=== PATIENT | male | born 1955 | race Caucasian/White ===

== ENCOUNTER 2018-06-28 07:22 | Day surgery (SDC) | payer OTHER, SELFPAY ==
[2018-06-28 08:02] VITALS: BP 122/78; PULSE 85; RESP 18; TEMP 36.8; O2SAT 97; BMI 35.2
[2018-06-28 08:11] LABS: Bedside Glucose 146 mg/dL (70-110)
--- NOTE | 2018-06-28 08:30 | COLBX_PTH ---
PATIENT: CLAY OWENS LOC: EN U#:[id number] AGE/SX: 63/M ROOM: RE06/28/[address]: Dr. Gerhard Rudd MD : 1955 BED: DIS: 06/28/2018 SPEC #: [id number] RECD: 06/28/18 10:09 STATUS: TRICE DUY #: [id number] DAVID: 06/28/18 08:[address]: Gerhard Rudd DEPT: SURGICAL PATHOLOGY RECD BY: Alexandru Early ENTERED: 06/28/18 10:58 SP TYPE: COLON BX LISETTE DR: Dr. Afshan Bennett MD Tissues: A - Transverse colon B - Descending colon C - Sigmoid colon biopsy D - Sigmoid colon biopsy Procedures: Surgery Specimen Level IV HEADER OPERATION: Colonoscopy - open access (MOD) PRE-OP DIAGNOSIS: Screening TISSUE SUBMITTED: A - Proximal transverse polyp biopsy, B - Descending colon polyp biopsy, C - Proximal sigmoid polyps (3), D - Distal sigmoid polyp biopsy MICROSCOPIC DIAGNOSIS A. Proximal transverse colon polyp, biopsy: Fragments of tubular adenoma. B. Descending colon polyp, biopsy: Fragments of tubular adenoma. C. Proximal sigmoid polyps, biopsy: Fragments of tubular adenoma. D. Distal sigmoid colon polyp, biopsy: Fragments of tubular adenoma. AM:jessy 07/01/18 MICROSCOPIC DESCRIPTION Slides are reviewed. GROSS DESCRIPTION A - Received in fixative is one container labeled with the patient's name and designated proximal transverse polyp biopsy. The specimen consists of two irregular fragments of light chisholm soft tissue that in aggregate measure 0.6 x 0.3 x 0.1 cm. The specimen is totally submitted in one cassette. B - Received in fixative is one container labeled with the patient's name and designated descending polyp. The specimen consists of multiple irregular fragments of light chisholm soft tissue that in aggregate measure 1 x 1 x 0.1 cm. The specimen is totally submitted in one cassette. C - Received in fixative is one container labeled with the patient's name and designated proximal sigmoid biopsy. The specimen consists of multiple irregular fragments of light chisholm soft tissue that in aggregate measure 1.5 x 1 x 0.2 cm. The specimen is totally submitted in one cassette. D - Received in fixative is one container labeled with the patient's name and designated distal sigmoid polyp biopsy. The specimen consists of multiple irregular fragments of light chisholm soft tissue that in aggregate measure 1.5 x 0.5 x 0.1 cm. The specimen is totally submitted in one cassette. / SJ:jessy 06/28/18 TC:5 CPT: 30881 x4
--- NOTE | 2018-06-28 09:04 | HP.PCM_ITS ---
Problem List (1) Screening for intestinal cancer Status: Acute History of Present Illness Date of Admission: 06/28/18 The patient is a 63 year old M who presents via our open access program. He is diabetic. He has had atherosclerotic cardiovascular disease and has 2 coronary stents. He has been on Brilinta but that is been on hold for 5 days. He denies chest pain or dyspnea. No shortness of breath. He is able to climb a flight of stairs. He denies abdominal pain bright red blood per rectum or melena. He otherwise enjoys good health. 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) Antihyperlipidemic Hypertension (Chronic) Atherosclerotic heart disease of [place] coronary artery without angina pectoris (Chronic) HLD (hyperlipidemia) (Chronic) Coronary artery disease (Chronic) DM2 (diabetes mellitus, type 2) (Chronic) Medical History: Medical History (Last Updated 07/27/17 @ 13:45 by Abbey Simmons) Left ventricular hypertrophy (Chronic) I51.7 Left atrial enlargement (Chronic) I51.7 Old anterior wall myocardial infarction (Chronic) I25.2 Hypertension (Chronic) I10 Atherosclerotic heart disease of [place] coronary artery without angina pectoris (Chronic) I25.10 HLD (hyperlipidemia) (Chronic) E78.5 Coronary artery disease (Chronic) I25.10 Allergies No Known Allergies Allergy (Verified 06/25/18 11:55) Home Medications: Ambulatory Orders Medication Instructions Recorded Aspirin [Aspirin, Baby] 81 mg PO DAILY@0800 10/11/15 Atorvastatin Calcium [Lipitor] 20 mg PO QHS 10/11/15 Insulin Detemir [Levemir FlexPen] 28 units SC QHS 10/11/15 nitroglycerin 0.4 mg sublingual 0.4 mg SUBLINGUAL Q5M PRN 08/14/17 tablet metoprolol succinate ER 25 mg 25 mg PO DAILY #30 tab 08/17/17 tablet,extended release 24 hr ticagrelor 90 mg tablet 90 mg PO BID #60 tab 08/17/17 lisinopril 5 mg tablet 5 mg PO DAILY #30 tab 09/10/17 Glipizide 5 mg PO BID 06/25/18 Metformin HCl [Glucophage] 1,000 mg PO BIDCM 06/25/18 Surgical History: Surgical History (Last Updated 06/10/18 @ 09:01 by Sharmila Phelan) Presence of cardiac and vascular implant and graft (Chronic) Onset Date: ~07/14/13 Z95.9 PTCA with ROXANNE in mid LAD 07/14/13 H/O: vasectomy (Resolved) Z98.52 Surgical History: - - percucataneous coronary intervention Psychiatric History: No pertinent psych hx Smoking Status: Former smoker Tobacco Use: Non-smoker - *Family History Paternal Family History: Family History (Last Reviewed 08/17/17 @ 09:43 by Abbey Simmons) Mother CAD (coronary artery disease) Father Cancer Brother Afib History Items: Cancer - lung Sibling Family History: Family History (Last Reviewed 08/17/17 @ 09:43 by Abbey Simmons) Mother CAD (coronary artery disease) Father Cancer Brother Afib History Items: Cancer - lung cancer Review of Systems Constitutional: Denies: Anorexia HEENT: Denies: Difficulty Swallowing Cardiovascular: Denies: Chest Pain Respiratory: Denies: Cough Gastrointestinal: Denies: Abdominal Pain Neurological: Denies: Balance problems Endocrine: Denies: Change in Body Habitus VTE Information - Inpt Only VTE Present on Admission: No Patient Problems: Active and Suspected Problems (Last Updated 07/27/17 @ 13:45 by Abbey Simmons) Screening for intestinal cancer (Acute) - Physical Exam General: Alert, Oriented x3, Cooperative, No apparent distress Neck: Supple Lungs: Clear to auscultation Cardiovascular: Regular rate, Regular Rhythm Abdomen: Bowel Sounds Present, Soft, Non Tender, Obese Extremities: No clubbing, No Calf Tenderness Musculoskeletal: No Tenderness to Palpation of Joints or Extremities Psych/Mental Status: Normal Affect Vital Signs Temp Pulse Resp BP Pulse Ox 98.3 F 85 18 122/78 H 97 06/28/18 08:02 06/28/18 08:02 06/28/18 08:02 06/28/18 08:02 06/28/18 08:02 Oxygen Delivery Method Room Air Weight: 260 lb Body Mass Index (BMI) 35.2 POC Glucose 06/28/18 07:59 POC Glucose 146 H Assessment/Plan All Active Problems (Last Updated 07/27/17 @ 13:45 by Abbey Simmons) Screening for intestinal cancer (Acute) Ischemic cardiomyopathy (Resolved) H/O: vasectomy (Resolved) Chest pain (Acute) I am recommending a screening colonoscopy with possible biopsy or polypectomy as indicated. He is aware of the technique, benefits, risks and alternatives. He presents via open access. We will proceed as noted. Gerhard Rudd M.D., F.A.C.S.
[2018-06-28 09:47] VITALS: BP 119/65; BP 120/95; BP 122/78; BP 124/73; BP 125/65; BP 125/72; BP 126/71; BP 134/111; BP 134/66; BP 140/62; BP 164/76; BP 182/85; PULSE 77; RESP 16; TEMP 36.8; O2SAT 100; O2SAT 95; O2SAT 96; O2SAT 99
[2018-06-28 09:50] VITALS: BP 122/78; BP 123/75; PULSE 74; RESP 16; O2SAT 94
--- NOTE | 2018-06-28 09:53 | OP.ENDO_ITS ---
06/28/2018 [facility] Re : Colonoscopy procedure for Salvador Keene Michelle Bennett This procedure was performed on Thursday, June 28, 2018. My impressions and recommendations are as follows: Impressions : - One 6 mm polyp in the proximal transverse colon, removed with a cold biopsy forceps. Resected and retrieved. - One 6 mm polyp in the descending colon, removed with a hot snare. Resected and retrieved. Clip was placed. - One 6 mm polyp in the proximal sigmoid colon, removed with a cold biopsy forceps. Resected and retrieved. Clip was placed. - One 5 mm polyp in the sigmoid colon, removed with a cold biopsy forceps. Resected and retrieved. - One 7 mm polyp in the sigmoid colon, removed with a cold biopsy forceps. Resected and retrieved. - One 6 mm polyp in the distal sigmoid colon, removed with a cold biopsy forceps. Resected and retrieved. - Diverticulosis in the entire examined colon. Recommendations : - Discharge patient to home. - Resume previous diet. - Resume anticoagulant medication at prior dose tomorrow. - Telephone my office for pathology results in 1 week. - Repeat colonoscopy in 1 year for surveillance. My findings are described in the full procedure note, which is enclosed. If I can be of further assistance, please feel free to contact me at Doctor phone number(s): Work: . Sincerely, Gerhard Rudd MD 06/28/2018 9:52:47 AM This report has been signed electronically.
[2018-06-28 09:55] VITALS: BP 116/64; BP 122/78; PULSE 73; RESP 16; O2SAT 94
[2018-06-28 10:00] VITALS: BP 106/70; BP 122/78; PULSE 73; RESP 16; TEMP 36.3; O2SAT 94; O2SAT 97
[2018-06-28 10:38] VITALS: BP 122/78
== END 2018-06-28 10:38 | disposition home or self-care (01) ==
LOC: EN 07:23 → AC 07:25
PROVIDERS: Family Provider Internal Medicine; PCP Internal Medicine; Referring Provider Internal Medicine; Visit Provider Surgery
PROC: 0DJD8ZZ Inspection of Lower Intestinal Tract, Via Natural or Artificial Opening Endoscopic (ICD-10-PCS; CPT 45378; principal; 2018-06-28 08:25)
DX: Z12.11 Encounter for screening for malignant neoplasm of colon (principal); D12.4 Benign neoplasm of descending colon; D12.5 Benign neoplasm of sigmoid colon; D12.3 Benign neoplasm of transverse colon; E11.9 Type 2 diabetes mellitus without complications; I25.10 Atherosclerotic heart disease of native coronary artery without angina pectoris; Z95.5 Presence of coronary angioplasty implant and graft; E78.5 Hyperlipidemia, unspecified; I10 Essential (primary) hypertension; I25.2 Old myocardial infarction; Z79.899 Other long term (current) drug therapy; Z79.82 Long term (current) use of aspirin; Z79.4 Long term (current) use of insulin; K57.30 Diverticulosis of large intestine without perforation or abscess without bleeding
CPT/HCPCS: 45380; 45385; 82962; 88305; 99152; 99153; J7120

== ENCOUNTER → 2019-05-06 06:15 | Outpatient (CLI) | payer OTHER, SELFPAY ==
[2019-04-17 09:28] VITALS: BMI 35.5
--- NOTE | 2019-05-06 13:13 | STRESSREP ---
Stress Test Report Date: 05-06-2019 Procedure: Pharmacologic stress nuclear imaging study Indications: Fatigue; CAD; PCI Consent: Per the patient Procedure: The patient underwent pharmacologic (Regadenoson) evaluation with a peak heart rate of 100 beats per minute (63 %predicted maximal heart rate) and a peak blood pressure of 160/80 mmHg. The baseline ECG demonstrated normal sinus rhythm; nonspecific T wave abnormality. The peak pharmacologic ECG demonstrated no obvious ECG changes. There were no cardiac dysrhythmias pretest, during pharmacologic infusion, or recovery. There was no complaint of chest discomfort during pharmacologic infusion or recovery. The examination was discontinued secondary to completion of protocol. Impression: 1. Pharmacologic (Regadenoson) evaluation 2. Peak pharmacologic ECG with no obvious ECG changes. 3. There were no cardiac dysrhythmias pretest, during pharmacologic infusion, or recovery. 4. Nuclear images pending Myocardial perfusion imaging study: Technique: The patient was injected with 14.7 millicuries of technetium 99m Cardiolite and subsequently rest SPECT Cardiolite nuclear imaging was obtained in the horizontal long, vertical long, and short axis views. The patient underwent pharmacologic (Regadenoson) evaluation with a peak heart rate of 100 beats per minute (63 % percent predicted maximal heart rate) and a peak blood pressure of 160/80 mmHg. The patient was injected with 44.9 millicuries of technetium 99m Cardiolite and subsequently stress SPECT Cardiolite nuclear imaging was obtained in the horizontal long, vertical long, and short axis views. A gated Cardiolite study at peak stress was obtained. Interpretation: Rest and stress SPECT Cardiolite nuclear imaging status post realignment, normalization, and attenuation correction demonstrate relative uniform tracer uptake and myocardial perfusion appearing within normal limits. There is end systolic thickening and brightening. The gated Cardiolite study demonstrates myocardial thickening and inward wall motion. The reported LVEF is 71 %. Impression: 1. Rest and stress SPECT Cardiolite nuclear imaging demonstrate relative uniform tracer uptake and myocardial perfusion appearing within normal limits. 2. The gated Cardiolite study reports an LVEF of 71 %. This note was generated with Method software. It may contain incorrect words, spelling, and punctuation that were not noted in checking the note before signing.
== END ==
PROVIDERS: PCP Internal Medicine; Referring Provider Physician Assistant Medical; Visit Provider Physician Assistant Medical
DX: I25.10 Atherosclerotic heart disease of native coronary artery without angina pectoris (principal); I25.5 Ischemic cardiomyopathy; E78.00 Pure hypercholesterolemia, unspecified; I10 Essential (primary) hypertension
CPT/HCPCS: 78452; 93017; A9500; A4216; J2785

== ENCOUNTER → 2020-09-10 14:16 | Outpatient (CLI) | payer OTHER, SELFPAY ==
[2019-04-17 09:28] VITALS: BMI 35.5
[2020-09-06 09:02] VITALS: BMI 34.4
--- NOTE | 2020-09-07 16:01 | PCM.HP.BLA ---
History and Physical History and Physical [facility] Patient Name: Salvador Keene : 1955 From: [facility] PA-C DATE OF SURGERY: 09/29/2020 SCHEDULED PROCEDURE: left total hip arthroplasty HISTORY OF PRESENT ILLNESS: Preoperative history and physical exam was performed on September 06, 2020. This is a 65-year-old male who is had ongoing pain for several years with his left hip. His pain can reach 5/10. His pain has been intermittent. He has increased pain with walking, sitting, and driving. He does have start up pain. He has pain located in the left buttock and left lateral hip. Pain does awaken him at night. He has difficulty with getting dressed as well as leisure activities such as biking. Patient denies previous surgery on the left hip. He has tried [id number] ibuprofen in the past. Patient has a medical history pertinent for type 2 diabetes mellitus and which she does see an assistant professor of english Alexandru Holman. His last A1c was 7.9. Patient also sees sports management intern Dr. Rebolledo in which she has had a previous heart stent in 2013. He also has history of ischemic cardiomyopathy, hypertension, hyperlipidemia. He denies any recent chest pain, shortness of breath, fevers chills, recent infections. Cardiology did give okay to stop the Brilinta 5 days before surgery. We will resume this as soon as possible following surgery. After failing conservative measures and discussing treatment options with Dr. Selwyn Garcia, the patient does wish to proceed with a left total hip arthroplasty. REVIEW OF SYSTEMS: ROS: Const: Denies change in appetite, fever,or weight change. CV: Denies chest pain, heart murmur and irregular heartbeat. Resp: Denies cough, pneumonia, SOB, tuberculosis and wheezing. GI: Denies constipation, diarrhea, difficulty swallowing, heartburn, nausea, bloody stools and vomiting. : Urinary: denies incontinence. Musculo: Denies leg swelling, limp, trouble walking and weakness. Skin: Denies Raynaud's, history of shingles and tattoo. Neuro: Denies ambulatory dysfunction, dizziness, numbness/tingling and tremor. Psych: Denies anxiety, insomnia and stress. Lawrence/Lymph: Denies anemia, bleeding/bruising tendency and past transfusion. Reviewed, no changes. PAST MEDICAL HISTORY: PMH: Medical Problems: Coronary Artery Disease (CAD), Diabetes, Kidney Stones Accidents: None Surgical Hx: 2 Stents Anesthesia Complications: None Assistive Devices: Glasses, Contacts Reviewed and updated. 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 Personal Habits: Cigarette Use: Former.Alcohol: Occasionally.Drug Use: Denies Use.Enjoy Exercising: Never Exercises. Reviewed and updated. VITALS: Ht: 72 Wt: 253lb Wt k.761 BMI: 34.3 BP: 122/72 Pulse: 80 Resp: 10 T: 97.4 T: 36.3C Pain Level: 0 ALLERGIES: No Known Drug Allergy MEDICATIONS: Levemir Flextouch 13 mg, Aspir-Low 81 mg, Lisinopril 5 mg 1 by mouth every day, Metoprolol Tartrate 25 mg 1 daily PO, Atorvastatin Calcium 20 mg 1 by mouth every day, Brilinta 90 mg 2 PO daily, Metformin HCL 1000 mg 1 by mouth twice a day, Glipizide 5 mg 1 by mouth twice a day PRE-OP EXAM: General appearance:NORMAL Other: Eyes: Conjunctivae and lids: NORMAL Pupils: ERR Ears, Nose, Mouth, and Throat: NORMAL Other: Inspection of lips, teeth and gums: NORMAL Other: Neck: Examination of neck: no masses noted. Respiratory: Assessment of respiratory effort: NORMAL Other: Auscultation of lungs: clear to auscultation no wheezes, rhonchi or rales. Cardiovascular: Auscultation of heart: regular rate and rhythm, no murmurs, gallops or rubs. Exam of carotid arteries: NORMAL Other: Gastrointestinal: Exam of abdomen: soft, nontender, nondistended bowel sounds present. PHYSICAL EXAMINATION: On exam patient does walk with an antalgic gait. His left leg is 3 mm shorter than the right. He has obligatory external rotation with flexion. Flexion 65, internal rotation 10, external rotation 20. Nontender to palpation over the lateral greater trochanteric region. Sensation intact to light touch. Neurovascularly intact. IMAGING STUDIES: X-rays were obtained of the left hip at today's visit at [facility] on September 06, 2020 including 3 views AP pelvis, AP left hip, crossfire lateral left hip reveals joint space narrowing with subchondral sclerosis and osteophyte formation consistent with severe stage IV osteoarthritis. No lytic or blastic lesions. Is also came lesion off the femoral head. Subchondral cyst formation in the femoral head. IMPRESSION: 1. Severe left hip osteoarthritis 2. History of heart stents 2013 3. Type 2 diabetes mellitus 4. Hypertension 5. Hyperlipidemia 6. Ischemic cardiomyopathy 7. History of kidney stones PLAN: Dr. Selwyn Garcia did discuss and review with the patient all treatment options including surgical versus nonsurgical options. Patient does wish to proceed with the above-stated procedure. Potential risks, benefits, and complications of the procedure were discussed in detail including but not limited to , infection, nerve and blood vessel damage, persistent pain, numbness, tingling, paresthesias, blood clot, pulmonary embolism, and requirement for possible further surgery. The patient expressed full understanding and has no further questions for the doctor. Patient does agree to proceed with the above-stated procedure and has signed the surgery consent form. We discussed the current risks associated with COVID 19. This does include the risk of exposure while in the hospital. Patient was reassured local hospitals have low infection rates and are taking all necessary precautions to avoid exposure to patients. In addition, we discussed strategies that can be used to help limit exposure including those that limit the patient's time in the hospital. Also using strategies to limit the patient's need for continued inpatient services after being discharged from the hospital. Patient was notified that we will need to comply with any screening or testing the hospital wishes to perform or that surgery may be delayed for any positive results. This dictation was created using voice recognition software. Phonetic and/or grammatical errors may exist. ___ I have re-examined the patient. There are no clinical changes since date of exam. ___ See progress notes for changes. ___ Dictated on admission Date: Time: Signature:
[2020-09-10 07:30] LABS: Absolute Lymphocyte Count 2.38 X10^3/uL (0.83-4.51); Absolute Neutrophil Count 5.7 X10^3/uL (2.0-7.7); Basophil# 0.06 X10^3/uL; Basophil% 0.6 % (0-1); Eosinophil# 0.45 X10^3/uL; Eosinophils% 4.7 % (0-5); Hematocrit 39.1 % (40-54); Hemoglobin 12.9 g/dL (13.0-16.5); Lymphocyte # 2.38 X10^3/ul (0.83-4.51); Mean Corpuscular Hgb 29.3 pg (27.0-32.0); Mean Corpuscular Volume 88.7 fL (80-94); Mean Platelet Vol. 10.1 fl (6.2-12.0); Monocyte# 0.92 X10^3/uL; Monocyte% 9.7 % (0-10); NRBC Flagged by Analyzer 0 % (0-5); Neutrophil # 5.66 X10^3/uL (2.7-7.7); Neutrophil % 59.6 % (47-70); Platelet Count 299 K/mm3 (150-450); RBC Distribution Width CV 13.8 % (11.6-14.6); RBC Distribution Width SD 44.9 fl (35.1-43.9); Red Blood Count 4.41 M/mm3 (4.6-6.2); White Blood Count 9.5 K/mm3 (4.4-11.0)
[2020-09-10 07:56] LABS: Magnesium 1.9 mg/dL (1.6-2.6)
== END ==
PROVIDERS: Anesthesiology; PCP Internal Medicine; Referring Provider Specialist; Visit Provider Specialist
DX: Z01.818 Encounter for other preprocedural examination (principal)
CPT/HCPCS: 36415; 83735; 85025; 87081

== ENCOUNTER 2021-02-24 03:46 | Emergency (ER) | payer OTHER, SELFPAY ==
[2021-02-24 03:46] VITALS: BP 163/80; PULSE 98; RESP 18; TEMP 37; O2SAT 97; BMI 35.2
--- NOTE | 2021-02-24 03:52 | EKG12_ITS ---
Test Reason : CP Blood Pressure : / mmHG Vent. Rate : 097 BPM Atrial Rate : 097 BPM P-R Int : 154 ms QRS Dur : 078 ms QT Int : 340 ms P-R-T Axes : 042 024 051 degrees QTc Int : 431 ms Normal sinus rhythm Normal ECG Confirmed by GEORGE MASSEY, MAR ([id number]), associate entertainment editor BELLO STERLING ([id number]) on 02/25/2021 1:30:46 PM Referred By: TL Confirmed By:MAR VAZQUEZ MD
--- NOTE | 2021-02-24 03:52 | RAD_ITS ---
STUDY: X-RAY CHEST REASON FOR EXAM: Male, 65 years old. chest pain TECHNIQUE: Single AP portable view of the chest. COMPARISON: October 11, 2015. FINDINGS: No focal infiltrates or effusions. No pneumothorax. Normal size heart. Normal mediastinum and josi. Normal visualized pulmonary arteries. Normal visualized aortic arch and descending thoracic aorta. Normal visualized thoracic spine. Normal visualized ribs, clavicles, and shoulders. There is no demonstrated abnormality of the visualized soft tissue structures of the upper abdomen. RAD/Chest 1 View (Portable) IMPRESSION: Normal x-ray examination of the chest. Electronically Signed: Mike Anthony MD at 4:56 EST , Service support ,
[2021-02-24 04:04] LABS: Absolute Lymphocyte Count 2.24 X10^3/uL (0.83-4.51); Absolute Neutrophil Count 12.9 X10^3/uL (2.0-7.7); Basophil# 0.06 X10^3/uL; Basophil% 0.3 % (0-1); Eosinophil# 0.44 X10^3/uL; Eosinophils% 2.5 % (0-5); Hematocrit 41.2 % (40-54); Hemoglobin 13.4 g/dL (13.0-16.5); Lymphocyte # 2.24 X10^3/ul (0.83-4.51); Lymphocyte % 12.8 % (19-41); Mean Corp Hgb Conc 32.5 g/dL (32-36); Mean Corpuscular Hgb 29.3 pg (27.0-32.0); Mean Corpuscular Volume 90.2 fL (80-94); Mean Platelet Vol. 10.3 fl (6.2-12.0); Monocyte# 1.85 X10^3/uL; Monocyte% 10.6 % (0-10); NRBC Flagged by Analyzer 0 % (0-5); Neutrophil # 12.87 X10^3/uL (2.7-7.7); Neutrophil % 73.4 % (47-70); POSITIVE DIFFERENTIAL YES; Platelet Count 342 K/mm3 (150-450); RBC Distribution Width CV 13.6 % (11.6-14.6); RBC Distribution Width SD 44.3 fl (35.1-43.9); Red Blood Count 4.57 M/mm3 (4.6-6.2); White Blood Count 17.5 K/mm3 (4.4-11.0)
--- NOTE | 2021-02-24 04:13 | EDS_ITS ---
HPI History of Present Illness Chief Complaint: Chest Pain Informant: patient and spouse/S.O. Narrative Narrative: Presents for evaluation of chest discomfort started at 9 PM 6 hours prior to arrival. States was drinking water felt symptoms mid chest like something stuck. He states felt like diaphragm was not moving. This was intermittent. Unable take a deep breath. Denies any cough. No radicular symptoms. No nausea or diaphoresis. History of coronary disease with 2 stents placed in [address] Rebolledo. He states LAD lesion along with the first diagonal lesion. Last stress test 2 years ago. He states that another one pending due to plan orthopedic surgery. Has not had a heart cath since his stents. Remote tobacco years ago. No family history of MIs at a young age. History hypertension, diabetes, hypercholesterolemia. Patient does take aspirin and Brilinta. Reported he took 2 baby aspirin at 11 PM. Symptoms currently subsiding. Prior Similar Symptoms: No CVD Risk Factors: Positive for Hypertension, Diabetes and Hypercholesterolemia; Negative for Family History 1' </=55 and Smoking [facility] Medical History Arthritis Atherosclerotic heart disease of [place] coronary artery without angina pectoris Cardiology follow-up encounter (~09/06/20) Diabetes Essential hypertension Former smoker High cholesterol History of stress test (~05/06/19) Hypertension Insulin dependent diabetes mellitus Ischemic cardiomyopathy Kidney stones Left atrial enlargement Left ventricular hypertrophy Old anterior wall myocardial infarction Presence of stent in coronary artery (~07/14/13) Pure hypercholesterolemia Shortness of breath on exertion Sleep apnea Type 2 diabetes mellitus Wears glasses Home Medications aspirin 81 mg PO DAILY@0800 10/11/15 [History Last Taken 06/23/18] atorvastatin 20 mg PO QHS 10/11/15 [History Last Taken 10/10/15] metoprolol succinate 25 mg tablet,extended release 24 hr 25 mg PO DAILY #30 tab 08/17/17 [Rx Last Taken 06/28/18] lisinopril 5 mg tablet 5 mg PO DAILY #30 tab 09/10/17 [Rx Last Taken 06/28/18] glipizide 5 mg PO BID 06/25/18 [History Last Taken Unknown] insulin detemir U-100 100 unit/mL (3 mL) subcutaneous pen 30 unit SUBCUT QHS ml 02/27/20 [History Last Taken Unknown] nitroglycerin 0.4 mg sublingual tablet 0.4 mg SUBLINGUAL Q5-15M PRN #25 tab 02/27/20 [Rx Last Taken Unknown] apple cider vinegar 500 mg PO DAILY 09/08/20 [History Last Taken Unknown] cholecalciferol (vitamin D3) [Vitamin D3] 25 mcg PO DAILY 09/08/20 [History Last Taken Unknown] pyridoxine (vitamin B6) [Vitamin B-6] 100 mg PO DAILY 09/08/20 [History Last Taken Unknown] turmeric 400 mg PO DAILY 09/08/20 [History Last Taken Unknown] ticagrelor 90 mg tablet 90 mg PO BID #60 tab 09/21/20 [Rx Last Taken Unknown] dulaglutide 1.5 mg/0.5 mL subcutaneous pen injector 1.5 mg SUBCUT QWEEK ml 02/15/21 [History Last Taken Unknown] metformin 500 mg tablet,extended release 24 hr 1,000 mg PO BID tab 02/15/21 [History Last Taken Unknown] Allergy/AdvReac Type Severity Reaction Status Date / Time No Known Allergies Allergy Verified 02/15/21 09:10 Family History Mother CAD (coronary artery disease) Father Cancer Brother Afib Surgical History H/O: vasectomy History of cardiac catheterization History of coronary artery stent placement Hx of colonoscopy (~06/2013) Presence of coronary angioplasty implant and graft (~07/14/13) Social History Smoking Status: Former smoker how long ago did patient quit smokin years ago alcohol intake: current alcohol intake frequency: a few times a month Alcohol type: beer substance use type: does not use caffeine: Yes Type: coffee Number of servings: 5 ROS ROS ED Constitutional Constitutional ED: Denies chills, fever(s) or sweats Eyes Eyes: Denies change in vision ENT ENT ED: Denies dysphagia or sore throat Cardiovascular Cardiovascular: Reports chest pain; Denies leg edema, palpitations or racing heartbeat Respiratory/Chest Respiratory/Chest: Denies cough, dyspnea or dyspnea on exertion Gastrointestinal Gastrointestinal: Denies abdominal pain, diarrhea, nausea or vomiting Genitourinary Genitourinary ED: Denies dysuria, hematuria or urinary frequency Musculoskeletal Musculoskeletal: Denies back pain, extremity pain or neck pain Integumentary Denies rash or wounds Neurologic Neurologic: Denies headache(s), paresthesias or weakness EXAM Physical Exam Const Vital Signs: 02/24/21 03:46 02/24/21 03:52 02/24/21 04:07 Temperature 98.6 F Temperature Source Temporal Pulse Rate 98 Respiratory Rate 18 Respiratory Effort Normal Blood Pressure 163/80 H Blood Pressure Mean 107 Pulse Ox 97 Oxygen Delivery Method Room Air Room Air 02/24/21 06:22 Temperature Temperature Source Pulse Rate 81 Respiratory Rate 18 Respiratory Effort Blood Pressure 128/76 H Blood Pressure Mean 93 Pulse Ox Oxygen Delivery Method Positive well nourished and well developed General Appearance ED: well developed and NAD HEENT Reports moist mucous membranes normocephalic and atraumatic Eyes PERRL, EOMs intact bilaterally and conjunctivae normal General Eye ED: Yes normal appearance of both eyes Neck no lymphadenopathy and supple General: Negative for tenderness Chest Wall Chest: Negative for tenderness Resp normal respiratory effort and normal air movement Effort and Inspection: symmetric chest movement; Negative for respiratory distress Cardio regular rate, regular rhythm and no murmurs Peripheral Pulses: pulses 2+ throughout GI normal to inspection, nondistended, normoactive bowel sounds and non-tender Palpation: Negative for guarding or rebound tenderness present Back/Spine no CVA tenderness and no thoracic nor lumbar tenderness Extremity normal to inspection General Extremety ED: Negative for edema or tenderness General Extremity: Negative for edema Neuro oriented x3 and no sensory deficits noted Sensorium / Orientation: awake and alert Skin no rashes or lesions noted and no wounds Heart Score History: Slightly/Non-Suspicious ECG: Normal Age: >/= 65 years Risk Factors: >/= 3 Risk Factors or History of CAD Troponin: </= Normal Limit Score: 4 MDM MDM MDM Narrative Medical decision making narrative: Patient EKG nonspecific changes. He took 2 baby aspirin's prior to arrival 11 PM. Cardiac work-up initiated. Chest x-ray negative. Labs noted white count of 17 slight left shift. Added urine which was negative. Denies any rashes. Multiple rejaws due to hemolysis. Reported potassium 5.8 however creatinine 1.18. Normal EKG, likely partial myolysis with this. His troponin initially returned normal at 8. Reevaluation at 0530, he is symptom-free at this point. I discussed the leukocytosis with the patient with left shift. He denies any blood disorders. Discussed this being a possibility early findings. We will plan for hematology follow-up as an outpatient. We will plan for 2-hour repeat troponin for cardiac work-up and will redraw potassium at that time. Patient understands and agrees with plan. Also follow- up with his executive vice president and chief financial officer Dr. Rebolledo, he states he has a planned nuclear stress test for surgical clearance. Repeat troponin negative. Potassium also normal recheck. Remained symptom-free. Patient discharged. All questions answered. Return precautions discussed. Patient is being discharged under pandemic conditions under declared global, national and state disaster activation, with limited medical resources. Patient and community understands this. Results discussed in layman's terms to the patient satisfaction. All questions answered in layman's terms. Patient understands importance of follow-up care as directed. Patient has been instructed to return to the ED immediately if new symptoms, problems, or questions occur. We mutually agree with the plan of disposition. The patient understand that they may call or return with any questions or concerns at any time. Lab Data Attestation: I reviewed the patient's lab results. Labs: Laboratory Results - last 24 hr 02/24/21 02/24/21 02/24/21 04:00 04:00 04:00 WBC 17.5 H RBC 4.57 L Hgb 13.4 Hct 41.2 MCV 90.2 MCH 29.3 MCHC 32.5 RDW Std Deviation 44.3 H RDW Coeff of Stephanie 13.6 Plt Count 342 MPV 10.3 Immature Gran % (Auto) 0.400 Neut % (Auto) 73.4 H Lymph % (Auto) 12.8 L [place] % (Auto) 10.6 H Eos % (Auto) 2.5 Baso % (Auto) 0.3 Absolute Neuts (auto) 12.9 H Absolute Lymphs (auto) 2.24 Nucleated RBC % 0 Differential Comment SCANNED Diff Path Review May foll Sodium Cancelled Potassium Cancelled Chloride Cancelled Carbon Dioxide Cancelled Anion Gap Cancelled BUN Cancelled Creatinine Cancelled Estim Creat Clear Calc Cancelled Est GFR (MDRD) Af Amer Cancelled Est GFR (MDRD) Non-Af Cancelled BUN/Creatinine Ratio Cancelled Glucose Cancelled Calcium Cancelled Troponin I High Sens Cancelled Urine Color Yellow Urine Clarity Clear Urine pH 5.0 Ur Specific [place] 1.015 Urine Protein Negative Urine Glucose (UA) Normal Urine Ketones Negative Urine Occult Blood Negative Urine Nitrite Negative Urine Bilirubin Negative Urine Urobilinogen Normal Ur Leukocyte Esterase Negative Urine RBC 0 SEEN Urine WBC 0 SEEN Ur Squamous Epith Cells 0 SEEN Urine Bacteria 0 SEEN Urine Mucus 0 SEEN 02/24/21 02/24/21 02/24/21 04:20 04:55 06:20 WBC RBC Hgb Hct MCV MCH MCHC RDW Std Deviation RDW Coeff of Stephanie Plt Count MPV Immature Gran % (Auto) Neut % (Auto) Lymph % (Auto) [place] % (Auto) Eos % (Auto) Baso % (Auto) Absolute Neuts (auto) Absolute Lymphs (auto) Nucleated RBC % Differential Comment Diff Path Review Sodium Cancelled 132 L Potassium Cancelled 5.8 H 4.6 Chloride Cancelled 105 Carbon Dioxide Cancelled 20.0 L Anion Gap Cancelled 7 BUN Cancelled 22 H Creatinine Cancelled 1.18 Estim Creat Clear Calc Cancelled 68.50 Est GFR (MDRD) Af Amer Cancelled 80 Est GFR (MDRD) Non-Af Cancelled 66 BUN/Creatinine Ratio Cancelled 18.6 Glucose Cancelled 138 H Calcium Cancelled 9.2 Troponin I High Sens Cancelled 8 Urine Color Urine Clarity Urine pH Ur Specific [place] Urine Protein Urine Glucose (UA) Urine Ketones Urine Occult Blood Urine Nitrite Urine Bilirubin Urine Urobilinogen Ur Leukocyte Esterase Urine RBC Urine WBC Ur Squamous Epith Cells Urine Bacteria Urine Mucus 02/24/21 06:20 WBC RBC Hgb Hct MCV MCH MCHC RDW Std Deviation RDW Coeff of Stephanie Plt Count MPV Immature Gran % (Auto) Neut % (Auto) Lymph % (Auto) [place] % (Auto) Eos % (Auto) Baso % (Auto) Absolute Neuts (auto) Absolute Lymphs (auto) Nucleated RBC % Differential Comment Diff Path Review Sodium Potassium Chloride Carbon Dioxide Anion Gap BUN Creatinine Estim Creat Clear Calc Est GFR (MDRD) Af Amer Est GFR (MDRD) Non-Af BUN/Creatinine Ratio Glucose Calcium Troponin I High Sens 9 Urine Color Urine Clarity Urine pH Ur Specific [place] Urine Protein Urine Glucose (UA) Urine Ketones Urine Occult Blood Urine Nitrite Urine Bilirubin Urine Urobilinogen Ur Leukocyte Esterase Urine RBC Urine WBC Ur Squamous Epith Cells Urine Bacteria Urine Mucus Radiography Chest X-Ray - ED: 1 View, Read by ED Physician and Normal Diagnostic Testing: Clinical Impression(s) from Imaging Studies Chest X-Ray 02/24/21 03:52 IMPRESSION: Normal x-ray examination of the chest. Electronically Signed: Mike Anthony MD at 4:56 EST , Service support , EKG Initial EKG: Attestation: I personally reviewed and interpreted this EKG as follows: Comments: Sinus rate of 97 T wave inversion in aVL. Nonspecific. Discharge Plan Triage Chief Complaint: Chest Pain ED Provider: Jorje Charles Dx/Rx/DC Orders Clinical Impression: Chest pain, Leukocytosis Instructions: ED Chest Pain, Uncertain Cause Prescriptions: No Action metoprolol succinate 25 mg tablet extended release 24 hr 25 mg PO DAILY Qty: 30 RF: 12 nitroglycerin [Nitrostat] 0.4 mg tablet, sublingual 0.4 mg SUBLINGUAL Q5-15M PRN (Reason: chest pain) Qty: 25 RF: 1 Trulicity 1.5 mg/0.5 mL pen injector 1.5 mg subcut QWEEK RF: 0 metformin 500 mg tablet extended release 24 hr 1,000 mg PO BID RF: 0 atorvastatin 20 MG tablet 20 mg PO QHS RF: 0 aspirin 81 MG tablet,chewable 81 mg PO DAILY@0800 RF: 0 insulin detemir U-100 100 unit/mL (3 mL) insulin pen 30 unit subcut QHS RF: 0 glipizide 5 MG tablet 5 mg PO BID RF: 0 pyridoxine (vitamin B6) [Vitamin B-6] 100 mg Tablet 100 mg PO DAILY RF: 0 apple cider vinegar 500 mg Tablet 500 mg PO DAILY RF: 0 cholecalciferol (vitamin D3) [Vitamin D3] 25 mcg (1,000 unit) Tablet 25 mcg PO DAILY RF: 0 turmeric 400 mg Capsule 400 mg PO DAILY RF: 0 lisinopril 5 mg tablet 5 mg PO DAILY Qty: 30 RF: 11 Brilinta 90 mg tablet 90 mg PO BID Qty: 60 RF: 11 Primary Care Provider: Afshan Bennett Referrals: Afshan Bennett MD [Primary Care Provider] - Jeffrey Rebolledo MD [STAFF PHYSICIAN] - 3-5 Days Jorje Charles DO [Emergency Provider] - Lesley Restrepo NP, [employer] [Nurse Practitioner] - 1 Week Activity Restrictions/Additional Instructions: Cardiac work-up negative. Follow-up with Dr. Rebolledo. Leukocytosis white count of 17.5, slight left shift with neutrophils. Chest x-ray negative, urine negative. Follow-up with hematology in 1 week for outpatient evaluation. Disposition Disposition: Home, Self Care
[2021-02-24 04:20] LABS: Differential Indicated SCAN CRITERIA MET
[2021-02-24 04:34] LABS: Differential Comment SCANNED
[2021-02-24 04:58] LABS: Bacteria 0 SEEN /hpf (None Seen); Color, Urine Yellow (Yellow); Glucose, Dipstick Normal (Normal); Ketone-Dipstick Negative (Negative); Leukocyte Esterase-Dipstick Negative /ul (Negative); Mucous, Urine 0 SEEN /hpf (<or=2+); Nitrite-Dipstick Negative (Negative); Occult Blood-Urine Negative /ul (Negative); Protein-Dipstick Negative (Negative); Red Blood Cells-Urine 0 SEEN /hpf (0-5); Specific Gravity, Urine 1.015 (1.002-1.030); Squamous Epithelial Cells - UA 0 SEEN /hpf (0-5); Urine Bilirubin Dipstick Negative (Negative); Urine Clarity Clear (Clear); Urine Urobilinogen Normal (Normal); White Blood Cells 0 SEEN /hpf (0-5)
[2021-02-24 05:26] LABS: Anion Gap 7 (5-15); BUN 22 mg/dL (7-18); BUN/Creat Ratio 18.6 RATIO (10-20); Calcium,Total 9.2 mg/dL (8.5-10.1); Chloride 105 mmol/L (98-107); Creatinine, Serum 1.18 mg/dL (0.70-1.30); EST Glomerular Filtration Rate 66 mL/min (>60); Est Glom Filt Rate - Afr Amer 80 mL/min (>60); Glucose 138 mg/dL (74-106); Potassium 5.8 mmol/L (3.5-5.1); Sodium Level 132 mmol/L (136-145); Troponin-I HS 8 pg/mL (3.0-78.0)
[2021-02-24 06:22] VITALS: BP 128/76; PULSE 81; RESP 18
[2021-02-24 06:45] LABS: Troponin-I HS 9 pg/mL (3.0-78.0)
[2021-02-24 06:48] LABS: Potassium 4.6 mmol/L (3.5-5.1)
[2021-02-24 07:07] VITALS: BP 131/76; PULSE 100; RESP 18; O2SAT 97
[2021-02-25 10:12] LABS: Pathologist Review Reviewed
== END 2021-02-24 07:07 | disposition home or self-care (01) ==
PROVIDERS: Emergency Provider Emergency Medicine; PCP Internal Medicine
DX: R07.9 Chest pain, unspecified (principal); D72.829 Elevated white blood cell count, unspecified; E11.9 Type 2 diabetes mellitus without complications; E78.00 Pure hypercholesterolemia, unspecified; G47.30 Sleep apnea, unspecified; I25.10 Atherosclerotic heart disease of native coronary artery without angina pectoris; I25.2 Old myocardial infarction; I25.5 Ischemic cardiomyopathy; M19.90 Unspecified osteoarthritis, unspecified site; Z87.442 Personal history of urinary calculi; Z95.5 Presence of coronary angioplasty implant and graft; Z79.4 Long term (current) use of insulin; Z79.82 Long term (current) use of aspirin; Z79.899 Other long term (current) drug therapy; Z87.891 Personal history of nicotine dependence
CPT/HCPCS: 71045; 80048; 81001; 84132; 84484; 85025; 93005; 99283; A4216

== ENCOUNTER → 2021-03-10 12:53 | Outpatient (CLI) | payer OTHER, SELFPAY | PROVIDERS: PCP Internal Medicine; Referring Provider Specialist; Visit Provider Specialist | DX: Z01.812 Encounter for preprocedural laboratory examination (principal); E11.9 Type 2 diabetes mellitus without complications | CPT/HCPCS: 36415; 83036 ==

== ENCOUNTER 2021-03-22 05:59 | Outpatient (CLI) | payer OTHER, SELFPAY ==
--- NOTE | 2021-03-22 07:51 | STRESSREP ---
Stress Test Report Date: 03-22-2021 Procedure: Pharmacologic stress nuclear imaging study Indications: CAD; PCI; preoperative cardiovascular evaluation Consent: Per the patient Procedure: The patient underwent pharmacologic (Regadenoson 0.4mg ) evaluation with a peak heart rate of 100 beats per minute (64%predicted maximal heart rate) and a peak blood pressure of 180/70 mmHg. The baseline ECG demonstrated normal sinus rhythm. The peak pharmacologic ECG demonstrated no obvious ECG changes. There was an isolated PVC postinfusion. There was no complaint of chest discomfort during pharmacologic infusion or recovery. The examination was discontinued secondary to completion of protocol. Impression: 1. Pharmacologic (Regadenoson) evaluation 2. Peak pharmacologic ECG with no obvious ECG changes. 3. There was an isolated PVC postinfusion. 4. Nuclear images pending Myocardial perfusion imaging study: Technique: The patient was injected with 13.5 millicuries of technetium 99m Cardiolite and subsequently rest SPECT Cardiolite nuclear imaging was obtained in the horizontal long, vertical long, and short axis views. The patient underwent pharmacologic (Regadenoson) evaluation with a peak heart rate of 100 beats per minute (64% percent predicted maximal heart rate) and a peak blood pressure of 180/70 mmHg. The patient was injected with 43.1 millicuries of technetium 99m Cardiolite and subsequently stress SPECT Cardiolite nuclear imaging was obtained in the horizontal long, vertical long, and short axis views. A gated Cardiolite study at peak stress was obtained. Interpretation: Rest and stress SPECT Cardiolite nuclear imaging status post realignment, normalization, and attenuation correction demonstrate the appearance of body motion during image acquisition and otherwise relative uniform tracer uptake and myocardial perfusion appearing within normal limits. There is end systolic thickening and brightening. The gated Cardiolite study demonstrates myocardial thickening and inward wall motion. The reported LVEF is 70%. Impression: 1. Rest and stress SPECT Cardiolite nuclear imaging demonstrate relative uniform tracer uptake and myocardial perfusion appearing within normal limits. 2. The gated Cardiolite study reports an LVEF of 70%. This note was generated with [employer] software. It may contain incorrect words, spelling, and punctuation that were not noted in checking the note before signing.
== END 2021-03-22 23:59 | disposition short-term general hospital (02) ==
LOC: CVS 06:02
PROVIDERS: PCP Internal Medicine; Referring Provider Nurse Practitioner Family; Visit Provider Nurse Practitioner Family
DX: Z01.818 Encounter for other preprocedural examination (principal); E78.00 Pure hypercholesterolemia, unspecified; Z95.5 Presence of coronary angioplasty implant and graft; I10 Essential (primary) hypertension; I25.5 Ischemic cardiomyopathy
CPT/HCPCS: 78452; 93017; A9500; A4216; J2785

== ENCOUNTER → 2021-08-09 | Outpatient (CLI) | payer OTHER, SELFPAY ==
[2021-08-09 12:52] LABS: AST(SGOT) 16 U/L (15-37); Alanine Aminotransfer ALT/SGPT 26 U/L (16-61); Albumin, Serum 3.8 g/dL (3.2-5.0); Alkaline Phosphatase 73 U/L (45-117); Bilirubin, Direct 0.13 mg/dL (0.00-0.30); Cholesterol 103 mg/dL (200); High Density Lipoprotein 32 mg/dL; Protein, Total 7.8 g/dL (6.4-8.2); Triglycerides 244 mg/dL; Very Low Density Lipoprotein 49 mg/dL (5-40)
== END | disposition home or self-care (01) ==
LOC: MTLAB 09:14
PROVIDERS: PCP Internal Medicine; Referring Provider Nurse Practitioner Gerontology; Visit Provider Nurse Practitioner Gerontology
DX: E78.00 Pure hypercholesterolemia, unspecified (principal)
CPT/HCPCS: 36415; 80061; 80076

== ENCOUNTER 2023-03-07 07:23 | Day surgery (SDC) | payer OTHER, SELFPAY ==
--- NOTE | 2023-03-07 | COLBX_PTH ---
PATIENT: CLAY OWENS LOC: EN U#:[id number] AGE/SX: 67/M ROOM: RE03/07/[address]: Dr. Raj Chapin DO : 1955 BED: DIS: 03/07/2023 SPEC #: [id number] RECD: 03/07/23 13:48 STATUS: TRICE DUY #: [id number] DAVID: 03/07/23 00:[address]: Raj Chapin DEPT: SURGICAL PATHOLOGY RECD BY: Power Ochoa ENTERED: 03/07/23 13:49 SP TYPE: COLON BX LISETTE DR: Dr. Afshan Bennett MD Tissues: A - Sigmoid colon biopsy B - SPLENIC FLEXURE C - COLON BIOPSY Procedures: Surgery Specimen Level IV HEADER OPERATION: Colonoscopy, polypectomy PRE-OP DIAGNOSIS: Screening for malignant neoplasm of colon. TISSUE SUBMITTED: A - Sigmoid polyps, B - Splenic flexure polyp, C - Hepatic flexure polyp MICROSCOPIC DIAGNOSIS A. Sigmoid polyps, polypectomy: Fragments of tubular adenoma. Fragments of fecal material. B. Splenic flexure polyp, polypectomy: Fragments of tubular adenoma. Fragments of fecal material. C. Hepatic flexure polyp, polypectomy: Tubular adenoma. ANSON:jessy 03/08/2023 MICROSCOPIC DESCRIPTION Slides are reviewed. GROSS DESCRIPTION A - Received in fixative is one container labeled with the patient's name and designated sigmoid polyps. The specimen consists of multiple irregular fragments of light [place] soft tissue that in aggregate measure 2.0 x 0.5 x 0.3 cm. The specimen is totally submitted in one cassette. B - Received in fixative is one container labeled with the patient's name and designated splenic flexure polyp. The specimen consists of multiple irregular fragments of light [place] soft tissue mixed with fecal material that in aggregate measure 2.5 x 1.0 x 0.3 cm. The specimen is totally submitted in one cassette. C - Received in fixative is one container labeled with the patient's name and designated hepatic flexure polyp. The specimen consists of a ch[place]m-pink polyp measuring 0.6 x 0.5 x 0.3 cm. The specimen is totally submitted in one cassette. / ANSON:jessy 03/07/2023 TC:1 CPT: 80611 x3
[2023-03-07 07:56] VITALS: BP 144/84; PULSE 91; RESP 17; TEMP 36.4; O2SAT 96; BMI 34.9
[2023-03-07] MEDS: Lactated Ringers 1,000 ML 15 ML IV (08:01)
[2023-03-07 08:26] LABS: Bedside Glucose 156 mg/dL (74-106)
--- NOTE | 2023-03-07 08:29 | PCM.HP.STD ---
HPI - General General Date of Admission: 03/07/23 Date of Service: 03/07/23 Chief Complaint: History of colonic polyp HPI Narrative CLAY OWENS, is a 67 M who presents today for surveillance colonoscopy. He had a colonoscopy approximately 5 years ago and he had 6 adenomatous polyps removed at that time. He has history of CAD status post PTCA with stents in 2013, LV EH, previous MT, hypertension, diabetes, hypercholesterolemia. At this time 70 shortness of breath. He does not gas, grams daily basis. He stopped that approximately 5 days ago. He also takes Plavix and last they took that was 10 days ago. All other 16 review systems negative except as per past mentioned HPI. [facility] Medical History (Updated 03/06/23 @ 13:55 by Elba Yousif) Alcohol use Arthritis Atherosclerotic heart disease of [place] coronary artery without angina pectoris Cardiology follow-up encounter CPAP (continuous positive airway pressure) dependence Dietary restriction Essential hypertension Former smoker Heartburn High cholesterol History of stress test Hx of adenomatous colonic polyps Hypertension Insulin dependent diabetes mellitus Ischemic cardiomyopathy Left atrial enlargement Left ventricular hypertrophy Leg cramps Old anterior wall myocardial infarction Presence of stent in coronary artery (~07/14/13) Pure hypercholesterolemia Type 2 diabetes mellitus Wears glasses Home Medications aspirin 81 mg chewable tablet 81 mg PO DAILY@0800 10/11/15 [History Last Taken 03/07/23] atorvastatin 20 mg tablet 20 mg PO QHS 10/11/15 [History Last Taken 03/06/23] metoprolol succinate 25 mg tablet,extended release 24 hr 25 mg PO DAILY #30 tabs 08/17/17 [Rx Last Taken 03/06/23] lisinopril 5 mg tablet 5 mg PO DAILY #30 tabs 09/10/17 [Rx Last Taken 03/07/23] glipizide 5 mg tablet 5 mg PO BID 06/25/18 [History Last Taken Unknown] insulin detemir U-100 100 unit/mL (3 mL) subcutaneous pen 30 unit subcut QHS 02/27/20 [History Last Taken 03/06/23] cholecalciferol (vitamin D3) 25 mcg (1,000 unit) tablet (Vitamin D3) 25 mcg PO DAILY 09/08/20 [History Last Taken 03/01/23] turmeric 400 mg capsule 400 mg PO DAILY 09/08/20 [History Last Taken 03/01/23] dulaglutide 1.5 mg/0.5 mL subcutaneous pen injector 1.5 mg subcut FLEMING 02/15/21 [History Last Taken Unknown] metformin 500 mg tablet,extended release 24 hr 1,000 mg PO BID 02/15/21 [History Last Taken Unknown] ticagrelor 90 mg tablet (Brilinta) 90 mg PO BID #180 tabs 08/01/21 [Rx Last Taken 03/02/23] nitroglycerin 0.4 mg sublingual tablet (Nitrostat) 0.4 mg sublingual Q5-15M PRN chest pain #25 tabs 10/23/22 [Rx Last Taken Unknown] Allergy/AdvReac Type Severity Reaction Status Date / Time No Known Allergies Allergy Verified 03/07/23 07:54 Family History (Reviewed 01/16/23 @ 09:19 by Chandni Ragland [employer], [employer]) Mother CAD (coronary artery disease) Father Cancer Brother Afib Surgical History (Updated 03/06/23 @ 13:55 by Elba Yousif) H/O: vasectomy History of cardiac catheterization History of coronary artery stent placement History of left hip replacement Hx of colonoscopy (~06/2013) Presence of coronary angioplasty implant and graft (~07/14/13) Social History (Reviewed 01/16/23 @ 09:19 by Chandni Ragland [employer], [employer]) Smoking Status: Former smoker how long ago did patient quit smokin years ago alcohol intake: current alcohol intake frequency: a few times a month Alcohol type: beer substance use type: does not use caffeine: Yes Type: coffee Number of servings: 5 ROS Review of Systems ROS Unobtainable: other Constitutional Constitutional: Denies fatigue, fever(s), poor appetite, weight gain or weight loss ENT HEENT: Denies mouth lesions Cardiovascular Cardiovascular: Denies abdominal bloating, abdominal edema or abdominal pain Respiratory/Chest Respiratory/Chest: Denies change in mental status, change in phlegm color, chest congestion or chest tightness Gastrointestinal Gastrointestinal: Denies belching, bloating, change in bowel habits, change in stool character, chewing difficulty, coffee ground emesis, constipation, cramping, diarrhea, dyspepsia, dysphagia, early satiety, excessive flatus, fecal incontinence, heartburn, hematemesis, hematochezia, hemorrhoids, loose stools, melena, nausea, odynophagia, rectal bleeding, tenesmus, vomiting or weight changes Genitourinary Genitourinary: Denies abdominal discomfort, burning urination or itching Musculoskeletal Musculoskeletal: Reports as per HPI; Denies muscle weakness or myalgias Integumentary Integumentary: Denies jaundice Neurologic Neurologic: Denies lack of coordination or weakness Psychiatric Psychiatric: Denies confusion, depression, memory loss, mood swings, paranoia or suicidal ideation Endocrine Endocrinology: Denies systems reviewed and no addt'l complaints, except as documented Hematologic/Lymphatic Hematologic/Lymphatic: Denies anemia, easy bleeding, easy bruising or lymphadenopathy Allergic/Immunologic Allergic/Immunologic: Denies systems reviewed and no addt'l complaints, except as documented Vital Signs Vital Signs Vital Signs: 03/07/23 07:56 Temperature 97.6 F L Temperature Source Temporal Pulse Rate 91 Respiratory Rate 17 Blood Pressure 144/84 H Blood Pressure Mean 104 Blood Pressure Source Monitor Blood Pressure Position Semi-Fowlers Blood Pressure Location Left Arm Pulse Ox 96 Oxygen Delivery Method Room Air Weight Weight: 257 lb 15.053 oz Body Mass Index (BMI) 34.9 Physical Exam Const alert General Appearance: cooperative Orientation / Consciousness: oriented to person HEENT hearing grossly normal bilaterally Head and Scalp: normal to inspection Face and Sinus: face symmetric Nose: external nose normal Mouth: oral and palatal mucosa normal Eyes conjunctivae normal General Eye: normal appearance of both eyes Neck full ROM General: normal visual inspection Lymph Lymphatic: no lymphadenopathy noted Chest inspection of chest normal and palpation of chest normal Chest: symmetrical chest wall rise Resp normal respiratory effort Effort and Inspection: able to speak in complete sentences Cardio regular rate GI non-distended Percussion: normal to percussion Rectal Exam: deferred Neuro Speech: speech normal Gait (Neuro): normal gait Results Lab / Micro Data Labs: Laboratory Results - last 24 hr 03/07/23 08:05: POC Glucose 156 H Assessment & Plan Assessment/Plan (1) Encounter for screening for malignant neoplasm of colon: PLAN: 67-year-old comes in for surveillance colonoscopy. He was explained alternatives, risk, benefits including outstanding bleeding, infection, sepsis, perforation, need for emergent surgery . He will have an ASA of 3.
[2023-03-07 09:05] VITALS: BP 113/93; BP 144/84; PULSE 95; RESP 16; TEMP 36.3; O2SAT 95
[2023-03-07 09:10] VITALS: BP 117/69; BP 144/84; PULSE 89; RESP 16; O2SAT 93
--- NOTE | 2023-03-07 09:11 | OP.COLON_ITS ---
Patient Name: Salvador Keene Procedure Date: 03/07/2023 8:30 AM Date of : 1955 Age: 67 Procedure: Colonoscopy Indications: High risk colon cancer surveillance: Personal history of colonic polyps Providers: Raj Chapin DO Referring MD: Afshan Bennett Medicines: Monitored Anesthesia Care Patient Profile: This is a 67 year old male. Refer to note in patient chart for documentation of history and physical. Last Colonoscopy: 5 years ago. Complications: No immediate complications. Procedure: Pre-Anesthesia Assessment: - Prior to the procedure, a History and Physical was performed, and patient medications and allergies were reviewed. The patient is competent. The risks and benefits of the procedure and the sedation options and risks were discussed with the patient. All questions were answered and informed consent was obtained. Patient identification and proposed procedure were verified by the physician in the pre-procedure area. Mental Status Examination: alert and oriented. Airway Examination: normal oropharyngeal airway and neck mobility. Respiratory Examination: clear to auscultation. CV Examination: normal. Prophylactic Antibiotics: The patient does not require prophylactic antibiotics. Prior Anticoagulants: The patient has taken no anticoagulant or antiplatelet agents. ASA Grade Assessment: II - A patient with mild systemic disease. After reviewing the risks and benefits, the patient was deemed in satisfactory condition to undergo the procedure. The anesthesia plan was to use monitored anesthesia care (MAC). Immediately prior to administration of medications, the patient was re-assessed for adequacy to receive sedatives. The heart rate, respiratory rate, oxygen saturations, blood pressure, adequacy of pulmonary ventilation, and response to care were monitored throughout the procedure. The physical status of the patient was re-assessed after the procedure. After I obtained informed consent, the scope was passed under direct vision. Throughout the procedure, the patient's blood pressure, pulse, and oxygen saturations were monitored continuously. The colonoscope was introduced through the anus and advanced to the cecum, identified by appendiceal orifice and ileocecal valve. The colonoscopy was performed without difficulty. The patient tolerated the procedure well. The quality of the bowel preparation was fair. The terminal ileum, ileocecal valve, appendiceal orifice, and rectum were photographed. Scope In: 8:38:14 AM Scope Withdrawal Time 0 hours 8 minutes 52 seconds Scope Out: 8:58:51 AM Total Procedure Duration Time 0 hours 20 minutes 37 seconds Findings: The perianal and digital rectal examinations were normal. Multiple small and large-mouthed diverticula were found in the recto-sigmoid colon and sigmoid colon. Four sessile polyps were found in the sigmoid colon, splenic flexure and hepatic flexure. The polyps were 1 to 2 mm in size. These polyps were removed with a saline injection-lift technique using a hot snare. Resection and retrieval were complete. Verification of patient identification for the specimen was done. Estimated blood loss was minimal. A large amount of stool was found in the rectum, in the recto-sigmoid colon, in the sigmoid colon, in the descending colon, at the splenic flexure, in the transverse colon, at the hepatic flexure, in the ascending colon and in the cecum. Lavage of the area was performed using copious amounts, resulting in incomplete clearance with fair visualization. Impression: - Preparation of the colon was fair. - Diverticulosis in the recto-sigmoid colon and in the sigmoid colon. - Four 1 to 2 mm polyps in the sigmoid colon, at the splenic flexure and at the hepatic flexure, removed using injection-lift and a hot snare. Resected and retrieved. - Stool in the rectum, in the recto-sigmoid colon, in the sigmoid colon, in the descending colon, at the splenic flexure, in the transverse colon, at the hepatic flexure, in the ascending colon and in the cecum. Recommendation: - Discharge patient to home. - Resume previous diet. - Continue present medications. - Await pathology results. - Repeat colonoscopy in 1 year for surveillance. Procedure Code(s): --- Professional --- 03359, Colonoscopy, flexible; with removal of tumor(s), polyp(s), or other lesion(s) by snare technique 90565, Colonoscopy, flexible; with directed submucosal injection(s), any substance CPT copyright 2021 [employer]. All rights reserved. The codes documented in this report are preliminary and upon surgical coder review may be revised to meet current compliance requirements. Raj Chapin DO 03/07/2023 9:11:12 AM This report has been signed electronically. Number of Addenda: 0 Note Initiated On: 03/07/2023 8:30 AM
--- NOTE | 2023-03-07 09:11 | OP.CCLET_ITS ---
03/07/2023 [facility] Re : Colonoscopy procedure for Salvador Keene Dear This procedure was performed on Tuesday, March 07, 2023. My impressions and recommendations are as follows: Impressions : - Preparation of the colon was fair. - Diverticulosis in the recto-sigmoid colon and in the sigmoid colon. - Four 1 to 2 mm polyps in the sigmoid colon, at the splenic flexure and at the hepatic flexure, removed using injection-lift and a hot snare. Resected and retrieved. - Stool in the rectum, in the recto-sigmoid colon, in the sigmoid colon, in the descending colon, at the splenic flexure, in the transverse colon, at the hepatic flexure, in the ascending colon and in the cecum. Recommendations : - Discharge patient to home. - Resume previous diet. - Continue present medications. - Await pathology results. - Repeat colonoscopy in 1 year for surveillance. My findings are described in the full procedure note, which is enclosed. If I can be of further assistance, please feel free to contact me at . Sincerely, Raj Chapin, 03/07/2023 9:11:12 AM This report has been signed electronically.
[2023-03-07 09:15] VITALS: BP 144/66; BP 144/84; PULSE 96; RESP 16; O2SAT 93
[2023-03-07 09:19] VITALS: BP 120/99; BP 144/84; PULSE 92; RESP 16; TEMP 36.7; O2SAT 95
[2023-03-07 09:29] VITALS: BP 144/84
== END 2023-03-07 09:41 | disposition home or self-care (01) ==
LOC: EN 07:25 → AC 07:26
PROVIDERS: PCP Internal Medicine; Referring Provider Internal Medicine; Visit Provider Internal Medicine Gastroenterology
PROC: 0DJD8ZZ Inspection of Lower Intestinal Tract, Via Natural or Artificial Opening Endoscopic (ICD-10-PCS; CPT 45378; principal; 2023-03-07 08:25)
DX: Z12.11 Encounter for screening for malignant neoplasm of colon (principal); Z79.4 Long term (current) use of insulin; E11.9 Type 2 diabetes mellitus without complications; D12.3 Benign neoplasm of transverse colon; D12.5 Benign neoplasm of sigmoid colon; K57.30 Diverticulosis of large intestine without perforation or abscess without bleeding; E78.00 Pure hypercholesterolemia, unspecified; I25.5 Ischemic cardiomyopathy; I10 Essential (primary) hypertension; I25.10 Atherosclerotic heart disease of native coronary artery without angina pectoris; I25.2 Old myocardial infarction; Z79.82 Long term (current) use of aspirin; Z79.899 Other long term (current) drug therapy; Z79.84 Long term (current) use of oral hypoglycemic drugs; Z86.010 Personal history of colon polyps; Z87.891 Personal history of nicotine dependence; Z95.5 Presence of coronary angioplasty implant and graft
CPT/HCPCS: 45385; 45381; 82962; 88305; J7120; J2405

== ENCOUNTER 2024-04-14 05:29 | Day surgery (SDC) | payer OTHER, SELFPAY ==
--- NOTE | 2024-04-10 19:29 | PAT.ANE_ITS ---
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 When Was Last Pacemaker Check QUESTION #4 FULL TEXT: You/Your Family Experience fever (hyperthermia) with Anesthesia Last Oral Intake Last Oral intake: Last Oral Intake NPO since Meds taken in AM with sips of water? Meds patient instructed to take am of surgery PONV PONV - clinical athletic instructor: PONV - clinical athletic instructor Female No 04/10/24 14:16 HX of Motion Sickness No 04/10/24 14:16 HX of N/V After Surgery No 04/10/24 14:16 Non-Smoker Yes 04/10/24 14:16 Duration of Surgery greater No 04/10/24 14:16 than 60 minutes Number of Risk Factors 1 04/10/24 14:16 PONV Score Low Risk 04/10/24 14:16 Height & Weight Height & Weight: Anesthesia: Height & Weight Height 6 ft 02/07/24 13:12 Respiratory Assessment Respiratory Assessment - clinical athletic instructor: Respiratory Tract Infection Hx - clinical athletic instructor Hx Respiratory Tract Infection No 04/10/24 14:16 STOP Sleep Apnea STOP Sleep Apnea - clinical athletic instructor: STOP Sleep Apnea - clinical athletic instructor Hx Hypertension Yes 04/10/24 14:16 Hx Sleep Apnea No 04/10/24 14:16 CPAP Yes: NONCOMPLIANT 03/06/23 13:46 BIPAP No 03/06/23 13:46 Do you snore loudly (louder No 04/10/24 14:16 than talking or can be heard Do you often feel tired/ No 04/10/24 14:16 fatigued/ sleepy during daytime? Has anyone observed you stop No 04/10/24 14:16 breathing during sleep? STOP Results Negative 04/10/24 14:16 QUESTION #5 FULL TEXT : Do you snore loudly (louder than talking or can be heard through closed doors)? Tobacco Use History Tobacco Use History - clinical athletic instructor: Tobacco Use History - clinical athletic instructor Tobacco Use Smoking Status Former smoker 04/10/24 14:16 Hx Tobacco Use No 04/10/24 14:16 Years Smoking Packs Smoked per Day Smoking Cessation Date was No - quit smoking greater 04/10/24 14:16 within the last 15 years than 15 years ago Hx Smoking Cessation Date 08/18/75 04/10/24 14:16 Hx Smoking Cessation Counseling Hematologic Medial History Hematologic Hx - clinical athletic instructor: Hematologic Medical Hx - director money Hx of Blood Transfusion No 04/10/24 14:16 Hx of Transfusion in last 3 No 04/10/24 14:16 Months Date of Last Transfusion (if within last 3 months) Ever experience any problems No 04/10/24 14:16 with transfusion(s)? Specify any problems Hx of Preganancy in last 3 N/A 04/10/24 14:16 Months Nurse Filling Out Transfusion [facility] 04/10/24 14:16 & Questions: Date: 04/10/24 04/10/24 14:16 Time: 14:21 04/10/24 14:16 Patient unable to answer at this time (ie. confused, unrespo /Reproduction History /Reproductive History - clinical athletic instructor: /Reproductive Hx- clinical athletic instructor Hx Now Gestational Age (in weeks): EDC: Hx Hx Para Hx Section SAB No 03/06/23 13:46 PFSH Medical History History of edema History of echocardiogram Alcohol use Dietary restriction Heartburn CPAP (continuous positive airway pressure) dependence Leg cramps History of stress test Cardiology follow-up encounter Hx of adenomatous colonic polyps Wears glasses Insulin dependent diabetes mellitus Arthritis High cholesterol Former smoker Hypertension Presence of stent in coronary artery (~07/14/13) Type 2 diabetes mellitus Pure hypercholesterolemia Essential hypertension Ischemic cardiomyopathy Left ventricular hypertrophy Left atrial enlargement 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 Home Medications ?Medication ?Instructions ?Recorded ?Last Taken ?Type aspirin 81 mg chewable tablet 81 mg PO DAILY@0800 10/11/15 03/07/23 History atorvastatin 20 mg tablet 20 mg PO QHS 10/11/15 03/06/23 History metoprolol succinate 25 mg 25 mg PO DAILY #30 tabs 08/17/17 03/06/23 Rx tablet,extended release 24 hr lisinopril 5 mg tablet 5 mg PO DAILY #30 tabs 09/10/17 03/07/23 Rx glipizide 5 mg tablet 5 mg PO BID 06/25/18 Unknown History cholecalciferol (vitamin D3) 25 25 mcg PO DAILY 09/08/20 03/01/23 History mcg (1,000 unit) tablet (Vitamin D3) dulaglutide 1.5 mg/0.5 mL 1.5 mg subcut FLEMING 02/15/21 Unknown History subcutaneous pen injector metformin 500 mg tablet,extended 1,000 mg PO BID 02/15/21 Unknown History release 24 hr ticagrelor 90 mg tablet (Brilinta) 90 mg PO BID #180 tabs 08/01/21 04/09/24 Rx insulin detemir U-100 100 unit/mL 35 unit subcut QHS 08/07/23 Unknown History (3 mL) subcutaneous pen nitroglycerin 0.4 mg sublingual 0.4 mg sublingual Q5-15M PRN chest 08/07/23 Unknown Rx tablet (Nitrostat) pain #25 tabs sodium,potassium,mag sulfates 17.5 See Rx Instructions PO .COMPLEX 02/07/24 Unknown Rx gram-3.13 gram-1.6 gram oral soln #354 mL (Suprep Bowel Prep Kit) Allergy/AdvReac Type Severity Reaction Status Date / Time No Known Allergies Allergy Verified 04/10/24 14:09 Family History Mother CAD (coronary artery disease) Father Cancer Brother Afib Surgical History History of left hip replacement History of cardiac catheterization History of coronary artery stent placement Hx of colonoscopy (~06/2013) Presence of coronary angioplasty implant and graft (~07/14/13) H/O: vasectomy Social History Smoking Status: Former smoker how long ago did patient quit smokin years ago alcohol intake: current alcohol intake frequency: a few times a month Alcohol type: beer substance use type: does not use caffeine: Yes Type: coffee Number of servings: 5 Audit: Pertinent Findings Pertinent Findings EKG Perinent findings: February 24, 2021. Normal sinus rhythm. Stress test pertinent findings: March 22, 2021. Ejection fraction is 70%. Rest and stress SPECT Cardiolite nuclear imaging demonstrate relatively uniform tracer uptake and perfusion. Heart catheterization pertinent findings: July 14, 2013. Left ventricular ejection fraction is 40%. Mild to moderate hypokinesis of the anterior lateral wall of the left ventricle. 80% stenosis of the mid LAD-successfully stented with a drug-eluting stent. Successful angioplasty and successful stenting of the 90% and 60 to 70% stenosis in the proximal first diagonal artery. (Drug- eluting stent) Consult pertinent findings: April 02, 2024. Dr. Henao. 1. 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 Patient had stenting of his LAD in 2013. He has had no recurrence of his atypical type chest pain that led to the stenting procedure. He remains on aspirin and Brilinta. 2. Ischemic cardiomyopathy-this was diagnosed around the time of his stenting procedure in 2013. Post revascularization his left ventricular function has improved back to normal. He currently denies any signs and symptoms of heart failure. 3. Hypertension?chronic. Blood pressures have been well-controlled. Continue current medical therapy. Recommendation Anesthesia Recommendation Anesthesia recommendation: OPTIMIZED for anesthesia
[2024-04-14] VITALS (8 sets, daily range): BP systolic 105–132; BP diastolic 66–81; PULSE 75–80; RESP 12–16; TEMP 36.3–37.1; O2SAT 94–97; BMI 35.6
--- NOTE | 2024-04-14 | COLBX_PTH ---
PATIENT: CLAY OWENS LOC: EN U#:[id number] AGE/SX: 68/M ROOM: RE04/14/[address]: Dr. Raj Chapin DO : 1955 BED: DIS: 04/14/2024 SPEC #: [id number] RECD: 04/14/24 13:00 STATUS: TRICE DUY #: [id number] DAVID: 04/14/24 00:[address]: Raj Chapin DEPT: SURGICAL PATHOLOGY RECD BY: Power Ochoa ENTERED: 04/14/24 13:01 SP TYPE: COLON BX LISETTE DR: Dr. Afshan Bennett MD Tissues: A - Ascending colon B - Sigmoid colon biopsy Procedures: Surgery Specimen Level IV HEADER OPERATION: Colonoscopy with polypectomy PRE-OP DIAGNOSIS: Personal history of colon polyps TISSUE SUBMITTED: A- Ascending colon polyp biopsy, B- Sigmoid colon polyps x3 MICROSCOPIC DIAGNOSIS A. Ascending colon polyp, biopsy: Tubular adenoma. B. Sigmoid colon polyp x3, polypectomy: Fragments of tubular adenoma. SJ.mr 04/15/2024 MICROSCOPIC DESCRIPTION Slides are reviewed. GROSS DESCRIPTION A. Received in fixative is one container labeled with the patient's name and designated Ascending colon polyp biopsy. The specimen consists of one irregular fragment of light [place] soft tissue that measures 0.5 x 0.5 x 0.1 cm. The specimen is totally submitted in one cassette. B. Received in fixative is one container labeled with the patient's name and designated Sigmoid colon polyp x3. The specimen consists of multiple irregular fragments of light [place] soft tissue that in aggregate measure 1 x 1 x 0.3 cm. The specimen is totally submitted in one cassette. MS/mr 04/14/2024 TC:1 CPT:06034a6
[2024-04-14 06:17] LABS: Bedside Glucose 124 mg/dL (74-106)
--- NOTE | 2024-04-14 06:29 | PCM.PRE.AN2 ---
ASA Classification* ASA Classification ASA Classification: 4 Assessment & Plan Anesthesia* Anesthesia Assessment Anesthesia Assessment: Discussed sedation and/or anesthesia options, risks, benefits, and alternatives with patient/parents/legal guardian/POA. Questions invited. The patient/parents/legal guardian/POA seems to understand and agrees to proceed with anesthesia plan. Reviewed the physical assessment, medical history, allergy history and patient home medications list prior to surgery/procedure/anesthetic and documented any changes. Performed airway and anesthesia risk assessments. Anesthesia Type Anesthesia Type: MAC History Source History Obtained from:: Patient and Chart Anesthesia Focused Assessment* Temperature: 97.4 F Pulse Rate: 76 Blood Pressure: 132/66 Respiratory Rate: 16 Pulse Ox: 97 Airway Assessment Mouth opens: >3 cm Mallampati Score: II Teeth Condition: Intact Neck Range of motion (ROM): Full ROM Focused Labs Anesthesia Preop lab: CBC WBC 17.5 K/mm3 (4.4-11.0) H 02/24/21 04:00 RBC 4.57 M/mm3 (4.6-6.2) L 02/24/21 04:00 Hgb 13.4 g/dL (13.0-16.5) 02/24/21 04:00 Hct 41.2 % (40-54) 02/24/21 04:00 Plt Count 342 K/mm3 (150-450) 02/24/21 04:00 CHEMISTRY Potassium 4.6 mmol/L (3.5-5.1) 02/24/21 06:20 Sodium 132 mmol/L (136-145) L 02/24/21 04:55 Magnesium 1.9 mg/dL (1.6-2.6) 09/10/20 06:53 BUN 22 mg/dL (7-18) H 02/24/21 04:55 Creatinine 1.18 mg/dL (0.70-1.30) 02/24/21 04:55 Glucose 138 mg/dL (74-106) H 02/24/21 04:55 POC Glucose 124 mg/dL (74-106) H 04/14/24 05:52 TSH 1.83 uIU/mL (0.358-3.74) 10/12/15 06:10 COAG Pre-Assessment Diagnosis/Proposed Procedure Planned Operative Procedure(s): COLONOSCOPY Anesthesia History 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 When Was Last Pacemaker Check QUESTION #4 FULL TEXT: You/Your Family Experience fever (hyperthermia) with Anesthesia Last Oral Intake Last Oral intake: Last Oral Intake NPO since 22:00 04/14/24 06:07 Meds taken in AM with sips of No 04/14/24 06:07 water? Meds patient instructed to take am of surgery PONV PONV - barrel assembler helper: PONV - barrel assembler helper Female No 04/10/24 14:16 HX of Motion Sickness No 04/10/24 14:16 HX of N/V After Surgery No 04/10/24 14:16 Non-Smoker Yes 04/10/24 14:16 Duration of Surgery greater No 04/10/24 14:16 than 60 minutes Number of Risk Factors 1 04/10/24 14:16 PONV Score Low Risk 04/10/24 14:16 Height & Weight Height & Weight: Anesthesia: Height & Weight Height 6 ft 04/14/24 06:07 Weight: 119 kg 04/14/24 06:07 Body Mass Index (BMI) 35.6 04/14/24 06:07 Respiratory Assessment Respiratory Assessment - barrel assembler helper: Respiratory Tract Infection Hx - barrel assembler helper Hx Respiratory Tract Infection No 04/10/24 14:16 STOP Sleep Apnea STOP Sleep Apnea - barrel assembler helper: STOP Sleep Apnea - barrel assembler helper Hx Hypertension Yes 04/10/24 14:16 Hx Sleep Apnea No 04/10/24 14:16 CPAP Yes: NONCOMPLIANT 03/06/23 13:46 BIPAP No 03/06/23 13:46 Do you snore loudly (louder No 04/10/24 14:16 than talking or can be heard Do you often feel tired/ No 04/10/24 14:16 fatigued/ sleepy during daytime? Has anyone observed you stop No 04/10/24 14:16 breathing during sleep? STOP Results Negative 04/10/24 14:16 QUESTION #5 FULL TEXT : Do you snore loudly (louder than talking or can be heard through closed doors)? 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 Specify any problems Hx of Preganancy in last 3 N/A 04/10/24 14:16 Months Nurse Filling Out Transfusion [facility] 04/10/24 14:16 & Questions: Date: 04/10/24 04/10/24 14:16 Time: 14:21 04/10/24 14:16 Patient unable to answer at this time (ie. confused, unrespo /Reproduction History /Reproductive History - barrel assembler helper: /Reproductive Hx- barrel assembler helper Hx Now Gestational Age (in weeks): EDC: Hx Hx Para Hx Section SAB No 03/06/23 13:46 PFSH Medical History History of edema History of echocardiogram Alcohol use Dietary restriction Heartburn CPAP (continuous positive airway pressure) dependence Leg cramps History of stress test Cardiology follow-up encounter Hx of adenomatous colonic polyps Wears glasses Insulin dependent diabetes mellitus Arthritis High cholesterol Former smoker Hypertension Presence of stent in coronary artery (~07/14/13) Type 2 diabetes mellitus Pure hypercholesterolemia Essential hypertension Ischemic cardiomyopathy Left ventricular hypertrophy Left atrial enlargement 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 Home Medications ?Medication ?Instructions ?Recorded ?Last Taken ?Type aspirin 81 mg chewable tablet 81 mg PO DAILY@0800 10/11/15 03/07/23 History atorvastatin 20 mg tablet 20 mg PO QHS 10/11/15 03/06/23 History metoprolol succinate 25 mg 25 mg PO DAILY #30 tabs 08/17/17 03/06/23 Rx tablet,extended release 24 hr lisinopril 5 mg tablet 5 mg PO DAILY #30 tabs 09/10/17 03/07/23 Rx glipizide 5 mg tablet 5 mg PO BID 06/25/18 Unknown History cholecalciferol (vitamin D3) 25 25 mcg PO DAILY 09/08/20 03/01/23 History mcg (1,000 unit) tablet (Vitamin D3) dulaglutide 1.5 mg/0.5 mL 1.5 mg subcut FLEMING 02/15/21 Unknown History subcutaneous pen injector metformin 500 mg tablet,extended 1,000 mg PO BID 02/15/21 Unknown History release 24 hr ticagrelor 90 mg tablet (Brilinta) 90 mg PO BID #180 tabs 08/01/21 04/09/24 Rx insulin detemir U-100 100 unit/mL 35 unit subcut QHS 08/07/23 Unknown History (3 mL) subcutaneous pen nitroglycerin 0.4 mg sublingual 0.4 mg sublingual Q5-15M PRN chest 08/07/23 Unknown Rx tablet (Nitrostat) pain #25 tabs sodium,potassium,mag sulfates 17.5 See Rx Instructions PO .COMPLEX 02/07/24 Unknown Rx gram-3.13 gram-1.6 gram oral soln #354 mL (Suprep Bowel Prep Kit) Allergy/AdvReac Type Severity Reaction Status Date / Time No Known Allergies Allergy Verified 04/14/24 06:05 Family History Mother CAD (coronary artery disease) Father Cancer Brother Afib Surgical History History of left hip replacement History of cardiac catheterization History of coronary artery stent placement Hx of colonoscopy (~06/2013) Presence of coronary angioplasty implant and graft (~07/14/13) H/O: vasectomy Social History Smoking Status: Former smoker how long ago did patient quit smokin years ago alcohol intake: current alcohol intake frequency: a few times a month Alcohol type: beer substance use type: does not use caffeine: Yes Type: coffee Number of servings: 5 Review of Systems (Anesthesia) ROS Narrative System reviewed and no additional complaints, except as documented.
--- NOTE | 2024-04-14 06:44 | PCM.HP.STD ---
HPI - General General Date of Admission: 04/14/24 Date of Service: 04/14/24 Chief Complaint: Screening colonoscopy HPI Narrative CLAY OWENS, is a 68 M who present today for screening colonoscopy. He does a history of polyps and his last colonoscopy was over 10 years ago. FOR[facility], [facility] Medical History History of edema History of echocardiogram Alcohol use Dietary restriction Heartburn CPAP (continuous positive airway pressure) dependence Leg cramps History of stress test Cardiology follow-up encounter Hx of adenomatous colonic polyps Wears glasses Insulin dependent diabetes mellitus Arthritis High cholesterol Former smoker Hypertension Presence of stent in coronary artery (~07/14/13) Type 2 diabetes mellitus Pure hypercholesterolemia Essential hypertension Ischemic cardiomyopathy Left ventricular hypertrophy Left atrial enlargement 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 Home Medications ?Medication ?Instructions ?Recorded ?Last Taken ?Type aspirin 81 mg chewable tablet 81 mg PO DAILY@0800 10/11/15 03/07/23 History atorvastatin 20 mg tablet 20 mg PO QHS 10/11/15 03/06/23 History metoprolol succinate 25 mg 25 mg PO DAILY #30 tabs 08/17/17 03/06/23 Rx tablet,extended release 24 hr lisinopril 5 mg tablet 5 mg PO DAILY #30 tabs 09/10/17 03/07/23 Rx glipizide 5 mg tablet 5 mg PO BID 06/25/18 Unknown History cholecalciferol (vitamin D3) 25 25 mcg PO DAILY 09/08/20 03/01/23 History mcg (1,000 unit) tablet (Vitamin D3) dulaglutide 1.5 mg/0.5 mL 1.5 mg subcut FLEMING 02/15/21 Unknown History subcutaneous pen injector metformin 500 mg tablet,extended 1,000 mg PO BID 02/15/21 Unknown History release 24 hr ticagrelor 90 mg tablet (Brilinta) 90 mg PO BID #180 tabs 08/01/21 04/09/24 Rx insulin detemir U-100 100 unit/mL 35 unit subcut QHS 08/07/23 Unknown History (3 mL) subcutaneous pen nitroglycerin 0.4 mg sublingual 0.4 mg sublingual Q5-15M PRN chest 08/07/23 Unknown Rx tablet (Nitrostat) pain #25 tabs sodium,potassium,mag sulfates 17.5 See Rx Instructions PO .COMPLEX 02/07/24 Unknown Rx gram-3.13 gram-1.6 gram oral soln #354 mL (Suprep Bowel Prep Kit) Allergy/AdvReac Type Severity Reaction Status Date / Time No Known Allergies Allergy Verified 04/14/24 06:05 Family History Mother CAD (coronary artery disease) Father Cancer Brother Afib Surgical History History of left hip replacement History of cardiac catheterization History of coronary artery stent placement Hx of colonoscopy (~06/2013) Presence of coronary angioplasty implant and graft (~07/14/13) H/O: vasectomy Social History Smoking Status: Former smoker how long ago did patient quit smokin years ago alcohol intake: current alcohol intake frequency: a few times a month Alcohol type: beer substance use type: does not use caffeine: Yes Type: coffee Number of servings: 5 ROS Constitutional Constitutional: Denies fatigue, fever(s), poor appetite, weight gain or weight loss Gastrointestinal Gastrointestinal: Denies belching, bloating, change in bowel habits, change in stool character, chewing difficulty, coffee ground emesis, constipation, cramping, diarrhea, dyspepsia, dysphagia, early satiety, excessive flatus, fecal incontinence, heartburn, hematemesis, hematochezia, hemorrhoids, loose stools, melena, nausea, odynophagia, rectal bleeding, tenesmus, vomiting or weight changes Vital Signs Vital Signs Vital Signs: 04/14/24 06:07 04/14/24 06:07 04/14/24 06:32 Temperature 97.4 F L 97.4 F L Temperature Source Temporal Pulse Rate 76 76 Respiratory Rate 16 16 Respiratory Pattern Normal Blood Pressure 132/66 H 132/66 H Blood Pressure Mean 88 Blood Pressure Source Monitor Blood Pressure Position Semi-Fowlers Blood Pressure Location Left Arm Pulse Ox 97 97 Oxygen Delivery Method Room Air Weight Weight: 262 lb 5.601 oz Body Mass Index (BMI) 35.6 Physical Exam Const alert, oriented x3, no apparent distress and healthy appearing General Appearance: cooperative GI normal to inspection, nondistended, normoactive bowel sounds, soft to palpation, non-tender and non-distended Percussion: normal to percussion Rectal Exam: deferred Results Lab / Micro Data Labs: Laboratory Results - last 24 hr 04/14/24 05:52: POC Glucose 124 H Assessment & Plan Assessment/Plan (1) Personal history of colonic polyps: PLAN: This very pleasant 60-year-old gentleman comes in for surveillance colonoscopy. He was explained alternatives, risk and benefits include not withstanding bleeding, infection, sepsis, perforation, need for emergent urgent . He will have an ASA of 3.
--- NOTE | 2024-04-14 07:22 | PCM.POST.ANE ---
Anesthesia: Postop Eval I Current Vital Signs Temperature: 97.5 F Pulse Rate: 75 Blood Pressure: 105/75 Respiratory Rate: 12 Pulse Ox: 97 Oxygen Delivery Method: Room Air Assessment Airway patent: Yes Spontaneous unlabored respirations: Yes Mental status: Awake and Calm nausea: No Vomiting: No Anesthesia Complication: No Fluid Hydration Crystalloid volume administer (ml): 45 Total IV fluid infused: 45 Progress Note Anesthesia document: Postop Eval 1 completed: Yes
--- NOTE | 2024-04-14 07:23 | OP.COLON_ITS ---
Patient Name: Salvador Keene Procedure Date: 04/14/2024 6:23 AM Date of : 1955 Age: 68 Procedure: Colonoscopy Indications: Screening for colorectal malignant neoplasm Providers: DO Satya Campos MD: Afshan Bennett Medicines: Monitored Anesthesia Care Patient Profile: This is a 68 year old male. Refer to note in patient chart for documentation of history and physical. Last Colonoscopy: 1 year ago. Complications: No immediate complications. Procedure: Pre-Anesthesia Assessment: - Prior to the procedure, a History and Physical was performed, and patient medications and allergies were reviewed. The patient is competent. The risks and benefits of the procedure and the sedation options and risks were discussed with the patient. All questions were answered and informed consent was obtained. Patient identification and proposed procedure were verified by the physician. Mental Status Examination: normal. Airway Examination: normal oropharyngeal airway and neck mobility. Prophylactic Antibiotics: The patient does not require prophylactic antibiotics. Prior Anticoagulants: The patient has taken no anticoagulant or antiplatelet agents except for NSAID medication. ASA Grade Assessment: II - A patient with mild systemic disease. After reviewing the risks and benefits, the patient was deemed in satisfactory condition to undergo the procedure. The anesthesia plan was to use monitored anesthesia care (MAC). Immediately prior to administration of medications, the patient was re-assessed for adequacy to receive sedatives. The heart rate, respiratory rate, oxygen saturations, blood pressure, adequacy of pulmonary ventilation, and response to care were monitored throughout the procedure. The physical status of the patient was re-assessed after the procedure. After I obtained informed consent, the scope was passed under direct vision. Throughout the procedure, the patient's blood pressure, pulse, and oxygen saturations were monitored continuously. The Colonoscope was introduced through the anus and advanced to the cecum, identified by appendiceal orifice and ileocecal valve. The colonoscopy was performed without difficulty. The patient tolerated the procedure well. The quality of the bowel preparation was adequate. The ileocecal valve, appendiceal orifice, and rectum were photographed. Scope In: 6:53:58 AM Scope Withdrawal Time 0 hours 13 minutes 54 seconds Scope Out: 7:12:39 AM Total Procedure Duration Time 0 hours 18 minutes 41 seconds Findings: The perianal and digital rectal examinations were normal. Many small-mouthed diverticula were found in the recto-sigmoid colon, sigmoid colon and descending colon. Three sessile polyps were found in the sigmoid colon. The polyps were 1 to 2 mm in size. These polyps were removed with a hot snare. Resection and retrieval were complete. Verification of patient identification for the specimen was done. Estimated blood loss was minimal. A 5 mm polyp was found in the ascending colon. The polyp was sessile. The polyp was removed with a cold biopsy forceps. Resection and retrieval were complete. Verification of patient identification for the specimen was done. Estimated blood loss was minimal. Impression: - Diverticulosis in the recto-sigmoid colon, in the sigmoid colon and in the descending colon. - Three 1 to 2 mm polyps in the sigmoid colon, removed with a hot snare. Resected and retrieved. - One 5 mm polyp in the ascending colon, removed with a cold biopsy forceps. Resected and retrieved. Recommendation: - Repeat colonoscopy in 3 years for surveillance. - Continue present medications. Procedure Code(s): --- Professional --- 46064, Colonoscopy, flexible; with removal of tumor(s), polyp(s), or other lesion(s) by snare technique 03960, 59, Colonoscopy, flexible; with biopsy, single or multiple CPT copyright 2021 [employer] [place] [employer]. All rights reserved. The codes documented in this report are preliminary and upon it network engineer review may be revised to meet current compliance requirements. Raj Chapin DO 04/14/2024 7:21:55 AM This report has been signed electronically. Number of Addenda: 0 Note Initiated On: 04/14/2024 6:23 AM
--- NOTE | 2024-04-14 07:23 | OP.CCLET_ITS ---
04/14/2024 [facility] Re : Colonoscopy procedure for Salvador Jassi Dear This procedure was performed on Sunday, April 14, 2024. My impressions and recommendations are as follows: Impressions : - Diverticulosis in the recto-sigmoid colon, in the sigmoid colon and in the descending colon. - Three 1 to 2 mm polyps in the sigmoid colon, removed with a hot snare. Resected and retrieved. - One 5 mm polyp in the ascending colon, removed with a cold biopsy forceps. Resected and retrieved. Recommendations : - Repeat colonoscopy in 3 years for surveillance. - Continue present medications. My findings are described in the full procedure note, which is enclosed. If I can be of further assistance, please feel free to contact me at . Sincerely, Raj Chapin, 04/14/2024 7:21:55 AM This report has been signed electronically.
--- NOTE | 2024-04-14 07:32 | PCM.POSTANE2 ---
Anesthesia Postop Eval I Sum Postop Eval Completion status Anesthesia document: Postop Eval 1 completed: Yes Anesthesia Postop Eval I Summary Anesthesia Postop Eval I Summary: Anesthesia Postop Eval I: Assessment Summary Airway patent Yes 04/14/24 07:23 [email or web address] Spontaneous unlabored Yes 04/14/24 07:23 [email or web address] respirations Mental status Awake,Calm 04/14/24 07:23 [email or web address] nausea No 04/14/24 07:23 [email or web address] Vomiting No 04/14/24 07:23 [email or web address] Anesthesia Postop Eval I: Fluid Summary Crystalloid volume administer 45 04/14/24 07:23 [email or web address] (ml) Colloids volume administered ( ml) Blood Product volume administered (ml) Total IV fluid infused 45 04/14/24 07:23 [email or web address] Anesthesia Postop Eval I: Summary Notes Anesthesia Complication No 04/14/24 07:23 [email or web address] Anesthesia Complication Comment: Post-operative progress note Anesthesia: Postop Eval II Evaluation Mental status: Awake and Calm Pain Level: 0 nausea: No Vomiting: No
== END 2024-04-14 07:50 | disposition home or self-care (01) ==
LOC: EN 05:31 → AC 05:32
PROVIDERS: PCP Internal Medicine; Referring Provider Internal Medicine; Visit Provider Internal Medicine Gastroenterology
PROC: 0DJD8ZZ Inspection of Lower Intestinal Tract, Via Natural or Artificial Opening Endoscopic (ICD-10-PCS; CPT 45378; principal; 2024-04-14 06:25)
DX: Z12.11 Encounter for screening for malignant neoplasm of colon (principal); Z79.4 Long term (current) use of insulin; E11.9 Type 2 diabetes mellitus without complications; K57.30 Diverticulosis of large intestine without perforation or abscess without bleeding; E78.00 Pure hypercholesterolemia, unspecified; I10 Essential (primary) hypertension; I25.5 Ischemic cardiomyopathy; Z79.02 Long term (current) use of antithrombotics/antiplatelets; Z79.82 Long term (current) use of aspirin; Z86.0100 Personal history of colon polyps, unspecified; Z87.891 Personal history of nicotine dependence; Z79.85 Long-term (current) use of injectable non-insulin antidiabetic drugs; I25.10 Atherosclerotic heart disease of native coronary artery without angina pectoris; Z79.84 Long term (current) use of oral hypoglycemic drugs; D12.2 Benign neoplasm of ascending colon; D12.5 Benign neoplasm of sigmoid colon; Z95.5 Presence of coronary angioplasty implant and graft; I25.2 Old myocardial infarction
CPT/HCPCS: 45385; 45380; 82962; 88305; A4216; J2405

== ENCOUNTER → 2024-12-09 | Outpatient (CLI) | payer OTHER, SELFPAY ==
--- NOTE | 2024-12-09 07:40 | VDLE_ITS ---
Reason For Study Reason For Study: BLE Swelling RIGHT LEFT CFV is compressible, spontaneous, phasic, competent CFV is compressible, spontaneous, phasic, competent, and demonstrates normal augmentation. and demonstrates normal augmentation. FV is compressible, spontaneous, phasic, competent FV is compressible, spontaneous, phasic, competent and demonstrates normal augmentation. and demonstrates normal augmentation. POP V is compressible, spontaneous, phasic, competent POP V is compressible, spontaneous, phasic, competent and demonstrates normal augmentation. and demonstrates normal augmentation. T/P Trunk is compressible. T/P Trunk is compressible. PTV is compressible. PTV is compressible. RT PerV is compressible. LT PerV is compressible. SFJ is competent and measures 0.43 cm. SFJ is competent and measures 0.65 cm. GSV proximal thigh measures 0.36 x 0.39 cm. GSV proximal thigh measures 0.26 x 0.29 cm. GSV at knee measures 0.29 x 0.32 cm. GSV at knee measures 0.36 x 0.38 cm. GSV is competent throughout. GSV is competent throughout. SSV at junction is competent and measures 0.09 x 0.10 SSV at junction is competent and measures 0.20 x 0.27 cm. cm. Procedure Exam performed in department. This is a venous duplex using B-mode, color flow and spectral Doppler. The exam was diagnostic. VL/Venous Duplex US - Thomas Extrem Interpretation Summary Deep veins of the lower extremities are bilaterally patent and compressible seg mentally. There is no evidence of deep vein thrombosis on either side. Valvular competence appears intact within the p roximal deep venous systems bilaterally. The great saphenous veins appear bilaterally patent and compressible segmentall y. Sapheno-femoral junctions are bilaterally competent . Valvular competence appears to be intact segmentally wi thin the great saphenous veins bilaterally. Small saphenous veins are patent and competent bilaterally. Ordering Physician: Remi Zeng Referring Physician: [place], Afshan Performed By: Edgar Ulloa RVT
--- NOTE | 2024-12-09 07:40 | ART_ITS ---
Reason For Study Reason For Study: PVD Procedure A bilateral lower extremity continuous wave Doppler with analog waveform analysis,segmental pressures,and ankle brachial indexes without exercise. Left Segmental Pressures Left brachial= 141mmHg. Left posterior tibial artery = 188mmHg. Left dorsalis pedis artery = 169mmHg. Left digit = 128 mmHg. The left posterior tibial artery waveforms are triphasic. The left dorsalis pedis waveforms are triphasic. Right Segmental Pressures Right brachial= 139mmHg. Right posterior tibial artery = 167mmHg. Right dorsalis pedis artery = 165mmHg. Right digit = 136 mmHg. The right posterior tibial artery waveforms are triphasic. The right dorsalis pedis waveforms are triphasic. Indices The right ankle brachial index by the posterior tibial artery is 1.18. The right ankle brachial index by the dorsalis pedis is 1.17. The right digital-brachial index is 0.96. The left ankle brachial index by the posterior tibial artery is 1.33. The left ankle brachial index by the dorsalis pedis is 1.20. The left digital-brachial index is 0.91. VL/Lower Ext Art Exam w/o Exercis Interpretation Summary Triphasic Doppler waveforms are noted at ankle level bilaterally. Pulse-volume recordings appear satisfactory at all levels bilaterally. Resting ankle-brachial indices are normal bilaterally. Digi [place]-brachial indices are normal bilaterally. There is no evidence of significant arterial occlusive disease in the lower ext remities bilaterally. Ordering Physician: Remi Zeng Referring Physician: Afshan Bennett Performed By: Edgar Ulloa RVT
--- OUTSIDE RECORDS SUMMARY | 2024-12-09 07:59 | XMS RPT_ITS | CCD ---
Author Organization [facility] Care Team Providers Care Clinical Nurse Occupational Medicine Name Role Phone Aurora Nguyen Unavailable Unavailable Roxana SALTER, Kimberly Wynne Unavailable Unavailable Aurora Nguyen Unavailable Unavailable Agency, Afshan Unavailable Unavailable Agency, Afshan S Unavailable Unavailable Unavailable Primary Care Provider Unavailabl e Agency, Afshan S Unavailable Unavailable Unavailable AFSHAN BENNETT DO Primary Care Physician Unavailable Unavailable Dr. Afshan Bennett Primary Care Provider Dr. Afshan Bennett Referring Provider Obie CISTERN ROOM WORKING SUPERVISOR, CISTERN ROOM WORKING SUPERVISOR-C Chandni Attending Provider Agency DO, Afshan S Primary Care Provider ROYAL, AFSHAN S Attending Unavailable ROYAL, DO AFSHAN S Referring Unavailable ROYAL, DO AFSHAN S Primary Care Unavailable ROYAL, DO AFSHAN S Primary Care Unavailable ROYAL, DO AFSHAN S Attending Unavailable ROYAL, DO AFSHAN S Referring Unavailable ROYAL, DO AFSHAN S Primary Care Unavailable Dr. Adam Baptiste Attending Unavailabl e Dr. Adam Baptiste Referring Unavailabl e Agency DO, Afshan S Primary Care Provider Dr. Afshan Bennett Primary Care Provider Dr. Afshan Bennett Referring Provider Obie CISTERN ROOM WORKING SUPERVISOR, CISTERN ROOM WORKING SUPERVISOR-C Chandni Attending Provider Shweta Limon Attending Provider Unavailable FriendDr. Anthony Attending Provider Dr. Raj Chapin Other Provider ROYAL, AFSHAN S Primary Care Unavailable ROYAL, AFSHAN S Primary Care Unavailable Agency DO, Afshan S Primary Care Provider ROYAL, AFSHAN S Referring Unavailable ROYAL, AFSHAN S Primary Care Unavailable Agency DO, Afshan S Primary Care Provider Royal MASSEY, Dr. Cavanaugh Primary Care Provider Dr. Afshan Bennett MD Referring Provider Sharmila Casper Attending Provider [phone] ROYAL, AFSHAN S Attending Unavailable ROYAL, AFSHAN S Referring Unavailable ROYAL, AFSHAN S Primary Care Unavailable ROYAL, AFSHAN S Attending Unavailable ROYAL, AFSHAN S Referring Unavailable ROYAL, AFSHAN S Primary Care Unavailable Agency, Afshan Primary Care Unavailable FriendRaj Consulting Unavailable FriendRaj Attending Unavailable Agency, Afshan Referring Unavailable Agency, Afshan Primary Care Unavailable Remi Zeng Attending Unavailable MorrisnningRemi Referring Unavailable Agency, [facility]shan Primary Care Unavailable Abdirizak Henao Attending Unavailable Agency, Afshan Referring Unavailable Agency, Afshan Primary Care Unavailable Sharmila Casper Attending Unavail able Agency, Afshan Referring Unavailable Agency, Afshan Referring Unavailable Adia Gonzalez Attending Unavailable Agency, Afshan Primary Care Unavailable Agency, Afshan Referring Unavailable FriendRaj Attending Unavailable Agency, [facility]shan Primary Care Unavailable Medications Current Medications Medication Drug Class(es) Dates Sig (Normalized) Sig (Original) acetaminophen 500 mg oral tablet (1 source) Start: 04-13-2021 End: 04-27-2021 take 1 tablet by mouth once daily Tylenol Extra Strength 500 mg oral tablet Dose : 1,000 mg = 2 tab(s), Oral, TID, PRN as needed for pain, not to exceed 3000 mg/day, # 100 tab(s), 0 Refill(s), 04/27/21 7:23:00 EST, [id number], 182.9, cm, 04/12/21 15:14:00 EST, Height, kg, 04/12/21 15:14:00 EST, Dosing Weight Start Date: 04/13/21 Stop Date: 04/27/21 Status: Ordered Aspirin (20 sources) Platelet Aggregation Inhibitor, Nonsteroidal Anti-inflammatory Drug Start: 03-28-2021 aspirin 81 mg oral delayed release tablet Dose : 81 mg = 1 tab(s), Oral, Daily, 0 Refill(s) Start Date: 03/28/21 Status: Ordered Start: 10-11-2015 take 1 tablet by anita th once daily Aspirin 81 MG tablet,chewable Active 81 mg PO DAILY@0800 October 11, 2015 12:00am Start: 07-21-2013 take 1 tablet by anita th once daily ASPIRIN 81 MG TABS One tablet by mouth daily ASPIRIN [id number] Laura Thurston RN Start: 07-21-2013 take 1 tablet by anita th once daily ASPIRIN EC 81 MG TBEC One tablet by mouth daily ASPIRIN [id number] Jose Maria Cardozo atorvastatin 20 mg oral tablet (20 sources) HMG-CoA Reductase Inhibitor Start: 07-08-2024 take 1 tablet by mouth once daily atorvastatin (Lipitor) 20 mg tablet Indications: Mixed hyperlipidemia Take 1 tablet (20 mg) by mouth once daily. 100 tablet 1 07/08/2024 Active Start: 07-21-2013 End: 07-09-2024 take 1 tablet by mouth once daily atorvastatin (Lipitor) 20 mg tablet Indications: Mixed hyperlipidemia Take 1 tablet (20 mg) by mouth once daily. 90 tablet 1 01/08/2024 07/08/2024 Discontinued (Reorder) Start: 07-21-2013 take 0.5 tablet by m out once daily ATORVASTATIN CALCIUM 80 MG TABS 1/2 tablet by mouth daily ATORVASTATIN CALCIUM [id number] Jeffrey Rebolledo MD Start: 07-21-2013 take 1 tablet by anita th once daily ATORVASTATIN CALCIUM 80 MG TABS One tablet by mouth daily ATORVASTATIN CALCIUM [id number] Laura Thurston RN Comment on above: Take 20 mg by mouth once daily. cholecalciferol 0.05 mg oral capsule (20 sources) Vitamin D Start: 07-19-19 take 1 capsule by mouth once in the morning cholecalciferol (Vitamin D-3) 50 mcg (2,000 unit) capsule Indications: Vitamin D deficiency Take 1 capsule (50 mcg) by mouth early in the morning.. 90 capsule 1 07/18/2022 Active Start: 06-23-2021 take 1 tablet by anita th once daily Cholecalciferol (Vitamin D3) (Vitamin D3) 25 mcg (1,000 unit) Tablet Active 25 ug PO DAILY September 08, 2020 12:00am take 1 capsule by mo uth in the morning cholecalciferol (Vitamin D-3) 50 mcg (2,000 unit) capsule Take 1 capsule (50 mcg) by mouth early in the morning.. 0 Active Vitamin D (Bonny calciferol) 50 MCG (2000 UT) Oral Capsule Quantity: 0 Refills: 0 Ordered: 22-Jan-2019 DO Active 0.5 ml dulaglutide 3 mg/ml auto-injector (20 sources) GLP-1 Receptor Agonist Start: 07-15-2023 End: 07-10-2023 inject 3 mg by subcutaneous injection every week dulaglutide (Trulicity) 1.5 mg/0.5 mL pen injector injection Indications: Type 2 diabetes mellitus without complication, without long-term current use of insulin (Multi) Inject 3 mg under the skin 1 (one) time per week. 24 each 3 07/15/2023 07/10/2023 Discontinued (Therapy completed) Start: 03-24-2021 End: 07-10-2023 inject 3 mg by subcutaneous injection every week dulaglutide (Trulicity) 1.5 mg/0.5 mL pen injector Inject 3 mg under the skin 1 (one) time per week. 03/24/2021 07/10/2023 Discontinued (Reorder) Start: 02-15-2021 Dulaglutide (T rulicity) 1.5 mg/0.5 mL pen injector Active 1.5 mg SC FLEMING February 15, 2021 1:00am inject 0.75 mg by fleming bcutaneous injection every week dulaglutide (TRULICITY) 0.75 mg/0.5 mL pen injector Inject 0.75 mg subcutaneously one time a week. 0 Active Comment on above: Inject 0.75 mg subcu taneously one time a week. dulaglutide (Trulicity) 3 mg/0.5 mL injection (1 source) Start: 025 inject 3 mg by subcutaneous injection every week dulaglutide (Trulicity) 3 mg/0.5 mL injection Indications: Type 2 diabetes mellitus without complication, without long-term current use of insulin Inject 3 mg under the skin 1 (one) time per week. 4 each 5 07/08/2024 Active dulaglutide (Trulicity) 3 mg/0.5 mL pen injector (4 sources) Start: End: inject 3 mg by subcutaneous injection every week dulaglutide (Trulicity) 3 mg/0.5 mL pen injector Indications: Type 2 diabetes mellitus without complication, without long-term current use of insulin Inject 3 mg under the skin 1 (one) time per week. 4 each 5 01/13/2024 07/08/2024 Discontinued (Reorder) Start: 01-13-2024 inject 3 mg by subcu taneous injection every week dulaglutide (Trulicity) 3 mg/0.5 mL pen injector Indications: Type 2 diabetes mellitus without complication, without long-term current use of insulin (Multi) Inject 3 mg under the skin 1 (one) time per week. 4 each 5 01/13/2024 Active Start: 09-19-2023 End: 01-08-2024 inject 3 mg by subcutaneous injection every week dulaglutide (Trulicity) 3 mg/0.5 mL pen injector Indications: Type 2 diabetes mellitus without complication, without long-term current use of insulin (Multi) INJECT 3MG SUBCUTANEOUSLY ONCE WEEKLY 4 mL 5 09/19/2023 01/08/2024 Discontinued (Reorder) dulaglutide 3 mg/0.5 mL pen injector (1 source) Start: 07-15-2023 End: 10-13-2023 inject 3 mg by subcutaneous injection every week dulaglutide 3 mg/0.5 mL pen injector Indications: Type 2 diabetes mellitus without complication, without long-term current use of insulin (Multi) Inject 3 mg under the skin 1 (one) time per week. 2 mL 1 07/15/2023 10/13/2023 Active fexofenadine hydrochloride 60 mg oral tablet (3 sources) Histamine-1 Receptor Antagonist End: 07-10-2023 fexofenadine (Roopa) 60 mg tablet Take by mouth. 07/10/2023 Discontinued (Med List Cleanup) glipiZIDE 5 mg oral tablet (20 sources) Sulfonylurea Start: 04-29-2018 End: 07-08-2025 take 1 tablet by mouth twice daily Glipizide 5 MG tablet Active 5 mg PO TWICE A DAY June 25, 2018 12:00am Comment on above: Take 5 mg by mouth t wice daily before meals. insulin glargine-yfgn (Semglee,insulin glarg-yfgn,Pen) 100 unit/mL (3 mL) Pen (7 sources) Start: 01-08-2024 End: 07-08-2024 insulin glargine-yfgn (Semglee,insulin glarg-yfgn,Pen) 100 unit/mL (3 mL) Pen Indications: Type 2 diabetes mellitus without complication, without long-term current use of insulin INJECT 34 UNITS SUBCUTANEOUSLY EVERY 24 HOURS. TAKE DIRECTED PER INSULIN INSTRUCTIONS 9 mL 5 01/08/2024 07/08/2024 Discontinued (Reorder) Start: 01-08-2024 insulin glargi ne-yfgn (Semglee,insulin glarg-yfgn,Pen) 100 unit/mL (3 mL) Pen Indications: Type 2 diabetes mellitus without complication, without long-term current use of insulin (Multi) INJECT 34 UNITS SUBCUTANEOUSLY EVERY 24 HOURS. TAKE DIRECTED PER INSULIN INSTRUCTIONS 9 mL 5 01/08/2024 Active Start: 12-31-2023 End: 01-08-2024 insulin glargine-yfgn (Semgl ee,insulin glarg-yfgn,Pen) 100 unit/mL (3 mL) Pen Indications: Type 2 diabetes mellitus without complication, without long-term current use of insulin (Multi) INJECT 34 UNITS SUBCUTANEOUSLY EVERY 24 HOURS. TAKE DIRECTED PER INSULIN INSTRUCTIONS 9 mL 12/31/2023 01/08/2024 Discontinued (Reorder) Start: 07-10-2023 End: 07-10-2023 insulin glargine-yfgn (Semgl ee,insulin glarg-yfgn,Pen) 100 unit/mL (3 mL) Pen Indications: Type 2 diabetes mellitus without complication, without long-term current use of insulin (Multi) Take as directed per insulin instructions. GIVE 90 DAY SUPPLY WITH 1 REFILL 3 mL 5 07/10/2023 07/10/2023 Discontinued (Reorder) Start: 07-10-2023 insulin glargi ne-yfgn (Semglee,insulin glarg-yfgn,Pen) 100 unit/mL (3 mL) Pen Indications: Type 2 diabetes mellitus without complication, without long-term current use of insulin (Multi) Take as directed per insulin instructions. GIVE 90 DAY SUPPLY WITH 1 REFILL Maximum 34 Units a day 3 mL 5 07/10/2023 Active Start: 06-05-2023 End: 07-10-2023 insulin glargine-yfgn (Semgl ee,insulin glarg-yfgn,Pen) 100 unit/mL (3 mL) Pen Indications: Type 2 diabetes mellitus without complication, without long-term current use of insulin (Multi) Inject 34 Units under the skin once every 24 hours. Take as directed per insulin instructions. 3 mL 5 06/05/2023 07/10/2023 Discontinued (Reorder) insulin glargine-yfgn (Semglee,insulin glarg-yfgn,Pen) 100 unit/mL (3 mL) pen (1 source) Start: 07-08-2024 insulin glargi ne-yfgn (Semglee,insulin glarg-yfgn,Pen) 100 unit/mL (3 mL) pen Indications: Type 2 diabetes mellitus without complication, without long-term current use of insulin INJECT 34 UNITS SUBCUTANEOUSLY EVERY 24 HOURS. TAKE DIRECTED PER INSULIN INSTRUCTIONS 9 mL 5 07/08/2024 Active Insulin Glargine-Yfgn 100 unit/mL (3 mL) insulin pen (1 source) Start: 10-14-2024 Insulin Glargi ne-Yfgn 100 unit/mL (3 mL) insulin pen Active 37 U SC daily October 14, 2024 12:00am metFORMIN hydrochloride 1000 mg oral tablet (20 sources) Biguanide Start: 07-08-2024 take 1 tablet by mouth twice daily metFORMIN (Glucophage) 1,000 mg tablet Indications: Type 2 diabetes mellitus without complication, without long-term current use of insulin Take 1 tablet (1,000 mg) by mouth 2 times daily (morning and late afternoon). 200 tablet 1 07/08/2024 Active Start: 12-25-2023 End: 07-08-2024 take 1 tablet by mouth twice daily metFORMIN (Glucophage) 1,000 mg tablet Indications: Type 2 diabetes mellitus without complication, without long-term current use of insulin Take 1 tablet (1,000 mg) by mouth 2 times daily (morning and late afternoon). 180 tablet 1 01/08/2024 07/08/2024 Discontinued (Reorder) Start: 07-10-2023 take 1 tablet by anita th twice daily at mealtime metFORMIN (Glucophage) 1,000 mg tablet Indications: Type 2 diabetes mellitus without complication, without long-term current use of insulin (Multi) Take 1 tablet (1,000 mg) by mouth 2 times a day with meals. 180 tablet 1 07/10/2023 Active Start: 06-19-2023 End: 07-10-2023 take 1 tablet by mouth twice daily at mealtime metFORMIN (Glucophage) 1,000 mg tablet Indications: Type 2 diabetes mellitus without complication, without long-term current use of insulin (Multi) Take 1 tablet (1,000 mg) by mouth 2 times a day with meals. 180 tablet 1 06/19/2023 07/10/2023 Discontinued (Reorder) Start: 12-14-2022 End: 01-11-2023 take 1 tablet by mouth twice daily at mealtime metFORMIN (Glucophage) 1,000 mg tablet Indications: Type 2 diabetes mellitus without complication, without long-term current use of insulin (CMS/HCC) Take 1 tablet (1,000 mg) by mouth 2 times a day with meals. 360 tablet 1 12/14/2022 01/11/2023 Discontinued (Therapy completed) Start: 03-28-2021 MetFORMIN (Eqv -Glucophage XR) 500 mg oral tablet, EXTENDED RELEASE Dose : 1,000 mg = 2 tab(s), Oral, BID, # 30 tab(s), 0 Refill(s) Start Date: 03/28/21 Status: Ordered Start: 02-15-2021 Metformin 500 mg tablet extended release 24 hr Active 1000 mg PO TWICE A DAY February 15, 2021 1:00am Start: 02-15-2021 take 1000 mg by mout h twice daily Metformin Active 1000 MG PO TWICE A DAY February 15, 2021 10:12am Start: 08-04-2019 take 1 tablet by anita th every twenty-four hours metFORMIN ER (GLUCOPHAGE XR) 500 mg 24 hr tablet Take 1,000 mg by mouth. 0 08/04/2019 Active Start: 06-25-2018 End: 02-15-2021 take 2 tablets by mouth twice daily at mealtime Metformin 500 MG tablet Discontinued 1000 mg PO TWICE DAILY WITH MEALS June 25, 2018 12:00am February 15, 2021 10:12am Start: 06-25-2018 End: 02-15-2021 take 1000 mg by mouth twice daily at mealtime Metformin Discontinued 1000 MG PO TWICE DAILY WITH MEALS June 25, 2018 11:55am February 15, 2021 10:12am take 1 tablet by anita th twice daily at mealtime metFORMIN (Glucophage) 1,000 mg tablet Take 1 tablet (1,000 mg) by mouth 2 times a day with meals. 0 Active Comment on above: Take 1,000 mg by anita th. 24 hr metoprolol succinate 25 mg extended release oral tablet (20 sources) beta-Adrenergic Lia Start: 03-28-2021 Metoprolol Succinate ER 25 mg oral TABLET extended release Dose : 25 mg = 1 tab(s), Oral, qDay, # 90 tab(s), 0 Refill(s) Start Date: 03/28/21 Status: Ordered Start: 04-10-2015 take 1 tablet by anita th every twenty-four hours metoprolol succinate ER (TOPROL XL) 25 mg 24 hr tablet Take 25 mg by mouth. 0 04/10/2015 Active Start: 07-21-2013 End: 07-08-2025 take 1 tablet by mouth once daily Metoprolol Succinate 25 MG tablet Discontinued 25 mg PO DAILY October 11, 2015 12:00am August 17, 2017 10:07am Start: 07-21-2013 take 1 tablet by mouth once da shana METOPROLOL SUCCINATE ER 100 MG [id number] One half tablet by mouth a day METOPROLOL SUCCINATE [id number] Jeffrey Rebolledo MD Comment on above: Take 25 mg by mouth. nitroglycerin 0.4 mg sublingual tablet (20 sources) Nitrate Vasodilator Start: 02-27-2020 End: 10-23-2022 Nitroglycerin (Nitrostat) 0.4 mg tablet, sublingual Active 0.4 MG SL every 5 to 15 minutes October 23, 2022 8:10am Start: 08-14-2017 End: 02-27-2020 Nitroglycerin (Nitrostat) 0. 4 mg tablet, sublingual Discontinued 0.4 MG SL Q5M August 14, 2017 9:55am February 27, 2020 10:26am Start: 07-21-2013 End: 10-14-2024 Nitroglycerin (Nitrostat) 0. 4 mg tablet, sublingual Active 0.4 mg SL every 5 to 15 minutes as needed for chest pain 10 06October 14, 2024 9:43am Comment on above: Dissolve under the t ongue. oxyCODONE hydrochloride 5 mg oral tablet (1 source) Opioid Agonist Start: End: take 1-2 tablets by mouth every four hours as needed for pain oxyCODONE 5 mg oral tablet ( IMMEDIATE release ) See Instructions, PRN as needed for pain, 1-2 tab(s) Oral q4h, # 42 tab(s), 0 Refill(s), 04/20/21 7:25:00 EST, [id number], Status post total replacement of left hip, 182.9, cm, 04/12/21 15:14:00 EST, Height, 115.9, kg, 04/12/21 15... Start Date: 04/13/21 Stop Date: 04/20/21 Status: Ordered phenylephrine hydrochloride 25 mg/ml ophthalmic solution (1 source) alpha-1 Adrenergic Agonist Start: End: PHENYLephrine 2.5 % 1 Drop (AK-DILATE, KIMBERLY-SYNEPHRINE) rivaroxaban 20 mg oral tablet (3 sources) Factor Xa Inhibitor Start: End: take 1 tablet by mouth once daily at mealtime rivaroxaban (Xarelto) 20 mg tablet Indications: Pain and swelling of left lower leg Take 1 tablet (20 mg) by mouth once daily for 3 days. Take with food. 3 tablet 01/08/2024 07/08/2024 Discontinued (Med List Cleanup) sennosides, HALF-WAY (1 source) Start: End: take 1 tablet by mouth twice daily Senokot S 50 mg-8.6 mg oral tablet Dose = 2 tab(s), Oral, BID, Take until first bowel movement, then as needed, # 20 tab(s), 0 Refill(s), Pharmacy: [id number], 182.9, cm, 04/12/21 15:14:00 EST, Height, kg, 04/12/21 15:14:00 EST, Dosing Weight Start Date: 04/13/21 Stop Date: 04/16/21 Status: Ordered terbinafine 250 mg oral tablet (2 sources) Allylamine Antifungal Start: End: terbinafine (LamISIL) 250 mg tablet 1 tablet (250 mg) once daily. 0 06/30/2022 01/11/2023 Discontinued (Therapy completed) tropicamide 10 mg/ml ophthalmic solution (1 source) Anticholinergic Start: End: tropicamide 1 % 1 Drop (MYDRIACYL) turmeric extract 500 mg oral capsule (20 sources) Start: turmeric 500 mg oral capsule Dose : 500 mg = 1 cap(s), Oral, Daily, 0 Refill(s) Start Date: 03/28/21 Status: Ordered Start: 09-08-2020 take 400 mg by mouth once corrina y Turmeric Active 400 MG PO DAILY September 08, 2020 8:10am Start: 09-08-2020 End: 02-07-2024 take 1 capsule by mouth once daily Turmeric 400 mg Capsule Discontinued 400 mg PO DAILY September 08, 2020 12:00am February 07, 2024 1:59pm Start: 09-08-2020 take 400 mg by mouth once corrina y Turmeric Active 400 MG PO DAILY September 07, 2020 11:00pm Turmeric CAPS Qu antity: 0 Refills: 0 Ordered: 19-Feb-2020 DO Active turmeric-turmeric root extra ct 450-50 mg capsule (6 sources) turmeric-turmeri c root extract 450-50 mg capsule Take by mouth. Active turmeric-turmeri c root extract 450-50 mg capsule Take by mouth. 0 Active Vitamin D3 (1 source) Start: 03-28-2021 Vitamin D3 Dos e : 2,000 unit(s) = 1 tab(s), Oral, Daily, # 60 tab(s), 0 Refill(s) Start Date: 03/28/21 Status: Ordered Completed/Discontinued Medications Medication Drug Class(es) Dates Sig (Normalized) Sig (Original) Aller-Ease TABS (20 sources) Aller-Ease TABS Quantity: 0 Refills: 0 Ordered: 19-Feb-2020 DO Active amoxicillin 875 mg oral tablet (3 sources) Penicillin-class Antibacterial Start: 03-24-2021 take 1 tablet by mouth once daily Amoxicillin 875 MG Oral Tablet TAKE 1 TABLET EVERY 12 HOURS DAILY. Quantity: 20 Refills: 0 Ordered: 24-Mar-2021 Afshan Bennett DO Start : 24-Mar-2021 Active apple cider vinegar 500 mg oral tablet (3 sources) Start: 09-08-2020 End: 08-01-2021 take 1 tablet by mouth once daily Apple Cider Vinegar 500 mg Tablet Discontinued 500 mg PO DAILY September 08, 2020 12:00am August 01, 2021 8:28am cetirizine hydrochloride 10 mg oral tablet (1 source) Histamine-1 Receptor Antagonist Start: 02-07-2024 End: 04-02-2024 take 1 tablet by mouth once daily as needed Cetirizine (All Day Allergy (Cetirizine)) 10 mg tablet Discontinued 10 mg PO daily as needed February 07, 2024 1:00am April 02, 2024 10:00am ciprofloxacin 250 mg oral tablet (3 sources) Quinolone Antimicrobial Start: 07-04-2021 take 1 tablet by mouth twice daily Ciprofloxacin HCl - 250 MG Oral Tablet Take 1 tablet twice daily Quantity: 6 Refills: 0 Ordered: 04-Jul-2021 Carola Obando MD, MPH, [facility] Start : 04-Jul-2021 Active ubidecarenone 100 mg oral capsule (2 sources) coenzyme Q10 (COENZYME Q-10) 100 mg cap capsule Take by mouth. 0 Active CoQ-10 100 MG Or al Capsule TAKE DIRECTED. Refills: 0 DO Active Comment on above: Take by mouth. COENZYME Q10 CAPS (3 sources) Start: 4 take 1 tablet by mouth once daily COQ10 CAPS One tablet by mouth daily COENZYME Q10 CAPS [id number] Jeffrey Rebolledo MD fenofibrate 145 mg oral tablet (9 sources) Peroxisome Proliferator Receptor alpha Agonist Start: 4 take 1 tablet by mouth once daily TRICOR 145 MG TABS One tablet by mouth daily FENOFIBRATE [id number] Larua Thurston RN Start: 07-21-2013 End: 09-07-2014 take 1 tablet by mouth once daily TRICOR 48 MG TABS One tablet by mouth daily FENOFIBRATE [id number] Sharmila Cannon PA-C Fish Oils (3 sources) Start: 07-24-2013 take 1 tablet by mouth once daily FISH OIL CAPS One tablet by mouth daily OMEGA-3 FATTY ACIDS CAPS [id number] Jeffrey Rebolledo MD gabapentin 300 mg oral capsule (1 source) Anti-epileptic Agent Start: 03-29-2020 take 1 capsule by mouth three times daily gabapentin (NEURONTIN) 300 mg capsule Take 300 mg by mouth three times daily. 0 03/29/2020 Active Comment on above: Take 300 mg by mouth three times daily. glucosamine 1000 mg oral tablet (6 sources) Start: 07-24-2013 End: 11-10-2015 take 1 tablet by mouth once daily GLUCOSAMINE HCL TABS One tablet by mouth daily GLUCOSAMINE HCL TABS Jeffrey Rebolledo MD Glucosamine 1500 Complex Oral Capsule (1 source) take 1 capsule by mouth once daily Glucosamine 1500 Complex Oral Capsule TAKE 1 CAPSULE Daily Refills: 0 DO Active 3 ml insulin detemir 100 unt/ml pen injector (20 sources) Insulin Analog Start: 08-07-2023 End: 10-14-2024 Insulin Detemir U-100 100 unit/mL (3 mL) insulin pen Discontinued 35 U SC AT BEDTIME August 07, 2023 8:39am October 14, 2024 9:00am Start: 12-06-2022 End: 04-11-2023 inject 34 [IU] by subcutaneous injection once daily at bedtime, then inject 32 [IU] by subcutaneous injection once daily at bedtime insulin detemir (Levemir FlexTouch U100 Insulin) 100 unit/mL (3 mL) pen Indications: Type 2 diabetes mellitus without complication, with long-term current use of insulin ([facility]) Inject 34 Units under the skin once daily at bedtime. Inject 32 units under skin once daily at bedtime 10 each 3 01/11/2023 04/11/2023 Active Start: 03-28-2021 inject 1 dose by sub cutaneous injection once daily at bedtime Levemir FlexTouch 100 units/mL 3 mL Pen Dose : 31 unit(s) =, Subcutaneous, qHS, # 15 mL, 0 Refill(s) Start Date: 03/28/21 Status: Ordered Start: 02-27-2020 End: 08-07-2023 Insulin Detemir U-100 100 un it/mL (3 mL) insulin pen Discontinued 30 U SC AT BEDTIME February 27, 2020 10:25am August 07, 2023 8:40am Start: 08-04-2019 insulin detemi r U-100 (LEVEMIR) 100 unit/mL (3 mL) injection pen 28 units QHS 0 08/04/2019 Active Start: 01-18-2018 insulin detemi r (Levemir FlexTouch U-100 Insuln) 100 unit/mL (3 mL) pen Inject 30 Units under the skin once daily at bedtime. 0 01/18/2018 Active Start: 01-18-2018 Levemir FlexTo uch 100 UNIT/ML Subcutaneous Solution Pen-injector INJECT 30 UNIT Bedtime Quantity: 3 Refills: 1 Ordered: 13-Apr-2022 Afshan Bennett DO Start : 18-Jan-2018 Active Start: 01-18-2018 Levemir FlexTo uch 100 UNIT/ML Subcutaneous Solution Pen-injector INJECT 28 UNIT Bedtime Refills: 0 DO Start : 18-Jan-2018 Active 5 x 3 ML Pen Start: 10-11-2015 End: 02-27-2020 Insulin Detemir U-100 100 UN ITS/ML insulin pen Discontinued 28 U SC AT BEDTIME October 11, 2015 12:00am February 27, 2020 10:26am Start: 10-11-2015 End: 02-27-2020 Insulin Detemir U-100 Discon tinued 28 UNITS SC AT BEDTIME October 11, 2015 3:56pm February 27, 2020 10:26am Start: 07-21-2013 LEVEMIR 100 UN IT/ML SOLN as directed INSULIN DETEMIR [id number] Laura Thurston RN Comment on above: 28 units QHS insulin lispro 100 unt/ml injectable solution (6 sources) Insulin Analog Start: 4 End: 5 HUMALOG 100 UNIT/ML SOLN 8 unites with meals INSULIN LISPRO (HUMAN) [id number] Laura Thurston RN lisinopril 5 mg oral tablet (20 sources) Angiotensin Converting Enzyme Inhibitor Start: 4 End: 6 take 1 tablet by mouth once daily Lisinopril 5 mg tablet Discontinued 5 mg PO DAILY 30 September 10, 2017 1:54pm September 10, 2017 2:00pm Comment on above: Take 5 mg by mouth. Sodium,Potassium,Ma g Sulfates (1 source) Start: 4 End: 5 Sodium,Potassium,Mag Sulfates (Suprep Bowel Prep Kit) 17.5-3.13-1.6 gram recon soln Discontinued 0 PO .COMPLEX 354 0 February 07, 2024 1:00am October 14, 2024 9:01am DILUTE; drink full amount early evening before AND next morning at least 2 hr before procedure; follow w 960 mL water PO MULTIPLE VITAMIN (6 sources) Start: 4 take 1 tablet by mouth once daily MULTIVITAMINS TABS One tablet by mouth daily MULTIPLE VITAMIN Laura Thurston RN Start: 07-21-2013 End: 11-10-2015 take 1 tablet by mouth once daily MULTIVITAMINS TABS One tablet by mouth daily MULTIPLE VITAMIN Jeffrey Rebolledo MD polyethylene glycol 400 0.004 mg/mg / propylene glycol 0.003 mg/mg ophthalmic gel (1 source) peg 400-propylen e glycol (SYSTANE GEL) 0.4-0.3 % drpg Use 1 Drop in both eyes three times daily. 0 Active Comment on above: Use 1 Drop in both e yes three times daily. sulfamethoxazole 800 mg / trimethoprim 160 mg oral tablet (2 sources) Dihydrofolate Reductase Inhibitor Antibacterial, Sulfonamide Antimicrobial Start: take 1 tablet by mouth twice daily Sulfamethoxazole-Trime thoprim 800-160 MG Oral Tablet TAKE 1 TABLET TWICE DAILY UNTIL FINISHED. Quantity: 20 Refills: 0 Ordered: 05-May-2021 Afshan Bennett DO Start : 05-May-2021 Active ticagrelor 90 mg oral tablet (20 sources) Start: 014 End: 025 take 1 tablet by mouth twice daily Ticagrelor (Brilinta) 90 mg tablet Discontinued 90 mg PO TWICE A DAY 60 September 21, 2020 4:26pm August 01, 2021 8:37am Comment on above: Take 90 mg by mouth. Trulicity 3 MG/0.5ML Subcutaneous Solution Pen-injector (1 source) Start: Trulicity 3 MG/0.5ML Subcutaneous Solution Pen-injector Take one injection weekly Quantity: 4 Refills: 5 Ordered: 13-Apr-2022 Afshan Bennett DO Start : 13-Apr-2022 Active vitamin b6 100 mg oral tablet (3 sources) Start: 021 End: take 1 tablet by mouth once daily Pyridoxine (Vitamin B6) (Vitamin B-6) 100 mg Tablet Discontinued 100 mg PO DAILY September 08, 2020 12:00am August 01, 2021 8:28am CHOLECALCIFEROL TABS (6 sources) Start: take 1 tablet by mouth once daily VITAMIN D TABS One tablet by mouth daily CHOLECALCIFEROL TABS [id number] Jeffrey Rebolledo MD Start: 07-24-2013 End: 11-10-2015 take 1 tablet by mouth once daily VITAMIN D TABS One tablet by mouth daily CHOLECALCIFEROL TABS [id number] Jeffrey Rebolledo MD Problems Active Problems Problem Classification Problem Date Documented Date Episodic/Chronic Acute myocardial infarction (3 sources) Myocardial infarction; Translations: [ST elevation (STEMI) myocardial infarction involving other coronary artery of anterior wall] Onset: 4 07-24-2013 Chronic Cardiac and circulatory congenital anomalies (3 sources) Left atrial abnormality; Translations: [Cardiomegaly] Onset: 4 07-21-2013 Chronic Cataract (8 sources) Bilateral senile combined form cataracts of eyes; Translations: [Combined forms of age-related cataract, bilateral] Onset: 1 Chronic Coronary atherosclerosis and other heart disease (20 sources) Atypical angina; Translations: [Old anterior myocardial infarction ] Onset: 4 Resolved: 7 12-22-2016 Chronic Diabetes mellitus with complications (1 source) Type 2 diabetes mellitus; Translations: [Type 2 diabetes mellitus with other specified complication] 07-08-2024 Chronic Diabetes mellitus without complication (20 sources) Diabetes mellitus; Translations: [Type 2 diabetes mellitus] Onset: 4 07-21-2013 Chronic Diseases of white blood cells (3 sources) Leukocytosis; Translations: [Elevated white blood cell count, unspecified] 03-04-2021 Chronic Disorders of lipid metabolism (20 sources) Hyperlipidemia; Translations: [Other and unspecified hyperlipidemia] Onset: 4 07-21-2013 Chronic Essential hypertension (20 sources) Hypertensive disorder; Translations: [Unspecified essential hypertension] Onset: 6 11-04-2015 Chronic Hypertension with complications and secondary hypertension (9 sources) Secondary hypertension; Translations: [Secondary hypertension, unspecified] Onset: 3 07-13-2022 Chronic Nonspecific chest pain (3 sources) Chest pain; Translations: [Chest pain, unspecified] 02-24-2021 Episodic Osteoarthritis (20 sources) Osteoarthritis of left hip joint; Translations: [Osteoarthrosis, unspecified whether generalized or localized, pelvic region and thigh] Onset: 2 Chronic Other aftercare (18 sources) Patient encounter status; Translations: [Other terminal operator (current) drug therapy] Onset: 4 Resolved: 4 06-28-2018 Episodic Other aftercare (1 source) Long-term current use of drug therapy; Translations: [Other fdc (current) drug therapy] 08-14-2017 Episodic Comment on above: Antihyperlipidemic Other and ill-defined heart disease (6 sources) Left ventricular hypertrophy; Translations: [Cardiomegaly] Onset: 4 07-21-2013 Chronic Other and ill-defined heart disease (3 sources) Left atrial enlargement; Translations: [Cardiomegaly] 06-28-2018 Chronic Other and unspecified benign neoplasm (20 sources) History of polyp of colon; Translations: [Personal history of colonic polyps] Onset: 3 07-12-2022 Episodic Other and unspecified benign neoplasm (1 source) Multiple atypical melanocytic nevi; Translations: [Benign neoplasm of skin, site unspecified] Episodic Other circulatory disease (20 sources) H/O: heart disorder; Translations: [Personal history of other diseases of circulatory system] Episodic Other circulatory disease (1 source) History of cerebrovascular disease; Translations: [Personal history of other diseases of the circulatory system] Onset: 2 Episodic Other connective tissue disease (8 sources) Pain of left lower leg; Translations: [Pain in left lower leg] Onset: 4 Resolved: 5 01-08-2024 Episodic Other connective tissue disease (2 sources) Pain in left lower limb; Translations: [Pain in left leg] Onset: 4 01-08-2024 Episodic Other connective tissue disease (1 source) Pain in left leg; Translations: [Pain in left leg] Onset: 4 Episodic Other diseases of veins and lymphatics (1 source) Venous insufficiency (chronic) (peripheral); Translations: [Venous insufficiency (chronic) (peripheral)] Onset: 5 Episodic Other eye disorders (1 source) Bilateral vitreous floaters; Translations: [Other vitreous opacities, bilateral] Chronic Other eye disorders (1 source) Posterior vitreous detachment of left eye; Translations: [Vitreous degeneration, left eye] Chronic Other nutritional; endocrine; and metabolic disorders (3 sources) High density lipoprotein deficiency ; Translations: [Lipoprotein deficiency] Onset: 4 07-21-2013 Chronic Other nutritional; endocrine; and metabolic disorders (14 sources) Body mass index (BMI) 35.0-35.9, adult; Translations: [Body mass index (BMI) 33.0-33.9, adult] Onset: 4 Resolved: 5 12-10-2013 Chronic Other nutritional; endocrine; and metabolic disorders (4 sources) Body mass index (BMI) 36.0-36.9, adult; Translations: [Body mass index (BMI) 36.0-36.9, adult] Onset: 4 Resolved: 5 03-03-2015 Chronic Other nutritional; endocrine; and metabolic disorders (4 sources) Body mass index (BMI) 33.0-33.9, adult; Translations: [Body mass index (BMI) 33.0-33.9, adult] Onset: 4 03-04-2015 Chronic Other nutritional; endocrine; and metabolic disorders (2 sources) Body mass index (BMI) 31.0-31.9, adult; Translations: [Body mass index (BMI) 31.0-31.9, adult] Onset: 5 09-07-2014 Chronic Other nutritional; endocrine; and metabolic disorders (3 sources) Obesity; Translations: [Morbid obesity] Onset: 3 07-13-2022 Chronic Other nutritional; endocrine; and metabolic disorders (20 sources) Severe obesity; Translations: [Morbid obesity] Onset: 3 01-11-2023 Chronic Other upper respiratory infections (13 sources) Acute sinusitis; Translations: [Acute sinusitis, unspecified] Episodic Residual codes; unclassified (20 sources) Obstructive sleep apnea syndrome; Translations: [Obstructive sleep apnea (adult)(pediatric)] Onset: 3 07-12-2022 Chronic Residual codes; unclassified (1 source) Sleep apnea; Translations: [Sleep apnea, unspecified] Onset: 2 Chronic Unclassified (9 sources) Long-term drug therapy; Translations: [Other terminal operator (current) drug therapy] Onset: 4 03-03-2015 Unclassified (1 source) Placement of stent in coronary artery ; Translations: [Presence of cardiac and vascular implant and graft, unspecified] Onset: 4 12-22-2016 Unclassified (1 source) Personal history of colon polyps, unspecified; Translations: [Personal history of colon polyps, unspecified] Onset: 5 Past or Other Problems Problem Classification Problem Date Documented Da te Episodic/Chronic Blindness and vision defects (1 source) Severe myopia; Translations: [Myopia, bilateral] Onset: 09-29-2020 09-29-2020 Episodic Calculus of urinary tract (20 sources) History of calculus of kidney; Translations: [Personal history of urinary calculi] Onset: 07-12-2022 Resolved: 01-11-2023 07-12-2022 Episodic Coronary atherosclerosis and other heart disease (5 sources) Stented coronary artery; Translations: [Presence of coronary angioplasty implant and graft] Onset: 06-17-2013 Episodic Comment on above: PTCA/ROXANNE in mid LAD and PTCA/ROXANNE to to prox 1st Diagonal 07/14/13 Fluid and electrolyte disorders (20 sources) Hyperkalemia; Translations: [Hyperpotassemia] Onset: 07-12-2022 Resolved: 07-13-2022 07-13-2022 Episodic Genitourinary symptoms and ill-defined conditions (20 sources) Blood in urine; Translations: [Hematuria, unspecified] Onset: 07-12-2022 07-12-2022 Episodic Inflammation; infection of eye (except that caused by tuberculosis or sexually transmitteddisease) (2 sources) Keratitis; Translations: [Unspecified keratitis] Onset: 02-23-2020 02-23-2020 Episodic Other connective tissue disease (4 sources) Pain in left lower leg; Translations: [Pain in left lower leg] Onset: 01-08-2024 Episodic Other connective tissue disease (4 sources) Other specified soft tissue disorders; Translations: [Other specified soft tissue disorders] Onset: 01-08-2024 Episodic Other nutritional; endocrine; and metabolic disorders (20 sources) Body mass index 30+ - obesity; Translations: [Body Mass Index 35.0-35.9, adult] Onset: 06-20-2010 Resolved: 07-10-2023 01-11-2023 Chronic Other nutritional; endocrine; and metabolic disorders (5 sources) Disorder of carbohydrate absorption; Translations: [Other disorders of intestinal carbohydrate absorption] Onset: 06-20-2010 Resolved: 01-08-2024 01-11-2023 Chronic Other screening for suspected conditions (not mental disorders or infectious disease) (4 sources) Encounter for screening for malignant neoplasm of colon; Translations: [Special screening for malignant neoplasms of colon] Onset: 07-10-2023 03-07-2023 Episodic Residual codes; unclassified (3 sources) FH: Raised blood lipids; Translations: [Family history of other endocrine, nutritional and metabolic diseases] 03-10-2014 Episodic Unclassified (1 source) Percutaneous transluminal coronary angioplasty ; Translations: [Coronary angioplasty status] Onset: 07-21-2013 07-21-2013 Unclassified (6 sources) Onset: 07-13-2022 Resolved: 07-08-2024 07-13-2022 Viral infection (20 sources) Postherpetic neuralgia; Translations: [Herpes zoster with other nervous system complications] Onset: 07-12-2022 Resolved: 01-11-2023 07-12-2022 Episodic Results Test Name Value Interpretation Reference Range Facility Cardiology Visit Reporton Cardiology Visit Report [facility] [address] [place] [address] OFFICE VISIT Date of Service: 10/14/24 MR#: [id number] Acct: [id number] Name: CLAY OWENS Rep #: [id number] : 1955 Provider: TERRY Shahid Age/Sex: 69/M Location: [facility] [place] Status: Signed HPI HPI History of Present Illness Details: CLAY OWENS, is a 69 year old white male who presents to the office today for a cardiovascular outpatient follow-up visit. He has a history of coronary artery disease status post stenting to his LAD and diagonal branch in June 2013, ischemic cardiomyopathy, hypertension, hyperlipidemia, and diabetes. Pt notes that his Blood sugars have been higher. He has been having some swelling in his legs. DVT scan was negative. From a cardiac standpoint, patient is doing well. He does not have any chest discomfort/heaviness/tigh tness. His exercise tolerance is stable for his age. He does not have any worsening symptoms of shortness of breath. He denies any PND. He does not have any orthopnea. He does not have any symptoms of congestive heart failure. He does not have any palpitations that he is aware of. He does not have any lightheadedness or dizziness. He does not have any near-syncope or syncope. He does not have any symptoms of claudication. Intake Vital Signs 04/02/24 08:58 04/14/24 06:07 10/14/24 08:57 10/14/24 09:05 10/14/24 09:42 Height 6 ft 6 ft 6 ft Weight: 269 lb BMI 36.4 BP 142/82 H 142/80 H 128/68 H Blood Pressure Location Lt brachial Lt brachial Position Sitting Sitting Respiration 18 Pulse 76 75 Pulse Source Monitor Monitor Intake Visit Reasons: 6 M FU El Teacher Required: No Accompanied by: Self Is patient in pain?: No Allergies No Known Allergies Allergy (Verified 10/14/24 08:57) Medications ???Medication ???Instructions ???Recorded ???Confirmed ???Type aspirin 81 mg chewable tablet 81 mg PO DAILY@0800 10/11/1510/14 History atorvastatin 20 mg tablet 20 mg PO QHS 10/11/15 10/14/24 His tory metoprolol succinate 25 mg 25 mg PO DAILY #30 tabs 08/17/17 0 10/14/24 Rx tablet,extended release 24 hr lisinopril 5 mg tablet 5 mg PO DAILY #30 tabs 09/10/17 Rx glipizide 5 mg tablet 5 mg PO BID 06/25/18 10/14/24 Hist ory cholecalciferol (vitamin D3) 25 25 mcg PO DAILY 09/08/20 04/10/24 History mcg (1,000 unit) tablet (Vitamin D3) dulaglutide 1.5 mg/0.5 mL 1.5 mg subcut FLEMING 02/15/21 10/14/24 History subcutaneous pen injector metformin 500 mg tablet,extended 1,000 mg PO BID 02/15/21 10/14/24 History release 24 hr insulin glargine-yfgn 100 unit/mL 37 unit subcut QDAY 10/14/2409/17 History (3 mL) subcutaneous pen nitroglycerin 0.4 mg sublingual 0.4 mg sublingual Q5-15M PRN chest 10/14/24 10/14/24 Rx tablet (Nitrostat) pain #25 tabs Ejection fraction %: 70 Have you fallen in the past year?: No PFSH Medical History History of edema History of echocardiogram Alcohol use Dietary restriction Heartburn CPAP (continuous positive airway pressure) dependence Leg cramps History of stress test Cardiology follow-up encounter Hx of adenomatous colonic polyps Wears glasses Insulin dependent diabetes mellitus Arthritis High cholesterol Former smoker Hypertension Presence of stent in coronary artery ( 07/14/13) Type 2 diabetes mellitus Pure hypercholesterolemia Essential hypertension Ischemic cardiomyopathy Left ventricular hypertrophy Left atrial enlargement 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 Surgical History History of left hip replacement History of cardiac catheterization History of coronary artery stent placement Hx of colonoscopy ( 06/2013) Presence of coronary angioplasty implant and graft ( 07/14/13) H/O: vasectomy Family History Mother CAD (coronary artery disease) Father Cancer Brother Afib Social History Smoking Status: Former smoker how long ago did patient quit smokin years ago alcohol intake: current alcohol intake frequency: a few times a month Alcohol type: beer substance use type: does not use caffeine: Yes Type: coffee Number of servings: 5 ROS Const Const: Positive for fatigue; Negative for weakness Eyes Eyes: Negative for change in vision ENT ENT: Negative for dizziness or balance problems Cardio Chest Pain: No Palpitations: No Edema: Bilateral Resp Respiratory: Negative for SOB with activity, SOB at rest or SOB orthopnea SOB lyi (more content not included)... Normal [facility] ALBUMIN, RANDOM URINE W/CREA [facility] 07-11-2024 ALBUMIN, URINE 0.7 mg/dL Normal See Note: [facility] Comment on above: Order Comment: FASTI NG:UNKNOWN FASTING: UNKNOWN Result Comment: Refe rence Range: Reference Range Not established Performed By: #### 6 517 #### [facility] [address], [address] [place] [address] Pt Sitter: Hermes Daniels MD ALBUMIN/CREATININE RATIO, RANDOM URINE 8 mg/g creat Normal <30 [facility] Comment on above: Order Comment: FASTI NG:UNKNOWN FASTING: UNKNOWN Result Comment: The ADA defines abnormalities in albumin excretion as follows: Albuminuria Category Result (mg/g creatinine) Normal to Mildly increased <30 Moderately increased 30-299 Severely increased > OR = 300 The ADA recommends that at least two of three specimens collected within a 3-6 month period be abnormal before considering a patient to be within a diagnostic category. Performed By: #### 6 517 #### [facility] [address], [address] [place] [address] Pt Sitter: Hermes Daniels MD Creatinine (U) [Mass/Vol] 87 mg/dL Normal 20-320 [facility] Comment on above: Order Comment: FASTI NG:UNKNOWN FASTING: UNKNOWN Performed By: #### 6 517 #### [facility] [address], [address] [place] [address] Pt Sitter: Hermes Daniels MD BASIC METABOLIC PANEL WITH A DUSTIN Hurtado 07-05-2024 BUN/CREATININE RATIO Normal [facility] Comment on above: Performed By: #### 1 [id number], [id number] #### [facility] of [place] [address] [address] , [address] [place] [address] Pt Sitter: Hermes Daniels MD CALCIUM Normal [facility] Comment on above: Performed By: #### 1 [id number], [id number] #### [facility] [place] [address] [address] , [address] [place] [address] Pt Sitter: Hermes Daniels MD CARBON DIOXIDE Normal [facility] Comment on above: Performed By: #### 1 [id number], [id number] #### [facility] [place] [address] [address] , [address] [place] [address] Pt Sitter: Hermes Daniels MD CHLORIDE Normal [facility] Comment on above: Performed By: #### 1 [id number], [id number] #### [facility] [place] [address] [address] , [address] [place] [address] Pt Sitter: Hermes Daniels MD CREATININE Normal [facility] Comment on above: Performed By: #### 1 [id number], [id number] #### [facility] [place] [address] [address] [place] [address] Pt Sitter: Hermes Daniels MD EGFR Normal [facility] Comment on above: Performed By: #### 1 [id number], [id number] #### [facility] [place] [address] [address] , [address] [place] [address] Pt Sitter: Hermes Daniels MD ELECTROLYTE BALANCE Normal [facility] Comment on above: Performed By: #### 1 6802, 46804 #### [facility] [place] [address] [address] , [address] [place] [address] Pt Sitter: Hermes Daniels MD GLUCOSE Normal [facility] Comment on above: Performed By: #### 1 6802, 28573 #### [facility] [place] [address] [address] , [address] [place] [address] Pt Sitter: Hermes Daniels MD POTASSIUM Normal [facility] Comment on above: Performed By: #### 1 6802, 20084 #### [facility] of [address], [address] [place] [address] Pt Sitter: Hermes Daniels MD SODIUM Normal [facility] Comment on above: Performed By: #### 1 [id number], [id number] #### [facility] [address], [address] [place] [address] Pt Sitter: Hermes Daniels MD UREA NITROGEN (BUN) Normal [facility] Comment on above: Performed By: #### 1 6802, 91354 #### [facility] [address], [address] [place] [address] Pt Sitter: Hermes Daniels MD HEMOGLOBIN A1c WITH eAGon eAG (mmol/L) 8.7 mmol/L Normal [facility] Comment on above: Performed By: #### 1 6802, 46486 #### [facility] [address], [address] [place] [address] Pt Sitter: Hermes Daniels MD HbA1c (Bld) [Mass fraction] 7.1 % High <5.7 [facility] Comment on above: Result Comment: For someone without known diabetes, a hemoglobin A1c value of 6.5% or greater indicates that they may have diabetes and this should be confirmed with a follow-up test. For someone with known diabetes, a value <7% indicates that their diabetes is well controlled and a value greater than or equal to 7% indicates suboptimal control. A1c targets should be individualized based on duration of diabetes, age, comorbid conditions, and other considerations. Currently, no consensus exists regarding use of hemoglobin A1c for diagnosis of diabetes for children. Performed By: #### 1 6802, [id number] #### [facility] [address], [address] [place] [address] Pt Sitter: Hermes Daniels MD Magnesium [Mass/Vol] 157 mg/dL Normal [facility] Comment on above: Performed By: #### 1 6802, 42979 #### [facility] of [address], [address] [place] [address] Pt Sitter: Hermes Daniels MD Bedside Glucoseon 04-14-2024 FINGERSTICK GLU 124 mg/dL High 74-106 [facility] Comment on above: Result Comment: REINIER ROBLES OF PATIENT CARE PER NURSING PROTOCOL Performed By: #### L 501.080 #### [facility] [address] [place], [address] Colonoscopy Reporton 025 Colonoscopy Report [facility] Medical Records Department [address] [place] [address] Colonoscopy Report MR#: [id number] Acct: [id number] Name: CLAY OWENS Rep #: [id number] : 1955 68 From: Raj Chapin DO PCP: Dr. Afshan Bennett MD Status:REG [facility] Patient Name: Clay Owens Procedure Date: 04/14/2024 6:23 AM Date of : 1955 Age: 68 Procedure: Colonoscopy Indications: Screening for colorectal malignant neoplasm Providers: Raj Chapin DO Referring MD: Afshan Bennett Medicines: Monitored Anesthesia Care Patient Profile: This is a 68 year old male. Refer to note in patient chart for documentation of history and physical. Last Colonoscopy: 1 year ago. Complications: No immediate complications. Procedure: Pre-Anesthesia Assessment: - Prior to the procedure, a History and Physical was performed, and patient medications and allergies were reviewed. The patient is competent. The risks and benefits of the procedure and the sedation options and risks were discussed with the patient. All questions were answered and informed consent was obtained. Patient identification and proposed procedure were verified by the physician. Mental Status Examination: normal. Airway Examination: normal oropharyngeal airway and neck mobility. Prophylactic Antibiotics: The patient does not require prophylactic antibiotics. Prior Anticoagulants: The patient has taken no anticoagulant or antiplatelet agents except for NSAID medication. ASA Grade Assessment: II - A patient with mild systemic disease. After reviewing the risks and benefits, the patient was deemed in satisfactory condition to undergo the procedure. The anesthesia plan was to use monitored anesthesia care (MAC). Immediately prior to administration of medications, the patient was re-assessed for adequacy to receive sedatives. The heart rate, respiratory rate, oxygen saturations, blood pressure, adequacy of pulmonary ventilation, and response to care were monitored throughout the procedure. The physical status of the patient was re-assessed after the procedure. After I obtained informed consent, the scope was passed under direct vision. Throughout the procedure, the patient's blood pressure, pulse, and oxygen saturations were monitored continuously. The Colonoscope was introduced through the anus and advanced to the cecum, identified by appendiceal orifice and ileocecal valve. The colonoscopy was performed without difficulty. The patient tolerated the procedure well. The quality of the bowel preparation was adequate. The ileocecal valve, appendiceal orifice, and rectum were photographed. Scope In: 6:53:58 AM Scope Withdrawal Time 0 hours 13 minutes 54 seconds Scope Out: 7:12:39 AM Total Procedure Duration Time 0 hours 18 minutes 41 seconds Findings: The perianal and digital rectal examinations were normal. Many small-mouthed diverticula were found in the recto-sigmoid colon, sigmoid colon and descending colon. Three sessile polyps were found in the sigmoid colon. The polyps were 1 to 2 mm in size. These polyps were removed with a hot snare. Resection and retrieval were complete. Verification of patient identification for the specimen was done. Estimated blood loss was minimal. A 5 mm polyp was found in the ascending colon. The polyp was sessile. The polyp was removed with a cold biopsy forceps. Resection and retrieval were complete. Verification of patient identification for the specimen was done. Estimated blood loss was minimal. Impression: - Diverticulosis in the recto-sigmoid colon, in the sigmoid colon and in the descending colon. - Three 1 to 2 mm polyps in the sigmoid colon, removed with a hot snare. Resected and retrieved. - One 5 mm polyp in the ascending colon, removed with a cold biopsy forceps. Resected and retrieved. Recommendation: - Repeat colonoscopy in 3 years for surveillance. - Continue present medications. Procedure Code(s): --- Professional --- 27812, Colonoscopy, flexible; with removal of tumor(s), polyp(s), or other lesion(s) by snare technique 80624, 59, Colonoscopy, flexible; with biopsy, single or multiple CPT copyright 2021 [employer]. All rights reserved. The codes documented in this report are preliminary and upon professional fee coder review may be revised to meet current compliance requirements. Raj Chapin DO 04/14/2024 7:21:55 AM This report has been signed electronically. Number of Addenda: 0 Note Initiated On: 04/14/2024 6:23 AM 04/14/24721 Date Raj Gupta Signature: Date (if indicated) CC: Dr. Afshan Bennett MD; Raj Chapin DO Date Dictated: 04/14/24622 Date Transcribed: Transcr (more content not included)... [facility] MR/POSTOP.[facility] 04-14-2024 MR/POSTOP.[facility] Medical Records Department [address] [place] [address] Anesthesia Postop Eval I 04/14/24721 MR#: [id number] Acct: [id number] Name: CLAY OWENS Rep #: [id number] : 1955 68 From: Mark Lea PCP: Dr. Afshan Bennett MD Status:REG [facility] Y Race: C Location: [place] [address] Anesthesia: Postop Eval I Current Vital Signs Temperature: 97.5 F Pulse Rate: 75 Blood Pressure: 105/75 Respiratory Rate: 12 Pulse Ox: 97 Oxygen Delivery Method: Room Air Assessment Airway patent: Yes Spontaneous unlabored respirations: Yes Mental status: Awake and Calm nausea: No Vomiting: No Anesthesia Complication: No Fluid Hydration Crystalloid volume administer (ml): 45 Total IV fluid infused: 45 Progress Note Anesthesia document: Postop Eval 1 completed: Yes 04/14/24722 Date Mark Garsia Signature: CC: Signed Normal [facility] MR/EBBCKWIT0od 04-14-2024 MR/POSTOPAN2 [facility] Medical Records Department [address] [place] [address] Anesthesia Postop Eval II 04/14/2432 MR#: [id number] Acct: [id number] Name: CLAY OWENS Rep #: [id number] : 1955 68 From: Brooke Antoine PCP: Dr. Afshan Bennett MD Status:REG [facility] Y Race: C Location: [address] Anesthesia Postop Eval I Sum Postop Eval Completion status Anesthesia document: Postop Eval 1 completed: Yes Anesthesia Postop Eval I Summary Anesthesia Postop Eval I Summary: Anesthesia Postop Eval I: Assessment Summary Airway patent Yes 04/14/24 07:23 [email or web address] Spontaneous unlabored Yes 04/14/24 07:23 [email or web address] respirations Mental status Awake,Calm 04/14/24 07:23 [email or web address] nausea No 04/14/24 07:23 [email or web address] Vomiting No 04/14/24 07:23 [email or web address] Anesthesia Postop Eval I: Fluid Summary Crystalloid volume administer 45 04/14/24 07:23 [email or web address] (ml) Colloids volume administered ( ml) Blood Product volume administered (ml) Total IV fluid infused 45 04/14/24 07:23 [email or web address] Anesthesia Postop Eval I: Summary Notes Anesthesia Complication No 04/14/24 07:23 [email or web address] Anesthesia Complication Comment: Post-operative progress note Anesthesia: Postop Eval II Evaluation Mental status: Awake and Calm Pain Level: 0 nausea: No Vomiting: No 04/14/24732 Brooke Garsia Signature: Date CC: Signed Normal [facility] Surgery Specimen Level Kamila 04-14-2024 Surgery Specimen Level IV Patient Age/Sex Location Account Attending Physician CLAY OWENS 68/M EN [id number] Raj Chapin DO Specimen: [id number] Received: 04/14/24 Status: TRICE Patrick Num: [id number] Spec Type: COLON BX Subm Dr: Raj Chapin, HEADER OPERATION: Colonoscopy with polypectomy PRE-OP DIAGNOSIS: Personal history of colon polyps TISSUE SUBMITTED: A- Ascending colon polyp biopsy, B- Sigmoid colon polyps x3 MICROSCOPIC DIAGNOSIS A. Ascending colon polyp, biopsy: Tubular adenoma. B. Sigmoid colon polyp x3, polypectomy: Fragments of tubular adenoma. SJ.mr 04/15/2024 MICROSCOPIC DESCRIPTION Slides are reviewed. GROSS DESCRIPTION A. Received in fixative is one container labeled with the patient's name and designated Ascending colon polyp biopsy." The specimen consists of one irregular fragment of light chisholm soft tissue that measures 0.5 x 0.5 x 0.1 cm. The specimen is totally submitted in one cassette. B. Received in fixative is one container labeled with the patient's name and designated Sigmoid colon polyp x3. The specimen consists of multiple irregular fragments of light chisholm soft tissue that in aggregate measure 1 x 1 x 0.3 cm. The specimen is totally submitted in one cassette. MS/mr 04/14/2024 TC:1 CPT:70382m2 Patient Age/Sex Location Account Attending Physician CLAY OWENS/M EN [id number] Raj Chapin DO Signed (signature on file) Dr. Marcos Azar MD 04/15/24 1305 Normal [facility] Comment on above: Performed By: #### P SUIV #### [facility] [address] [place], [place], [address] MR/PATLETICIAon 04-10-2024 MR/PAT.[facility] Medical Records Department [address] [place] [address] PAT - Anesthesia 04/10/241928 MR#: [id number] Acct: [id number] Name: CLAY OWENS Rep #: [id number] : 1955 68 From: Mario Keith MD PCP: Dr. Afshan Bennett MD Status:PRE [facility] Y Race: C Location: EN Pre-Assessment Diagnosis/Proposed Procedure Planned Operative Procedure(s): COLONOSCOPY Anesthesia History Anesthesia History - spool sorter: Anesthesia History - spool sorter Hx Hospitalization No 04/10/24 14:16 Any Problems With Anesthesia No 04/10/24 14:16 Cholinesterase deficiency No 04/10/24 14:16 You/Your Family Experience No 04/10/24 14:16 fever (hyperthermia) with Relationship Recent Exposure to Contagious No 03/07/23 07:56 Disease Does patient have nerve No 04/10/24 14:16 stimulator Patient instructed to have device shut off --Does patient have Pacemaker or ICD? When Was Last Pacemaker Check QUESTION #4 FULL TEXT: You/Your Family Experience fever (hyperthermia) with Anesthesia Last Oral Intake Last Oral intake: Last Oral Intake NPO since Meds taken in AM with sips of water? Meds patient instructed to take am of surgery PONV PONV - spool sorter: PONV - spool sorter Female No 04/10/24 14:16 HX of Motion Sickness No 04/10/24 14:16 HX of N/V After Surgery No 04/10/24 14:16 Non-Smoker Yes 04/10/24 14:16 Duration of Surgery greater No 04/10/24 14:16 than 60 minutes Number of Risk Factors 1 04/10/24 14:16 PONV Score Low Risk 04/10/24 14:16 Height Weight Height Weight: Anesthesia: Height Weight Height 6 ft 02/07/24 13:12 Respiratory Assessment Respiratory Assessment - spool sorter: Respiratory Tract Infection Hx - spool sorter Hx Respiratory Tract Infection No 04/10/24 14:16 STOP Sleep Apnea STOP Sleep Apnea - spool sorter: STOP Sleep Apnea - spool sorter Hx Hypertension Yes 04/10/24 14:16 Hx Sleep Apnea No 04/10/24 14:16 CPAP Yes: NONCOMPLIANT 03/06/23 13:46 BIPAP No 03/06/23 13:46 Do you snore loudly (louder No 04/10/24 14:16 than talking or can be heard Do you often feel tired/ No 04/10/24 14:16 fatigued/ sleepy during daytime? Has anyone observed you stop No 04/10/24 14:16 breathing during sleep? STOP Results Negative 04/10/24 14:16 QUESTION #5 FULL TEXT : Do you snore loudly (louder than talking or can be heard through closed doors)? Tobacco Use History Tobacco Use History - spool sorter: Tobacco Use History - spool sorter Tobacco Use Smoking Status Former smoker 04/10/24 14:16 Hx Tobacco Use No 04/10/24 14:16 Years Smoking Packs Smoked per Day Smoking Cessation Date was No - quit smoking greater 04/10/24 14:16 within the last 15 years than 15 years ago Hx Smoking Cessation Date 08/18/75 04/10/24 14:16 Hx Smoking Cessation Counseling Hematologic Medial History Hematologic Hx - spool sorter: Hematologic Medical Hx - application security architect Hx of Blood Transfusion No 04/10/24 14:16 Hx of Transfusion in last 3 No 04/10/24 14:16 Months Date of Last Transfusion (if within last 3 months) Ever experience any problems No 04/10/24 14:16 with transfusion(s)? Specify any problems Hx of Preganancy in last 3 N/A 04/10/24 14:16 Months Nurse Filling Out Transfusion TEDDY 04/10/24 14:16 Questions: Date: 04/10/24 04/10/24 14:16 Time: 14:21 04/10/24 14:16 Patient unable to answer at this time (ie. confused, unrespo /Reproduction History /Reproductive History - spool sorter: /Reproductive Hx- spool sorter Hx Now Gestational Age (in weeks): EDC: Hx Hx Para Hx Section SAB No 03/06/23 13:46 PFSH Medical History History of edema History of echocardiogram Alcohol use Dietary restriction Heartburn CPAP (continuous positive airway pressure) dependence Leg cramps History of stress test Cardiology follow-up encounter Hx of adenomatous colonic polyps Wears glasses Insulin dependent diabetes mellitus Arthritis High cholesterol Former smoker Hypertension Presence of stent in coronary artery ( 07/14/13) Type 2 diabetes mellitus Pure hypercholesterolemia Essential hypertension Ischemic cardiomyopathy Left ventricular hypertrophy Left atrial enlargement 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 Normal [facility] Cardiology Visit Reporton Cardiology Visit Report [facility] [place] [address] OFFICE VISIT Date of Service: 04/02/24 MR#: [id number] Acct: [id number] Name: CLAY OWENS Rep #: [id number] : 1955 Provider: Dr. Abdirizak allan MD Age/Sex: 68/M Location: [facility] Status: Signed HPI HPI History of Present Illness Details: The patient is a 68-year-old white male that comes in for monitoring of his cardiovascular status. Patient has a history of coronary disease with an LAD diagonal stenting procedure done by Dr. Hemanth Smith in June 2013. He presented with a very atypical type symptom in his right shoulder. He has had no recurrence of those symptoms. It was also associated with a loss of appetite. The patient is a longstanding diabetic his last hemoglobin A1c was 7.1 he also has a history of hyperlipidemia which is managed with the diabetes through his primary care physician's office. Patient's blood pressure is well-controlled on his current medical regimen. Patient reports he he is active in his home environment but he is not routinely exercising. He does have exercise equipment is going to work on getting back into an exercise program. He denies any PND orthopnea denies any significant lower extremity edema he occasionally has some dependent edema. He denies any dyspnea on exertion. Patient denies any claudication. He denies any significant change in his exercise tolerance. Intake Vital Signs 02/07/24 13:12 04/02/24 08:58 Height 6 ft 6 ft Weight: 267 lb 270 lb BMI 36.2 36.6 BP 124/79 H 125/75 H Blood Pressure Location Lt brachial Position Sitting Respiration 18 18 Pulse 82 79 Pulse Source Monitor Temp 98.0 F Pulse Oximetry (%) 97 95 Oxygen Delivery Method room air room air Intake Visit Reasons: 6 M FU El Teacher Required: No Accompanied by: Self Is patient in pain?: No Allergies No Known Allergies Allergy (Verified 04/02/24 08:59) Medications ???Medication ???Instructions ???Recorded ???Confirmed ???Type aspirin 81 mg chewable tablet 81 mg PO DAILY@0800 10/11/15 04/02/24 History atorvastatin 20 mg tablet 20 mg PO QHS 10/11/15 04/02/24 History metoprolol succinate 25 mg 25 mg PO DAILY #30 tabs 08/17/17 04/02/24 Rx tablet,extended release 24 hr lisinopril 5 mg tablet 5 mg PO DAILY #30 tabs 09/10/17 04/02/24 Rx glipizide 5 mg tablet 5 mg PO BID 06/25/18 04/02/24 History cholecalciferol (vitamin D3) 25 25 mcg PO DAILY 09/08/20 04/02/24 History mcg (1,000 unit) tablet (Vitamin D3) dulaglutide 1.5 mg/0.5 mL 1.5 mg subcut FLEMING 02/15/21 04/02/24 History subcutaneous pen injector metformin 500 mg tablet,extended 1,000 mg PO BID 02/15/21 04/02/24 History release 24 hr ticagrelor 90 mg tablet (Brilinta) 90 mg PO BID #180 tabs 08/01/21 04/02/24 Rx insulin detemir U-100 100 unit/mL 34 unit subcut QHS 08/07/23 04/02/24 History (3 mL) subcutaneous pen nitroglycerin 0.4 mg sublingual 0.4 mg sublingual Q5-15M PRN chest 08/07/23 04/02/24 Rx tablet (Nitrostat) pain #25 tabs sodium,potassium,mag sulfates 17.5 See Rx Instructions PO .COMPLEX 02/07/24 04/02/24 Rx gram-3.13 gram-1.6 gram oral soln #354 mL (Suprep Bowel Prep Kit) Have you fallen in the past year?: No PFSH Medical History Alcohol use Dietary restriction Heartburn CPAP (continuous positive airway pressure) dependence Leg cramps History of stress test Cardiology follow-up encounter Hx of adenomatous colonic polyps Wears glasses Insulin dependent diabetes mellitus Arthritis High cholesterol Former smoker Hypertension Presence of stent in coronary artery ( 07/14/13) Type 2 diabetes mellitus Pure hypercholesterolemia Essential hypertension Ischemic cardiomyopathy Left ventricular hypertrophy Left atrial enlargement 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 Surgical History History of left hip replacement History of cardiac catheterization History of coronary artery stent placement Hx of colonoscopy ( 06/2013) Presence of coronary angioplasty implant and graft ( 07/14/13) H/O: vasectomy Family History Mother CAD (coronary artery disease) Father Cancer Brother Afib Social History Smoking Status: Former smoker how long ago did patient quit smokin years ago alcohol intake: current alcohol intake frequency: a few times a month Alcohol type: beer substance use type: does not use caffeine: Yes Type: coffee Number of servings: 5 ROS Const Const: Positive (more content not included)... Normal [facility] Gastroenterology Visit Repor ton 02-07-2024 Gastroenterology Visit Report [facility] Gastroenterology [address] [place] [address] OFFICE VISIT Date of Service: 02/07/24 MR#: [id number] Acct: [id number] Name: CLAY OEWNS Rep #: [id number] : 1955 Provider: VICKIE adams Age/Sex: 68/M Location: [facility] Status: Signed Intake Vital Signs 08/07/23 08:26 02/07/24 13:12 Height 6 ft 6 ft Weight: 266 lb 267 lb BMI 36.1 36.2 BP 128/78 H 124/79 H Blood Pressure Location Lt brachial Position Sitting Respiration 18 18 Pulse 84 82 Pulse Source Monitor Temp 98.0 F Pulse Oximetry (%) 98 97 Oxygen Delivery Method room air Intake Visit Reasons: Pre colonoscopy Chief Complaint: schedule colonoscopy El Teacher Required: No Is patient in pain?: No Allergies No Known Allergies Allergy (Verified 02/07/24 12:58) Medications ???Medication ???Instructions ???Recorded ???Confirmed ???Type aspirin 81 mg chewable tablet 81 mg PO DAILY@0800 10/11/15 02/07/24 History atorvastatin 20 mg tablet 20 mg PO QHS 10/11/15 02/07/24 History metoprolol succinate 25 mg 25 mg PO DAILY #30 tabs 08/17/17 02/07/24 Rx tablet,extended release 24 hr lisinopril 5 mg tablet 5 mg PO DAILY #30 tabs 09/10/17 02/07/24 Rx glipizide 5 mg tablet 5 mg PO BID 06/25/18 02/07/24 History cholecalciferol (vitamin D3) 25 25 mcg PO DAILY 09/08/20 02/07/24 History mcg (1,000 unit) tablet (Vitamin D3) dulaglutide 1.5 mg/0.5 mL 1.5 mg subcut FLEMING 02/15/21 02/07/24 History subcutaneous pen injector metformin 500 mg tablet,extended 1,000 mg PO BID 02/15/21 02/07/24 History release 24 hr ticagrelor 90 mg tablet (Brilinta) 90 mg PO BID #180 tabs 08/01/21 02/07/24 Rx insulin detemir U-100 100 unit/mL 34 unit subcut QHS 08/07/23 02/07/24 History (3 mL) subcutaneous pen nitroglycerin 0.4 mg sublingual 0.4 mg sublingual Q5-15M PRN chest 08/07/23 02/07/24 Rx tablet (Nitrostat) pain #25 tabs cetirizine 10 mg tablet (All Day 10 mg PO QDAY PRN 02/07/24 02/07/24 History Allergy (cetirizine)) sodium,potassium,mag sulfates 17.5 See Rx Instructions PO .COMPLEX 02/07/24 02/07/24 Rx gram-3.13 gram-1.6 gram oral soln #354 mL (Suprep Bowel Prep Kit) Have you fallen in the past year?: No PFSH Medical History (Reviewed 08/07/23 @ 08:32 by Chandni Ragland CISTERN ROOM WORKING SUPERVISOR, CISTERN ROOM WORKING SUPERVISOR-C) Alcohol use Dietary restriction Heartburn CPAP (continuous positive airway pressure) dependence Leg cramps History of stress test Cardiology follow-up encounter Hx of adenomatous colonic polyps Wears glasses Insulin dependent diabetes mellitus Arthritis High cholesterol Former smoker Hypertension Presence of stent in coronary artery ( 07/14/13) Type 2 diabetes mellitus Pure hypercholesterolemia Essential hypertension Ischemic cardiomyopathy Left ventricular hypertrophy Left atrial enlargement 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 Surgical History History of left hip replacement History of cardiac catheterization History of coronary artery stent placement Hx of colonoscopy ( 06/2013) Presence of coronary angioplasty implant and graft ( 07/14/13) H/O: vasectomy Family History Mother CAD (coronary artery disease) Father Cancer Brother Afib Social History Smoking Status: Former smoker how long ago did patient quit smokin years ago alcohol intake: current alcohol intake frequency: a few times a month Alcohol type: beer substance use type: does not use caffeine: Yes Type: coffee Number of servings: 5 HPI HPI Chief Complaint: schedule colonoscopy Details: 68y/o male presents for consultation for personal history of colon polyps. PMH is significant for CAD s/p stenting. Colonoscopy was last performed February 2023 and prep was suboptimal. He has a history of multiple TA's. BMP normal 01/01/2024 Colonoscopy 03/07/2023 (suboptimal prep) TA's Colonoscopy 07/01/2018 ([place]) multiple TA's - denies any change in bowel habits - denies any bleeding He is on Brilinta - [facility] - denies any weight loss - denies any lung or kidney disease - denies any falls - occasional HB - denies any dysphagia - denies any changes in health history since last seen - he has a BM daily - report she did not have trouble with the bowel prep a year ago - he did consume it all - EtOH 1-2 drinks a week max - denies smoking ROS Const Constitutional: No fatigue, fever(s) or weight change ENT ENT: No difficulty swallowing Gastro GI: No abdominal pain, belching, bloating, change in bowel habits, jael (more content not included)... Normal [facility] US LOWER EXTREMITY VENO US DUPLEX LEFTon 01-08-2024 VAS US LOWER EXTREMITY [place] [address] [phone], Vascular Lab Report [facility] US LOWER EXTREMITY VENOUS DUPLEX LEFT Patient Name: CLAY Kwon Physician: [id number] John MD Study Date: 01/08/2024 Ordering Provider: [id number] BENNETT MRN/PID: [id number] Fellow: Technologist: Yobani Sepulveda RVT Date of /Age: 3 1955 Technologist 2: years Gender: M Admission Status: Outpatient Location [facility] Performed: Diagnosis/ICD: Pain in left leg-M79.605 CPT Codes: 29299 Peripheral venous duplex scan for DVT Limited Pertinent History: Leg pain. CONCLUSIONS: Right Lower Venous: The right common femoral vein demonstrates normal spontaneous and respirophasic flow. Left Lower Venous: No evidence of acute deep vein thrombus visualized in the left lower extremity. Imaging & Doppler Findings: Right Flow CFV Spontaneous/Phasic Left Compress Thrombus Flow Distal External Iliac Spontaneous/Phasic CFV Yes None Spontaneous/Phasic PFV Yes None FV Proximal Yes None Spontaneous/Phasic FV Mid Yes None FV Distal Yes None Popliteal Yes None Spontaneous/Phasic Peroneal Yes None PTV Yes None [id number] Filemon John MD Final Normal [facility] Basic metabolic 2000 panelon 01-01-2024 Anion gap [Moles/Vol] 15 mmol/L Normal 10-20 [facility] Comment on above: Performed By: #### 2 4321-2 #### YEHUDA KIM ([id number]) [facility] ([facility]) [address] [place] [address] Calcium [Mass/Vol] 9.1 mg/dL Normal 8.6-10.3 [facility] Comment on above: Performed By: #### 2 4321-2 #### YEHUDA KIM ([id number]) [facility] ([facility]) [address] [place] [address] Chloride [Moles/Vol] 104 mmol/L Normal 98-107 [facility] Comment on above: Performed By: #### 2 4321-2 #### YEHUDA KIM ([id number]) [facility] ([facility]) [facility] [place] [address] CO2 [Moles/Vol] 25 mmol/L Normal 21-32 [facility] Comment on above: Performed By: #### 2 4321-2 #### YEHUDA KIM ([id number]) [facility] ([facility]) [facility] [place] [address] Creatinine [Mass/Vol] 1.24 mg/dL Normal 0.50-1.30 [facility] Comment on above: Performed By: #### 2 4321-2 #### YEHUDA KIM ([id number]) [facility] ([facility]) [address] [place] [address] Glomerular filtration rate/1.73 sq M.predicted 63 mL/min/1.73m*2 Normal >60 [facility] Comment on above: Result Comment: Calc ulations of estimated GFR are performed using the 2020 CKD-EPI Study Refit equation without the race variable for the IDMS-Traceable creatinine methods. https://jasn.asnjournals.org/content/early//ASN.81538725 88 Performed By: #### 2 4321-2 #### YEHUDA KIM ([id number]) [facility] ([facility]) [address] [place] [address] Glucose [Mass/Vol] 115 mg/dL High 74-99 [facility] Comment on above: Performed By: #### 2 4321-2 #### YEHUDA KIM ([id number]) [facility] ([facility]) [address] [place] [address] Potassium [Moles/Vol] 4.6 mmol/L Normal 3.5-5.3 [facility] Comment on above: Performed By: #### 2 4321-2 #### YEHUDA KIM ([id number]) [facility] ([facility]) [address] [place] [address] Sodium [Moles/Vol] 139 mmol/L Normal 136-145 [facility] Comment on above: Performed By: #### 2 4321-2 #### YEHUDA KIM ([id number]) [facility] ([facility]) [address] [place] [address]1443 Urea nitrogen [Mass/Vol] 19 mg/dL Normal 6-23 [facility] Comment on above: Performed By: #### 2 4321-2 #### YEHUDA KIM ([id number]) [facility] ([facility]) [address] [place] [address] HbA1c (Bld) [Mass fraction]o n 01-01-2024 Average glucose Estimated from glycated hemoglobin (Bld) [Mass/Vol] 157 mg/dL Normal Not Established [facility] Comment on above: Order Comment: Diagn osis of Diabetes-Adults Non-Diabetic: < or = 5.6% Increased risk for developing diabetes: 5.7-6.4% Diagnostic of diabetes: > or = 6.5% Performed By: #### 4 548-4 #### MADELYN Smith ([id number]) [facility] ([facility]) [address] [place] [address] Hemoglobin A1c/Hemoglobin.to nunu 01-01-2024 HbA1c (Bld) [Mass fraction] 7.1 % High See comment [facility] [place] Comment on above: Order Comment: Diagn osis of Diabetes-Adults Non-Diabetic: < or = 5.6% Increased risk for developing diabetes: 5.7-6.4% Diagnostic of diabetes: > or = 6.5% Performed By: #### 4 548-4 #### MADELYN Smith ([id number]) [facility] ([facility]) [id number] [place] [address] Lipid 1996 panelon 4 Cholesterol [Mass/Vol] 102 mg/dL Normal 0-199 [facility] [place] Comment on above: Result Comment: Age Desirable Borderline High High 0-19 Y 0 - 169 170 - 199 >/= 200 20-24 Y 0 - 189 190 - 224 >/= 225 >24 Y 0 - 199 200 - 239 >/= 240 All ranges are based on fasting samples. Specific therapeutic targets will vary based on patient-specific cardiac risk. Pediatric guidelines reference:Pediatrics 2011, 128(S5).Adult guidelines reference: NCEP ATPIII Guidelines,SELENA 2001, 258:2486-97 Venipuncture immediately after or during the administration of Metamizole may lead to falsely low results. Testing should be performed immediately prior to Metamizole dosing. Performed By: #### 2 4331-1 #### YEHUDA KIM ([id number]) [facility] ([facility]) [facility] [place] [address] Cholesterol in HDL [Mass/Vol] 33.0 mg/dL Normal [facility] Comment on above: Result Comment: Age Very Low Low Normal High 0-19 Y < 35 < 40 40-45 ---- 20-24 Y ---- < 40 >45 ---- >24 Y ---- < 40 40-60 >60 Performed By: #### 2 4331-1 #### YEHUDA KIM ([id number]) [facility] ([facility]) [facility] [place] [address] Cholesterol in LDL [Mass/Vol] 28 mg/dL Normal <=99 [facility] Comment on above: Result Comment: Near Borderline AGE Desirable Optimal High High Very High 0-19 Y 0 - 109 --- 110-129 >/= 130 ---- 20-24 Y 0 - 119 --- 120-159 >/= 160 ---- >24 Y 0 - 99 100-129 130-159 160-189 >/=190 Performed By: #### 2 4331-1 #### YEHUDA KIM ([id number]) [facility] ([facility]) [address] [place] [address] Cholesterol in VLDL [Mass/Vol] 41 mg/dL High 0-40 [facility] Comment on above: Performed By: #### 2 4331-1 #### YEHUDA KIM ([id number]) [facility] ([facility]) [address] [place] [address] CHOLESTEROL/HDL RATIO 3.1 Normal [facility] Comment on above: Result Comment: Ref Values Desirable < 3.4 High Risk > 5.0 Performed By: #### 2 4331-1 #### YEHUDA KIM ([id number]) [facility] ([facility]) [address] [place] [address] NON HDL CHOLESTEROL 69 mg/dL Normal 0-[address] [facility] Comment on above: Result Comment: Age Desirable Borderline High High Very High 0-19 Y 0 - 119 120 - 144 >/= 145 >/= 160 20-24 Y 0 - 149 150 - 189 >/= 190 ---- >24 Y 30 mg/dL above LDL Cholesterol goal Performed By: #### 2 4331-1 #### YEHUDA KIM ([id number]) [facility] ([facility]) [address] [place] [address] Triglyceride [Mass/Vol] 203 mg/dL High 0-149 [facility] Comment on above: Result Comment: Age Desirable Borderline High High Very High 0 D-90 D 19 - 174 ---- ---- ---- 91 D- 9 Y 0 - 74 75 - 99 >/= 100 ---- 10-19 Y 0 - 89 90 - 129 >/= 130 ---- 20-24 Y 0 - 114 115 - 149 >/= 150 ---- >24 Y 0 - 149 150 - 199 200- 499 >/= 500 Venipuncture immediately after or during the administration of Metamizole may lead to falsely low results. Testing should be performed immediately prior to Metamizole dosing. Performed By: #### 2 4331-1 #### YEHUDA KIM ([id number]) [facility] ([facility]) [address] [place] [address] Prostate specific Agon 12-31 Prostate specific Ag [Mass/Vol] 0.54 ng/mL Normal <=4.00 [facility] Comment on above: Order Comment: The DA requires that the method used for PSA assay be reported to the physician. Values obtained with different assay methods must not be used interchangeably. This test was performed at [facility] using the Nuevo Midstream PSA assay is a two-site immunoenzymatic sandwich assay. The assay is approved for measurement of prostate-specific antigen (PSA)in serum and may be used in conjunction with a digital rectal examination in men 50 years and older as an aid in detection of prostate cancer. 9-Rzppi-drvmqdisx inhibitors (e.g. Proscar, Finasteride, Avodart, Dutasteride and Naina) for the treatment of BPH have been shown to lower PSA levels by an average of 50% after 6 months of treatment. Performed By: #### 2 857-1 #### YEHUDA KIM ([id number]) [facility] ([facility]) [address] [place] [address] Basic metabolic 2000 panelon 09-18-2023 Anion gap [Moles/Vol] 14 mmol/L Normal 10-20 [facility] Comment on above: Performed By: #### 2 4321-2 #### YEHUDA KIM ([id number]) [facility] ([facility]) [address] [place] [address]87 Calcium [Mass/Vol] 9.9 mg/dL Normal 8.6-10.3 [facility] Comment on above: Performed By: #### 2 4321-2 #### YEHUDA KIM ([id number]) [facility] ([facility]) [address] [place] [address] Chloride [Moles/Vol] 104 mmol/L Normal 98-107 [facility] Comment on above: Performed By: #### 2 4321-2 #### YEHUDA KIM ([id number]) [facility] ([facility]) [address] [place] [address] 36650 CO2 [Moles/Vol] 24 mmol/L Normal 21-32 [facility] Comment on above: Performed By: #### 2 4321-2 #### YEHUDA KIM ([id number]) [facility] ([facility]) [address] [place] [address] 11839 Creatinine [Mass/Vol] 1.18 mg/dL Normal 0.50-1.30 [facility] Comment on above: Performed By: #### 2 4321-2 #### YEHUDA KIM ([id number]) [facility] ([facility]) [address] [place] [address] Glomerular filtration rate/1.73 sq M.predicted 67 mL/min/1.73m*2 Normal >60 [facility] Comment on above: Result Comment: Calc ulations of estimated GFR are performed using the 2020 CKD-EPI Study Refit equation without the race variable for the IDMS-Traceable creatinine methods. https://jasn.asnjournals.org/content//ASN.13924690 88 Performed By: #### 2 4320-2 #### YEHUDA KIM ([id number]) [facility] ([facility]) [address] [place] [address]695 Glucose [Mass/Vol] 129 mg/dL High 74-99 [facility] Comment on above: Performed By: #### 2 4321-2 #### YEHUDA KIM ([id number]) [facility] ([facility]) [address] [place] [address] Potassium [Moles/Vol] 5.1 mmol/L Normal 3.5-5.3 [facility] Comment on above: Performed By: #### 2 4321-2 #### YEHUDA KIM ([id number]) [facility] ([facility]) [address] [place] [address] Sodium [Moles/Vol] 137 mmol/L Normal 136-145 [facility] Comment on above: Performed By: #### 2 4321-2 #### YEHUDA KIM ([id number]) [facility] ([facility]) [address] [place] [address]366 Urea nitrogen [Mass/Vol] 18 mg/dL Normal - [facility] Comment on above: Performed By: #### 2 4321-2 #### YEHUDA KIM ([id number]) [facility] ([facility]) [address] [place] [address] 61654 HbA1c (Bld) [Mass fraction]o n 09-18-2023 Average glucose Estimated from glycated hemoglobin (Bld) [Mass/Vol] 177 mg/dL Normal Not Established [facility] Comment on above: Order Comment: Diagn osis of Diabetes-Adults Non-Diabetic: < or = 5.6% Increased risk for developing diabetes: 5.7-6.4% Diagnostic of diabetes: > or = 6.5% Performed By: #### 4 548-4 #### YEHUDA KIM ([id number]) [facility] ([facility]) [address] [place] [address] Hemoglobin A1c/Hemoglobin.to nunu 09-18-2023 HbA1c (Bld) [Mass fraction] 7.8 % High see below [facility] [place] Comment on above: Order Comment: Diagn osis of Diabetes-Adults Non-Diabetic: < or = 5.6% Increased risk for developing diabetes: 5.7-6.4% Diagnostic of diabetes: > or = 6.5% Performed By: #### 4 548-4 #### YEHUDA KIM ([id number]) [facility] ([facility]) [address] [place] [address] Glucose Glucometer (BldC) [M ass/Vol]Ordered By: Raj Chapin on 03-07-2023 Glucose [Mass/Vol] 156 mg/dL 74-106 [facility] Comment on above: MANAGEMENT OF PATIEN T CARE PER NURSING PROTOCOL BASIC METABOLIC PANELon 06-18 Anion gap [Moles/Vol] 13 mmol/L Normal 10 - 20 [facility] Comment on above: Performed By: #### B MP #### [address] [address] Calcium [Mass/Vol] 9.7 mg/dL Normal 8.6 - 10.3 [facility] Comment on above: Performed By: #### B MP #### [address] [address] Chloride [Moles/Vol] 103 mmol/L Normal 98 - 107 [facility] Comment on above: Performed By: #### B MP #### [address] [address] Creatinine [Mass/Vol] 1.28 mg/dL Normal 0.50 - 1.30 [facility] Comment on above: Performed By: #### B MP #### [address] [address] GFR/1.73 sq M.predicted among non-blacks MDRD (S/P/Bld) [Vol rate/Area] 61 mL/min/{1.73_m2} Normal >90 [facility] Comment on above: Result Comment: CALC ULATIONS OF ESTIMATED GFR ARE PERFORMED USING THE 2020 CKD-EPI STUDY REFIT EQUATION WITHOUT THE RACE VARIABLE FOR THE IDMS-TRACEABLE CREATININE METHODS. https://jasn.asnjournals.org/content//ASN.03411452 88 Performed By: #### B MP #### [address] [address] Glucose [Mass/Vol] 124 mg/dL High 74 - 99 [facility] Comment on above: Performed By: #### B MP #### [address] [address] HCO3 (Bld) [Moles/Vol] 25 mmol/L Normal 21 - 32 [facility] Comment on above: Performed By: #### B MP #### [address] [address] Potassium [Moles/Vol] 4.4 mmol/L Normal 3.5 - 5.3 [facility] Comment on above: Performed By: #### B MP #### [address] [address] Sodium [Moles/Vol] 137 mmol/L Normal 136 - 145 [facility] Comment on above: Performed By: #### B MP #### [address] [address] Urea nitrogen [Mass/Vol] 24 mg/dL High 6 - 23 [facility] Comment on above: Performed By: #### B MP #### [address] [address] HEMOGLOBIN A1Con 07-10-2022 Glucose [Mass/Vol] 169 mg/dL Normal [facility] Comment on above: Performed By: #### H BA1E #### [address] [address] HbA1c (Bld) [Mass fraction] 7.5 % Abnormal [facility] Comment on above: Result Comment: Diag nosis of Diabetes-Adults Non-Diabetic: < or = 5.6% Increased risk for developing diabetes: 5.7-6.4% Diagnostic of diabetes: > or = 6.5% . Monitoring of Diabetes Age (y) Therapeutic Goal (%) Adults: >18 <7.0 Pediatrics: 13-18 <7.5 7-12 <8.0 0- 6 7.5-8.5 [place] [employer]. Diabetes Care 33(S1), Mar 2009. Performed By: #### H BA1E #### [address] [address] LIPID PANEL (CORONARY RISK 2 )on 07-10-2022 Cholesterol [Mass/Vol] 92 mg/dL Normal 0 - 199 [facility] Comment on above: Result Comment: . AGE DESIRABLE BORDERLINE HIGH HIGH 0-19 Y 0 - 169 170 - 199 >/= 200 20-24 Y 0 - 189 190 - 224 >/= 225 >24 Y 0 - 199 200 - 239 >/= 240 All ranges are based on fasting samples. Specific therapeutic targets will vary based on patient-specific cardiac risk. . Pediatric guidelines reference:Pediatrics 2011, 128(S5). Adult guidelines reference: NCEP ATPIII Guidelines, SELENA 2001, 258:2486-97 . Venipuncture immediately after or during the administration of Metamizole may lead to falsely low results. Testing should be performed immediately prior to Metamizole dosing. Performed By: #### L IPID #### [address] [address] Cholesterol in HDL [Mass/Vol] 27.0 mg/dL Abnormal [facility] Comment on above: Result Comment: . AGE VERY LOW LOW NORMAL HIGH 0-19 Y < 35 < 40 40-45 ---- 20-24 Y ---- < 40 >45 ---- >24 Y ---- < 40 40-60 >60 . Performed By: #### L IPID #### [address] [address] Cholesterol in LDL [Mass/Vol] 24 mg/dL Normal 0 - 99 [facility] Comment on above: Result Comment: . NEAR BORD AGE DESIRABLE OPTIMAL HIGH HIGH VERY HIGH 0-19 Y 0 - 109 --- 110-129 >/= 130 ---- 20-24 Y 0 - 119 --- 120-159 >/= 160 ---- >24 Y 0 - 99 100-129 130-159 160-189 >/=190 . Performed By: #### L IPID #### [address] [address] Cholesterol in VLDL [Mass/Vol] 41 mg/dL High 0 - 40 [facility] Comment on above: Performed By: #### L IPID #### [address] [address] Cholesterol.total/C holesterol in HDL [Mass ratio] 3.4 {ratio} Normal [facility] Comment on above: Result Comment: REF VALUES DESIRABLE < 3.4 HIGH RISK > 5.0 Performed By: #### L IPID #### [address] [address] NON-HDL CHOLESTEROL 65 mg/dL Normal [facility] Comment on above: Result Comment: AGE DESIRABLE BORDERLINE HIGH HIGH VERY HIGH 0-19 Y 0 - 119 120 - 144 >/= 145 >/= 160 20-24 Y 0 - 149 150 - 189 >/= 190 ---- >24 Y 30 MG/DL ABOVE LDL CHOLESTEROL GOAL . Performed By: #### L IPID #### [address] [place] [address] Triglyceride [Mass/Vol] 205 mg/dL High 0 - 149 [facility] Comment on above: Result Comment: . AGE DESIRABLE BORDERLINE HIGH HIGH VERY HIGH 0 D-90 D 19 - 174 ---- ---- ---- 91 D- 9 Y 0 - 74 75 - 99 >/= 100 ---- 10-19 Y 0 - 89 90 - 129 >/= 130 ---- 20-24 Y 0 - 114 115 - 149 >/= 150 ---- >24 Y 0 - 149 150 - 199 200- 499 >/= 500 . Venipuncture immediately after or during the administration of Metamizole may lead to falsely low results. Testing should be performed immediately prior to Metamizole dosing. Performed By: #### L IPID #### [address] [address] Office Visiton 04-13-2022 Follow-up visit Diagnoses/Problems Hypertension (401.9) (I10) Type 2 diabetes mellitus (250.00) (E11.9) BMI 36.0-36.9,adult (V85.36) (Z68.36) Multiple atypical skin moles (216.9) (D22.9) Orders BMI 36.0-36.9,adult Start: Trulicity 3 MG/0.5ML Subcutaneous Solution Pen-injector; Take one injection weekly Type 2 diabetes mellitus Changed: From metFORMIN HCl - 1000 MG Oral Tablet Take 1 tablet twice daily To metFORMIN HCl - 1000 MG Oral Tablet TAKE 1 TABLET TWICE A DAY WITH MEALS Renew: glipiZIDE 5 MG Oral Tablet; Take 1 tablet twice daily Renew: Levemir FlexTouch 100 UNIT/ML Subcutaneous Solution Pen-injector; INJECT 30 UNIT Bedtime Patient Discussion/Summary Please refer to Dr. Andersen for a full body skin inspection. He has been seen there in the past but needs a checkup due to multiple moles and family history of malignant melanoma We will see him back here in 3 months and please order a fasting BMP with hemoglobin A1c and diagnosis of diabetes mellitus type 2 please also include a fasting lipid profile with diagnosis of hyperlipidemia Chief Complaint Pt is here today to get a referral to a new register of wills, C/O right arm itching. This note was generated by using [employer] software. It may contain errors in wording, punctuate, or spelling. He is here today for his general checkup. He explains that his register of wills has switched bryant and now is doing wound care. He is needing refills on his medications and he states that recently his blood sugars have been running higher than usual. His last hemoglobin A1c in October was also elevated. We talked about making a referral but we also talked about making an adjustment in his medication now. He is on the Trulicity 1.5 and I decided to have him go to the 3.0 dose. We talked about how Trulicity can oftentimes help with weight loss and certainly could also help with lowering the sugar. He will check his sugars before breakfast and supper and give me an update in 1 to 2 weeks. We did conduct a review of systems and for the most part he reports feeling well. He states however he experiences some itching involving his right forearm and he states there is never really a rash present. We talked about how dry skin is the #1 because of itching in the winter and I recommended he do some heavy moisturizing. We also discussed his multiple moles and freckles and he reminded me that his brother has actually had malignant melanoma. I told him it is imperative we get him in for a full body skin inspection and he has been to [facility] several years ago. Today his blood pressure is well controlled. We will plan on seeing him back in approximately 3 months for follow-up. Review of SystemsDenies fatigue. Denies shortness of breath, coughing, wheezing Denies chest pain, palpitations, leg edema Denies nausea, vomiting, diarrhea, heartburn, abdominal pain, or black or bloody stools Denies significant joint pain . No back pain Denies feelings of significant anxiety or depression Active Problems Class 2 severe obesity with body mass index (BMI) of 35 to 39.9 with serious comorbidity (278.01) (E66.01) Hematuria (599.70) (R31.9) History of colon polyps (V12.72) (Z86.010) History of kidney stones (V13.01) (Z87.442) Hyperkalemia (276.7) (E87.5) Hyperlipidemia (272.4) (E78.5) Hypertension (401.9) (I10) Nocturia (788.43) (R35.1) Obstructive sleep apnea (327.23) (G47.33) Osteoarthritis of left hip (715.95) (M16.12) Post herpetic neuralgia (053.19) (B02.29) Prostate cancer screening (V76.44) (Z12.5) Type 2 diabetes mellitus (250.00) (E11.9) Urinary tract obstruction by kidney stone (592.0,599.69) (N20.0,N13.8) Past Medical History History of coronary artery disease (V12.59) (Z86.79) Surgical History History of Colonoscopy Resolved Date: 28 Jun 2018 Social History Consumes alcohol (V49.89) (Z78.9) Former smoker (V15.82) (Z87.891) Denied: History of No advance directives No illicit drug use Patient has active durable power of claim attorney (DPOA) designee for healthcare Patient has living will (V49.89) (Z78.9) Allergies No Known Drug Allergies Recorded By: Anali Roberson; 01/22/2019 3:05:12 PM Current Meds Medication NameInstruction Aller-Ease TABS Aspirin 81 MG TABSTAKE 1 TABLET DAILY. Atorvastatin Calcium 20 MG Oral Tablettake 1 tablet by mouth once daily BD Pen Needle Mini U/F 31G X 5 MMUSE DIRECTED. Brilinta 90 MG Oral TabletTAKE 1 TABLET TWICE DAILY. glipiZIDE 5 MG Oral TabletTake 1 tablet twice daily Levemir FlexTouch 100 UNIT/ML Subcutaneous Solution Pen-injectorINJECT 30 UNIT Bedtime Lisinopril 5 MG Oral Tablettake 1 tablet by mouth once daily metFORMIN HCl - 1000 MG Oral TabletTake 1 tablet twice daily Metoprolol Succinate ER 25 MG Oral Tablet Extended Release 24 Hourtake 1 tablet by mouth once daily Nitroglycerin 0.4 MG Sublingual Tablet SublingualPLACE 1 TABLET UNDER THE TONGUE EVERY 5 MINUTES FOR UP TO 3 DOSES NEEDED FOR CHEST PAIN.CALL 911 IF PAIN P (more content not included)... Normal [employer] Tobacco Screening.on 023 Fall risk assessment a) No falls within the last year [facility] Phone: Tobacco use status [facility] b) No -[facility] Work Phone: PSA TOTAL AND %FREEon 2021 % FREE PSA 17 % Normal [facility] Comment on above: Result Comment: INTE RPRETIVE INFORMATION: Prostate Specific Antigen, Free Percentage [facility] uses the Manjit Free PSA electrochemiluminescent immunoassay method in conjunction with the Manjit PSA electrochemiluminescent immunoassay method to determine the free PSA percentage. Values obtained with different assay methods should not be used interchangeably. The free PSA percentage is an aid in distinguishing prostate cancer from benign prostatic conditions in individuals with a prostate age 50 years and older with a total PSA between 3 and 10 ng/mL and negative digital rectal examination findings. Prostatic biopsy is required for the diagnosis of cancer. In patients with total PSA concentrations of 4-10 ng/mL, the probability of finding prostate cancer on needle biopsy by age in years is: %fPSA 50-59 60-69 70 or older 0 - 10% 49% 58% 65% 11 - 18% 27% 34% 41% 19 - 25% 18% 24% 30% Greater than 25% 9% 12% 16% Other factors may help determine the actual risk of prostate cancer in individual patients. Performed By: [employer] [address] [place] [address] [employer]: Gene Kirkpatrick MD, PhD Performed By: #### P SAFT #### [employer] [address] [place] [address] PSA,FREE 0.1 ng/mL Normal [facility] Comment on above: Performed By: #### P SAFT #### [employer] [address] [place] [address] PSA,TOTAL 0.6 ng/mL Normal 0.0-4.0 [facility] Comment on above: Result Comment: INTE RPRETIVE INFORMATION: Prostate Specific Antigen The Manjit PSA electrochemiluminescent immunoassay is used. Results obtained with different test methods or kits cannot be used interchangeably. The Manjit PSA method is approved for use as an aid in the detection of prostate cancer when used in conjunction with a digital rectal exam in individuals with a prostate age 50 years and older. The Manjit PSA is also indicated for the serial measurement of PSA to aid in the prognosis and management of prostate cancer patients. Elevated PSA concentrations can only suggest the presence of prostate cancer until biopsy is performed. PSA concentrations can also be elevated in benign prostatic hyperplasia or inflammatory conditions of the prostate. PSA is generally not elevated in healthy individuals or individuals with nonprostatic carcinoma. Performed By: #### P SAFT #### [facility] [address] [place] [address] Office Visit (Urology)on Follow-up visit Diagnoses/Problems Assessed Nocturia (788.43) (R35.1) Orders Nocturia PSA Total AND %Free; Status:In Progress - Specimen/Data Collected; Done: Approx [id number] Perform:Lab Services - Lab To Draw (Blood Test);Ordered; For:Nocturia; Ordered By:Adam Baptiste; Patient Discussion/Summary Gross hematuria, possible passed left ureteral stone 66-year-old very pleasant gentleman presenting with painful gross hematuria that subsided spontaneously. We had a very long and extensive discussion with the patient regarding the pathophysiology, differential diagnosis, risk factor, management, natural history, incidence and diagnostic work-up of the condition. We discussed hematuria work-up in the form of renal ultrasound, cystoscopy and urine cytology. Patient might have passed a small kidney stone in his urine today. Renal ultrasound done on June 09, 2021 was unremarkable. Cysto was unremarkable. Plan PSA today is pending Follow-up in 1 year . Chief Complaint 4 MO F/U w/PSA History of Present IllnessPatient presents to the office today for a 4 MO F/U w/PSA.Most recent PSA was drawn but we have not gotten those results... Patient has a Hx of Gross Hematuria. Most recent Renal US (06/09/2021) was unremarkable. CYSTO (07/04/2021) was unremarkable. LUTs are chronic and mild. Denies frequency and urgency. Denies dysuria and hematuria.. Nocturia x1-2.. Caffeine does worsen LUTs.. No medications for LUTs..Hx of Kidney Stones..Stone Analysis was 05/19/2021 and was found to be Calcium Stones. No Hx of UTI' Review of Systems Constitutional: No fever, No chills. Eye: Glasses Ear/Nose/Mouth/Throat: Negative. Respiratory: No shortness of breath, No cough. Cardiovascular: No chest pain, No peripheral edema. Gastrointestinal: No nausea, Genitourinary: Negative except as documented in history of present illness. Hematology/Lymphatics: Brilinta Endocrine: Negative. Immunologic: Not immunocompromised. Musculoskeletal: Negative Integumentary: Negative. Neurologic: Alert and oriented X4. Psychiatric: Negative. *Active Problems Problems BMI 35.0-35.9,adult (V85.35) (Z68.35) Class 2 severe obesity with body mass index (BMI) of 35 to 39.9 with serious comorbidity (278.01) (E66.01) Hematuria (599.70) (R31.9) History of colon polyps (V12.72) (Z86.010) History of kidney stones (V13.01) (Z87.442) History of UTI (V13.02) (Z87.440) Hyperkalemia (276.7) (E87.5) Hyperlipidemia (272.4) (E78.5) Hypertension (401.9) (I10) Nocturia (788.43) (R35.1) Obstructive sleep apnea (327.23) (G47.33) Osteoarthritis of left hip (715.95) (M16.12) Post herpetic neuralgia (053.19) (B02.29) Preop examination (V72.84) (Z01.818) Prostate cancer screening (V76.44) (Z12.5) Urinary tract obstruction by kidney stone (592.0,599.69) (N20.0,N13.8) Type 2 diabetes mellitus (250.00) (E11.9) Past Medical History Problems History of coronary artery disease (V12.59) (Z86.79) Surgical History Problems History of Colonoscopy Resolved Date: 28 Jun 2018 Family History Father FHx: lung cancer (V16.1) (Z80.1) Brother FHx: lung cancer (V16.1) (Z80.1) Social History Problems Consumes alcohol (V49.89) (Z72.89) Former smoker (V15.82) (Z87.891) Denied: History of No advance directives No illicit drug use Patient has active durable power of claim attorney (DPOA) designee for healthcare Patient has living will (V49.89) (Z78.9) Allergies Medication No Known Drug Allergies Recorded By: Anali Roberson; 01/22/2019 3:05:12 PM Current Meds Medication NameInstruction Aller-Ease TABS Aspirin 81 MG TABSTAKE 1 TABLET DAILY. Atorvastatin Calcium 20 MG Oral Tablettake 1 tablet by mouth once daily BD Pen Needle Mini U/F 31G X 5 MMUSE DIRECTED. Brilinta 90 MG Oral TabletTAKE 1 TABLET TWICE DAILY. glipiZIDE 5 MG Oral TabletTake 1 tablet twice daily Levemir FlexTouch 100 UNIT/ML Subcutaneous Solution Pen-injectorINJECT 30 UNIT Bedtime Lisinopril 5 MG Oral Tablettake 1 tablet by mouth once daily metFORMIN HCl - 1000 MG Oral TabletTake 1 tablet twice daily Metoprolol Succinate ER 25 MG Oral Tablet Extended Release 24 Hourtake 1 tablet by mouth once daily Nitroglycerin 0.4 MG Sublingual Tablet SublingualPLACE 1 TABLET UNDER THE TONGUE EVERY 5 MINUTES FOR UP TO 3 DOSES NEEDED FOR CHEST PAIN.CALL 911 IF PAIN PERSISTS. OneTouch Verio In Vitro StripTEST 4 TIMES DAILY. Trulicity 1.5 MG/0.5ML Subcutaneous Solution Pen-injectorINJECT 1.5 MG Weekly SUNDAY Turmeric CAPS Vitamin D (Cholecalciferol) 50 MCG (1999) Oral Capsule Vitals Vital Signs Recorded: [id number] 10:11AM Heart Mnit873 Bojdarzd751 Ibqljpfgy00 Xpfbst176 lb 6 oz BMI Afqmilwspy91.45 kg/m2 BSA Calculated2.39 Tobacco Useb) No PHQ-2 #1. Over the last 2 weeks have you felt down, depressed or hopeless? (If yes, answer PHQ-9 below)No Falls Screening (Age 18+)a) No falls within the last year Physical Exam General: Well developed, well morgan (more content not included)... Normal [employer] Tobacco Screening.on 022 Adult depression screening assessment No [employer]mbluzs[employer] Work Phone: Fall risk assessment a) No falls within the last year [facility]M-Mdqvwzj-U [employer] Work Phone: Tobacco use status CP b) No KP-Nvorrxg-F [employer] Work Phone: HEMOGLOBIN A1Con 11-02-2021 Glucose [Mass/Vol] 169 mg/dL Normal [facility] Comment on above: Performed By: #### H BA1E #### [address] [place] [address] HbA1c (Bld) [Mass fraction] 7.5 % Abnormal [facility] Comment on above: Result Comment: Diag nosis of Diabetes-Adults Non-Diabetic: < or = 5.6% Increased risk for developing diabetes: 5.7-6.4% Diagnostic of diabetes: > or = 6.5% . Monitoring of Diabetes Age (y) Therapeutic Goal (%) Adults: >18 <7.0 Pediatrics: 13-18 <7.5 7-12 <8.0 0- 6 7.5-8.5 [place] [employer]. Diabetes Care 33(S1), Mar 2009. Performed By: #### H BA1E #### [address] [address] Hemoglobin A1Con 11-02-2021 Glucose [Mass/Vol] 169 mg/dL [facility] [employer] Work Phone: HbA1c (Bld) [Mass fraction] 7.5 % Abnormal [facility] Work Phone: Comment on above: Diagnosis of Diabete s-Adults Non-Diabetic: < or = 5.6% Increased risk for developing diabetes: 5.7-6.4% Diagnostic of diabetes: > or = 6.5%. Monitoring of Diabetes Age (y) Therapeutic Goal (%) Adults: >18 <7.0 Pediatrics: 13-18 <7.5 7-12 <8.0 0- 6 7.5-8.5 [place] [employer]. Diabetes Care 33(S1), Mar 2009. LIPID PANEL (CORONARY RISK 2 )on 11-02-2021 Cholesterol [Mass/Vol] 94 mg/dL Normal 0 - 199 [facility] Comment on above: Result Comment: . AGE DESIRABLE BORDERLINE HIGH HIGH 0-19 Y 0 - 169 170 - 199 >/= 200 20-24 Y 0 - 189 190 - 224 >/= 225 >24 Y 0 - 199 200 - 239 >/= 240 All ranges are based on fasting samples. Specific therapeutic targets will vary based on patient-specific cardiac risk. . Pediatric guidelines reference:Pediatrics 2011, 128(S5). Adult guidelines reference: NCEP ATPIII Guidelines, SELENA 2001, 258:2486-97 . Venipuncture immediately after or during the administration of Metamizole may lead to falsely low results. Testing should be performed immediately prior to Metamizole dosing. Performed By: #### L IPID #### [address] [address] Cholesterol in HDL [Mass/Vol] 27.0 mg/dL Abnormal [facility] Comment on above: Result Comment: . AGE VERY LOW LOW NORMAL HIGH 0-19 Y < 35 < 40 40-45 ---- 20-24 Y ---- < 40 >45 ---- >24 Y ---- < 40 40-60 >60 . Performed By: #### L IPID #### [address] [address] Cholesterol in LDL [Mass/Vol] 36 mg/dL Normal 0 - 99 [facility] Comment on above: Result Comment: . NEAR BORD AGE DESIRABLE OPTIMAL HIGH HIGH VERY HIGH 0-19 Y 0 - 109 --- 110-129 >/= 130 ---- 20-24 Y 0 - 119 --- 120-159 >/= 160 ---- >24 Y 0 - 99 100-129 130-159 160-189 >/=190 . Performed By: #### L IPID #### [address] [address] Cholesterol in VLDL [Mass/Vol] 31 mg/dL Normal 0 - 40 [facility] Comment on above: Performed By: #### L IPID #### [address] [address] Cholesterol.total/C holesterol in HDL [Mass ratio] 3.5 {ratio} Normal [facility] Comment on above: Result Comment: REF VALUES DESIRABLE < 3.4 HIGH RISK > 5.0 Performed By: #### L IPID #### [address] [address] Triglyceride [Mass/Vol] 156 mg/dL High 0 - 149 [facility] Comment on above: Result Comment: . AGE DESIRABLE BORDERLINE HIGH HIGH VERY HIGH 0 D-90 D 19 - 174 ---- ---- ---- 91 D- 9 Y 0 - 74 75 - 99 >/= 100 ---- 10-19 Y 0 - 89 90 - 129 >/= 130 ---- 20-24 Y 0 - 114 115 - 149 >/= 150 ---- >24 Y 0 - 149 150 - 199 200- 499 >/= 500 . Venipuncture immediately after or during the administration of Metamizole may lead to falsely low results. Testing should be performed immediately prior to Metamizole dosing. Performed By: #### L IPID #### [facility] [id number] Lipid Panelon 11-02-2021 Cholesterol [Mass/Vol] 94 mg/dL 0 - 199 [employer] Phone: Comment on above: . AGE DESIRABLE BORD TATINANA HIGH HIGH 0-19 Y 0 - 169 170 - 199 >/= 200 20-24 Y 0 - 189 190 - 224 >/= 225 >24 Y 0 - 199 200 - 239 >/= 240 All ranges are based on fasting samples. Specific therapeutic targets will vary based on patient-specific cardiac risk.. Pediatric guidelines reference:Pediatrics 2011, 128(S5). Adult guidelines reference: NCEP ATPIII Guidelines, SELENA 2001, 258:2486-97. Venipuncture immediately after or during the administration of Metamizole may lead to falsely low results. Testing should be performed immediately prior to Metamizole dosing. Cholesterol in HDL [Mass/Vol] 27.0 mg/dL Abnormal [employer] Phone: Comment on above: . AGE VERY LOW LOW N ORMAL HIGH 0-19 Y < 35 < 40 40-45 ---- 20- 24 Y ---- < 40 >45 ---- >24 Y ---- < 40 40-60 >60. Cholesterol in LDL [Mass/Vol] 36 mg/dL 0 - 99 [employer] Phone: Comment on above: . NEAR BORD AGE DARRIN RABLE OPTIMAL HIGH HIGH VERY HIGH 0-19 Y 0 - 109 --- 110-129 >/= 130 ---- 20-24 Y 0 - 119 --- 120-159 >/= 160 ---- >24 Y 0 - 99 100-129 130-159 160-189 >/=190. Cholesterol.total/C holesterol in HDL [Mass ratio] 3.5 {ratio} [employer] Phone: Comment on above: REF VALUESDESIRABLE < 3.4HIGH RISK > 5.0 Triglyceride [Mass/Vol] 156 mg/dL above high threshold 0 - 149 [employer] Phone: Comment on above: . AGE DESIRABLE BORD TATIANNA HIGH HIGH VERY HIGH 0 D-90 D 19 - 174 ---- ---- ----91 D- 9 Y 0 - 74 75 - 99 >/= 100 ---- 10-19 Y 0 - 89 90 - 129 >/= 130 ---- 20-24 Y 0 - 114 115 - 149 >/= 150 ---- >24 Y 0 - 149 150 - 199 200- 499 >/= 500. Venipuncture immediately after or during the administration of Metamizole may lead to falsely low results. Testing should be performed immediately prior to Metamizole dosing. Lipid Panel 31 mg/dL 0 - 40 [employer] Work Phone: PSA Total & %Freeon 11-03-19 22 Free PSA [Mass/Vol] 0.1 ng/mL [facility] [employer] Work Phone: Free PSA/Total PSA [Mass fraction] 17 % [employer]cstnvq[facility]U [employer] Work Phone: Comment on above: INTERPRETIVE INFORMA TION: Prostate Specific Antigen, Free PercentageARUP uses the Manjit Free PSA electrochemiluminescent immunoassay method in conjunction with the Manjit PSA electrochemiluminescent immunoassay method to determine the free PSA percentage. Values obtained with different assay methods should not be used interchangeably. The free PSA percentage is an aid in distinguishing prostate cancer from benign prostatic conditions in individuals with a prostate age 50 years and older with a total PSA between 3 and 10 ng/mL and negative digital rectal examination findings. Prostatic biopsy is required for the diagnosis of cancer. In patients with total PSA concentrations of 4-10 ng/mL, the probability of finding prostate cancer on needle biopsy by age in years is:%fPSA 50-59 60-69 70 or older0 - 10% 49% 58% 65%11 - 18% 27% 34% 41%19 - 25% 18% 24% 30%Greater than 25% 9% 12% 16%Other factors may help determine the actual risk of prostate cancer in individual patients.Performed By: [employer] [place] [id number] Director: Gene Kirkpatrick MD, PhD Prostate specific Ag [Mass/Vol] 0.6 ng/mL 0.0-4.0 [employer]Aadpsgd-U [employer] Work Phone: Comment on above: INTERPRETIVE INFORMA TION: Prostate Specific AntigenThe Manjit PSA electrochemiluminescent immunoassay is used. Results obtained with different test methods or kits cannot be used interchangeably. The Manjit PSA method is approved for use as an aid in the detection of prostate cancer when used in conjunction with a digital rectal exam in individuals with a prostate age 50 years and older. The Manjit PSA is also indicated for the serial measurement of PSA to aid in the prognosis and management of prostate cancer patients. Elevated PSA concentrations can only suggest the presence of prostate cancer until biopsy is performed. PSA concentrations can also be elevated in benign prostatic hyperplasia or inflammatory conditions of the prostate. PSA is generally not elevated in healthy individuals or individuals with nonprostatic carcinoma. Basophil percentageon 2021 Bilirubin [Mass/Vol] 0.40 mg/dL 0.20-1.00 [facility] Work Phone: Comment on above: For patients on eltr ombopag therapy, use of Dimension [place] TBIL is not recommended. Cholesterol [Mass/Vol] 103 mg/dL <200 [facility] Work Phone: Comment on above: <200 mg/dL Desirable 200-240 mg/dL Borderline >240 mg/dL High Risk Protein [Mass/Vol] 7.8 g/dL 6.4-8.2 [facility] Work Phone: Triglyceride [Mass/Vol] 244 mg/dL [facility] Work Phone: Comment on above: The drugs N-Acetylcy steine and Metamizole may falsely depress this assay.Serum Triglycerides Reference Interval Normal <150 mg/dL Borderline high 150 - 199 mg/dL High 200 - 499 mg/dL Very High > or = 500 mg/dL Direct bilirubinon Bilirubin.direct [Mass/Vol] 0.13 mg/dL 0.00-0.30 [facility] Work Phone: Laboratory - Chemistry and C hemistry - challengeon 08-09-2021 ALP [Catalytic activity/Vol] 73 U/L 45-117 [facility] Work Phone: ALT [Catalytic activity/Vol] 26 U/L 16-61 [facility] Work Phone: Globulin (S) [Mass/Vol] 4.0 g/dL 2.2-4.2 [facility] Work Phone: Serum or plasma albumin garima urement (mass/volume)on 08-09-2021 Albumin [Mass/Vol] 3.8 g/dL 3.2-5.0 [facility] Work Phone: Serum or plasma cholesterol in HDL measurement (mass/volume)on 08-09-2021 Cholesterol in HDL [Mass/Vol] 32 mg/dL [facility] Work Phone: Comment on above: The drugs N-Acetylcy steine and Metamizole may falsely depress this assay. Reference Range HDL <40 mg/dL Low HDL Cholesterol HDL >or= 60 mg/dL High HDL Cholesterol Serum or plasma cholesterol in VLDL measurement (mass/volume)on 08-09-2021 Cholesterol in VLDL [Mass/Vol] 49 mg/dL 5-40 [facility] Work Phone: Serum or plasma low density lipoprotein (LDL) cholesterol measurement (mass/volume)on 08-09-2021 Cholesterol in LDL [Mass/Vol] 22 mg/dL 0-130 [facility] Work Phone: Thin prep Papanicolaou smear with manual screeningon 08-09-2021 Thin prep Papanicolaou smear with manual screening 16 U/L 15-37 [facility] Work Phone: Office Visiton 07-27-2021 Follow-up visit Diagnoses/Problems Hypertension (401.9) (I10) Type 2 diabetes mellitus (250.00) (E11.9) Hyperlipidemia (272.4) (E78.5) Prostate cancer screening (V76.44) (Z12.5) BMI 35.0-35.9,adult (V85.35) (Z68.35) Orders Hyperlipidemia Renew: Atorvastatin Calcium 20 MG Oral Tablet; take 1 tablet by mouth once daily Hypertension Renew: Lisinopril 5 MG Oral Tablet; take 1 tablet by mouth once daily Renew: Metoprolol Succinate ER 25 MG Oral Tablet Extended Release 24 Hour; take 1 tablet by mouth once daily Patient Discussion/Summary He would like to have his PSA drawn this morning for his urologist and the order is there We decided that we could safely see him back on an annual basis and I will refrain from ordering lab work because it is ordered routinely through his register of wills Chief Complaint PT is here today for a yearly check up,no complaints. This note was generated by using [employer] software. It may contain errors in wording, punctuate, or spelling. He is here today for what constitutes his yearly checkup. We discussed the fact that he does see multiple specialists including [facility] and also his core fitter. We discussed laboratory testing and we determined that his register of wills orders his labs routinely and we will simply just request a copy when they are completed [facility]. His last hemoglobin A1c was in February at [facility] and his number was 7.0. He states he anticipates that sugars will be a little bit higher and he is working on improving his diet along with exercise and weight loss. He has had issues in the past with his left hip and he has been working on exercises that do not exacerbate his symptoms. He states his community support specialist encouraged him to walk. He also purchased an elliptical machine and will try that for a while as well. We also see that his blood pressure is excellent today and we are giving him refills on several medications. He also is due to have his PSA and will get that done today before leaving. He also sees urology. He is mood has been good and he has no symptoms of depression. He also has advanced directives. We will see him annually and sooner if any problems. Adult Risk Screening Advanced Care Planning discussed and documented advance care plan or surrogate decision maker documented in the medical record. Living Will. Living Will: Living will on file. Healthcare POA: Health care proxy on file. Depression/Suicide Screening: During the past 2 weeks, the patient has not felt down, depressed or hopeless. During the past 2 weeks, the patient has not felt little interest or pleasure in doing things. Review of Systems Denies fatigue. Denies shortness of breath, coughing, wheezing Denies chest pain, palpitations, leg edema Denies nausea, vomiting, diarrhea, heartburn, abdominal pain, or black or bloody stools Denies significant joint pain. Denies feelings of significant anxiety or depression Active Problems BMI 35.0-35.9,adult (V85.35) (Z68.35) Class 2 severe obesity with body mass index (BMI) of 35 to 39.9 with serious comorbidity (278.01) (E66.01) Hematuria (599.70) (R31.9) History of colon polyps (V12.72) (Z86.010) History of kidney stones (V13.01) (Z87.442) History of UTI (V13.02) (Z87.440) Hyperkalemia (276.7) (E87.5) Hyperlipidemia (272.4) (E78.5) Hypertension (401.9) (I10) Nocturia (788.43) (R35.1) Obstructive sleep apnea (327.23) (G47.33) Osteoarthritis of left hip (715.95) (M16.12) Post herpetic neuralgia (053.19) (B02.29) Preop examination (V72.84) (Z01.818) Type 2 diabetes mellitus (250.00) (E11.9) Urinary tract obstruction by kidney stone (592.0,599.69) (N20.0,N13.8) Past Medical History History of coronary artery disease (V12.59) (Z86.79) Surgical History History of Colonoscopy Resolved Date: 28 Jun 2018 Social History Consumes alcohol (V49.89) (Z72.89) Former smoker (V15.82) (Z87.891) Denied: History of No advance directives No illicit drug use Patient has active durable power of claim attorney (DPOA) designee for healthcare Patient has living will (V49.89) (Z78.9) Allergies No Known Drug Allergies Recorded By: Anali Roberson; 01/22/2019 3:05:12 PM Current Meds Medication NameInstruction Aller-Ease TABS Aspirin 81 MG TABSTAKE 1 TABLET DAILY. Atorvastatin Calcium 20 MG Oral Tablettake 1 tablet by mouth once daily BD Pen Needle Mini U/F 31G X 5 MMUSE DIRECTED. Brilinta 90 MG Oral TabletTAKE 1 TABLET TWICE DAILY. glipiZIDE 5 MG Oral TabletTake 1 tablet twice daily Levemir FlexTouch 100 UNIT/ML Subcutaneous Solution Pen-injectorINJECT 30 UNIT Bedtime Lisinopril 5 MG Oral Tablettake 1 tablet by mouth once daily metFORMIN HCl - 1000 MG Oral TabletTake 1 tablet twice daily Metoprolol Succinate ER 25 MG Oral Tablet Extended Release 24 Hourtake 1 tablet by mouth once daily Nitroglycerin 0.4 MG Sublingual Tablet SublingualPLACE 1 TABLET UNDER THE TONGU (more content not included)... Normal Telepath No Panel Informationon 07-04 [facility] Work Phone: Office Visit (Urology)on Follow-up visit Diagnoses/Problems Assessed Hematuria (599.70) (R31.9) Nocturia (788.43) (R35.1) Orders Hematuria Stop: Ciprofloxacin HCl - 250 MG Oral Tablet (Cipro) Rx By: Adam Baptiste; Dispense: 5 Days ; #:10 Tablet; Refill: 3;For: Hematuria; JULIO = N; Verified Transmission to [facility] 6575; Last Updated By: Luca JamKazamMaikThe New York Times; 07/04/2021 8:17:19 AM Follow-up visit in 4 Months Outpatient Follow-up 4 month f/u w/ psa Status: Hold For - Scheduling,Retrospective Authorization Requested for: 04Jul2021 Ordered Stat;For: Hematuria; Ordered By: Adam Baptiste Performed: Due: [id number]; Last Updated By: Nina Pizarro; 07/04/2021 8:21:12 AM Start: Ciprofloxacin HCl - 250 MG Oral Tablet (Cipro); Take 1 tablet twice daily Rx By: Adam Baptiste; Dispense: 3 Days ; #:6 Tablet; Refill: 0;For: Hematuria; JULIO = N; [facility]; Last Updated By: Gaye Segovia; 07/04/2021 8:09:20 AM Nocturia PSA Total AND %Free; Status:Active - Retrospective Authorization; Requested for:04Jul2021; Perform:Lab Services - Lab To Draw (Blood Test); Due:[id number]; Last Updated By:Nina Pizarro; 07/04/2021 8:21:12 AM;Ordered; For:Nocturia; Ordered By:Adam Baptiste; Patient Discussion/Summary Gross hematuria, possible passed left ureteral stone 66-year-old very pleasant gentleman presenting with painful gross hematuria that subsided spontaneously. We had a very long and extensive discussion with the patient regarding the pathophysiology, differential diagnosis, risk factor, management, natural history, incidence and diagnostic work-up of the condition. We discussed hematuria work-up in the form of renal ultrasound, cystoscopy and urine cytology. Patient might have passed a small kidney stone in his urine today. Renal ultrasound done on June 09, 2021 was unremarkable. Cysto today was unremarkable. Plan PSA Follow-up in 4 months . Active Problems Problems Acute sinusitis (461.9) (J01.90) BMI 35.0-35.9,adult (V85.35) (Z68.35) Class 2 severe obesity with body mass index (BMI) of 35 to 39.9 with serious comorbidity (278.01) (E66.01) Hematuria (599.70) (R31.9) History of colon polyps (V12.72) (Z86.010) History of kidney stones (V13.01) (Z87.442) History of UTI (V13.02) (Z87.440) Hyperkalemia (276.7) (E87.5) Hyperlipidemia (272.4) (E78.5) Hypertension (401.9) (I10) Nocturia (788.43) (R35.1) Obstructive sleep apnea (327.23) (G47.33) Osteoarthritis of left hip (715.95) (M16.12) Post herpetic neuralgia (053.19) (B02.29) Preop examination (V72.84) (Z01.818) Type 2 diabetes mellitus (250.00) (E11.9) Urinary tract obstruction by kidney stone (592.0,599.69) (N20.0,N13.8) Past Medical History Problems History of coronary artery disease (V12.59) (Z86.79) Surgical History Problems History of Colonoscopy Resolved Date: 28 Jun 2018 Family History Father FHx: lung cancer (V16.1) (Z80.1) Brother FHx: lung cancer (V16.1) (Z80.1) Social History Problems Consumes alcohol (V49.89) (Z72.89) Former smoker (V15.82) (Z87.891) Denied: History of No advance directives No illicit drug use Patient has active durable power of claim attorney (DPOA) designee for healthcare Patient has living will (V49.89) (Z78.9) Allergies Medication No Known Drug Allergies Recorded By: Anali Roberson; 01/22/2019 3:05:12 PM Current Meds Medication NameInstruction Aller-Ease TABS Aspirin 81 MG TABSTAKE 1 TABLET DAILY. Atorvastatin Calcium 20 MG Oral Tablettake 1 tablet by mouth once daily BD Pen Needle Mini U/F 31G X 5 MMUSE DIRECTED. Brilinta 90 MG Oral TabletTAKE 1 TABLET TWICE DAILY. glipiZIDE 5 MG Oral TabletTake 1 tablet twice daily Levemir FlexTouch 100 UNIT/ML Subcutaneous Solution Pen-injectorINJECT 30 UNIT Bedtime Lisinopril 5 MG Oral Tablettake 1 tablet by mouth once daily metFORMIN HCl - 1000 MG Oral TabletTake 1 tablet twice daily Metoprolol Succinate ER 25 MG Oral Tablet Extended Release 24 Hourtake 1 tablet by mouth once daily Nitroglycerin 0.4 MG Sublingual Tablet SublingualPLACE 1 TABLET UNDER THE TONGUE EVERY 5 MINUTES FOR UP TO 3 DOSES NEEDED FOR CHEST PAIN.CALL 911 IF PAIN PERSISTS. OneTouch Verio In Vitro StripTEST 4 TIMES DAILY. Trulicity 1.5 MG/0.5ML Subcutaneous Solution Pen-injectorINJECT 1.5 MG Weekly SUNDAY Turmeric CAPS Vitamin D (Cholecalciferol) 50 MCG (1999 [place]) Oral Capsule Vitals Vital Signs Recorded: [id number] 08:02AM Heart Rate84 Jviwxjig109 Nvuvgmbob80 Height6 ft Ascrjy358 lb 4 oz BMI Evxlazaeps23.48 kg/m2 BSA Calculated2.36 Procedure The patient was prepped using a Betadine solution. Lidocaine jelly was instilled into the urethra. The flexible cystoscope was sterilely inserted into the urethra and formal cystoscopy performed in a systematic fashion. Both ureteral orifices were identified. For detailed findings of the procedure, please see the remark section of this note. Cystoscopy - male [place] identified using t (more content not included)... Normal [facility] Office Visit (Urology)on Follow-up visit Diagnoses/Problems Assessed Former smoker (V15.82) (Z87.891) Hematuria (599.70) (R31.9) Orders Hematuria Follow-up visit in 2 weeks Outpatient Follow-up Hematuria Status: Hold For - Scheduling,Retrospective Authorization Requested for: 13Jun2021 Ordered Stat;For: Hematuria; Ordered By: Jesús Ortega II Performed: Due: 11Sep2021; Last Updated By: Alyssa Celeste; 06/13/2021 8:08:07 AM SocHx: Former smoker Tobacco Use Screening; Status:Complete; Done: 13Jun2021 Perform:Not Applicable;Ordered; For:SocHx: Former smoker; Ordered By:Alyssa Celeste; Patient Discussion/Summary Gross hematuria, possible passed left ureteral stone 66-year-old very pleasant gentleman presenting with painful gross hematuria that subsided spontaneously. Patient there was found to have microhematuria. We had a very long and extensive discussion with the patient regarding the pathophysiology, differential diagnosis, risk factor, management, natural history, incidence and diagnostic work-up of the condition. We discussed hematuria work-up in the form of renal ultrasound, cystoscopy and urine cytology. Patient might have passed a small kidney stone in his urine today. Renal ultrasound done on June 09, 2021 was unremarkable. Patient rejected today cystoscopy and urine cytology. Explained to him that he secondary cystoscopy report of his hematuria work-up however he declined it. Plan Cystoscopy Urine cytology Follow-up in 1 month . Chief Complaint Hematuria History of Present IllnessPatient presented initially to the office today to Establish with Gross Hematuria two weeks ago. Positive Urine Culture on 05/10. Just finished ABX. LUTs are chronic and mild. Denies frequency and urgency. Denies dysuria and hematuria.. Nocturia x2-3..Most recent PSA was 4 years ago. No Bone Pain. No Recent Weight Gain/Loss. Caffeine does worsen LUTs.. No medications for LUTs..Hx of Kidney Stones. Last Sx were 20 Years ago.Hip replacement 04/09. Patient reported that with his gross hematuria he had nonspecific pain on the left side, intermittent, moderate intensity 4/10, pressure-like in nature, he thinks it is muscular his left hip replacement, lasted for couple of days, was associated with hematuria, no fever no chills, no nausea no vomiting, no constipation. Patient on May 19, 2021 provided a stone that he passed spontaneously Patient was found to have microhematuria has a a history of gross hematuria. We had a very long and extensive discussion regarding microscopic hematuria. I explained to the patient the pathophysiology, differential diagnosis, risk factor, associated conditions, and management. We discussed the need to do a microhematuria work-up to rule out any underlying malignancies in the form of masses, tumor, polyps that might be causing the microscopic hematuria. We discussed at length the risk, benefit, potential complication, adverse events of cystoscopy, renal ultrasound ,and urine cytology. Patient verbalized understanding would like to proceed. Patient had a possible stone gravel in his urine sample today. Today he declined cystoscopy and urine cytology. His ultrasound done on June 09, 2021 was normal. Review of Systems All systems were reviewed. Anything negative was noted in the HPI Active Problems Problems Acute sinusitis (461.9) (J01.90) BMI 35.0-35.9,adult (V85.35) (Z68.35) Class 2 severe obesity with body mass index (BMI) of 35 to 39.9 with serious comorbidity (278.01) (E66.01) Hematuria (599.70) (R31.9) History of colon polyps (V12.72) (Z86.010) History of kidney stones (V13.01) (Z87.442) History of UTI (V13.02) (Z87.440) Hyperkalemia (276.7) (E87.5) Hyperlipidemia (272.4) (E78.5) Hypertension (401.9) (I10) Nocturia (788.43) (R35.1) Obstructive sleep apnea (327.23) (G47.33) Osteoarthritis of left hip (715.95) (M16.12) Post herpetic neuralgia (053.19) (B02.29) Preop examination (V72.84) (Z01.818) Type 2 diabetes mellitus (250.00) (E11.9) Urinary tract obstruction by kidney stone (592.0,599.69) (N20.0,N13.8) Past Medical History Problems History of coronary artery disease (V12.59) (Z86.79) Surgical History Problems History of Colonoscopy Resolved Date: 28 Jun 2018 Family History Father FHx: lung cancer (V16.1) (Z80.1) Brother FHx: lung cancer (V16.1) (Z80.1) Social History Problems Consumes alcohol (V49.89) (Z72.89) Former smoker (V15.82) (Z87.891) Denied: History of No advance directives No illicit drug use Patient has active durable power of claim attorney (DPOA) designee for healthcare Patient has living will (V49.89) (Z78.9) Allergies Medication No Known Drug Allergies Recorded By: Anali Roberson; 01/22/2019 3:05:12 PM Current Meds Medication NameInstruction Aller-Ease TABS Aspirin 81 MG TABSTAKE 1 TABLET DAILY. Atorvastatin Calcium 20 MG Oral Tablettake 1 tablet by mouth once daily BD Pen Needle Mini U/F 31G X 5 MMUSE DIRECTED. Brilinta 90 MG Oral TabletTAKE 1 TABLET TW (more content not included)... Normal [employer] Tobacco Screening.on 022 Fall risk assessment a) No falls within the last year IJ-Pyhgxan-I [employer] Work Phone: Tobacco use status [facility] b) No MH-Npzuasv-G [employer] Work Phone: Radiologyon 06-09-2021 US Kidney - bilateral Please click on the link to view the study images Normal KC-Kvvpkzk-U [employer] Work Phone: US Kidney - bilateral Normal DI-Ebdqxyj-J [employer] Work Phone: Cult, Urineon 05-19-2021 Bacteria identified Cx Nom (U) OH-Mikbibw-E [employer] Work Phone: IO UA (automated w/o microsc opy)on 05-19-2021 Protein (U) [Mass/Vol] Negative HA-Cpcdlrs-G [facility] Work Phone: IO UA (automated w/o microscopy) Negative AW-Zwrghab-H [facility] Work Phone: IO UA (automated w/o microscopy) Normal (0.2-1.0 mg/dl) MP-Urolog y-A [facility] Work Phone: IO UA (automated w/o microscopy) 5.0 1 ZQ-Zltmvow-X [facility] Work Phone: IO UA (automated w/o microscopy) 1.025 1 IO-Vihsxvi-Z [facility] Work Phone: IO UA (automated w/o microscopy) Clear CE-Emtwdmr-O [facility] Work Phone: [phone] IO UA (automated w/o microscopy) Yellow OS-Dlljauz-J [facility] Work Phone: [phone] Laboratory - Pathologyon Composition Nom (Stone) See Note QJ-Rjtrlqf-I [employer] Work Phone: Comment on above: Calculi composed madonna gio of uric acid.INTERPRETIVE INFORMATION: Calculi (Stone) analysisCalculi are the products of physiological processes that yield crystalline compounds in a matrix of biological compounds and blood. Matrix components are not reported. The clinically significant crystalline components identified in calculi specimens are reported. Gross description may not be consistent with composition determined by FTIR analysis.Performed By: [employer] [place] [id number] Director: Cassidy Mcdaniel MD Laboratory - Specimen inform ationon 05-19-2021 Appearance (Stone) See Note MP-Uro logy-R [employer] Work Phone: Comment on above: Specimen consists of one brown calculus.The total weight is 39 mg. Specimen weight (Unsp spec) 39 mg WW-Ieproes-Q [employer] Work Phone: No Panel Informationon 05-19 TV-Nxysfuh-Y [employer] Work Phone: Office Visit (Urology)on Follow-up visit Diagnoses/Problems Assessed Hematuria (599.70) (R31.9) Nocturia (788.43) (R35.1) Former smoker (V15.82) (Z87.891) History of kidney stones (V13.01) (Z87.442) History of UTI (V13.02) (Z87.440) Urinary tract obstruction by kidney stone (592.0,599.69) (N20.0,N13.8) Orders Hematuria, Nocturia Non PATTERNMAKER PRESSURE CAST - Cytology; Status:Complete - Retrospective Authorization; Done: 19May2021 Perform:Non PATTERNMAKER PRESSURE CAST - Cytology; Due:17Aug2021; Last Updated By:Esau Aquino; 05/19/2021 10:29:07 AM;Ordered; For:Hematuria, Nocturia; Ordered By:Adam Baptiste; Site A : urine Specimen A : Urine History of kidney stones Ultrasound Kidney Bilateral; Status:Active; Requested for:09Jun2021; Perform:[facility] Radiology Services Imaging;Ordered; For:History of kidney stones; Ordered By:Adam Baptiste; Radiologist to Determine Optimal Study : Y What are the patient's signs and symptoms? : Hx of Kidney Stones History of UTI Follow-up visit in 1 month Outpatient Follow-up 1 MO F/U CYSTO and Renal US Status: Hold For - Scheduling,Retrospective By Protocol Authorization Requested for: 19May2021 Ordered Stat;For: History of UTI; Ordered By: Adam Baptiste Performed: Order Comments: Follow-up 1 MO F/U CYSTO and Renal US Due: 17Aug2021; Last Updated By: Esau Aquino; 05/19/2021 10:28:54 AM History of UTI, Nocturia Cult, Urine; Status:Active - Retrospective By Protocol Authorization; Requested for:19May2021; Perform:Lab Services - Lab To Draw (Non-Blood Test); Due:17Aug2021; Last Updated By:Esau Aquino; 05/19/2021 10:27:02 AM;Ordered; For:History of UTI, Nocturia; Ordered By:Adam Baptiste; SocHx: Former smoker Tobacco Use Screening; Status:Complete; Done: 19May2021 Perform:Not Applicable;Ordered; For:SocHx: Former smoker; Ordered By:Esau Aquino; Urinary tract obstruction by kidney stone Surgical Pathology; Status:Hold For - Specimen/Data Collection,Retrospective Authorization; Requested for:19May2021; Perform:Surgical Pathology; Due:17Aug2021; Last Updated By:Esau Aquino; 05/19/2021 10:27:02 AM;Ordered; For:Urinary tract obstruction by kidney stone; Ordered By:Adam Baptiste; Type : Non Biopsy Fixative : Fresh Site A : kidney stone Patient Discussion/Summary Gross hematuria, possible passed left ureteral stone 65-year-old very pleasant gentleman presenting with painful gross hematuria that subsided spontaneously. Patient there was found to have microhematuria. We had a very long and extensive discussion with the patient regarding the pathophysiology, differential diagnosis, risk factor, management, natural history, incidence and diagnostic work-up of the condition. We discussed hematuria work-up in the form of renal ultrasound, cystoscopy and urine cytology. Patient might have passed a small kidney stone in his urine today. Plan Cystoscopy Renal ultrasound Urine culture Urine cytology Sent stone for analysis Follow-up in 1 month . Chief Complaint Establish with Hematuria History of Present IllnessPatient presents to the office today to Establish with Gross Hematuria two weeks ago. Positive Urine Culture on 05/10. Just finished ABX. LUTs are chronic and mild. Denies frequency and urgency. Denies dysuria and hematuria.. Nocturia x2-3..Most recent PSA was 4 years ago. No Bone Pain. No Recent Weight Gain/Loss. Caffeine does worsen LUTs.. No medications for LUTs..Hx of Kidney Stones. Last Sx were 20 Years ago.Hip replacement 04/09. Patient reported that with his gross hematuria he had nonspecific pain on the left side, intermittent, moderate intensity 4/10, pressure-like in nature, he thinks it is muscular his left hip replacement, lasted for couple of days, was associated with hematuria, no fever no chills, no nausea no vomiting, no constipation. Patient was found to have microhematuria today and a history of gross hematuria. We had a very long and extensive discussion regarding microscopic hematuria. I explained to the patient the pathophysiology, differential diagnosis, risk factor, associated conditions, and management. We discussed the need to do a microhematuria work-up to rule out any underlying malignancies in the form of masses, tumor, polyps that might be causing the microscopic hematuria. We discussed at length the risk, benefit, potential complication, adverse events of cystoscopy, renal ultrasound ,and urine cytology. Patient verbalized understanding would like to proceed. Patient had a possible stone gravel in his urine sample today. Review of Systems Constitutional: No fever, No chills Eye: Glasses Respiratory: No shortness of breath, No cough. Cardiovascular: No chest pain Gastrointestinal: No nausea Genitourinary: Negative except as documented in history of present illness. Hematology/Lymphatics: Patient denies being on blood thinners.. Endocrine: Negative. Immunologic: Not immunocompromised. Musculoskeletal: Walks with a walker Integumentary: Negative. Neurologic: Alert and oriente (more content not included)... Normal [employer] Tobacco Screening.on 022 Fall risk assessment a) No falls within the last year GL-Unpezio-V [employer] Phone: Tobacco use status [facility]PHS b) No UV-Cajyacg-V [employer] Phone: Cult, Urineon 05-05-2021 Bacteria identified Cx Nom (U) Abnormal [facility] Phone: IO UA (automated w/o microsc opy)on 05-05-2021 Protein (U) [Mass/Vol] Negative [facility] Phone: IO UA (automated w/o microscopy) (++)moderate - 40 Abnormal [facility] Phone: IO UA (automated w/o microscopy) Negative [facility] Phone: IO UA (automated w/o microscopy) Normal (0.2-1.0 mg/dl) [employer] [facility] Phone: IO UA (automated w/o microscopy) 6.0 1 [facility] Phone: IO UA (automated w/o microscopy) 1.015 1 [facility] [employer] Work Phone: IO UA (automated w/o microscopy) [employer] [facility] [employer] Work Phone: IO UA (automated w/o microscopy) Mary Grace [facility] [employer] Work Phone: Office Visiton 05-05-2021 Follow-up visit Diagnoses/Problems Hematuria (599.70) (R31.9) Orders Hematuria Start: Sulfamethoxazole-Trimetho prim 800-160 MG Oral Tablet; TAKE 1 TABLET TWICE DAILY UNTIL FINISHED Cult, Urine; Status:Active; Requested for:05May2021; IO UA (automated w/o microscopy); Status:Resulted - Requires Verification,Retrospectiv e Authorization; Done: 05May2021 02:38PM Patient Discussion/Summary Please refer to [facility] for evaluation of gross hematuria and history of kidney stones. Patient was seen today and it looks like he has a urinary tract infection but we just want to make sure he has a checkup several weeks down the road to cover all the bases. Return as planned Chief Complaint Pt is here today with the C/O Dysuria, and hematuria for about the last 2 days. This note was generated by using [employer] software. It may contain errors in wording, punctuate, or spelling. He is here today with a 2-day history of some hematuria and dysuria. We are reminded that he had left-sided hip surgery approximately 3 weeks ago and he has done well postoperatively. He comes in today with his walker. He denies having any fevers but he has seen blood and has had some burning. He has not had a history of recurrent urinary tract infections in the past but he has had kidney stones. His urinalysis is showing moderate blood with a positive moderate leukocytes. We discussed treating him for what I feel represents a urinary tract infection today. I am giving him Bactrim to be taken twice daily for the next 10 days and he knows to force fluids. We talked about going to the emergency department if he should run into problems with passing urine or if he felt like his condition was getting a lot worse. We also discussed seeing a urologist for checkup at some point in the near future. We talked about making sure that all the bases are covered in regards to the urine blood and his history of kidney stones as well as making sure his prostate and bladder is okay. He is agreeable and we can schedule him a few weeks down the road. He will call if he is not doing well.. We did screen for depression today and he has no signs or symptoms and he does have advanced directives. Adult Risk Screening Advanced Care Planning discussed and documented advance care plan or surrogate decision maker documented in the medical record. Living Will. Living Will: Living will on file. Healthcare POA: Health care proxy on file. Depression/Suicide Screening: During the past 2 weeks, the patient has not felt down, depressed or hopeless. During the past 2 weeks, the patient has not felt little interest or pleasure in doing things. Review of Systems Denies fevers but has fatigue. Denies shortness of breath, coughing, wheezing Denies chest pain, palpitations, leg edema Denies nausea, vomiting, diarrhea, heartburn, abdominal pain, or black or bloody stools C/O dysuria and gross hematuria Denies significant joint pain . Denies feelings of significant anxiety or depression Active Problems Acute sinusitis (461.9) (J01.90) BMI 35.0-35.9,adult (V85.35) (Z68.35) Class 2 severe obesity with body mass index (BMI) of 35 to 39.9 with serious comorbidity (278.01) (E66.01) History of colon polyps (V12.72) (Z86.010) Hyperkalemia (276.7) (E87.5) Hyperlipidemia (272.4) (E78.5) Hypertension (401.9) (I10) Obstructive sleep apnea (327.23) (G47.33) Osteoarthritis of left hip (715.95) (M16.12) Post herpetic neuralgia (053.19) (B02.29) Preop examination (V72.84) (Z01.818) Type 2 diabetes mellitus (250.00) (E11.9) Past Medical History History of coronary artery disease (V12.59) (Z86.79) Surgical History History of Colonoscopy Resolved Date: 28 Jun 2018 Social History Consumes alcohol (V49.89) (Z72.89) Former smoker (V15.82) (Z87.891) Denied: History of No advance directives No illicit drug use Patient has active durable power of claim attorney (DPOA) designee for healthcare Patient has living will (V49.89) (Z78.9) Allergies No Known Drug Allergies Recorded By: Anali Roberson; 01/22/2019 3:05:12 PM Current Meds Medication NameInstruction Aller-Ease TABS Aspirin 81 MG TABSTAKE 1 TABLET DAILY. Atorvastatin Calcium 20 MG Oral Tablettake 1 tablet by mouth once daily BD Pen Needle Mini U/F 31G X 5 MMUSE DIRECTED. Brilinta 90 MG Oral TabletTAKE 1 TABLET TWICE DAILY. glipiZIDE 5 MG Oral TabletTake 1 tablet twice daily Levemir FlexTouch 100 UNIT/ML Subcutaneous Solution Pen-injectorINJECT 30 UNIT Bedtime Lisinopril 5 MG Oral Tablettake 1 tablet by mouth once daily metFORMIN HCl - 1000 MG Oral TabletTake 1 tablet twice daily Metoprolol Succinate ER 25 MG Oral Tablet Extended Release 24 Hourtake 1 tablet by mouth once daily Nitroglycerin 0.4 MG Sublingual Tablet SublingualPLACE 1 TABLET UNDER THE TONGUE EVERY 5 MINUTES FOR UP TO 3 DOSES NEEDED FOR CHEST PAIN.CALL 911 IF PAIN PERSISTS. OneTouch Verio In Vitro StripTEST 4 TIMES DAILY. Trulicity 1.5 MG/0.5ML Subcuta (more content not included)... Normal [employer] Tobacco Screening.on 022 Fall risk assessment a) No falls within the last year [facility] Phone: Tobacco use status [facility] b) No -[facility] [facility] Phone: .Auto Diffon 04-13-2021 Basophil, Absolute 0.10 10 3/mcL Normal 0.00-0.19 [facility] ([place]) Comment on above: Performed By: #### G FR, ALB, BMP, ANEU, ADIFF, CBC #### [address] [address] Basophils/100 WBC (Bld) 0.6 % Normal 0.0-2.5 [facility] ([place]) Comment on above: Performed By: #### G FR, ALB, BMP, ANEU, ADIFF, CBC #### [address] [address] Eosinophil, Absolute 0.50 10 3/mcL High 0.00-0.40 [facility] ([place]) Comment on above: Performed By: #### G FR, ALB, BMP, ANEU, ADIFF, CBC #### [address] [address] Eosinophils/100 WBC (Bld) 3.4 % Normal 0.0-7.0 [facility] ([place]) Comment on above: Performed By: #### G FR, ALB, BMP, ANEU, ADIFF, CBC #### [address] [address] Lymphocyte, Absolute 1.80 10 3/mcL Normal 0.77-3.85 [facility] ([place]) Comment on above: Performed By: #### G FR, ALB, BMP, ANEU, ADIFF, CBC #### [address] [address] Lymphocytes/100 WBC (Bld) 13.2 % Normal 10.0-50.0 [facility] ([place]) Comment on above: Performed By: #### G FR, ALB, BMP, ANEU, ADIFF, CBC #### [address] [address] Monocyte, Absolute 1.70 10 3/mcL High 0.15-1.00 [facility] ([place]) Comment on above: Performed By: #### G FR, ALB, BMP, ANEU, ADIFF, CBC #### [address] [address] Monocytes/100 WBC (Bld) 12.7 % Normal 1.7-13.0 [facility] ([place]) Comment on above: Performed By: #### G FR, ALB, BMP, ANEU, ADIFF, CBC #### [address] [address] Neutrophils/100 WBC (Bld) 70.1 % Normal 37.0-80.0 [facility] ([place]) Comment on above: Performed By: #### G FR, ALB, BMP, ANEU, ADIFF, CBC #### [address] [address] .GFRon 04-13-2021 GFR 65 ml/min/1.73sqm Normal [facility] ([place]) Comment on above: Result Comment: GFR Population mean for , Non- Americans Ages 20-29 = 116 mL/min/1.73 sq.m. Ages 30-39 = 107 mL/min/1.73 sq.m. Ages 40-49 = 99 mL/min/1.73 sq.m. Ages 50-59 = 93 mL/min/1.73 sq.m. Ages 60-69 = 85 mL/min/1.73 sq.m. Ages 70+ = 75 mL/min/1.73 sq.m. Chronic Kidney Disease: Less than 60 mL/min/1.73 square meters End Stage Renal Disease: Less than 15 mL/min/1.73 square meters Performed By: #### G FR, ALB, BMP, ANEU, ADIFF, CBC #### [place] [id number] GFR Non- 54 ml/min/1.73sqm Normal [facility] ([place]) Comment on above: Result Comment: GFR Population mean for , Non- Americans Ages 20-29 = 116 mL/min/1.73 sq.m. Ages 30-39 = 107 mL/min/1.73 sq.m. Ages 40-49 = 99 mL/min/1.73 sq.m. Ages 50-59 = 93 mL/min/1.73 sq.m. Ages 60-69 = 85 mL/min/1.73 sq.m. Ages 70+ = 75 mL/min/1.73 sq.m. Chronic Kidney Disease: Less than 60 mL/min/1.73 square meters End Stage Renal Disease: Less than 15 mL/min/1.73 square meters Performed By: #### G FR, ALB, BMP, ANEU, ADIFF, CBC #### [place] [id number] .NEUABSon 04-13-2021 Neutrophil, Absolute 9.60 10 3/mcL High 2.85-6.16 [facility] ([place]) Comment on above: Performed By: #### G FR, ALB, BMP, ANEU, ADIFF, CBC #### [address] [address] BMPon 04-13-2021 BUN/Creatinine Ratio 22 ratio Normal 7-27 [facility] ([place]) Comment on above: Performed By: #### G FR, ALB, BMP, ANEU, ADIFF, CBC #### [address] [address] Calcium [Mass/Vol] 8.7 mg/dL Normal 8.4-10.2 [facility] ([place]) Comment on above: Performed By: #### G FR, ALB, BMP, ANEU, ADIFF, CBC #### [address] [address] Chloride [Moles/Vol] 101 mmol/L Normal 98-107 [facility] ([place]) Comment on above: Performed By: #### G FR, ALB, BMP, ANEU, ADIFF, CBC #### [address] [address] CO2 [Moles/Vol] 27 mmol/L Normal 23-31 [facility] ([place]) Comment on above: Performed By: #### G FR, ALB, BMP, ANEU, ADIFF, CBC #### [address] [address] Creatinine [Mass/Vol] 1.34 mg/dL High 0.70-1.30 [facility] ([place]) Comment on above: Performed By: #### G FR, ALB, BMP, ANEU, ADIFF, CBC #### [address] [address] Electrolyte Balance 11.0 mEq/L Normal 4.0-15.0 [facility] ([place]) Comment on above: Performed By: #### G FR, ALB, BMP, ANEU, ADIFF, CBC #### [address] [address] Glucose [Mass/Vol] 122 mg/dL High 80-115 [facility] ([place]) Comment on above: Performed By: #### G FR, ALB, BMP, ANEU, ADIFF, CBC #### [address] [address] Potassium [Moles/Vol] 4.9 mmol/L Normal 3.5-5.1 [facility] ([place]) Comment on above: Performed By: #### G FR, ALB, BMP, ANEU, ADIFF, CBC #### [address] [address] Sodium [Moles/Vol] 139 mmol/L Normal 136-145 [facility] ([place]) Comment on above: Performed By: #### G FR, ALB, BMP, ANEU, ADIFF, CBC #### [place] [address] Urea nitrogen [Mass/Vol] 30 mg/dL High 7-18 [facility] ([place]) Comment on above: Performed By: #### G FR, ALB, BMP, ANEU, ADIFF, CBC #### [place] [address] CBCon 04-13-2021 Erythrocyte distribution width (RBC) [Ratio] 14.0 % Normal 11.5-14.5 [facility] ([place]) Comment on above: Performed By: #### G FR, ALB, BMP, ANEU, ADIFF, CBC #### [place] [id number] Hematocrit (Bld) [Volume fraction] 32.1 % Low 42.0-52.0 [facility] ([place]) Comment on above: Performed By: #### G FR, ALB, BMP, ANEU, ADIFF, CBC #### [place] [address] Hgb 10.8 G/dL Low 14.0-18.0 [facility] ([place]) Comment on above: Performed By: #### G FR, ALB, BMP, ANEU, ADIFF, CBC #### [place] [id number] MCH (RBC) [Entitic mass] 29.5 pg Normal 27.0-31.2 [facility] ([place]) Comment on above: Performed By: #### G FR, ALB, BMP, ANEU, ADIFF, CBC #### [place] [address] MCHC 33.8 G/dL Normal 31.8-35.4 [facility] ([place]) Comment on above: Performed By: #### G FR, ALB, BMP, ANEU, ADIFF, CBC #### [place] [address] MCV (RBC) [Entitic vol] 87.4 fL Normal 80.0-94.0 [facility] ([place]) Comment on above: Performed By: #### G FR, ALB, BMP, ANEU, ADIFF, CBC #### [place] [address] Platelet 288 10 3/mcL Normal 130-400 [facility] ([place]) Comment on above: Performed By: #### G FR, ALB, BMP, ANEU, ADIFF, CBC #### [place] [address] Platelet mean volume (Bld) [Entitic vol] 8.0 fL Normal 7.4-10.4 [facility] ([place] Comment on above: Performed By: #### G FR, ALB, BMP, ANEU, ADIFF, CBC #### [place] [address] RBC 3.68 10 6/mcL Low 4.04-6.13 [facility] ([place] Comment on above: Performed By: #### G FR, ALB, BMP, ANEU, ADIFF, CBC #### [place] [address] WBC 13.60 10 3/mcL High 4.60-10.80 [facility] ([place] Comment on above: Performed By: #### G FR, ALB, BMP, ANEU, ADIFF, CBC #### [place] [address] LABORATORYOrdered By: Michelle Soto on 04-13-2021 Blood Glucose Testing Reason Routine (04/13/21 11:50 AM) [facility] Work Phone: Glucose [Mass/Vol] 157 mg/dL Invalid Interpretation Code 82 - 115 mg/dL [facility] Work Phone: Blood Glucose Testing Reason Routine (04/13/21 7:58 AM) [facility] Work Phone: Glucose [Mass/Vol] 133 mg/dL Invalid Interpretation Code 82 - 115 mg/dL [facility] Work Phone: LABORATORYOrdered By: Luciana Edmondson on 04-13-2021 Basophil, Absolute 0.10 103/mcL Invalid Interpretation Code 0.00 - 0.19 10^3/mcL AO Auto Heme SS Basophils/100 WBC (Bld) 0.6 % Invalid Interpretation Code 0.0 - 2.5 % AO Auto Heme SS Calcium [Mass/Vol] 8.7 mg/dL Invalid Interpretation Code 8.4 - 10.2 mg/dL AO ADM SS Chloride [Moles/Vol] 101 mmol/L Invalid Interpretation Code 98 - 107 mmol/L AO ADM SS CO2 [Moles/Vol] 27 mmol/L Invalid Interpretation Code 23 - 31 mmol/L AO ADM SS Creatinine [Mass/Vol] 1.34 mg/dL Invalid Interpretation Code 0.70 - 1.30 mg/dL AO ADM SS Electrolyte Balance 11.0 mEq/L Invalid Interpretation Code 4.0 - 15.0 mEq/L AO ADM SS Eosinophil, Absolute 0.50 103/mcL Invalid Interpretation Code 0.00 - 0.40 10^3/mcL AO Auto Heme SS Eosinophils/100 WBC (Bld) 3.4 % Invalid Interpretation Code 0.0 - 7.0 % AO Auto Heme SS Erythrocyte distribution width (RBC) [Ratio] 14.0 % Invalid Interpretation Code 11.5 - 14.5 % AO Auto Heme SS Glucose [Mass/Vol] 122 mg/dL Invalid Interpretation Code 80 - 115 mg/dL AO ADM SS Hematocrit (Bld) [Volume fraction] 32.1 % Invalid Interpretation Code 42.0 - 52.0 % AO Auto Heme SS Hemoglobin (Bld) [Mass/Vol] 10.8 G/dL Invalid Interpretation Code 14.0 - 18.0 G/dL AO Auto Heme SS Lymphocyte, Absolute 1.80 103/mcL Invalid Interpretation Code 0.77 - 3.85 10^3/mcL AO Auto Heme SS Lymphocytes/100 WBC (Bld) 13.2 % Invalid Interpretation Code 10.0 - 50.0 % AO Auto Heme SS MCH (RBC) [Entitic mass] 29.5 pg Invalid Interpretation Code 27.0 - 31.2 pg AO Auto Heme SS MCHC (RBC) [Mass/Vol] 33.8 G/dL Invalid Interpretation Code 31.8 - 35.4 G/dL AO Auto Heme SS MCV (RBC) [Entitic vol] 87.4 fL Invalid Interpretation Code 80.0 - 94.0 fL AO Auto Heme SS Monocyte, Absolute 1.70 103/mcL Invalid Interpretation Code 0.15 - 1.00 10^3/mcL AO Auto Heme SS Monocytes/100 WBC (Bld) 12.7 % Invalid Interpretation Code 1.7 - 13.0 % AO Auto Heme SS Neutrophil, Absolute 9.60 103/mcL Invalid Interpretation Code 2.85 - 6.16 10^3/mcL AO Auto Heme SS Neutrophils/100 WBC (Bld) 70.1 % Invalid Interpretation Code 37.0 - 80.0 % AO Auto Heme SS Platelet mean volume (Bld) [Entitic vol] 8.0 fL Invalid Interpretation Code 7.4 - 10.4 fL AO Auto Heme SS Platelets (Bld) [#/Vol] 288 103/mcL Invalid Interpretation Code 130 - 400 10^3/mcL AO Auto Heme SS Potassium [Moles/Vol] 4.9 mmol/L Invalid Interpretation Code 3.5 - 5.1 mmol/L AO ADM SS RBC (Bld) [#/Vol] 3.68 106/mcL Invalid Interpretation Code 4.04 - 6.13 10^6/mcL AO Auto Heme SS Sodium [Moles/Vol] 139 mmol/L Invalid Interpretation Code 136 - 145 mmol/L AO ADM SS Urea nitrogen [Mass/Vol] 30 mg/dL Invalid Interpretation Code 7 - 18 mg/dL AO ADM SS Urea nitrogen/Creatinine [Mass ratio] 22 ratio Invalid Interpretation Code 7 - 27 ratio AO ADM SS WBC (Bld) [#/Vol] 13.60 103/mcL Invalid Interpretation Code 4.60 - 10.80 10^3/mcL AO Auto Heme SS LABORATORYOrdered By: SYSTEM SYSTEM on 04-13-2021 GFR 65 ml/min/1.73sqm Invalid Interpretation Code AO Chemistry S GFR Non- 54 ml/min/1.73sqm Invalid Interpretation Code AO Chemistry S Gel ABOon 04-12-2021 ABO/Rh Interp Positive Invalid Interpretation Code [facility] ([place]) Comment on above: Performed By: #### A NSG, ABOG #### [facility] [address], [place] [address] Gel ABSon 04-12-2021 Antibody Screen Gel Negative Normal [facility] ([place]) Comment on above: Performed By: #### A NSG, ABOG #### [facility] [address], [place] [address] LABORATORYOrdered By: Chandni Conner on 04-12-2021 Blood Glucose Testing Reason Routine (04/12/21 9:00 PM) [facility] Work Phone: Glucose [Mass/Vol] 150 mg/dL Invalid Interpretation Code 82 - 115 mg/dL [facility] Work Phone: LABORATORYOrdered By: Evin Underwood on 04-12-2021 ABO/Rh Interp Positive Invalid Interpretation Code AO BB SS Antibody Screen Gel Negative ABSC (04/12/21 10:46 AM) Invalid Interpretation Code AO BB SS XR FLUORO 1-2 HRS TECH TIMEo n 04-12-2021 XR FLUORO 1-2 HRS TECH TIME ORIGINAL Images acquired, not reported on this accession number. Normal [facility] ([place] XR HIP LEFT W/PELVIS 4 VIEWS on 04-12-2021 XR HIP LEFT W/PELVIS 4 VIEWS ORIGINAL EXAMINATION: 2 XRAY VIEWS OF THE LEFT HIP. SINGLE VIEW OF THE PELVIS. COMPARISON: None. HISTORY: ORDERING SYSTEM PROVIDED HISTORY: Reason for Exam: Status Post Arthroplasty FINDINGS: Postsurgical changes status post left total hip arthroplasty are noted without acute fracture, dislocation, or hardware failure. Subcutaneous emphysema is noted. The right hip joint appears intact. There is question of a cam type deformity of the right femoral head. The pelvic ring is intact. IMPRESSION: Expected postsurgical changes status post left total hip arthroplasty. Interpreted by: Devin Rios MD Preliminary Report By: Devin Rios MD Electronically signed By Devin Rios MD Dictated Date: 04/12/2021 2:40:41 PM Prelim Date: 04/12/2021 2:42:38 PM Sign Date: 04/12/2021 2:42:38 PM Ordering Provider: ALINA Lainez [facility] ([place]) .Auto Diffon 03-28-2021 Basophil, Absolute 0.10 10 3/mcL Normal 0.00-0.19 [facility] ([place]) Comment on above: Performed By: #### G FR, ALB, BMP, ANEU, ADIFF, CBC #### [address] [address] Basophils/100 WBC (Bld) 0.5 % Normal 0.0-2.5 [facility] ([place] Comment on above: Performed By: #### G FR, ALB, BMP, ANEU, ADIFF, CBC #### [address] [address] Eosinophil, Absolute 0.30 10 3/mcL Normal 0.00-0.40 [facility] ([place] Comment on above: Performed By: #### G FR, ALB, BMP, ANEU, ADIFF, CBC #### [address] [address] Eosinophils/100 WBC (Bld) 2.8 % Normal 0.0-7.0 [facility] ([place] Comment on above: Performed By: #### G FR, ALB, BMP, ANEU, ADIFF, CBC #### [address] [address] Lymphocyte, Absolute 1.80 10 3/mcL Normal 0.77-3.85 [facility] ([place] Comment on above: Performed By: #### G FR, ALB, BMP, ANEU, ADIFF, CBC #### [address] [address] Lymphocytes/100 WBC (Bld) 15.4 % Normal 10.0-50.0 [facility] ([place] Comment on above: Performed By: #### G FR, ALB, BMP, ANEU, ADIFF, CBC #### [address] [address] Monocyte, Absolute 1.20 10 3/mcL High 0.15-1.00 [facility] ([place]) Comment on above: Performed By: #### G FR, ALB, BMP, ANEU, ADIFF, CBC #### [address] [address] Monocytes/100 WBC (Bld) 10.0 % Normal 1.7-13.0 [facility] ([place]) Comment on above: Performed By: #### G FR, ALB, BMP, ANEU, ADIFF, CBC #### [address] [address] Neutrophils/100 WBC (Bld) 71.3 % Normal 37.0-80.0 [facility] ([place] Comment on above: Performed By: #### G FR, ALB, BMP, ANEU, ADIFF, CBC #### [address] [address] .GFRon 03-28-2021 GFR 75 ml/min/1.73sqm Normal [facility] ([place]) Comment on above: Result Comment: GFR Population mean for , Non- Americans Ages 20-29 = 116 mL/min/1.73 sq.m. Ages 30-39 = 107 mL/min/1.73 sq.m. Ages 40-49 = 99 mL/min/1.73 sq.m. Ages 50-59 = 93 mL/min/1.73 sq.m. Ages 60-69 = 85 mL/min/1.73 sq.m. Ages 70+ = 75 mL/min/1.73 sq.m. Chronic Kidney Disease: Less than 60 mL/min/1.73 square meters End Stage Renal Disease: Less than 15 mL/min/1.73 square meters Performed By: #### G FR, ALB, BMP, ANEU, ADIFF, CBC #### [address] [address] GFR Non- 62 ml/min/1.73sqm Normal [facility] ([place] Comment on above: Result Comment: GFR Population mean for , Non- Americans Ages 20-29 = 116 mL/min/1.73 sq.m. Ages 30-39 = 107 mL/min/1.73 sq.m. Ages 40-49 = 99 mL/min/1.73 sq.m. Ages 50-59 = 93 mL/min/1.73 sq.m. Ages 60-69 = 85 mL/min/1.73 sq.m. Ages 70+ = 75 mL/min/1.73 sq.m. Chronic Kidney Disease: Less than 60 mL/min/1.73 square meters End Stage Renal Disease: Less than 15 mL/min/1.73 square meters Performed By: #### G FR, ALB, BMP, ANEU, ADIFF, CBC #### [address] [address] .NEUABSon 03-28-2021 Neutrophil, Absolute 8.20 10 3/mcL High 2.85-6.16 [facility] ([place] Comment on above: Performed By: #### G FR, ALB, BMP, ANEU, ADIFF, CBC #### [address] [address] ALBon 03-28-2021 Albumin Level 4.1 G/dL Normal 3.4-4.8 [facility] ([place] Comment on above: Performed By: #### G FR, ALB, BMP, ANEU, ADIFF, CBC #### [address] [address] BMPon 03-28-2021 BUN/Creatinine Ratio 26 ratio Normal 7-27 [facility] ([place]) Comment on above: Performed By: #### G FR, ALB, BMP, ANEU, ADIFF, CBC #### [address] [address] Calcium [Mass/Vol] 9.8 mg/dL Normal 8.4-10.2 [facility] ([place]) Comment on above: Performed By: #### G FR, ALB, BMP, ANEU, ADIFF, CBC #### [address] [address] Chloride [Moles/Vol] 102 mmol/L Normal 98-107 [facility] ([place]) Comment on above: Performed By: #### G FR, ALB, BMP, ANEU, ADIFF, CBC #### [address] [address] CO2 [Moles/Vol] 24 mmol/L Normal 23-31 [facility] ([place] Comment on above: Performed By: #### G FR, ALB, BMP, ANEU, ADIFF, CBC #### [address] [address] Creatinine [Mass/Vol] 1.18 mg/dL Normal 0.70-1.30 [facility] ([place] Comment on above: Performed By: #### G FR, ALB, BMP, ANEU, ADIFF, CBC #### [address] [address] Electrolyte Balance 11.0 mEq/L Normal [facility] ([place]) Comment on above: Performed By: #### G FR, ALB, BMP, ANEU, ADIFF, CBC #### [address] [address] Glucose [Mass/Vol] 119 mg/dL High 80-115 [facility] ([place]) Comment on above: Performed By: #### G FR, ALB, BMP, ANEU, ADIFF, CBC #### [address] [address] Potassium [Moles/Vol] 4.8 mmol/L Normal 3.5-5.1 [facility] ([place] Comment on above: Performed By: #### G FR, ALB, BMP, ANEU, ADIFF, CBC #### [address] [address] Sodium [Moles/Vol] 137 mmol/L Normal 136-145 [facility] ([place] Comment on above: Performed By: #### G FR, ALB, BMP, ANEU, ADIFF, CBC #### [address] [address] Urea nitrogen [Mass/Vol] 31 mg/dL High 7-18 [facility] ([place] Comment on above: Performed By: #### G FR, ALB, BMP, ANEU, ADIFF, CBC #### [address] [address] CBCon 03-28-2021 Erythrocyte distribution width (RBC) [Ratio] 14.0 % Normal 11.5-14.5 [facility] ([place]) Comment on above: Order Comment: Pre-A dmission Testing Performed By: #### G FR, ALB, BMP, ANEU, ADIFF, CBC #### [address] [address] Hematocrit (Bld) [Volume fraction] 36.5 % Low 42.0-52.0 [facility] ([place]) Comment on above: Order Comment: Pre-A dmission Testing Performed By: #### G FR, ALB, BMP, ANEU, ADIFF, CBC #### [place] [address] Hgb 12.5 G/dL Low 14.0-18.0 [facility] ([place] Comment on above: Order Comment: Pre-A dmission Testing Performed By: #### G FR, ALB, BMP, ANEU, ADIFF, CBC #### [address] [address] MCH (RBC) [Entitic mass] 30.0 pg Normal 27.0-31.2 [facility] ([place] Comment on above: Order Comment: Pre-A dmission Testing Performed By: #### G FR, ALB, BMP, ANEU, ADIFF, CBC #### [address] [address] MCHC 34.1 G/dL Normal 31.8-35.4 [facility] ([place] Comment on above: Order Comment: Pre-A dmission Testing Performed By: #### G FR, ALB, BMP, ANEU, ADIFF, CBC #### [address] [address] MCV (RBC) [Entitic vol] 88.0 fL Normal 80.0-94.0 [facility] ([place] Comment on above: Order Comment: Pre-A dmission Testing Performed By: #### G FR, ALB, BMP, ANEU, ADIFF, CBC #### [address] [address] Platelet 364 10 3/mcL Normal 130-400 [facility] ([place] Comment on above: Order Comment: Pre-A dmission Testing Performed By: #### G FR, ALB, BMP, ANEU, ADIFF, CBC #### [address] [address] Platelet mean volume (Bld) [Entitic vol] 8.3 fL Normal 7.4-10.4 [facility] ([place] Comment on above: Order Comment: Pre-A dmission Testing Performed By: #### G FR, ALB, BMP, ANEU, ADIFF, CBC #### [address] [address] RBC 4.15 10 6/mcL Normal 4.04-6.13 [facility] ([place] Comment on above: Order Comment: Pre-A dmission Testing Performed By: #### G FR, ALB, BMP, ANEU, ADIFF, CBC #### [address] [address] WBC 11.60 10 3/mcL High 4.60-10.80 [facility] ([place] Comment on above: Order Comment: Pre-A dmission Testing Performed By: #### G FR, ALB, BMP, ANEU, ADIFF, CBC #### [address] [address] Laboratory - Chemistry and C hemistry - challengeon 03-26-2021 Anion gap [Moles/Vol] 14 mmol/L 10 - 20 [facility] Work Phone: Calcium [Mass/Vol] 9.9 mg/dL 8.6 - 10.3 [facility] Work Phone: Chloride [Moles/Vol] 100 mmol/L 98 - 107 [facility] [employer] Work Phone: CO2 [Moles/Vol] 26 mmol/L 21 - 32 [facility] Work Phone: Creatinine [Mass/Vol] 1.19 mg/dL See Below [facility] Phone: Comment on above: Reference Range: 0.5 0 - 1.30 Glucose [Mass/Vol] 241 mg/dL above high threshold 74 - 99 [facility] Work Phone: Potassium [Moles/Vol] 4.4 mmol/L 3.5 - 5.3 [facility] Phone: Sodium [Moles/Vol] 136 mmol/L 136 - 145 [facility] Phone: Urea nitrogen [Mass/Vol] 23 mg/dL 6 - 23 [facility] Phone: No Panel Informationon 03-26 67 {mL/min/1.73m2} Abnormal >90 [facility] Phone: Comment on above: CALCULATIONS OF BRIANNA MATED GFR ARE PERFORMED USING THE 2020 CKD-EPI STUDY REFIT EQUATION WITHOUT THE RACE VARIABLE FOR THE IDMS-TRACEABLE CREATININE METHODS.https://jasn.asnjournals.org/content//ASN. 3773679451 Tobacco Screening.on 022 Fall risk assessment a) No falls within the last year [facility] Phone: Tobacco use status [facility] b) No [facility] Phone: Hemoglobin A1Con 03-14-2021 HbA1c (Bld) [Mass fraction] 7.0 % [facility] Phone: Hemoglobin A1C, Levelon 02-17 HbA1c (Bld) [Mass fraction] 7 % - [facility] Work Phone: Tobacco Screening.on 021 Tobacco use status [facility] b) No 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 Normal 0.0 - 30.0 [facility] Comment on above: Performed By: #### A LBSP #### [address] [address] CREATININE,URINE 135.0 mg/dL Normal 20.0 - 370.0 [facility] Comment on above: Performed By: #### A LBSP #### [place] [id number] COMPREHENSIVE PANELon 2019 Albumin [Mass/Vol] 4.4 g/dL Normal 3.4 - 5.0 [facility] Comment on above: Performed By: #### C MP #### [address] [address] ALP [Catalytic activity/Vol] 69 U/L Normal 33 - 136 [facility] Comment on above: Performed By: #### C MP #### [address] [address] ALT [Catalytic activity/Vol] 21 U/L Normal 10 - 52 [facility] Comment on above: Result Comment: Clau ents treated with Sulfasalazine may generate falsely decreased results for ALT. Performed By: #### C MP #### [address] [address] Anion gap [Moles/Vol] 14 mmol/L Normal 10 - 20 [facility] Comment on above: Performed By: #### C MP #### [address] [address] AST [Catalytic activity/Vol] 16 U/L Normal 9 - 39 [facility] Comment on above: Performed By: #### C MP #### [address] [address] Bilirubin [Mass/Vol] 0.5 mg/dL Normal 0.0 - 1.2 [facility] Comment on above: Performed By: #### C MP #### [address] [address] Calcium [Mass/Vol] 9.4 mg/dL Normal 8.6 - 10.3 [facility] Comment on above: Performed By: #### C MP #### [address] [address] Chloride [Moles/Vol] 102 mmol/L Normal 98 - 107 [facility] Comment on above: Performed By: #### C MP #### [address] [address] Creatinine [Mass/Vol] 0.96 mg/dL Normal 0.50 - 1.30 [facility] Comment on above: Performed By: #### C MP #### [address] [address] GFR- AM. >60 Normal >60 [facility] Comment on above: Result Comment: CALC ULATIONS OF ESTIMATED GFR ARE PERFORMED USING THE MDRD STUDY EQUATION FOR THE IDMS-TRACEABLE CREATININE METHODS. CLIN CHEM 2007;53:766-72 Performed By: #### C MP #### [address] [address] GFR-NON AM. >60 Normal >60 [facility] Comment on above: Performed By: #### C MP #### [address] [address] Glucose [Mass/Vol] 129 mg/dL High 74 - 99 [facility] Comment on above: Performed By: #### C MP #### [address] [address] HCO3 (Bld) [Moles/Vol] 25 mmol/L Normal 21 - 32 [facility] Comment on above: Performed By: #### C MP #### [address] [address] Potassium [Moles/Vol] 4.4 mmol/L Normal 3.5 - 5.3 [facility] Comment on above: Performed By: #### C MP #### [address] [address] Protein [Mass/Vol] 7.7 g/dL Normal 6.4 - 8.2 [facility] Comment on above: Performed By: #### C MP #### [address] [address] Sodium [Moles/Vol] 137 mmol/L Normal 136 - 145 [facility] Comment on above: Performed By: #### C MP #### [address] [address] Urea nitrogen [Mass/Vol] 16 mg/dL Normal 6 - 23 [facility] Comment on above: Performed By: #### C MP #### [address] [address] HEMOGLOBIN A1Con 03-03-2020 HbA1c (Bld) [Mass fraction] 7.9 % Normal [facility] Comment on above: Result Comment: Diag nosis of Diabetes-Adults Non-Diabetic: < or = 5.6% Increased risk for developing diabetes: 5.7-6.4% Diagnostic of diabetes: > or = 6.5% . Monitoring of Diabetes Age (y) Therapeutic Goal (%) Adults: >18 <7.0 Pediatrics: 13-18 <7.5 7-12 <8.0 0- 6 7.5-8.5 [place] [employer]. Diabetes Care 33(S1), Mar 2009. Performed By: #### H BA1E #### [address] [address] HbA1c (Bld) [Mass fraction] 180 MG/DL Normal [facility] Comment on above: Performed By: #### H BA1E #### [address] [address] LIPID PANEL (CORONARY RISK 2 )on 03-03-2020 Cholesterol [Mass/Vol] 108 mg/dL Normal 0 - 199 [facility] Comment on above: Result Comment: . AGE DESIRABLE BORDERLINE HIGH HIGH 0-19 Y 0 - 169 170 - 199 >/= 200 20-24 Y 0 - 189 190 - 224 >/= 225 >24 Y 0 - 199 200 - 239 >/= 240 All ranges are based on fasting samples. Specific therapeutic targets will vary based on patient-specific cardiac risk. . Pediatric guidelines reference:Pediatrics 2011, 128(S5). Adult guidelines reference: NCEP ATPIII Guidelines, SELENA 2001, 258:2486-97 . Venipuncture immediately after or during the administration of Metamizole may lead to falsely low results. Testing should be performed immediately prior to Metamizole dosing. Performed By: #### L IPID #### [address] [address] Cholesterol in HDL [Mass/Vol] 28.0 mg/dL Abnormal [facility] Comment on above: Result Comment: . AGE VERY LOW LOW NORMAL HIGH 0-19 Y < 35 < 40 40-45 ---- 20-24 Y ---- < 40 >45 ---- >24 Y ---- < 40 40-60 >60 . Performed By: #### L IPID #### [address] [address] Cholesterol in LDL [Mass/Vol] 32 mg/dL Normal 0 - 99 [facility] Comment on above: Result Comment: . NEAR BORD AGE DESIRABLE OPTIMAL HIGH HIGH VERY HIGH 0-19 Y 0 - 109 --- 110-129 >/= 130 ---- 20-24 Y 0 - 119 --- 120-159 >/= 160 ---- >24 Y 0 - 99 100-129 130-159 160-189 >/=190 . Performed By: #### L IPID #### [address] [address] Cholesterol in VLDL [Mass/Vol] 48 mg/dL High 0 - 40 [facility] Comment on above: Performed By: #### L IPID #### [address] [address] Cholesterol.total/C holesterol in HDL [Mass ratio] 3.9 {ratio} Normal [facility] Comment on above: Result Comment: REF VALUES DESIRABLE < 3.4 HIGH RISK > 5.0 Performed By: #### L IPID #### [address] [address] NON-HDL CHOLESTEROL 80 mg/dL Normal [facility] Comment on above: Result Comment: AGE DESIRABLE BORDERLINE HIGH HIGH VERY HIGH 0-19 Y 0 - 119 120 - 144 >/= 145 >/= 160 20-24 Y 0 - 149 150 - 189 >/= 190 ---- >24 Y 30 MG/DL ABOVE LDL CHOLESTEROL GOAL . Performed By: #### L IPID #### [address] [address] Triglyceride [Mass/Vol] 238 mg/dL High 0 - 149 [facility] Comment on above: Result Comment: . AGE DESIRABLE BORDERLINE HIGH HIGH VERY HIGH 0 D-90 D 19 - 174 ---- ---- ---- 91 D- 9 Y 0 - 74 75 - 99 >/= 100 ---- 10-19 Y 0 - 89 90 - 129 >/= 130 ---- 20-24 Y 0 - 114 115 - 149 >/= 150 ---- >24 Y 0 - 149 150 - 199 200- 499 >/= 500 . Venipuncture immediately after or during the administration of Metamizole may lead to falsely low results. Testing should be performed immediately prior to Metamizole dosing. Performed By: #### L IPID #### [address] [address] VITAMIN B12on 03-03-2020 Cobalamin (Vitamin B12) [Mass/Vol] 419 pg/mL Normal 211 - 911 [facility] Comment on above: Performed By: #### V TB12 #### [address] [address] CBC AND DIFFERENTIALon 05-02 Basophils (Bld) [#/Vol] 0.10 10*3/uL Normal 0.00 - 0.10 [facility] Comment on above: Performed By: #### C BCDF #### [address] [address] Basophils/100 WBC (Bld) 0.9 % Normal 0.0 - 2.0 [facility] Comment on above: Performed By: #### C BCDF #### [address] [address] Eosinophils (Bld) [#/Vol] 0.40 10*3/uL Normal 0.00 - 0.70 [facility] Comment on above: Performed By: #### C BCDF #### [address] [address] Eosinophils/100 WBC (Bld) 3.1 % Normal 0.0 - 6.0 [facility] Comment on above: Performed By: #### C BCDF #### [address] [address] Erythrocyte distribution width (RBC) [Ratio] 13.7 % Normal 11.5 - 14.5 [facility] Comment on above: Performed By: #### C BCDF #### [address] [address] Hematocrit (Bld) [Volume fraction] 41.3 % Normal 41.0 - 52.0 [facility] Comment on above: Performed By: #### C BCDF #### [address] [address] Hemoglobin (Bld) [Mass/Vol] 13.7 g/dL Normal 13.5 - 17.5 [facility] Comment on above: Performed By: #### C BCDF #### [address] [address] Lymphocytes (Bld) [#/Vol] 2.40 10*3/uL Normal 1.20 - 4.80 [facility] Comment on above: Performed By: #### C BCDF #### [address] [address] Lymphocytes/100 WBC (Bld) 21.0 % Normal 13.0 - 44.0 [facility] Comment on above: Performed By: #### C BCDF #### [address] [address] MCHC (RBC) [Mass/Vol] 33.0 g/dL Normal 32.0 - 36.0 [facility] Comment on above: Performed By: #### C BCDF #### [address] [address] MCV (RBC) [Entitic vol] 90 fL Normal 80 - 100 [facility] Comment on above: Performed By: #### C BCDF #### [address] [address] Monocytes (Bld) [#/Vol] 1.10 10*3/uL High 0.10 - 1.00 [facility] Comment on above: Performed By: #### C BCDF #### [address] [address] Monocytes/100 WBC (Bld) 9.2 % Normal 2.0 - 10.0 [facility] Comment on above: Performed By: #### C BCDF #### [address] [address] Neutrophils (Bld) [#/Vol] 7.60 10*3/uL Normal 1.20 - 7.70 [facility] Comment on above: Performed By: #### C BCDF #### [address] [address] Neutrophils/100 WBC (Bld) 65.8 % Normal 40.0 - 80.0 [facility] Comment on above: Performed By: #### C BCDF #### [address] [address] Platelets (Bld) [#/Vol] 317 10*3/uL Normal 150 - 450 [facility] Comment on above: Performed By: #### C BCDF #### [address] [address] RBC (Bld) [#/Vol] 4.61 x10E12/L Normal 4.50 - 5.90 [facility] Comment on above: Performed By: #### C BCDF #### [address] [address] WBC (Bld) [#/Vol] 11.5 10*3/uL High 4.4 - 11.3 [facility] Comment on above: Performed By: #### C BCDF #### [address] [address] COMPREHENSIVE PANELon 02-14- 2020 Albumin [Mass/Vol] 4.4 g/dL Normal 3.4 - 5.0 [facility] Comment on above: Performed By: #### C MP #### [address] [address] ALP [Catalytic activity/Vol] 72 U/L Normal 33 - 136 [facility] Comment on above: Performed By: #### C MP #### [place] [id number] ALT [Catalytic activity/Vol] 25 U/L Normal 10 - 52 [facility] Comment on above: Result Comment: Clau ents treated with Sulfasalazine may generate falsely decreased results for ALT. Performed By: #### C MP #### [place] [id number] Anion gap [Moles/Vol] 15 mmol/L Normal 10 - 20 [facility] Comment on above: Performed By: #### C MP #### [place] [address] AST [Catalytic activity/Vol] 18 U/L Normal 9 - 39 [facility] Comment on above: Performed By: #### C MP #### [place] [id number] Bilirubin [Mass/Vol] 0.6 mg/dL Normal 0.0 - 1.2 [facility] Comment on above: Performed By: #### C MP #### [address] [address] Calcium [Mass/Vol] 9.7 mg/dL Normal 8.6 - 10.3 [facility] Comment on above: Performed By: #### C MP #### [address] [address] Chloride [Moles/Vol] 102 mmol/L Normal 98 - 107 [facility] Comment on above: Performed By: #### C MP #### [address] [address] Creatinine [Mass/Vol] 1.04 mg/dL Normal 0.50 - 1.30 [facility] Comment on above: Performed By: #### C MP #### [address] [address] GFR- AM. >60 Normal >60 [facility] Comment on above: Result Comment: CALC ULATIONS OF ESTIMATED GFR ARE PERFORMED USING THE MDRD STUDY EQUATION FOR THE IDMS-TRACEABLE CREATININE METHODS. CLIN CHEM 2007;53:766-72 Performed By: #### C MP #### [address] [address] GFR-NON AM. >60 Normal >60 [facility] Comment on above: Performed By: #### C MP #### [address] [address] Glucose [Mass/Vol] 206 mg/dL High 74 - 99 [facility] Comment on above: Performed By: #### C MP #### [address] [address] HCO3 (Bld) [Moles/Vol] 24 mmol/L Normal 21 - 32 [facility] Comment on above: Performed By: #### C MP #### [address] [address] Potassium [Moles/Vol] 4.5 mmol/L Normal 3.5 - 5.3 [facility] Comment on above: Performed By: #### C MP #### [address] [address] Protein [Mass/Vol] 7.2 g/dL Normal 6.4 - 8.2 [facility] Comment on above: Performed By: #### C MP #### [address] [address] Sodium [Moles/Vol] 136 mmol/L Normal 136 - 145 [facility] Comment on above: Performed By: #### C MP #### [address] [address] Urea nitrogen [Mass/Vol] 22 mg/dL Normal 6 - 23 [facility] Comment on above: Performed By: #### C MP #### [address] [address] LIPID PANEL (CORONARY RISK 2 )on 05-02-2019 Cholesterol [Mass/Vol] 104 mg/dL Normal 0 - 199 [facility] Comment on above: Result Comment: . AGE DESIRABLE BORDERLINE HIGH HIGH 0-19 Y 0 - 169 170 - 199 >/= 200 20-24 Y 0 - 189 190 - 224 >/= 225 >24 Y 0 - 199 200 - 239 >/= 240 All ranges are based on fasting samples. Specific therapeutic targets will vary based on patient-specific cardiac risk. . Pediatric guidelines reference:Pediatrics 2011, 128(S5). Adult guidelines reference: NCEP ATPIII Guidelines, SELENA 2001, 258:4536-97 . Venipuncture immediately after or during the administration of Metamizole may lead to falsely low results. Testing should be performed immediately prior to Metamizole dosing. Performed By: #### L IPID #### [address] [address] Cholesterol in HDL [Mass/Vol] 29.0 mg/dL Abnormal [facility] Comment on above: Result Comment: . AGE VERY LOW LOW NORMAL HIGH 0-19 Y < 35 < 40 40-45 ---- 20-24 Y ---- < 40 >45 ---- >24 Y ---- < 40 40-60 >60 . Performed By: #### L IPID #### [address] [address] Cholesterol in LDL [Mass/Vol] 25 mg/dL Normal 0 - 99 [facility] Comment on above: Result Comment: . NEAR BORD AGE DESIRABLE OPTIMAL HIGH HIGH VERY HIGH 0-19 Y 0 - 109 --- 110-129 >/= 130 ---- 20-24 Y 0 - 119 --- 120-159 >/= 160 ---- >24 Y 0 - 99 100-129 130-159 160-189 >/=190 . Performed By: #### L IPID #### [address] [address] Cholesterol in VLDL [Mass/Vol] 50 mg/dL High 0 - 40 [facility] Comment on above: Performed By: #### L IPID #### [address] [address] Cholesterol.total/C holesterol in HDL [Mass ratio] 3.6 {ratio} Normal [facility] Comment on above: Result Comment: REF VALUES DESIRABLE < 3.4 HIGH RISK > 5.0 Performed By: #### L IPID #### [address] [address] NON-HDL CHOLESTEROL 75 mg/dL Normal [facility] Comment on above: Result Comment: AGE DESIRABLE BORDERLINE HIGH HIGH VERY HIGH 0-19 Y 0 - 119 120 - 144 >/= 145 >/= 160 20-24 Y 0 - 149 150 - 189 >/= 190 ---- >24 Y 30 MG/DL ABOVE LDL CHOLESTEROL GOAL . Performed By: #### L IPID #### [address] [address] Triglyceride [Mass/Vol] 248 mg/dL High 0 - 149 [facility] Comment on above: Result Comment: . AGE DESIRABLE BORDERLINE HIGH HIGH VERY HIGH 0 D-90 D 19 - 174 ---- ---- ---- 91 D- 9 Y 0 - 74 75 - 99 >/= 100 ---- 10-19 Y 0 - 89 90 - 129 >/= 130 ---- 20-24 Y 0 - 114 115 - 149 >/= 150 ---- >24 Y 0 - 149 150 - 199 200- 499 >/= 500 . Venipuncture immediately after or during the administration of Metamizole may lead to falsely low results. Testing should be performed immediately prior to Metamizole dosing. Performed By: #### L IPID #### [address] [address] TSHon 05-02-2019 TSH Qn 2.30 m[IU]/L Normal 0.44 - 3.98 [facility] Comment on above: Result Comment: TSH testing is performed using different testing methodology at [facility] than at other [facility] hospitals. Direct result comparisons should only be made within the same method. Performed By: #### T SH2 #### [address] [address] CMPon 10-11-2018 Albumin [Mass/Vol] 4.3 g/dL Normal 3.4-5.0 [facility] Comment on above: Performed By: #### 2 [id number] #### [employer] [address] [place] [address] Albumin/Globulin [Mass ratio] 1.4 {ratio} Normal 1.1-1.9 [facility] Comment on above: Performed By: #### 2 [id number] #### [employer] [address] [place] [address] Alk Phos 68 Int._Unit/L Normal 33-136 [facility] Comment on above: Performed By: #### 2 [id number] #### [employer] [address] [place] [address] ALT [Catalytic activity/Vol] 22 Int._Unit/L Normal 10-52 [facility] Comment on above: Performed By: #### 2 [id number] #### [facility] [employer] [address] [place] [address] Anion gap [Moles/Vol] 15 mmol/L Normal 10-20 [facility] Comment on above: Performed By: #### 2 [id number] #### [facility] [employer] [address] [place] [address] AST [Catalytic activity/Vol] 19 Int._Unit/L Normal 9-39 [facility] Comment on above: Performed By: #### 2 [id number] #### [facility] [employer] [address] [place] [address] Bili Total 0.42 mg/dL Normal 0.00-1.20 [facility] Comment on above: Performed By: #### 2 [id number] #### [facility] [employer] [address] [place] [address] Calcium [Mass/Vol] 9.5 mg/dL Normal 8.6-10.3 [facility] Comment on above: Performed By: #### 2 [id number] #### [employer] [address] [place] [address] Chloride [Moles/Vol] 103 mmol/L Normal 98-107 [facility] Comment on above: Performed By: #### 2 [id number] #### [facility] [employer] [address] [place] [address] CO2 [Moles/Vol] 25.0 mmol/L Normal 21.0-32.0 [facility] Comment on above: Performed By: #### 2 [id number] #### [employer] [address] [place] [address] Creatinine [Mass/Vol] 1.1 mg/dL Normal 0.5-1.3 [facility] Comment on above: Performed By: #### 2 [id number] #### [employer] [address] [place] [address] Globulin (S) [Mass/Vol] 3.0 g/dL Normal 2.0-4.0 [facility] Comment on above: Performed By: #### 2 [id number] #### [employer] [address] [place] [address] Glucose [Mass/Vol] 151 mg/dL High 70-99 [facility] Comment on above: Performed By: #### 2 [id number] #### [employer] [address] [place] [address] Potassium [Moles/Vol] 4.4 mmol/L Normal 3.5-5.3 [facility] Comment on above: Performed By: #### 2 [id number] #### [employer] [address] [place] [address] Protein [Mass/Vol] 7.3 g/dL Normal 6.4-8.2 [facility] Comment on above: Performed By: #### 2 [id number] #### [employer] [address] [place] [address] Sodium [Moles/Vol] 138 mmol/L Normal 136-145 [facility] Comment on above: Performed By: #### 2 [id number] #### [employer] [address] [place] [address] Urea nitrogen [Mass/Vol] 18 mg/dL Normal 6-23 [facility] Comment on above: Performed By: #### 2 [id number] #### [employer] [address] [place] [address] Urea nitrogen/Creatinine [Mass ratio] 16.4 ratio Normal 5.4-30.0 [facility] Comment on above: Performed By: #### 2 [id number] #### [employer] [address] [place] [address] Lipid Profileon 10-11-2018 Cholesterol [Mass/Vol] 106 mg/dL Normal 0-199 [facility] Comment on above: Result Comment: TOTA L CHOLEESTEROL: <200 NORMAL 200 - 239 BORDERLINE HIGH >240 HIGH Performed By: #### 3 [id number] #### [employer] [address] [place] [address] Cholesterol in HDL [Mass/Vol] 29 mg/dL Low 40-60 [facility] Comment on above: Performed By: #### 3 [id number] #### [employer] [address] [place] [address] Cholesterol in LDL [Mass/Vol] 35 mg/dL Normal 0-130 [facility] Comment on above: Result Comment: <100 OPTIMAL 100-129 NEAR / ABOVE OPTIMAL 130-159 BORDERLINE HIGH 160-189 HIGH >190 VERY HIGH CALC LDL NOT VALID WHEN TRIGLYCERIDE IS >400 MG/DL Performed By: #### 3 [id number] #### [employer] [address] [place] [address] Cholesterol in VLDL [Mass/Vol] 42 mg/dL High 0-40 [facility] Comment on above: Performed By: #### 3 [id number] #### [employer] [address] [place] [address] Triglyceride [Mass/Vol] 208 mg/dL High 0-149 [facility] Comment on above: Result Comment: AGE DESIRABLE BORDERLINE HIGH 91 D - 9 Y 0 - 74 75 - 99 > 100 10 - 19 Y 0 - 89 90 - 129 > 130 20 -24 Y 0 - 114 115 - 149 > 150 > 25 0 - 149 150 - 199 200 - 499 Performed By: #### 3 [id number] #### [employer] [address] [place] [address] Microalb/Creat Ratioon 10-11 Creatinine [Mass/Vol] mg/dL Normal 0-30 [facility] Comment on above: Performed By: #### 1 [id number] #### [employer] [address] [place] [address] Ur Microalbumin <0.7 Normal 0.0-1.9 [facility] Comment on above: Performed By: #### 1 [id number] #### [employer] [address] [place] [address] Creatinine [Mass/Vol] 57.0 mg/dL Normal 20.0-300.0 [facility] Comment on above: Performed By: #### 1 [id number] #### [employer] WaggonerHemo [address] [place] [address] eGFRon 10-11-2018 GFR/1.73 sq M predicted among non-blacks MDRD (S/P/Bld) [Vol rate/Area] mL/min/{1.73_m2} Normal [facility] Comment on above: Order Comment: Order added by Discern Expert. Performed By: #### 1 [id number] #### [employer] [address] [place] [address] CMPon 01-15-2018 Anion gap [Moles/Vol] 15 mmol/L Normal 10-20 [facility] Comment on above: Performed By: #### 2 [id number] #### [employer] [address] [place] [address] Albumin [Mass/Vol] 4.5 g/dL Normal 3.4-5.0 [facility] Comment on above: Performed By: #### 2 [id number] #### [employer] [address] [place] [address] Albumin/Globulin [Mass ratio] 1.6 {ratio} Normal 1.1-1.9 [facility] Comment on above: Performed By: #### 2 184872 #### [employer] [address] [place] [address] Alk Phos 77 Int._Unit/L Normal 33-136 [facility] Comment on above: Performed By: #### 2 [id number] #### [employer] [address] [place] [address] ALT [Catalytic activity/Vol] 22 Int._Unit/L Normal 10-52 [facility] Comment on above: Performed By: #### 2 [id number] #### [employer] [address] [place] [address] AST [Catalytic activity/Vol] 19 Int._Unit/L Normal 9-39 [facility] Comment on above: Performed By: #### 2 [id number] #### [employer] [address] [place] [address] Bili Total 0.5 mg/dL Normal 0.0-1.2 [facility] Comment on above: Performed By: #### 2 107266 #### [employer] [address] [place] [address] Calcium [Mass/Vol] 10.1 mg/dL Normal 8.6-10.3 [facility] Comment on above: Performed By: #### 2 672196 #### [employer] [facility] [place] [address] Chloride [Moles/Vol] 101 mmol/L Normal 98-107 [facility] Comment on above: Performed By: #### 2 187191 #### [employer] [facility] [place] [address] CO2 [Moles/Vol] 23.0 mmol/L Normal 21.0-32.0 [facility] Comment on above: Performed By: #### 2 [id number] #### [employer] [facility] [place] [address] Creatinine [Mass/Vol] 1.0 mg/dL Normal 0.6-1.3 [facility] Comment on above: Performed By: #### 2 120857 #### [employer] WaggonerLagiar [address] [place] [address] Globulin (S) [Mass/Vol] 3.0 g/dL Normal 2.0-4.0 [facility] Comment on above: Performed By: #### 2 [id number] #### [employer] W[employer]oner[employer] [address] [place] [address] Glucose [Mass/Vol] 192 mg/dL High 70-99 [facility] Comment on above: Performed By: #### 2 [id number] #### [employer] [address] [place] [address] Potassium [Moles/Vol] 4.4 mmol/L Normal 3.5-5.3 [facility] Comment on above: Performed By: #### 2 698576 #### [employer] [address] [place] [address] Protein [Mass/Vol] 7.4 g/dL Normal 6.4-8.2 [facility] Comment on above: Performed By: #### 2 [id number] #### [employer] [address] [place] [address] Sodium [Moles/Vol] 135 mmol/L Low 136-145 [facility] Comment on above: Performed By: #### 2 666179 #### [employer] [address] [place] [address] Urea nitrogen [Mass/Vol] 21 mg/dL Normal 6-23 [facility] Comment on above: Performed By: #### 2 [id number] #### [employer] [address] [place] [address] Urea nitrogen/Creatinine [Mass ratio] 21.0 ratio Normal 5.4-30.0 [facility] Comment on above: Performed By: #### 2 [id number] #### [employer] [address] [place] [address] Lipid Profileon 01-15-2018 Cholesterol [Mass/Vol] 116 mg/dL Low 120-200 [facility] Comment on above: Performed By: #### 3 [id number] #### [employer] [address] [place] [address] Cholesterol in HDL [Mass/Vol] 30 mg/dL Normal [facility] Comment on above: Performed By: #### 3 [id number] #### [employer] [address] [place] [address] Cholesterol in LDL [Mass/Vol] 23 mg/dL Normal 0-130 [facility] Comment on above: Performed By: #### 3 [id number] #### [employer] [address] [place] [address] Cholesterol in VLDL [Mass/Vol] 63 mg/dL Normal [facility] Comment on above: Performed By: #### 3 [id number] #### [employer] [address] [place] [address] Triglyceride [Mass/Vol] 314 mg/dL High 0-150 [facility] Comment on above: Result Comment: AGE DESIRABLE BORDELINE HIGH 91 D - 9 Y 0 - 74 75 - 99 > 100 10 - 19 Y 0 - 89 90 - 129 > 130 20 - 24 Y 0 - 114 115 - 149 > 150 > 25 Y 0 - 149 150 - 199 200 - 499 Performed By: #### 3 [id number] #### [employer] [address] [place] [address] Microalb/Creat Ratioon 01-15 Creatinine [Mass/Vol] 20 ug/mg Normal 0-30 [facility] Comment on above: Performed By: #### 1 [id number] #### [employer] [employer] [facility] [place] [address] Creatinine [Mass/Vol] 107.0 mg/dL Normal 20.0-300.0 [facility] Comment on above: Performed By: #### 1 [id number] #### [employer] [address] [place] [address] Ur Microalbumin 2.1 mg/dL High 0.0-1.9 [facility] Comment on above: Performed By: #### 1 [id number] #### [facility] [employer] [facility] [place] [address] eGFRon 01-15-2018 GFR/1.73 sq M predicted among non-blacks MDRD (S/P/Bld) [Vol rate/Area] mL/min/{1.73_m2} Normal [facility] Comment on above: Order Comment: Order added by Discern Expert. Performed By: #### 1 [id number] #### [facility] [employer] [facility] [place] [address] Office Visit: [facility] 01-02-20 17 Dietary management education, guidance, and counseling (procedure) yes Invalid Interpretation Code [facility] Work Phone: [phone] Documentation of current medications (procedure) Done Invalid Interpretation Code [facility] Work Phone: [phone] Fall risk assessment No Invalid Interpretation Code [facility] Work Phone: [phone] Protein mass conc Done Invalid Interpretation Code [facility] Work Phone: [phone]) Clinical Lists Update: 12-22-2016 Left ventricular Ejection fraction 57 % Invalid Interpretation Code [facility] Work Phone: [phone] Office Visit: [facility] 05-10-19 17 Protein mass conc Done Invalid Interpretation Code [facility] Work Phone: [phone] 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 Albumin mass conc 4.4 g/dL Invalid Interpretation Code [facility] Work Phone: [phone] Alkaline phosphatase (ALP) 71 U/L Invalid Interpretation Code [facility] Work Phone: [phone] ALP enzyme act/vol (Bld) 71 U/L Invalid Interpretation Code [facility] Work Phone: [phone] ALT enzyme act/vol 21 U/L Invalid Interpretation Code [facility] Work Phone: [phone] AST enzyme act/vol 22 U/L Invalid Interpretation Code [facility] Work Phone: [phone] Bilirubin mass conc 0.6 mg/dL Invalid Interpretation Code [facility] Work Phone: [phone] Calcium mass conc 9.4 mg/dL Invalid Interpretation Code [facility] Work Phone: [phone] Chloride molar conc 103 mmol/L Invalid Interpretation Code [facility] Work Phone: [phone] Cholesterol in HDL mass conc 37 mg/dL Low [facility] Work Phone: [phone] Cholesterol in LDL mass conc 47 mg/dL Invalid Interpretation Code [facility] Work Phone: [phone] Cholesterol mass conc 114 mg/dL Invalid Interpretation Code [facility] Work Phone: [phone] Cholesterol.total/C holesterol in HDL mass ratio 3 {ratio} Invalid Interpretation Code [facility] Work Phone: [phone] CO2 24.3 mmol/L Invalid Interpretation Code [facility] Work Phone: [phone] CO2 ppres (BldV) 24.3 mmol/L Invalid Interpretation Code [facility] Work Phone: [phone] Creatinine mass conc 1.1 mg/dL Invalid Interpretation Code [facility] Work Phone: [phone] Globulin Calculated mass conc (S) 3.4 g/dL Invalid Interpretation Code [facility] Work Phone: [phone] Glucose mass conc 152 mg/dL High [facility] Work Phone: [phone] Hemoglobin A1c/Hemoglobin.tota l mass fraction (Bld) 7.2 % High [facility] Work Phone: [phone] Lipoprotein.pre-bet a mass conc 30 mg/dL Invalid Interpretation Code [facility] Work Phone: [phone] Potassium molar conc 4.3 mmol/L Invalid Interpretation Code [facility] Work Phone: [phone] Protein mass conc 7.8 g/dL Invalid Interpretation Code [facility] Work Phone: [phone] Sodium molar conc 136 mmol/L Invalid Interpretation Code [facility] Work Phone: [phone] Triglyceride mass conc 151 mg/dL High [facility] Work Phone: [phone] Urea nitrogen mass conc 25 mg/dL High [facility] Work Phone: [phone] Urea nitrogen/Creatinine mass ratio 22.7 mg/mg Invalid Interpretation Code [facility] Work Phone: [phone]) Clinical Lists Update: Pre10-12-2015 Thyrotropin Qn 1.83 u[iU]/mL Invalid Interpretation Code [facility] Work Phone: [phone]) Clinical Lists Update: Pre10-11-2015 Hematocrit Auto Volume Fraction (Bld) 41.7 % Invalid Interpretation Code [facility] Work Phone: [phone] Hemoglobin mass conc (Bld) 13.9 g/dL Invalid Interpretation Code [facility] Work Phone: [phone] Platelets Auto #/vol (Bld) 281 10*3/mm3 Invalid Interpretation Code [facility] Work Phone: [phone] WBC Auto #/vol (Bld) 11.4 10*3/uL Invalid Interpretation Code [facility] Work Phone: [phone] [facility] Tobacco smoking status NHIS Former smoker Invalid Interpretation Code [facility] Work Phone: [phone] Tobacco use CPHS Former smoker Invalid Interpretation Code [facility] Work Phone: [phone]) Clinical Lists Update: Pre03-03-2015 Bilirubin.direct mass conc 0.10 mg/dL Invalid Interpretation Code [facility] Work Phone: [phone] Replaced Document: [place] Myriam Observationson 09-07-2014 EKG QRS axis 37 deg Invalid Interpretation Code [facility] Work Phone: [phone] Interpretation Sinus Rhythm WITHIN NORMAL LIMITS Invalid Interpretation Code [facility] Work Phone: [phone] P [place] 45 deg Invalid Interpretation Code [facility] Work Phone: [phone] VA Interval 154 ms Invalid Interpretation Code [facility] Work Phone: [phone] Pulse (Heart Rate) 64 /min Invalid Interpretation Code [facility] Work Phone: [phone] QRS Duration 90 ms Invalid Interpretation Code [facility] Work Phone: [phone] QT Interval new path ms Invalid Interpretation Code [facility] Work Phone: [phone] QTc Jarvis 403 ms Invalid Interpretation Code [facility] Work Phone: [phone] T Mico 36 deg Invalid Interpretation Code [facility] Work Phone: [phone] Clinical Lists Update: Pre 09-02-2014 Globulin Calculated mass conc (S) 3.2 g/dL Invalid Interpretation Code [facility] Work Phone: [phone]) Office Visit: [facility] 03-10-20 14 cardiac risk group C Invalid Interpretation Code [facility] Work Phone: [phone] General cardiovascular disease 10Y risk [#] [place] no N/A Invalid Interpretation Code [facility] Work Phone: [phone] Tobacco smoking status NHIS Former Invalid Interpretation Code [facility] Work Phone: [phone]) Clinical Lists Update: [facility] 07-21-2013 Anion gap 10 mmol/L Invalid Interpretation Code [facility] Work Phone: [phone] Anion gap 4 molar conc 10 Invalid Interpretation Code [facility] Work Phone: [phone] OCT MACULA CIRRUS OU (BOTH E YES) [facility] Vital Signs Date Time Vital Sign Value Performing Clinician Facility 10-14-2024 09:42-0400 Diastolic blood pressure 68 mm[Hg] Dr. Afshan Bennett MD Work Phone: [facility] 10-14-2024 09:42-0400 Systolic blood pressure 128 mm[Hg] Dr. Afshan Bennett MD Work Phone: [facility] 10-14-2024 09:05-0400 Heart rate 75 /min Dr. Afshan Bennett MD Work Phone: [facility] 10-14-2024 08:57-0400 Body height [address] Afshan Bennett MD Work Phone: [facility] 10-14-2024 08:57-0400 Body mass index (BMI) [Ratio] 36.4 kg/m2 Dr. Afshan Bennett MD Work Phone: [facility] 10-14-2024 08:57-0400 Body weight 122.[address] Afshan Bennett MD Work Phone: [facility] 10-14-2024 08:57-0400 Respiratory rate 18 /min Dr. Afshan Bennett MD Work Phone: [facility] 07-08-2024 06:58-0400 Body height 182.9 cm Afshan Agency DO Work Phone: [facility] 07-08-2024 06:58-0400 Body mass index (BMI) [Ratio] 35.63 kg/m2 Afshan Agency DO Work Phone: [facility] 07-08-2024 06:58-0400 Body weight 119.2 kg Afshan Agency DO Work Phone: [facility] 07-08-2024 06:58-0400 Diastolic blood pressure 72 mm[Hg] Afshan Agency DO Work Phone: [facility] 07-08-2024 06:58-0400 Heart rate 78 /min Afshan Agency DO Work Phone: [facility] 07-08-2024 06:58-0400 SaO2% (BldA) [Mass fraction] 98 % Afshan Agency DO Work Phone: [facility] 07-08-2024 06:58-0400 Systolic blood pressure 130 mm[Hg] Afshan Agency DO Work Phone: [facility] 01-08-2024 07:01-0400 Body height 182.9 cm Afshan Agency DO Work Phone: [facility] 01-08-2024 07:01-0400 Body mass index (BMI) [Ratio] 36.13 kg/m2 Afshan Agency DO Work Phone: [facility] 01-08-2024 07:01-0400 Body weight 120.83 kg Afshan Agency DO Work Phone: [facility] 01-08-2024 07:01-0400 Diastolic blood pressure 60 mm[Hg] Afshan Agency DO Work Phone: [facility] 01-08-2024 07:01-0400 Heart rate 86 /min Afshan Agency DO Work Phone: [facility] 01-08-2024 07:01-0400 Systolic blood pressure 120 mm[Hg] Afshan Agency DO Work Phone: [facility] 07-10-2023 09:27-0400 Body height 182.9 cm Afshan Agency DO Work Phone: [facility] 07-10-2023 09:27-0400 Body mass index (BMI) [Ratio] 35.94 kg/m2 Afshan Agency DO Work Phone: [facility] 07-10-2023 09:27-0400 Body weight 120.2 kg Afshan Agency DO Work Phone: [facility] 07-10-2023 09:27-0400 Diastolic blood pressure 84 mm[Hg] Afshan Agency DO Work Phone: [facility] 07-10-2023 09:27-0400 Heart rate 78 /min Afshan Agency DO Work Phone: [facility] 07-10-2023 09:27-0400 SaO2% (BldA) [Mass fraction] 98 % Afshan Agency DO Work Phone: [facility] 07-10-2023 09:27-0400 Systolic blood pressure 124 mm[Hg] Afshan Bennett DO Work Phone: [facility] 03-07-2023 09:19-0500 Body temperature 98 [degF] Dr. Afshan Bennett Work Phone: [facility] 03-07-2023 09:19-0500 Diastolic blood pressure 99 mm[Hg] Dr. Afshan Bennett Work Phone: [facility] 03-07-2023 09:19-0500 Heart rate 92 /min Dr. Afshan Bennett Work Phone: 0(884)430-029817 [place] [address] 03-07-2023 09:19-0500 Respiratory rate 16 /min Dr. Afshan Bennett Work Phone: 8(847)[phone] [place] [address] 03-07-2023 09:19-0500 SaO2% (BldA) [Mass fraction] 95 % Dr. Afshan Bennett Work Phone: [facility] 03-07-2023 09:19-0500 Systolic blood pressure 120 mm[Hg] Dr. Afshan Bennett Work Phone: 7(177)363-525617 [place] [address] 03-07-2023 07:56-0500 Body height 182.[address] Afshan Bennett Work Phone: 3(333)426-880617 [place] [address] 03-07-2023 07:56-0500 Body mass index (BMI) [Ratio] 34.9 kg/m2 Dr. Afshan Bennett Work Phone: [facility] 03-07-2023 07:56-0500 Body weight [address] Afshan Bennett Work Phone: 6(396)718-790517 [place] [address] 01-18-2023 09:42-0400 Body mass index (BMI) [Ratio] 35.9 kg/m2 Dr. Afshan Bennett Work Phone: 3(648)[phone] [place] [address] 01-18-2023 09:42-0400 Body weight 120.[address] Afshan Bennett Work Phone: 5(941)266-733717 [place] [address] 01-16-2023 09:19-0400 Body mass index (BMI) [Ratio] 35.4 kg/m2 Dr. Afshan Bennett Work Phone: [facility] 01-16-2023 09:19-0400 Body weight 118.[address] Afshan Bennett Work Phone: [facility] 01-16-2023 09:19-0400 Diastolic blood pressure 70 mm[Hg] Dr. Afshan Bennett Work Phone: [facility] 01-16-2023 09:19-0400 Heart rate 79 /min Dr. Afshan Benentt Work Phone: [facility] 01-16-2023 09:19-0400 Respiratory rate 18 /min Dr. Afshan Bennett Work Phone: [facility] 01-16-2023 09:19-0400 SaO2% (BldA) [Mass fraction] 97 % Dr. Afshan Bennett Work Phone: [facility] 01-16-2023 09:19-0400 Systolic blood pressure 128 mm[Hg] Dr. Afshan Bennett Work Phone: [facility] 01-11-2023 08:31-0400 Body height 182.9 cm Afshan Bennett DO Work Phone: [facility] 01-11-2023 08:31-0400 Body mass index (BMI) [Ratio] 36.35 kg/m2 Afshan Bennett DO Work Phone: [facility] 01-11-2023 08:31-0400 Body weight 121.56 kg Afshan Bennett DO Work Phone: [facility] 01-11-2023 08:31-0400 Diastolic blood pressure 74 mm[Hg] Afshan Bennett DO Work Phone: [facility] 01-11-2023 08:31-0400 Heart rate 76 /min Afshan Bennett DO Work Phone: [facility] 01-11-2023 08:31-0400 Systolic blood pressure 118 mm[Hg] Afshan Agency DO Work Phone: [facility] 07-13-2022 09:31-0400 Body height 182.9 cm Afshan Agency DO Work Phone: [facility] 07-13-2022 09:31-0400 Body mass index (BMI) [Ratio] 35.6 kg/m2 Afshan Agency DO Work Phone: [facility] 07-13-2022 09:31-0400 Body weight 119.07 kg Afshan Agency DO Work Phone: [facility] 07-13-2022 09:31-0400 Diastolic blood pressure 72 mm[Hg] Afshan Agency DO Work Phone: [facility] 07-13-2022 09:31-0400 Systolic blood pressure 120 mm[Hg] Afshan Agency DO Work Phone: [facility] 04-13-2022 09:24-0500 Body height 182.88 cm Afshan S Agency [facility] [employer] Work Phone: 04-13-2022 09:24-0500 Body mass index (BMI) [Ratio] 36.08 kg/m2 Afshan S Agency Work Phone: [facility] [employer] Work Phone: 04-13-2022 09:24-0500 Body surface area Derived from formula 2.4 m2 Afshan S Agency [facility] [employer] Work Phone: 04-13-2022 09:24-0500 Body weight 120.66 kg Afshan S Agency Work Phone: [facility] [employer] Work Phone: 04-13-2022 09:24-0500 Diastolic blood pressure 64 mm[Hg] Afshan S Agency Work Phone: [employer] Work Phone: 04-13-2022 09:24-0500 Heart rate 80 /min Afshan Francis Agency Work Phone: [employer] Work Phone: 04-13-2022 09:24-0500 Systolic blood pressure 122 mm[Hg] Afshan Francis Agency Work Phone: [employer] Work Phone: 11-03-2021 10:11-0400 Body mass index (BMI) [Ratio] 35.45 kg/m2 Afshan Francis [employer] Work Phone: [employer] Work Phone: 11-03-2021 10:11-0400 Body surface area Derived from formula 2.39 m2 Afshan Francis [employer] Work Phone: [facility] Work Phone: 11-03-2021 10:11-0400 Body weight 118.56 kg Afshan Francis [employer] Work Phone: [facility] Work Phone: 11-03-2021 10:11-0400 Diastolic blood pressure 75 mm[Hg] Afshan Francis [employer] Work Phone: [facility]Kbmwtw[facility] Work Phone: 11-03-2021 10:11-0400 Heart rate 100 /min Afshan Francis [employer] Work Phone: LR[facility]ys[facility]Dqgbkup Work Phone: 11-03-2021 10:11-0400 Systolic blood pressure 140 mm[Hg] Afshan Francis [employer] Work Phone: YU[facility]Mdamurq[facility]Dzlronp Work Phone: 08-01-2021 08:21-0400 Body height 182.[address] Cavanaugh Agency Work Phone: [facility] Work Phone: 08-01-2021 08:21-0400 Body mass index (BMI) [Ratio] 35.6 kg/m2 Dr. Afshan Bennett Work Phone: [facility] Work Phone: 08-01-2021 08:21-0400 Body weight 119.[address] Afshan Bennett Work Phone: [facility] Work Phone: 08-01-2021 08:21-0400 Diastolic blood pressure 82 mm[Hg] Dr. Afshan Bennett Work Phone: [facility] Work Phone: 08-01-2021 08:21-0400 Heart rate 75 /min Dr. Afshan Bennett Work Phone: [facility] Work Phone: 08-01-2021 08:21-0400 Respiratory rate 18 /min Dr. Afshan Bennett Work Phone: [facility] Work Phone: 08-01-2021 08:21-0400 SaO2% (BldA) [Mass fraction] 96 % Dr. Afshan Bennett Work Phone: [facility] Work Phone: 08-01-2021 08:21-0400 Systolic blood pressure 133 mm[Hg] Dr. Afshan Bennett Work Phone: [facility] Work Phone: 07-04-2021 08:02-0400 Body height 182.88 cm Afshan Bennett Work Phone: [facility]Cxsd[facility]Pomwjmz Work Phone: 07-04-2021 08:02-0400 Body mass index (BMI) [Ratio] 34.48 kg/m2 Afshan Bennett Work Phone: GG[facility]Ckotqbg-Cdshshr Work Phone: 07-04-2021 08:02-0400 Body surface area Derived from formula 2.36 m2 Afshan S [employer] Work Phone: MY-Gbpbcph-Ahszxjf Work Phone: 07-04-2021 08:02-0400 Body weight 115.33 kg Afshan S [employer] Work Phone: CG[facility]Pectiid-Dtmykiu Work Phone: 07-04-2021 08:02-0400 Diastolic blood pressure 80 mm[Hg] Afshan S [employer] Work Phone: ZC-Ixjxkfj-Pzcegxr Work Phone: 07-04-2021 08:02-0400 Heart rate 84 /min Afshan S [employer] Work Phone: XV-Ijozjus-Lhazrll Work Phone: 07-04-2021 08:02-0400 Systolic blood pressure 132 mm[Hg] Afshan S [employer] Work Phone: RW-Rocrqrx-Prxrohg Work Phone: 06-13-2021 08:09-0400 Body height 182.88 cm Afshan S [employer] Work Phone: VD[facility]Gtoyioz-Ykdfgli Work Phone: 06-13-2021 08:09-0400 Body mass index (BMI) [Ratio] 34.25 kg/m2 Afshan S [employer] Work Phone: OG-Iwyxvdc-Onxibnl Work Phone: 06-13-2021 08:09-0400 Body surface area Derived from formula 2.35 m2 Afshan S [employer] Work Phone: LC-Ehhxugv-Gkktedv Work Phone: 06-13-2021 08:09-0400 Body weight 114.53 kg Afshan S [employer] Work Phone: LZ-Bmehqqd-Zjjhfjl Work Phone: 05-19-2021 10:04-0500 Body height 182.88 cm Afshan S [employer] Phone: DM-Tvxteog-Ciihixp Work Phone: 05-19-2021 10:04-0500 Body mass index (BMI) [Ratio] 34.18 kg/m2 Afshan Francis [employer] Work Phone: DM-Yukmqva-Pmvswho Work Phone: 05-19-2021 10:04-0500 Body surface area Derived from formula 2.35 m2 Afshan S [employer] Work Phone: [employer] Work Phone: 05-19-2021 10:04-0500 Body weight 114.32 kg Afshan S [employer] Work Phone: [employer] Work Phone: 05-19-2021 10:04-0500 Diastolic blood pressure 58 mm[Hg] Afshan S [employer] Work Phone: [employer] Work Phone: 05-19-2021 10:04-0500 Heart rate 81 /min Afshan Tito [employer] Phone: [employer] Work Phone: 05-19-2021 10:04-0500 Systolic blood pressure 124 mm[Hg] Afshan S [employer] Phone: [employer] Work Phone: 05-05-2021 14:28-0500 Body height 182.88 cm Afshan S [employer] Work Phone: [employer] Work Phone: 05-05-2021 14:28-0500 Body mass index (BMI) [Ratio] 33.78 kg/m2 Afshan S [employer] Phone: [employer] Work Phone: 05-05-2021 14:28-0500 Body surface area Derived from formula 2.34 m2 Afshan Bennett Work Phone: [facility] Work Phone: 05-05-2021 14:28-0500 Body weight 112.97 kg Afshan Bennett Work Phone: [facility] Work Phone: 05-05-2021 14:28-0500 Diastolic blood pressure 72 mm[Hg] Afshan Bennett Work Phone: [facility] Work Phone: 05-05-2021 14:28-0500 Heart rate 64 /min Afshan Bennett Work Phone: [facility] Work Phone: 05-05-2021 14:28-0500 SaO2% (BldA) [Mass fraction] 98 % Afshan Bennett Work Phone: [facility] Work Phone: 05-05-2021 14:28-0500 Systolic blood pressure 124 mm[Hg] Afshan Bennett Work Phone: [facility] Work Phone: 04-13-2021 09:25-0500 Heart rate 100 /min DR ALINA BANKS MD [facility] 04-13-2021 08:15-0500 Body temperature 98.24 [degF] DR ALINA BANSK MD [facility] 04-13-2021 08:15-0500 Diastolic blood pressure 77 mm[Hg] DR ALINA BANKS MD [facility] 04-13-2021 08:15-0500 Heart rate 88 /min DR ALINA BANKS MD [facility] 04-13-2021 08:15-0500 Reason For Taking VItal Signs DR ALINA BANKS MD [facility] 04-13-2021 08:15-0500 Respiratory rate 18 /min DR ALINA BANKS MD [facility] 04-13-2021 08:15-0500 Systolic blood pressure 173 mm[Hg] DR ALINA BANKS MD [facility] 04-13-2021 03:06-0500 Body temperature 97.88 [degF] DR ALINA BANKS MD [facility] 04-13-2021 03:06-0500 Diastolic blood pressure 83 mm[Hg] DR ALINA BANKS MD [facility] 04-13-2021 03:06-0500 Heart rate 88 /min DR ALINA BANKS MD [facility] 04-13-2021 03:06-0500 Respiratory rate 16 /min DR ALINA BANKS MD [facility] 04-13-2021 03:06-0500 Systolic blood pressure 162 mm[Hg] DR ALINA BANKS MD [facility] 04-12-2021 23:19-0500 Body temperature 98.06 [degF] DR ALINA BANKS MD [facility] 04-12-2021 23:19-0500 Diastolic blood pressure 74 mm[Hg] DR ALINA BANKS MD [facility] 04-12-2021 23:19-0500 Heart rate 91 /min DR ALINA BANKS MD [facility] 04-12-2021 23:19-0500 Mean blood pressure 100 mm[Hg] DR ALINA BANKS MD [facility] 04-12-2021 23:19-0500 Reason For Taking VItal Signs DR ALINA BANKS MD [facility] 04-12-2021 23:19-0500 Respiratory rate 18 /min DR ALINA BANKS MD [facility] 04-12-2021 23:19-0500 Systolic blood pressure 151 mm[Hg] DR ALINA BANKS MD [facility] 04-12-2021 19:30-0500 Heart rate 95 /min DR ALINA BANKS MD [facility] 04-12-2021 19:30-0500 Mean blood pressure 128 mm[Hg] DR ALINA BANKS MD [facility] 04-12-2021 19:30-0500 Reason For Taking VItal Signs DR ALINA BANKS MD [facility] 04-12-2021 15:38-0500 Heart rate 75 /min DR ALINA BANKS MD [facility] 04-12-2021 15:38-0500 Mean blood pressure 91 mm[Hg] DR ALINA BANKS MD [facility] 04-12-2021 15:21-0500 Diastolic Blood Pressure NBP [address] ALINA BANKS MD [facility] 04-12-2021 15:21-0500 Systolic Blood Pressure NBP [address] ALINA BANKS MD [facility] 04-12-2021 15:14-0500 Body height 182.[address] ALINA BANKS MD [facility] 04-12-2021 15:14-0500 Body weight 115.[address] ALINA BANKS MD [facility] 04-12-2021 15:14-0500 Body weight 34.65 kg/m2 DR ALINA BANKS MD [facility] 04-12-2021 14:45-0500 Diastolic Blood Pressure NBP [address] ALINA BANKS MD [facility] 04-12-2021 14:45-0500 Systolic Blood Pressure NBP [address] ALINA BANKS MD [facility] 04-12-2021 14:30-0500 Diastolic Blood Pressure NBP [address] ALINA BANKS MD [facility] 04-12-2021 14:30-0500 Systolic Blood Pressure NBP [address] ALINA BANKS MD [facility] 04-12-2021 14:00-0500 Body temperature 97.88 [degF] DR ALINA BANKS MD [facility] 04-12-2021 10:37-0500 Body height 182.[address] ALINA BANKS MD [facility] 04-12-2021 10:37-0500 Body temperature 98.06 [degF] DR ALINA BANKS MD [facility] 04-12-2021 10:37-0500 Body weight 115.[address] ALINA BANKS MD [facility] 04-12-2021 10:37-0500 Heart rate 88 /min DR ALINA BANKS MD [facility] 03-24-2021 11:36-0500 Body height 182.88 cm Afshan Bennett Work Phone: [facility] Work Phone: 03-24-2021 11:36-0500 Body mass index (BMI) [Ratio] 35.3 kg/m2 Afshan Bennett Work Phone: [employer] [facility] Work Phone: 03-24-2021 11:36-0500 Body surface area Derived from formula 2.38 m2 Afshan Bennett Work Phone: [facility] [employer] Work Phone: 03-24-2021 11:36-0500 Body temperature 96.6 [degF] Afshan Bennett Work Phone: [facility] Work Phone: 03-24-2021 11:36-0500 Body weight 118.05 kg Afshan Bennett [employer] Phone: [facility] Work Phone: 03-24-2021 11:36-0500 Diastolic blood pressure 68 mm[Hg] Afshan Francis [employer] Work Phone: [employer] [facility] Work Phone: 03-24-2021 11:36-0500 Heart rate 61 /min Afshan Bennett [employer] Phone: [facility] Work Phone: 03-24-2021 11:36-0500 SaO2% (BldA) [Mass fraction] 99 % Afshan Bennett Work Phone: [facility] Work Phone: 03-24-2021 11:36-0500 Systolic blood pressure 140 mm[Hg] Afshan Francis [employer] Work Phone: [facility] Work Phone: 09-22-2020 10:33-0400 Body height 182.88 cm Afshan Francis [employer] Work Phone: [facility] Work Phone: 09-22-2020 10:33-0400 Body mass index (BMI) [Ratio] 34.77 kg/m2 Afshan Bennett Work Phone: [facility] Work Phone: 09-22-2020 10:33-0400 Body surface area Derived from formula 2.37 m2 Afshan Francis [employer] Work Phone: [facility] Work Phone: 09-22-2020 10:33-0400 Body temperature 97.5 [degF] Afshan Francis [employer] Work Phone: [facility] Work Phone: 09-22-2020 10:33-0400 Body weight 116.29 kg Afshan Bennett [employer] Phone: [facility] Work Phone: 09-22-2020 10:33-0400 Diastolic blood pressure 70 mm[Hg] Afshan Francis [employer] Phone: [facility] Work Phone: 09-22-2020 10:33-0400 Heart rate 75 /min Afshan Bennett [employer] Phone: [facility] Work Phone: 09-22-2020 10:33-0400 SaO2% (BldA) [Mass fraction] 98 % Afshan Bennett [employer] Phone: [facility] Work Phone: 09-22-2020 10:33-0400 Systolic blood pressure 122 mm[Hg] Afshan Bennett [employer] Phone: [facility] Work Phone: 01-01-2017 08:20-0400 BMI (Body Mass Index) 35.8 kg/m2 [facility] Work Phone: 01-01-2017 08:20-0400 BP Diastolic 74 mm[Hg] [facility] Work Phone: 01-01-2017 08:20-0400 BP Systolic 130 mm[Hg] [facility] Work Phone: 01-01-2017 08:20-0400 Height 182.88 cm [facility] Work Phone: 01-01-2017 08:20-0400 Pulse (Heart Rate) 76 /min [facility] Work Phone: 01-01-2017 08:20-0400 Weight 119.75 kg [facility] Work Phone: 05-10-2016 11:19-0500 BMI (Body Mass Index) 35.07 kg/m2 Kimberly Schmidt RN [facility] Work Phone: 05-10-2016 11:19-0500 BP Diastolic 80 mm[Hg] Kimberly Schmidt RN [facility] Work Phone: 05-10-2016 11:19-0500 BP Systolic 134 mm[Hg] Kimberly Schmidt RN [facility] Work Phone: 05-10-2016 11:19-0500 BSA (Body Surface Area) 2.38 m2 Kimberly Schmidt RN [facility] Work Phone: 05-10-2016 11:19-0500 Pulse (Heart Rate) 84 /min Kimberly Schmidt RN [facility] Work Phone: 05-10-2016 11:19-0500 Respiratory Rate 20 /min [facility] Work Phone: 05-10-2016 11:19-0500 Weight 117.3 kg Kimberly Schmidt RN [facility] Work Phone: 09-07-2014 10:20-0400 Heart rate 64 /min Kimberly Roxana RN [facility] Work Phone: [id number] Height 182.88 cm Kimberly Schmidt RN [facility] Work Phone: Encounters Encounter Date Encounter Type Care Provider Facility Start: 12-09-2024 ambulatory [facility] Facility :[facility] Start: 10-14-2024 End: 10-14-2024 Patient encounter procedure Sharmila STEWART [facility] Work Phone: Start: 10-14-2024 End: 10-14-[address] Afshan Bennett MD Work Phone: -[facility] Start: 07-08-2024 End: 07-08-2024 Office outpatient visit 25 minutes Afshan S Agency DO Work Phone: [facility] Comment on above: Screening for prosta te cancer (Primary Dx); Mixed hyperlipidemia; Type 2 diabetes mellitus with other specified complication, without long-term current use of insulin; Type 2 diabetes mellitus without complication, without long-term current use of insulin; Secondary hypertension; Pain and swelling of left lower leg Start: 07-08-2024 End: 07-08-2024 ambulatory [facility] Start: 04-14-2024 ambulatory [facility] Facility :[facility] Start: 04-14-2024 End: 04-14-2024 ambulatory [facility] Facility:[facility] Start: 04-02-2024 End: 04-02-2024 ambulatory [facility] Facility:[facility] Start: 02-07-2024 End: 02-07-2024 ambulatory [facility] Facility:[facility] Start: 01-08-2024 End: 01-08-2024 Subsequent hospital visit by physician Jairo Lofton 2 [facility] Comment on above: Pain and swelling of left lower leg; Pain in left leg Start: 01-08-2024 End: 01-08-2024 ambulatory [facility] Start: 01-08-2024 End: 01-08-2024 Office outpatient visit 25 minutes Afshan S Agency DO Work Phone: [facility] Comment on above: Pain and swelling of left lower leg (Primary Dx); Mixed hyperlipidemia; Type 2 diabetes mellitus without complication, without long-term current use of insulin (Multi); Secondary hypertension Start: 01-08-2024 End: 01-08-2024 ambulatory [facility] Start: 01-01-2024 End: 01-01-2024 ambulatory [facility] Start: 09-18-2023 End: 09-18-2023 ambulatory [facility] Start: 07-10-2023 End: 07-10-2023 Office outpatient visit 25 minutes Afshan S Agency DO Work Phone: [facility] Comment on above: Secondary hypertensi on (Primary Dx); Type 2 diabetes mellitus without complication, without long-term current use of insulin (Multi); Mixed hyperlipidemia; Screening for prostate cancer Start: 03-07-2023 Non-patient / Non-visit Dr. Pierce Bennett Work Phone: [facility] Start: 03-07-2023 End: 03-07-2023 Admission to same day surgery center Dr. Afshan Bennett Work Phone: [facility] Work Phone: Start: 03-07-2023 End: 03-07-[address] [facility] [facility] Work Phone: Start: 01-18-2023 Non-patient / Non-visit Dr. Pierce Bennett Work Phone: [facility] Work Phone: Start: 01-16-2023 End: 01-16-[address] Afshan Bennett Work Phone: [facility] Work Phone: Start: 01-11-2023 End: 01-11-2023 Office outpatient visit 25 minutes Afshan Bennett DO Work Phone: [facility] Comment on above: Secondary hypertensi on (Primary Dx); Type 2 diabetes mellitus without complication, without long-term current use of insulin ([facility]); Mixed hyperlipidemia; Class 2 severe obesity with body mass index (BMI) of 35 to 39.9 with serious comorbidity ([facility]); Type 2 diabetes mellitus without complication, with long-term current use of insulin ([facility]) Start: 07-13-2022 End: 07-13-2022 Office outpatient visit 25 minutes Afshan S Agency DO Work Phone: [facility] Comment on above: Secondary hypertensi on (Primary Dx); Type 2 diabetes mellitus without complication, without long-term current use of insulin ([facility]); Mixed hyperlipidemia; Class 2 severe obesity with body mass index (BMI) of 35 to 39.9 with serious comorbidity ([facility]) Start: 04-13-2022 Office outpatient vi sit 25 minutes Afshan S Agency Work Phone: [facility] Work Phone: Start: 04-13-2022 ambulatory DO AFSHAN S ROYAL Fac ility:[id number] Start: 12-26-2021 Patient encounter procedure Afshan S Agency Work Phone: [facility] [employer] Work Phone: Start: 11-09-2021 Chart Update Afshan Tito Eyal jeong Work Phone: [facility] Work Phone: Start: 11-03-2021 FUV, Provider: Adam Baptiste, Status: Pen, Time: 10:15 AM Afshan S Agency Work [facility] Work Phone: Start: 11-03-2021 Office outpatient vi sit 10 minutes Afshan S Agency Work Phone: [facility]Sstjhck Work Phone: Start: 11-03-2021 ambulatory DO AFSHAN S ROYAL Fac ility:[id number] Start: 11-02-2021 Chart Update Afshan Birch al Work Phone: [facility] Work Phone: Start: 09-30-2021 End: 09-30-2021 Patient encounter procedure Katherine Bustos OD Work Phone: Ophthalmology Comment on above: Type 2 diabetes stanley itus without retinopathy (HCC) (Primary Dx); Combined forms of age-related cataract of both eyes; Floaters, bilateral; Posterior vitreous detachment of left eye Start: 08-09-2021 End: 08-09-[address] Afshan Bennett Work Phone: [facility] Start: 08-01-2021 End: 08-01-[address] Afshan Bennett Work Phone: [facility] Start: 07-27-2021 ambulatory DO AFSHAN S Fac ility:[id number] Start: 07-18-2021 AUDIT Afshan jeong Work Phone: [facility] Work Phone: Start: 07-15-2021 Chart Update Afshan Birch al Work Phone: [facility]Xlbfwuv[facility]Ltnmwbr Work Phone: Start: 07-04-2021 Patient encounter procedure Afshan Bennett Work Phone: [facility]Uke[facility]zi[facility]off[facility] Work Phone: Start: 06-13-2021 Office outpatient vi sit 15 minutes Afshan Bennett Work Phone: KE[facility]Daphhxw[facility]Jsgrwsy Work Phone: Start: 05-25-2021 Chart Update Afshan Birch al Work Phone: GR[facility]Dixuikw[facility]Cgwxtkj Work Phone: Start: 05-19-2021 Office outpatient ne w 45 minutes Afshan Bennett Work Phone: WR[facility]Fsahaid[facility]Csokvfc Work Phone: Start: 05-09-2021 Chart Update Afshan jeong Work Phone: -[facility] Work Phone: Start: 05-05-2021 Adv care pln tlkd & alt dcsn maker docd Afshan Bennett Work Phone: [facility] Work Phone: Start: 04-13-2021 Rx Renewal Afshan jeong Work Phone: -[facility] Work Phone: Start: 04-12-2021 End: 04-13-[address] ALINA BANKS MD [facility] Start: 03-31-2021 AUDIT Afshansadaf jeong Work Phone: [facility] Work Phone: Start: 03-24-2021 Office outpatient vi sit 25 minutes Afshan Francis Agency Work Phone: [facility] Work Phone: Start: 03-14-2021 Chart Update Afshan jeong Work Phone: [facility] Work Phone: Start: 09-22-2020 Office outpatient vi sit 15 minutes Afshan Francis Agency Work Phone: [facility] Work Phone: Start: 09-06-[address] Afshan Bennett Work Phone: [facility] Start: 02-19-2020 End: 02-19-2020 Patient encounter procedure External Provider [facility] Start: 02-19-2020 Results Only External Provider Exter nal-NonCCF Patient encounter status Afshan Bennett Work Phone: [facility] Work Phone: Procedures Date Procedure Procedure Detail Performing Clinician Start: 07-08-2024 Follow-up visit Follow-up YOSELIN BENNETT Start: 04-15-2024 Colonoscopy Afshan dewey DO Work Phone: Start: 01-08-2024 Dup-scan xtr veins unilateral/limited study Afshan Francis DO Work Phone: Start: 01-01-2024 Lipid 1996 panel - S regino or Plasma Afshan Royal DO Work Phone: Start: 03-07-2023 End: 03-07-[address] Afshan Bennett Work Phone: Start: 12-26-2022 Lipid 1996 panel - S regino or Plasma Afshan Royal DO Work Phone: Start: 07-10-2022 Lipid 1996 panel - S regino or Plasma Afshan Royal DO Work Phone: Start: 09-30-2021 Computerized ophthal jhonathan imaging retina Katherine Bustos OD Work Phone: Start: 04-12-2021 Total replacement of hip DR ALINA BANKS MD Comment on above: ANTERIOR LEFT TOTAL HIP ARTHROPLASTY Start: 02-19-2020 EXTERNAL PROCEDURE Exte rnal Provider Start: 06-28-2018 Colonoscopy Afshan Bennett Work Phone: Start: 04-09-2018 [object Object] Comment on above: Result Comment: AGE- SPECIFIC REFERENCE RANGES FOR SERUM PSA REFERENCE RANGE NG/ML AGE ASIANS BLACKS WHITE 40-49 0-2 0-2 0-2.5 50-59 0-3 0-4 0-3.5 60-69 0-4 0-4.5 0-4.5 70-79 0-5 0-5.5 0-6.5 PSA INCREASES WITH AGE, RACE, AND EJACULATION WITHIN 48 HRS. [facility] VOL24,NO.2, , PG.339 Performed By: #### [id number] #### [employer] [address] [place] [address] Start: 01-01-2017 End: 01-01-2017 Follow Up Appt 6 months Jesús Pelayo [employer] WORKING SUPERVISOR Work Phone: Start: 01-01-2017 End: 01-01-2017 PFM Jesús Pelayo [employer] WORKING SUPERVISOR Work Phone: Start: 01-01-2017 End: 01-01-2017 Dietary management education, guidance, and counseling Aurora Patrick Start: 05-10-2016 End: 05-10-2016 Follow Up Appt Other Sharmila smith PA-C Work Phone: Start: 05-10-2016 End: 05-10-2016 PFM Sharmila Cannon PA-C Work Phone: Start: 05-10-2016 End: 05-10-2016 Dietary management education, guidance, and counseling Kimberly Schmidt RN Start: 11-10-2015 End: 04-28-2016 Follow Up Appt 6 months Jeffrey Rebolledo MD Start: 11-10-2015 End: 04-28-2016 M Jeffrey Rebolledo MD Start: 03-04-2015 End: 03-04-2015 Follow Up Appt 6 months Sharmila moreno PA-C Work Phone: Start: 03-04-2015 End: 03-04-2015 Follow Up Appt Other Sharmila smith PA-C Work Phone: Start: 03-04-2015 End: 03-04-2015 PFAjay Cannon PA-C Work Phone: Start: 09-07-2014 End: 03-03-2015 *Hepatic Function Panel Jeffrey Rebolledo MD Start: 09-07-2014 End: 09-08-2014 Documentation of current medications Jeffrey Rebolledo MD Start: 09-07-2014 End: 09-07-2014 Ecg routine ecg w/least 12 lds w/i&r Jeffrey Rebolledo MD Start: 09-07-2014 End: 09-07-2014 Follow Up Appt 6 months Jeffrey Rebolledo MD Start: 09-07-2014 End: 03-03-2015 Lipid 1996 panel - Serum or Plasma Jeffrey Rebolledo MD Start: 09-07-2014 End: 09-07-2014 MMM Jeffrey Rebolledo MD Start: 03-10-2014 End: 03-10-2014 Follow Up Appt 6 months Sharmila moreno PA-C Work Phone: Start: 03-10-2014 End: 03-10-2014 PFM Sharmila Cannon PA-C Work Phone: Start: 12-10-2013 End: 12-10-2013 Follow Up Appt 3 months Jeffrey Rebolledo MD Start: 12-10-2013 End: 12-10-2013 Follow Up Appt Other Jeffrey Rebolledo MD Start: 12-10-2013 End: 12-10-2013 KEZIA Rebolledo MD Start: 09-11-2013 End: 09-11-2013 Follow Up Appt 3 months Sharmila moreno PA-C Work Phone: Start: 09-11-2013 End: 09-11-2013 Follow Up Appt Other Sharmila smith PA-C Work Phone: Start: 09-11-2013 End: 09-11-2013 PFAjay Cannon PA-C Work Phone: Start: 07-24-2013 End: 08-26-2013 Cardiac Rehab Jeffrey Rebolledo MD Start: 07-24-2013 End: 08-26-2013 Cardiovascular stress test using treadmill Jeffrey Rebolledo MD Start: 07-24-2013 End: 07-24-2013 Ecg routine ecg w/least 12 lds w/i&r Jeffrey Rebolledo MD Start: 07-24-2013 End: 07-24-2013 Follow Up Appt 6 weeks Jeffrey Rebolledo MD Start: 07-24-2013 End: 07-24-2013 MMM Jeffrey Rebolledo MD Start: 07-21-2013 Percutaneous translu dilia coronary angioplasty CORONARY ARTERY DISEASE, S/P PTCA Kimberly Schmidt RN Start: 07-21-2013 Placement of stent i n coronary artery Coronary stent Kimberly Schmidt RN Cardiac catheterization DR Tito BANKS MD Colonoscopy DR ALINA Weems MD Plan of Treatment Date Care Activity Detail Author Start: 04-15-2034 Screening for malign ant neoplasm of colon [facility] Start: 03-07-2033 Screening for malign ant neoplasm of colon [facility] Start: 01-07-2025 End: 07-08-2025 Basic metabolic 2000 panel - Serum or Plasma Basic Metabolic Panel Lab Routine Type 2 diabetes mellitus with other specified complication, without long-term current use of insulin Expected: 01/07/2025 (Approximate), Expires: 07/08/2025 [facility] Work Phone: Comment on above: Expected: 01/07/2025 (Approximate), Expires: 07/08/2025 Start: 01-07-2025 End: 07-08-2025 Hemoglobin A1c/Hemoglobin.total in Blood Hemoglobin A1C Lab Routine Type 2 diabetes mellitus with other specified complication, without long-term current use of insulin Expected: 01/07/2025 (Approximate), Expires: 07/08/2025 [facility] Work Phone: Comment on above: Expected: 01/07/2025 (Approximate), Expires: 07/08/2025 Start: 01-07-2025 End: 07-08-2025 Lipid 1996 panel - Serum or Plasma Lipid Panel Lab Routine Mixed hyperlipidemia Expected: 01/07/2025 (Approximate), Expires: 07/08/2025 [facility] Work Phone: Comment on above: Expected: 01/07/2025 (Approximate), Expires: 07/08/2025 Start: 01-07-2025 End: 07-08-2025 Prostate specific Ag [Mass/volume] in Serum or Plasma Prostate Spec.Ag,Screen Lab Routine Screening for prostate cancer Expected: 01/07/2025 (Approximate), Expires: 07/08/2025 [facility] Work Phone: Comment on above: Expected: 01/07/2025 (Approximate), Expires: 07/08/2025 Start: 12-31-2024 Lipid panel Lipid Panel [facility] Start: 10-03-2024 Hemoglobin A1c measurement Diabetes: Hemoglobin A1C [facility] Start: 07-08-2024 End: 01-07-2025 Basic metabolic 2000 panel - Serum or Plasma Basic Metabolic Panel Lab Routine Type 2 diabetes mellitus without complication, without long-term current use of insulin (Multi) Expected: 07/08/2024 (Approximate), Expires: 01/07/2025 [facility] Work Phone: Comment on above: Expected: 07/08/2024 (Approximate), Expires: 01/07/2025 Start: 07-08-2024 End: 01-07-2025 Hemoglobin A1c/Hemoglobin.total in Blood Hemoglobin A1C Lab Routine Type 2 diabetes mellitus without complication, without long-term current use of insulin (Multi) Expected: 07/08/2024 (Approximate), Expires: 01/07/2025 [facility] Work Phone: Comment on above: Expected: 07/08/2024 (Approximate), Expires: 01/07/2025 Start: 07-08-2024 End: 07-08-2025 Microalbumin/Creatinine [Mass Ratio] in Urine Albumin-Creatinine Ratio, Urine Random Lab Routine Type 2 diabetes mellitus with other specified complication, without long-term current use of insulin Expected: 07/08/2024 (Approximate), Expires: 07/08/2025 [facility] Work Phone: Comment on above: Expected: 07/08/2024 (Approximate), Expires: 07/08/2025 Start: 07-08-2024 End: 07-08-2024 Patient encounter procedure 07/08/2024 7:00 AM EDT Office Visit [place] [id number] [id number] Afshan Bennett DO [address] [address] [facility] Start: 04-02-2024 Hemoglobin A1c measurement Diabetes: Hemoglobin A1C [facility] Start: 01-09-2024 End: 07-09-2024 Basic metabolic 2000 panel - Serum or Plasma Basic Metabolic Panel Lab Routine Type 2 diabetes mellitus without complication, without long-term current use of insulin (Multi) Expected: 01/09/2024 (Approximate), Expires: 07/09/2024 [facility] Work Phone: Comment on above: Expected: 01/09/2024 (Approximate), Expires: 07/09/2024 Start: 01-09-2024 End: 07-09-2024 Hemoglobin A1c/Hemoglobin.total in Blood Hemoglobin A1C Lab Routine Type 2 diabetes mellitus without complication, without long-term current use of insulin (Multi) Expected: 01/09/2024 (Approximate), Expires: 07/09/2024 [facility] Work Phone: Comment on above: Expected: 01/09/2024 (Approximate), Expires: 07/09/2024 Start: 01-09-2024 End: 07-09-2024 Lipid 1996 panel - Serum or Plasma Lipid Panel Lab Routine Mixed hyperlipidemia Expected: 01/09/2024 (Approximate), Expires: 07/09/2024 [facility] Work Phone: Comment on above: Expected: 01/09/2024 (Approximate), Expires: 07/09/2024 Start: 01-09-2024 End: 07-09-2024 Prostate specific Ag [Mass/volume] in Serum or Plasma Prostate Spec.Ag,Screen Lab Routine Screening for prostate cancer Expected: 01/09/2024 (Approximate), Expires: 07/09/2024 [facility] Work Phone: Comment on above: Expected: 01/09/2024 (Approximate), Expires: 07/09/2024 Start: 01-08-2024 End: 01-07-2026 Lower extremity venous duplex left [facility] Work Phone: Comment on above: Expected: 01/08/2024 (Approximate), Expires: 01/07/2026 Start: 01-08-2024 End: 01-08-2024 Patient encounter procedure 01/08/2024 7:00 AM EDT Office Visit [facility] [address] [place] [id number] Afshan Bennett DO [address] [facility] [place] [address] [facility] Start: 12-27-2023 Lipid panel Lipid Panel [facility] Start: 11-18-2023 COVID-19 Vaccine ( season) COVID-19 Vaccine ( season) [facility] Start: 07-13-2023 End: 01-12-2024 Basic metabolic 2000 panel - Serum or Plasma Basic Metabolic Panel Lab Routine Secondary hypertension Expected: 07/13/2023 (Approximate), Expires: 01/12/2024 [facility] Work Phone: Comment on above: Expected: 07/13/2023 (Approximate), Expires: 01/12/2024 Start: 07-13-2023 End: 01-12-2024 Hemoglobin A1c/Hemoglobin.total in Blood Hemoglobin A1C Lab Routine Type 2 diabetes mellitus without complication, without long-term current use of insulin ([facility]) Expected: 07/13/2023 (Approximate), Expires: 01/12/2024 [facility] Work Phone: Comment on above: Expected: 07/13/2023 (Approximate), Expires: 01/12/2024 Start: 07-11-2023 Lipid panel Lipid Panel [facility] Start: 07-10-2023 End: 07-10-2023 Patient encounter procedure 07/10/2023 9:40 AM EDT Office Visit [facility] [address] [place] [phone] Afshan Bennett DO [address] [facility] [place] [address] [facility] Start: 03-28-2023 Hemoglobin A1c measurement Diabetes: Hemoglobin A1C [facility] Start: 03-07-2023 [facility] Start[facility] 01-12-2023 End: 07-14-2023 Basic metabolic 2000 panel - Serum or Plasma Basic Metabolic Panel Lab Routine Type 2 diabetes mellitus without complication, without long-term current use of insulin (CMS/HCC) Expected: 01/12/2023 (Approximate), Expires: 07/14/2023 [facility] Service Area Work Phone: Comment on above: Expected: 01/12/2023 (Approximate), Expires: 07/14/2023 Start: 01-12-2023 End: 07-14-2023 Hemoglobin A1c/Hemoglobin.total in Blood Hemoglobin A1C Lab Routine Type 2 diabetes mellitus without complication, without long-term current use of insulin (CMS/HCC) Expected: 01/12/2023 (Approximate), Expires: 07/14/2023 [facility] Work Phone: Comment on above: Expected: 01/12/2023 (Approximate), Expires: 07/14/2023 Start: 01-12-2023 End: 07-14-2023 Lipid 1996 panel - Serum or Plasma Lipid panel Lab Routine Mixed hyperlipidemia Expected: 01/12/2023 (Approximate), Expires: 07/14/2023 [facility] Work Phone: Comment on above: Expected: 01/12/2023 (Approximate), Expires: 07/14/2023 Start: 11-17-2022 COVID-19 Vaccine ( season) COVID-19 Vaccine () [facility] Start: 10-09-2022 Hemoglobin A1c measurement Diabetes: Hemoglobin A1C [facility] Start: 09-30-2022 Hepatitis C antibody , confirmatory test DILATED RETINAL EXAM [facility] Start: 09-29-2022 Glaucoma screening Diabetes: R etinopathy Screening [facility] Start: 07-13-2022 EPV, Provider: Afshan Bennett, Status: Pen, Time: 9:20 AM EPV, Provider: Afshan Bennett, Status: Pen, Time: 9:20 AM [facility] Work Phone: Start: 12-21-2021 Hepatitis B screening URINE AL BUMIN:CREATININE RATIO [facility] Start: 12-21-2021 Urine screening for protein Diabetes: Urine Protein Screening [facility] Start: 11-17-2021 Influenza vaccination INFLUENZA (#1) [facility] Start: 11-03-2021 FUV, Provider: Adam Baptiste, Status: Pen, Time: 10:15 AM FUV, Provider: Adam Baptiste, Status: Pen, Time: 10:15 AM [facility] Work Phone: Start: 09-29-2021 Glaucoma screening Diabetes: R etinopathy Screening [facility] Start: 07-27-2021 EPV, Provider: Afshan Bennett, Status: Pen, Time: 7:40 AM EPV, Provider: Afshan Bennett, Status: Pen, Time: 7:40 AM [facility] Work Phone: Start: 07-04-2021 FUV, Provider: Adam Baptiste, Status: Pen, Time: 8:00 AM FUV, Provider: Adam Baptiste, Status: Pen, Time: 8:00 AM [facility] Work Phone: Start: 06-13-2021 FUV, Provider: Adam Baptiste, Status: Pen, Time: 8:00 AM FUV, Provider: Adam Baptiste, Status: Pen, Time: 8:00 AM [facility] Work Phone: Start: 05-19-2021 NPV, Provider: Adam Baptiste, Status: Pen, Time: 9:30 AM NPV, Provider: Adam Baptiste, Status: Pen, Time: 9:30 AM [facility] Work Phone: Start: 03-19-2021 ADVANCE DIRECTIVE DISCUSSION ADVANCE DIRECTIVE DISCUSSION [facility] Start: 03-08-2021 Hemoglobin A1c/Hemoglobin.total in Blood HBA1C [facility] Start: 03-03-2021 Urine screening for protein Diabetes: Urine Protein Screening [facility] Start: 06-20-2020 DTaP/Tdap/Td Vaccine s (2 - Td or Tdap) DTaP/Tdap/Td Vaccines (2 - Td or Tdap) [facility] Start: 10-04-2017 End: 10-04-2017 Appointment Appointment [facility] Work Phone: Start: 01-01-2017 End: 01-01-2017 Follow Up Appt 6 months Follow Up Appt 6 months [facility] Work Phone: Start: 01-01-2017 End: 01-01-2017 PFM PFM [facility] Work Phone: Start: 01-01-2017 End: 01-01-2017 Appointment Appointment [facility] Work Phone: Start: 05-10-2016 End: 05-10-2016 Follow Up Appt Other Follow Up Appt Other [facility] Work Phone: Start: 05-10-2016 End: 05-10-2016 PFM PFM [facility] Work Phone: Start: 03-03-2016 Hepatitis B surface antibody level LDL CHOLESTEROL [facility] Start: 11-10-2015 End: 04-28-2016 Follow Up Appt 6 months Follow Up Appt 6 months [facility] Work Phone: Start: 11-10-2015 End: 04-28-2016 MMM MMM [facility] Work Phone: Start: 2015 RSV High Risk: (Elde rly (60+) or Population) (1 - Risk 60-74 years 1-dose series) RSV High Risk: (Elderly (60+) or Population) (1 - Risk 60-74 years 1-dose series) [facility] Start: 2015 RSV patient s and/or patients aged 60+ years (1 - 1-dose 60+ series) RSV patients and/or patients aged 60+ years (1 - 1-dose 60+ series) [facility] Start: 03-04-2015 End: 03-04-2015 Follow Up Appt 6 months Follow Up Appt 6 months [facility] Work Phone: Start: 03-04-2015 End: 03-04-2015 Follow Up Appt Other Follow Up Appt Other [facility] Work Phone: Start: 03-04-2015 End: 03-04-2015 PFM PFM [facility] Work Phone: Start: 09-07-2014 End: 03-03-2015 *Hepatic Function Panel *Hepatic Function Panel [facility] Work Phone: Start: 09-07-2014 End: 09-07-2014 Ecg routine ecg w/least 12 lds w/i&r EKG (In office) [facility] Work Phone: Start: 09-07-2014 End: 09-07-2014 Follow Up Appt 6 months Follow Up Appt 6 months [facility] Work Phone: Start: 09-07-2014 End: 03-03-2015 Lipid panel [AGGREGATE] *Lipid Profile CC PCP [facility] Work Phone: Start: 09-07-2014 End: 09-07-2014 MMM MMM [facility] Work Phone: Start: 07-28-2014 Pneumococcal Vaccine : 65+ Years (2 - PCV) Pneumococcal Vaccine: 65+ Years (2 - PCV) [facility] Start: 03-10-2014 End: 03-10-2014 Follow Up Appt 6 months Follow Up Appt 6 months [facility] Work Phone: Start: 03-10-2014 End: 03-10-2014 PFM PFM [facility] Work Phone: Start: 12-10-2013 End: 12-10-2013 Follow Up Appt 3 months Follow Up Appt 3 months [facility] Work Phone: Start: 12-10-2013 End: 12-10-2013 Follow Up Appt Other Follow Up Appt Other [facility] Work Phone: Start: 12-10-2013 End: 12-10-2013 MMM MMM [facility] Work Phone: Start: 09-11-2013 End: 09-11-2013 Follow Up Appt 3 months Follow Up Appt 3 months [facility] Work Phone: Start: 09-11-2013 End: 09-11-2013 Follow Up Appt Other Follow Up Appt Other [facility] Work Phone: Start: 09-11-2013 End: 09-11-2013 PFM PFM [facility] Work Phone: Start: 07-24-2013 End: 08-26-2013 Cardiac Rehab Cardiac Rehab [facility] Work Phone: Start: 07-24-2013 End: 07-25-2013 Cardiovascular stress test using treadmill Treadmill stress test (no imaging) [facility] Work Phone: Start: 07-24-2013 End: 07-24-2013 Ecg routine ecg w/least 12 lds w/i&r EKG (In office) [facility] Work Phone: Start: 07-24-2013 End: 07-24-2013 Follow Up Appt 6 weeks Follow Up Appt 6 weeks [facility] Work Phone: Start: 07-24-2013 End: 07-24-2013 MMM MMM [facility] Work Phone: Start: 05-30-2010 PROSTATE CANCER SCREENING DISCUSSION PROSTATE CANCER SCREENING DISCUSSION [facility] Start: 05-30-2005 SHINGRIX VACCINE (1 of 2) SHINGRIX VACCINE (1 of 2) [facility] Start: 05-30-2005 Zoster Vaccines (1 of 2) Zoster Vacc yudith (1 of 2) [facility] Start: 05-30-2000 COLOGUARD (FIT-DNA) COLOGUARD (FIT-D NA) [facility] Start: 05-30-2000 Colonoscopy COLONOSCOPY [facility] Start: 05-30-2000 COLORECTAL CANCER SCREENING COLORECTAL CANCER SCREENING [facility] Start: 05-30-[address] COLONOGRAPHY [facility] Start: 05-30-2000 FECAL OCCULT BLOOD FECAL OCCULT BLOO D [facility] Start: 05-30-[address] [facility] Start: 05-30-1974 Urine microalbumin profile DTAP,TDAP,TD (1 - Tdap) [facility] Start: 05-30-1973 ANNUAL PCP TEAM NARCOTICS INVESTIGATOR KATLYN DISEASE VISIT ANNUAL PCP TEAM CHRONIC DISEASE VISIT [facility] Start: 05-30-1973 BP CONTROLLED (<130/80) BP CONTROLLE D (<130/80) [facility] Start: 05-30-1973 HEPATITIS C SCREENING HEPATITIS C [facility] Start: 05-30-1973 Hepatitis C screening Hepatitis C [facility] Start: 1967 Adult depression screening assessment DEPRESSION SCREENING [facility] Start: 05-30-1965 3 comp foot exam completed DIABETIC FOOT EXAM [facility] Start: 05-30-1965 Diabetic foot examination Diabetes: Foot Exam [facility] Start: 05-30-1965 Glaucoma screening Diabetes: R etinopathy Screening [facility] Start: 05-30-1965 Ophthalmic examinati on and evaluation Diabetes: Retinopathy Screening [facility] Start: 05-30-1961 PNEUMOCOCCAL: 65+ (1 - PCV) PNEUMOCOCCAL: 65+ (1 - PCV) [facility] Start: 1955 COVID-19 VACCINE (#1) COVID-19 VACCI NE (#1) [facility] Start: 1955 ABDOMINAL AORTIC ANEURYSM SCREENING ABDOMINAL AORTIC ANEURYSM SCREENING [facility] Start: 1955 Screening for malign ant neoplasm of colon [facility] Start: 1955 Yearly Adult Physical [facility]ly [facility] Colonoscopy [facility] Patient referral [facility] Work Phone: Immunizations Immunization Date Immunization Notes Care Provider Emma galo 04-15-2024 zoster vaccine recombinant [employer] DO Work Phone: [facility] 12-20-2023 Flu vaccine, quadrivalent, high-dose, preservative free, age 65y+ (FLUZONE) Afshan Royal DO Work Phone: [facility] 01-11-2023 Pneumococcal conjuga te vaccine, 20-valent (PREVNAR 20) [employer] DO Work Phone: [facility] Work Phone: 12-22-2022 Flu vaccine, quadrivalent, high-dose, preservative free, age 65y+ (FLUZONE) [employer] Work Phone: [facility] Work Phone: 12-26-2021 influenza, seasonal, injectable Afshan S [employer] Work Phone: [employer] Work Phone: Comment on above: Series: 01-06-2021 influenza, seasonal, injectable Afshan S [employer] Work Phone: [facility] Work Phone: Comment on above: Series: 12-23-2020 Fluzone High-Dose Quadrivalent 0.7 ML Intramuscular Suspension Prefilled Syringe [employer] Work Phone: [employer] Work Phone: 12-23-2020 influenza virus vacc ine, unspecified formulation DR ALINA BANKS MD [facility] 01-08-2020 influenza virus vacc ine, unspecified formulation DR ALINA BANKS MD [facility] 01-08-2020 influenza, seasonal, injectable Afshan S [employer] Work Phone: [facility] Work Phone: Comment on above: Series: 01-08-2020 Seasonal, quadrivale nt, recombinant, injectable influenza vaccine, preservative free Afshan S [employer] Work Phone: [facility] Work Phone: Comment on above: Series: 01-13-2019 influenza virus vacc ine, unspecified formulation DR ALINA BANKS MD [facility] 01-13-2019 influenza, injectabl e, quadrivalent, preservative free Afshan [facility] Work Phone: Comment on above: Series: 01-13-2019 influenza, seasonal, injectable [employer]an [employer] DO Work Phone: [facility] Work Phone: 02-19-2018 influenza virus vacc ine, unspecified formulation DR ALINA BANKS MD [facility] 02-19-2018 influenza, injectabl e, quadrivalent, preservative free Afshan S [employer] Work Phone: [facility] Work Phone: 07-28-2013 pneumococcal polysaccharide vaccine, 23 valent Afshan [facility] Work Phone: Comment on above: Series: 06-20-2010 tetanus toxoid, redu saw diphtheria toxoid, and acellular pertussis vaccine, adsorbed Afshan S [employer] Work Phone: [facility] Work Phone: Comment on above: Series: 06-17-2010 tetanus toxoid, redu saw diphtheria toxoid, and acellular pertussis vaccine, adsorbed [facility] Work Phone: Payers Date Payer Category Payer Self-pay [id number] 2024 Unknown [id number] 2022 Private Health Insurance [id number] 2022 Unknown 2022 Unknown [id number] 2020 Unknown [facility] PPO [employer] [id number] 2020-Present [address] [place] [address] PPO [id number] 1955 Unknown [id number] .356 1955 Unknown [id number] .356 1955 Unknown [id number] [id number] .356 1955 Unknown [id number] .1245 1955 Unknown [id number] [id number] .1245 1955 Unknown [id number] [id number] .1243 1955 Unknown [id number] .1244 1955 Unknown [id number] [id number] .1244 Unknown [id number] Unknown [id number] [id number] .462 Unknown [id number] [id number] .462 Unknown [id number] [id number] .462 Unknown [id number] [id number] .462 Unknown [id number] [id number] .462 Unknown [id number] .462 Social History Date Type Detail Facility Start: 1955 Sex Assigned At Not on file [facility] Start: 07-13-2022 End: 07-08-2024 Consumes alcohol Consumes alcohol [facility] Work Phone: Start: 03-28-2021 End: 04-10-2024 Ex-smoker (finding) [facility] Start: 1955 Sex Assigned At Male [facility] Start: 08-01-2021 End: 03-06-2023 Tobacco smoking status CAIS Unknown if ever smoked [facility] Start: 10-12-2015 Occasional [facility] Start: 10-12-2015 None [facility] Start: 10-12-2015 Spouse/ Signif icant Other [facility] Start: 06-28-2018 Non-smoker [facility] Start: 02-20-2020 End: 07-13-2022 Tobacco use and exposure Smokeless tobacco non-user [facility] Work Phone: Start: 07-13-2022 Tobacco smoking status NHIS Never smoked tobacco [facility] Start: 07-13-2022 End: 07-08-2024 Alcohol intake Current drinker of alcohol (finding) [facility] Work Phone: Start: 07-13-2022 End: 07-08-2024 Tobacco use panel [facility] Work Phone: Start: 07-03-2022 End: 07-08-2024 Exposure to SARS-CoV-2 (event) Not sure [facility] NEGATED: Highlighted row - - [facility] Work Phone: Medical Equipment Procedure Code Equipment Code Equipment Origin al Text Equipment Identifier Dates BD Pen Needle Mi ni U/F 31G X 5 MM USE DIRECTED. Refills: 0 DO Start : 24-Aug-2017 Active Start: 08-24-2017 OneTouch Verio I n Vitro Strip TEST 4 TIMES DAILY. Refills: 0 DO Start : 26-Oct-2017 Active Start: 10-26-2017 1 strip 2 times a day. Please dispense ONE TOUCH VERIO [id number] Start: 07-27-2022 1 each 2 times a day. [id number] Start: 07-27-2022 USE 1 STRIP TO C HECK GLUCOSE TWICE DAILY [id number] Start: 02-28-2023 USE 2 PEN NEEDLE S DAILY [id number] Start: 06-05-2023 End: 07-08-2024 USE TO CHECK GLU COSE TWICE DAILY [id number] Start: 11-01-2023 End: 07-08-2024 USE TO CHECK GLU COSE TWICE DAILY [id number] Start: 07-08-2024 Inject 100 each under the skin once daily. [id number] Start: 07-08-2024 Goals Date Patient Goal Desired Activity /State Functional Status Date Assessment Result Facility 07-08-2024 Patient Health Questionnaire 2 item (PHQ-2) [Reported] [facility] Work Phone: NEGATED: Highlighted row Functional performance Functional status health issues are not documented Disease [facility] Work Phone: Mental Status Date Assessment Result Facility 03-07-2023 Cognitive function Level Of Cons ciousness Drowsy [facility] Work Phone: 03-07-2023 Cognitive function Voice/Name [facility] Work Phone: NEGATED: Highlighted row Cognitive function [Interpretation] Cognitive status health issues are not documented Disease -[facility] Work Phone: Clinical Notes 06-17-2013 to 07-08-2024 Assessment & Plan Note - Afshan Bennett, DO - 07/08/2024 7:00 AM EDTAssessment & Plan Note - Afshan Bennett, DO - 07/08/2024 7:00 AM EDTAfshan Bennett DO - 07/08/2024 7:00 AM EDT Note Date & Type Note Facility 07-08-2024 Evaluation + Plan note Associated Problem(s): Hypertension - Currently well-controlled so we will continue with his current antihypertensive regimen Orders: lisinopril 5 mg tablet; Take 1 tablet (5 mg) by mouth once daily. metoprolol succinate XL (Toprol-XL) 25 mg 24 hr tablet; Take 1 tablet (25 mg) by mouth once daily. [facility] Work Phone: 07-08-2024 Evaluation + Plan note Associated Problem(s): Hyperlipidemia - We will be checking a lipid profile just prior to his next follow-up visit Orders: atorvastatin (Lipitor) 20 mg tablet; Take 1 tablet (20 mg) by mouth once daily. Lipid Panel; Future [facility] Work Phone: 07-08-2024 Evaluation + Plan note Associated Problem(s): Type 2 diabetes mellitus - Overall his blood glucose levels are well-controlled as evidenced by hemoglobin A1c of 7.1 -He will go for urine microalbumin at his earliest convenience and have agreed to contact him with results Orders: blood sugar diagnostic (OneTouch Verio test strips); USE TO CHECK GLUCOSE TWICE DAILY pen needle, diabetic (BD Ultra-Fine Short Pen Needle) 31 gauge x 5/16" needle; Inject 100 each under the skin once daily. Albumin-Creatinine Ratio, Urine Random; Future Basic Metabolic Panel; Future Hemoglobin A1C; Future [facility] Work Phone: 07-08-2024 Evaluation + Plan note Associated Problem(s): Type 2 diabetes mellitus - Overall his blood glucose levels are well-controlled as evidenced by hemoglobin A1c of 7.1 -He will go for urine microalbumin at his earliest convenience and have agreed to contact him with results Orders: dulaglutide (Trulicity) 3 mg/0.5 mL injection; Inject 3 mg under the skin 1 (one) time per week. glipiZIDE (Glucotrol) 5 mg tablet; Take 1 tablet (5 mg) by mouth 2 times a day. insulin glargine-yfgn (Semglee,insulin glarg-yfgn,Pen) 100 unit/mL (3 mL) pen; INJECT 34 UNITS SUBCUTANEOUSLY EVERY 24 HOURS. TAKE DIRECTED PER INSULIN INSTRUCTIONS metFORMIN (Glucophage) 1,000 mg tablet; Take 1 tablet (1,000 mg) by mouth 2 times daily (morning and late afternoon). [facility] Work Phone: 07-08-2024 Evaluation + Plan note Associated Problem(s): Pain and swelling of left lower leg (Resolved 07/08/2024) [facility] Work Phone: 07-08-2024 Evaluation + Plan note Associated Problem(s): Screening for prostate cancer Orders: Prostate Spec.Ag,Screen; Future Patient instructions As we discussed I ordered a urine test to check for protein in your urine. This is a way to make sure your kidneys are doing okay in the face of diabetes. Once the results are known we will contact you. Is also remember to drink plenty of water especially around the time of your blood draw in 6 months. I sent refills for all your medicines and please let us know if there are any issues with the pharmacy. If everything goes according to plan we will see you back in 6 months and please remember that you will need to get fasting lab work done prior to that visit [facility] Work Phone: 07-08-2024 History of Present illness Narrative Subjective Reason for Visit: Clay Owens is an 69 y.o. male here for a Medicare Wellness visit. Reviewed all medications by prescribing practitioner or clinical pharmacist (such as prescriptions, OTCs, herbal therapies and supplements) and documented in the medical record. HPI He is here today for his routine 6-month checkup. He is looking well and for the most part reports feeling well. We did conduct a full review of systems. His blood pressure is within acceptable range. We also reviewed his most recent laboratory test results. Overall I am very pleased with his numbers. His hemoglobin A1c is quite satisfactory at 7.1. We talked about getting a urine microalbumin and he states he will be able to go later this week to the lab to submit a urine specimen. He also appeared to be slightly dehydrated when he went for his lab last time and we remind him drink plenty of water around the time of his next blood draw. We also reviewed his medications in detail and we are providing refills today. He also had 1 fall but overall he has not had concerns about his balance and he did not have any serious injuries. I will summarize everything in a problem based format. Patient Care Team: Afshan Bennett DO as PCP - General Review of Systems Constitutional: Negative for fatigue. Respiratory: Negative for cough, chest tightness, shortness of breath and wheezing. Cardiovascular: Negative for chest pain, palpitations and leg swelling. Gastrointestinal: Negative for abdominal pain, blood in stool, diarrhea, nausea and vomiting. Musculoskeletal: Negative for arthralgias and back pain. Objective Vitals: BP 130/72 Pulse 78 Ht 1.829 m (6' 0.01") Wt 119 kg (262 lb 12.8 oz) SpO2 98% BMI 35.63 kg/m Physical Exam Vitals and nursing note reviewed. Constitutional: General: He is not in acute distress. Appearance: Normal appearance. HENT: Head: Normocephalic and atraumatic. Eyes: Conjunctiva/sclera: Conjunctivae normal. Cardiovascular: Rate and Rhythm: Normal rate and regular rhythm. Heart sounds: Normal heart sounds. Pulmonary: Effort: No respiratory distress. Breath sounds: No wheezing. Abdominal: Palpations: Abdomen is soft. Tenderness: There is no abdominal tenderness. There is no guarding. Musculoskeletal: General: No swelling. Normal range of motion. Skin: General: Skin is warm and dry. Neurological: General: No focal deficit present. Mental Status: He is alert and oriented to person, place, and time. Psychiatric: Behavior: Behavior normal. Recent Results (from the past 4 weeks) Basic Metabolic Panel Collection Time: 07/04/24 7:05 AM Result Value Ref Range GLUCOSE 114 (H) 65 - 99 mg/dL UREA NITROGEN (BUN) 25 7 - 25 mg/dL CREATININE 1.31 0.70 - 1.35 mg/dL EGFR 59 (L) > OR = 60 mL/min/1.73m2 BUN/CREATININE RATIO SEE NOTE: 6 - 22 (calc) SODIUM 138 135 - 146 mmol/L POTASSIUM 4.9 3.5 - 5.3 mmol/L CHLORIDE 104 98 - 110 mmol/L CARBON DIOXIDE 22 20 - 32 mmol/L ELECTROLYTE BALANCE 12 7 - 17 mmol/L (calc) CALCIUM 9.5 8.6 - 10.3 mg/dL Hemoglobin A1C Collection Time: 07/04/24 7:05 AM Result Value Ref Range HEMOGLOBIN A1c 7.1 (H) <5.7 % eAG (mg/dL) 157 mg/dL eAG (mmol/L) 8.7 mmol/L Assessment & Plan Mixed hyperlipidemia - We will be checking a lipid profile just prior to his next follow-up visit Orders: atorvastatin (Lipitor) 20 mg tablet; Take 1 tablet (20 mg) by mouth once daily. Lipid Panel; Future Type 2 diabetes mellitus with other specified complication, without long-term current use of insulin - Overall his blood glucose levels are well-controlled as evidenced by hemoglobin A1c of 7.1 -He will go for urine microalbumin at his earliest convenience and have agreed to contact him with results Orders: blood sugar diagnostic ([employer] Verio test strips); USE TO CHECK GLUCOSE TWICE DAILY pen needle, diabetic (BD Ultra-Fine Short Pen Needle) 31 gauge x 5/16" needle; Inject 100 each under the skin once daily. Albumin-Creatinine Ratio, Urine Random; Future Basic Metabolic Panel; Future Hemoglobin A1C; Future Type 2 diabetes mellitus without complication, without long-term current use of insulin - Overall his blood glucose levels are well-controlled as evidenced by hemoglobin A1c of 7.1 -He will go for urine microalbumin at his earliest convenience and have agreed to contact him with results Orders: dulaglutide (Trulicity) 3 mg/0.5 mL injection; Inject 3 mg under the skin 1 (one) time per week. glipiZIDE (Glucotrol) 5 mg tablet; Take 1 tablet (5 mg) by mouth 2 times a day. insulin glargine-yfgn (Semglee,insulin glarg-yfgn,Pen) 100 unit/mL (3 mL) pen; INJECT 34 UNITS SUBCUTANEOUSLY EVERY 24 HOURS. TAKE DIRECTED PER INSULIN INSTRUCTIONS metFORMIN (Glucophage) 1,000 mg tablet; Take 1 tablet (1,000 mg) by mouth 2 times daily (morning and late afternoon). Secondary hypertension - Currently well-controlled so we will continue with his current antihypertensive regimen Orders: lisinopril 5 mg tablet; Take 1 tablet (5 mg) by mouth once daily. metoprolol succinate XL (Toprol-XL) 25 mg 24 hr tablet; Take 1 tablet (25 mg) by mouth once daily. Pain and swelling of left lower leg Screening for prostate cancer Orders: Prostate Spec.Ag,Screen; Future Patient instructions As we discussed I ordered a urine test to check for protein in your urine. This is a way to make sure your kidneys are doing okay in the face of diabetes. Once the results are known we will contact you. Is also remember to drink plenty of water especially around the time of your blood draw in 6 months. I sent refills for all your medicines and please let us know if there are any issues with the pharmacy. If everything goes according to plan we will see you back in 6 months and please remember that you will need to get fasting lab work done prior to that visit documented in this encounter [facility] Work Phone: 07-08-2024 Instructions Afshan Bennett DO - 07/08/2024 7:00 AM EDT Patient instructions As we discussed I ordered a urine test to check for protein in your urine. This is a way to make sure your kidneys are doing okay in the face of diabetes. Once the results are known we will contact you. Is also remember to drink plenty of water especially around the time of your blood draw in 6 months. I sent refills for all your medicines and please let us know if there are any issues with the pharmacy. If everything goes according to plan we will see you back in 6 months and please remember that you will need to get fasting lab work done prior to that visit documented in this encounter [facility] Work Phone: 07-08-2024 Miscellaneous Notes Associated Problem(s): Hypertension - Currently well-controlled so we will continue with his current antihypertensive regimen Orders: lisinopril 5 mg tablet; Take 1 tablet (5 mg) by mouth once daily. metoprolol succinate XL (Toprol-XL) 25 mg 24 hr tablet; Take 1 tablet (25 mg) by mouth once daily. Associated Problem(s): Hyperlipidemia - We will be checking a lipid profile just prior to his next follow-up visit Orders: atorvastatin (Lipitor) 20 mg tablet; Take 1 tablet (20 mg) by mouth once daily. Lipid Panel; Future Associated Problem(s): Type 2 diabetes mellitus - Overall his blood glucose levels are well-controlled as evidenced by hemoglobin A1c of 7.1 -He will go for urine microalbumin at his earliest convenience and have agreed to contact him with results Orders: blood sugar diagnostic ([employer] Verio test strips); USE TO CHECK GLUCOSE TWICE DAILY pen needle, diabetic (BD Ultra-Fine Short Pen Needle) 31 gauge x 5/16" needle; Inject 100 each under the skin once daily. Albumin-Creatinine Ratio, Urine Random; Future Basic Metabolic Panel; Future Hemoglobin A1C; Future Associated Problem(s): Type 2 diabetes mellitus - Overall his blood glucose levels are well-controlled as evidenced by hemoglobin A1c of 7.1 -He will go for urine microalbumin at his earliest convenience and have agreed to contact him with results Orders: dulaglutide (Trulicity) 3 mg/0.5 mL injection; Inject 3 mg under the skin 1 (one) time per week. glipiZIDE (Glucotrol) 5 mg tablet; Take 1 tablet (5 mg) by mouth 2 times a day. insulin glargine-yfgn (Semglee,insulin glarg-yfgn,Pen) 100 unit/mL (3 mL) pen; INJECT 34 UNITS SUBCUTANEOUSLY EVERY 24 HOURS. TAKE DIRECTED PER INSULIN INSTRUCTIONS metFORMIN (Glucophage) 1,000 mg tablet; Take 1 tablet (1,000 mg) by mouth 2 times daily (morning and late afternoon). Associated Problem(s): Pain and swelling of left lower leg (Resolved 07/08/2024) Associated Problem(s): Screening for prostate cancer Orders: Prostate Spec.Ag,Screen; Future Patient instructions As we discussed I ordered a urine test to check for protein in your urine. This is a way to make sure your kidneys are doing okay in the face of diabetes. Once the results are known we will contact you. Is also remember to drink plenty of water especially around the time of your blood draw in 6 months. I sent refills for all your medicines and please let us know if there are any issues with the pharmacy. If everything goes according to plan we will see you back in 6 months and please remember that you will need to get fasting lab work done prior to that visit documented in this encounter [facility] Work Phone: 04-14-2024 Note [facility] Medical Records Department [address] [place] [id number] History Physical Exam 04/14/24 0644 MR#: [id number] Acct: [id number] Name: CLAY OWENS Rep #: [id number] : 1955 68 From: Raj Chapin DO PCP: Dr. Afshan Bennett MD Status:[facility] Location: [place] [address] HPI - General General Date of Admission: 04/14/24 Date of Service: 04/14/24 Chief Complaint: Screening colonoscopy HPI Narrative CLAY OWENS, is a 68 M who present today for screening colonoscopy. He does a history of polyps and his last colonoscopy was over 10 years ago. 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 Home Medications ???Medication ???Instructions ???Recorded ???Last Taken ???Type aspirin 81 mg chewable tablet 81 mg PO DAILY@0800 10/11/15 03/07/23 History atorvastatin 20 mg tablet 20 mg PO QHS 10/11/15 03/06/23 History metoprolol succinate 25 mg 25 mg PO DAILY #30 tabs 08/17/17 03/06/23 Rx tablet,extended release 24 hr lisinopril 5 mg tablet 5 mg PO DAILY #30 tabs 09/10/17 03/07/23 Rx glipizide 5 mg tablet 5 mg PO BID 06/25/18 Unknown History cholecalciferol (vitamin D3) 25 25 mcg PO DAILY 09/08/20 03/01/23 History mcg (1,000 unit) tablet (Vitamin D3) dulaglutide 1.5 mg/0.5 mL 1.5 mg subcut FLEMING 02/15/21 Unknown History subcutaneous pen injector metformin 500 mg tablet,extended 1,000 mg PO BID 02/15/21 Unknown History release 24 hr ticagrelor 90 mg tablet (Brilinta) 90 mg PO BID #180 tabs 08/01/21 04/09/24 Rx insulin detemir U-100 100 unit/mL 35 unit subcut QHS 08/07/23 Unknown History (3 mL) subcutaneous pen nitroglycerin 0.4 mg sublingual 0.4 mg sublingual Q5-15M PRN chest 08/07/23 Unknown Rx tablet (Nitrostat) pain #25 tabs sodium,potassium,mag sulfates 17.5 See Rx Instructions PO .COMPLEX 02/07/24 Unknown Rx gram-3.13 gram-1.6 gram oral soln #354 mL (Suprep Bowel Prep Kit) Allergy/AdvReac Type Severity Reaction Status Date / Time No Known Allergies Allergy Verified 04/14/24 06:05 Family History Mother CAD (coronary artery disease) Father Cancer Brother Afib Surgical History History of left hip replacement History of cardiac catheterization History of coronary artery stent placement Hx of colonoscopy ( 06/2013) Presence of coronary angioplasty implant and graft ( 07/14/13) H/O: vasectomy Social History Smoking Status: Former smoker how long ago did patient quit smokin years ago alcohol intake: current alcohol intake frequency: a few times a month Alcohol type: beer substance use type: does not use caffeine: Yes Type: coffee Number of servings: 5 ROS Constitutional Constitutional: Denies fatigue, fever(s), poor appetite, weight gain or weight loss Gastrointestinal Gastrointestinal: Denies belching, bloating, change in bowel habits, change in stool character, chewing difficulty, coffee ground emesis, constipation, cramping, diarrhea, dyspepsia, dysphagia, early satiety, excessive flatus, fecal incontinence, heartburn, hematemesis, hematochezia, hemorrhoids, loose stools, melena, nausea, odynophagia, rectal bleeding, tenesmus, vomiting or weight changes Vital Signs Vital Signs Vital Signs: 04/14/24 06:07 04/14/24 06:07 04/14/24 06:32 Temperature 97.4 F L 97.4 F L Temperature Source Temporal Pulse Rate 76 76 Respiratory Rate 16 16 Respiratory Pattern Normal Blood Pressure 132/66 H 132/66 H Blood Pressure Mean 88 Blood Pressure Source Monitor Blood Pressure Position Semi-Fowlers Blood Pressure Location Left Arm Pulse Ox 97 97 Oxygen Delivery Method Room Air Weight Weight: 262 lb 5.601 oz Body Mass Index (BMI) 35.6 Physical Exam Const alert, oriented x3, no apparent distress and healthy appearing General Appearance: cooperative GI normal to inspection, nondistended, normoactive bowel sounds, soft to palpation, non-tender and non- (more content not included)... [facility] 01-08-2024 Evaluation + Plan note Associated Problem(s): Pain and swelling of left lower leg -Unfortunately with his presentation today it is possible that he may have suffered a DVT -I am sending him for a venous Doppler which will hopefully be done today -If it is not scheduled for today then he knows to get the blood thinner temporarily until we know what is going on -I am outlining specific instructions [facility] Work Phone: 01-08-2024 Miscellaneous Notes Associated Problem(s): Pain and swelling of left lower leg -Unfortunately with his presentation today it is possible that he may have suffered a DVT -I am sending him for a venous Doppler which will hopefully be done today -If it is not scheduled for today then he knows to get the blood thinner temporarily until we know what is going on -I am outlining specific instructions Associated Problem(s): Type 2 diabetes mellitus -Hemoglobin A1c is fantastic at 7.1 and we will continue with his current medical regimen Associated Problem(s): Hyperlipidemia -Overall cholesterol is relatively good but he will work on triglycerides as well as healthy diet, exercise, and weight loss -I am sending him a handout via [employer] on ways to lower triglyceride Associated Problem(s): Hypertension -Currently very well-controlled so we will continue with his current medical regimen documented in this encounter [facility] Work Phone: 01-08-2024 Evaluation + Plan note Associated Problem(s): Type 2 diabetes mellitus -Hemoglobin A1c is fantastic at 7.1 and we will continue with his current medical regimen [facility] Work Phone: 01-08-2024 Evaluation + Plan note Associated Problem(s): Hyperlipidemia -Overall cholesterol is relatively good but he will work on triglycerides as well as healthy diet, exercise, and weight loss -I am sending him a handout via [employer] on ways to lower triglyceride [facility] Work Phone: 01-08-2024 Evaluation + Plan note Associated Problem(s): Hypertension -Currently very well-controlled so we will continue with his current medical regimen [facility] Work Phone: 01-08-2024 History of Present illness Narrative Subjective Patient ID: Clay Owens is a 68 y.o. male who presents for No chief complaint on file.. HPI He is here today for his routine checkup. He is looking well. Unfortunately he developed rather abrupt onset of swelling in his left lower leg on Sunday. He states he is also felt some calf cramping. We do see a leg size discrepancy and therefore I am sending him for a venous Doppler. We discussed what to do in regards to test results etc. and I will dictate specific instructions. We discussed them today as well. We talked about seeking medical attention in the future if he has sudden swelling at [facility]. He understands that we are worried about a blood clot. We did conduct a full review of systems. His blood pressure was excellent today. I am very pleased with his laboratory test results and his hemoglobin A1c came back at 7.1. His cholesterol is relatively good with the exception of high triglycerides and we talked about genetic influences as well as dietary influences. I am sending him a handout via [employer] on ways to lower triglycerides. He does follow with a drafting clerk for his foot and ankle. We talked about venous insufficiency. We also filled out his biometric health screening form for 2023 and we will fax that to the [facility]. We have provided refills on all of his medicines and if everything goes according to plan we will see him back in 6 months for another checkup and sooner if any problems. Review of Systems Constitutional: Negative for fatigue. Respiratory: Negative for cough, shortness of breath and wheezing. Cardiovascular: Negative for chest pain, palpitations and leg swelling. Gastrointestinal: Negative for abdominal pain, blood in stool, diarrhea, nausea and vomiting. Musculoskeletal: Negative for back pain. Objective Physical Exam Vitals and nursing note reviewed. Constitutional: General: He is not in acute distress. Appearance: Normal appearance. HENT: Head: Normocephalic and atraumatic. Eyes: Conjunctiva/sclera: Conjunctivae normal. Cardiovascular: Rate and Rhythm: Normal rate and regular rhythm. Heart sounds: Normal heart sounds. Pulmonary: Effort: No respiratory distress. Breath sounds: No wheezing. Abdominal: Palpations: Abdomen is soft. Tenderness: There is no abdominal tenderness. There is no guarding. Musculoskeletal: General: No swelling. Normal range of motion. Skin: General: Skin is warm and dry. Neurological: General: No focal deficit present. Mental Status: He is alert and oriented to person, place, and time. Psychiatric: Behavior: Behavior normal. Recent Results (from the past 4 weeks) Basic Metabolic Panel Collection Time: 01/01/24 7:59 AM Result Value Ref Range Glucose 115 (H) 74 - 99 mg/dL Sodium 139 136 - 145 mmol/L Potassium 4.6 3.5 - 5.3 mmol/L Chloride 104 98 - 107 mmol/L Bicarbonate 25 21 - 32 mmol/L Anion Gap 15 10 - 20 mmol/L Urea Nitrogen 19 6 - 23 mg/dL Creatinine 1.24 0.50 - 1.30 mg/dL eGFR 63 >60 mL/min/1.73m*2 Calcium 9.1 8.6 - 10.3 mg/dL Hemoglobin A1C Collection Time: 01/01/24 7:59 AM Result Value Ref Range Hemoglobin A1C 7.1 (H) See comment % Estimated Average Glucose 157 Not Established mg/dL Lipid Panel Collection Time: 01/01/24 7:59 AM Result Value Ref Range Cholesterol 102 0 - 199 mg/dL HDL-Cholesterol 33.0 mg/dL Cholesterol/HDL Ratio 3.1 LDL Calculated 28 <=99 mg/dL VLDL 41 (H) 0 - 40 mg/dL Triglycerides 203 (H) 0 - 149 mg/dL Non HDL Cholesterol 69 0 - 149 mg/dL Prostate Spec.Ag,Screen Collection Time: 01/01/24 7:59 AM Result Value Ref Range Prostate Specific Antigen,Screen 0.54 <=4.00 ng/mL Assessment/Plan Problem List Items Addressed This Visit ICD-10-CM Hyperlipidemia E78.5 -Overall cholesterol is relatively good but he will work on triglycerides as well as healthy diet, exercise, and weight loss -I am sending him a handout via [employer] on ways to lower triglyceride Relevant Medications atorvastatin (Lipitor) 20 mg tablet Hypertension I10 -Currently very well-controlled so we will continue with his current medical regimen Relevant Medications lisinopril 5 mg tablet metoprolol succinate XL (Toprol-XL) 25 mg 24 hr tablet Type 2 diabetes mellitus E11.9 -Hemoglobin A1c is fantastic at 7.1 and we will continue with his current medical regimen Relevant Medications dulaglutide (Trulicity) 3 mg/0.5 mL pen injector (Start on 01/13/2024) glipiZIDE (Glucotrol) 5 mg tablet insulin glargine-yfgn (Semglee,insulin glarg-yfgn,Pen) 100 unit/mL (3 mL) Pen metFORMIN (Glucophage) 1,000 mg tablet Other Relevant Orders Basic Metabolic Panel Hemoglobin A1C Pain and swelling of left lower leg - Primary M79.662, M79.89 -Unfortunately with his presentation today it is possible that he may have suffered a DVT -I am sending him for a venous Doppler which will hopefully be done today -If it is not scheduled for today then he knows to get the blood thinner temporarily until we know what is going on -I am outlining specific instructions Relevant Medications rivaroxaban (Xarelto) 20 mg tablet Other Relevant Orders Lower extremity venous duplex left Patient instructions As we discussed I am asking the staff to schedule a venous Doppler of your left lower extremity NETTIE. My hope is that they can get it done today but if they cannot I want to go to the pharmacy and start a blood thinner called Xarelto. You will take this once a day until your venous Doppler has been completed. As we discussed in detail if your Doppler comes back negative for a clot you will not need to take Xarelto anymore. I do recommend you watch her sodium intake and start wearing compression stockings. If this is not helpful please contact me If the venous Doppler is positive then you will be referred to immediately to the anticoagulation clinic at [facility]. They are a pharmacist will come up with a blood thinner that is appropriate for your blood clot and will also be approved on your medical plan Please call me if things or not going according to plan I also sent you a handout via [employer] on high triglycerides and ways to improve it with your diet We will also forward a copy of your biometric health screening form to the [facility] and scan a copy in your chart Please do not hesitate to reach out if you have any concerns and otherwise we will see you back in 6 months for another checkup. Please remember to go for fasting lab work prior to that visit Afshan Bennett DO documented in this encounter [facility] Work Phone: 01-08-2024 Instructions Afshan Bennett DO - 01/08/2024 7:00 AM EDT As we discussed I am asking the staff to schedule a venous Doppler of your left lower extremity NETTIE. My hope is that they can get it done today but if they cannot I want to go to the pharmacy and start a blood thinner called Xarelto. You will take this once a day until your venous Doppler has been completed. As we discussed in detail if your Doppler comes back negative for a clot you will not need to take Xarelto anymore. I do recommend you watch her sodium intake and start wearing compression stockings. If this is not helpful please contact me If the venous Doppler is positive then you will be referred to immediately to the anticoagulation clinic at [facility]. They are a pharmacist will come up with a blood thinner that is appropriate for your blood clot and will also be approved on your medical plan Please call me if things or not going according to plan I also sent you a handout via [employer] on high triglycerides and ways to improve it with your diet We will also forward a copy of your biometric health screening form to the [facility] and scan a copy in your chart Please do not hesitate to reach out if you have any concerns and otherwise we will see you back in 6 months for another checkup. Please remember to go for fasting lab work prior to that visit documented in this encounter [facility] Work Phone: 07-10-2023 Evaluation + Plan note Associated Problem(s): Type 2 diabetes mellitus (Multi) -He will be going for hemoglobin A1c soon and I have agreed to contact him with results -He will continue with metformin 1000 mg twice daily -He is also on Semglee as directed and also taking Trulicity 3 mg weekly -Also taking glipizide 5 mg twice daily -Remind him to get in for yearly eye examinations and to check his feet daily and never go barefoot [facility] Work Phone: 07-10-2023 Miscellaneous Notes Associated Problem(s): Type 2 diabetes mellitus (Multi) -He will be going for hemoglobin A1c soon and I have agreed to contact him with results -He will continue with metformin 1000 mg twice daily -He is also on Semglee as directed and also taking Trulicity 3 mg weekly -Also taking glipizide 5 mg twice daily -Remind him to get in for yearly eye examinations and to check his feet daily and never go barefoot Associated Problem(s): Hypertension -Currently well-controlled and he will continue taking lisinopril 5 mg daily -Metoprolol succinate XL 25 mg daily Associated Problem(s): Hyperlipidemia -We will be checking a lipid profile just prior to his next follow-up visit in the fall -He will continue taking atorvastatin 20 mg daily Addended by: AFSHAN BENNETT on: 07/10/2023 10:08 AM Modules accepted: Orders documented in this encounter [facility] Work Phone: 07-10-2023 Evaluation + Plan note Associated Problem(s): Hypertension -Currently well-controlled and he will continue taking lisinopril 5 mg daily -Metoprolol succinate XL 25 mg daily [facility] Work Phone: 07-10-2023 Evaluation + Plan note Associated Problem(s): Hyperlipidemia -We will be checking a lipid profile just prior to his next follow-up visit in the fall -He will continue taking atorvastatin 20 mg daily [facility] Work Phone: 07-10-2023 History of Present illness Narrative Subjective Patient ID: Clay Owens is a 68 y.o. male who presents for Follow-up (6 MO FUV). HPI He is here today for his routine 6-month checkup. He states that overall he has been doing okay although he does feel a little bit tired. He has been having some congestion from allergies. We did conduct a full review of systems and he also states that on occasion he develops heartburn which has helped with an [id number] Tums or other antacid. We talked about prescribing medicine and he indicates is not very severe and usually helped with just taking an antacid. We had intended for him to get lab work prior to today's visit but he misunderstood and has agreed to go tomorrow fasting. I will contact him with the results. We anticipate good results because his average glucose readings have been very good. He monitors closely. We are providing refills on all of his medications. His blood pressure appears to be under good control. We also discussed his prostate health and he was seeing urology but has been sometime since he was back in for a checkup. I have agreed to add a PSA to his lab is for 6-month follow-up. I will summarize everything in a problem based format. Review of Systems Constitutional: Positive for fatigue. Negative for unexpected weight change. HENT: Positive for congestion. Respiratory: Negative for cough, chest tightness, shortness of breath and wheezing. Cardiovascular: Negative for chest pain, palpitations and leg swelling. Gastrointestinal: Negative for abdominal pain, blood in stool, diarrhea, nausea and vomiting. C/O HEARTBURN Musculoskeletal: Negative for arthralgias and back pain. Objective Physical Exam Vitals and nursing note reviewed. Constitutional: General: He is not in acute distress. Appearance: Normal appearance. HENT: Head: Normocephalic and atraumatic. Eyes: Conjunctiva/sclera: Conjunctivae normal. Cardiovascular: Rate and Rhythm: Normal rate and regular rhythm. Heart sounds: Normal heart sounds. Pulmonary: Effort: No respiratory distress. Breath sounds: No wheezing. Abdominal: Palpations: Abdomen is soft. Tenderness: There is no abdominal tenderness. There is no guarding. Musculoskeletal: General: No swelling. Normal range of motion. Skin: General: Skin is warm and dry. Neurological: General: No focal deficit present. Mental Status: He is alert and oriented to person, place, and time. Psychiatric: Behavior: Behavior normal. Assessment/Plan Problem List Items Addressed This Visit ICD-10-CM Hyperlipidemia E78.5 -We will be checking a lipid profile just prior to his next follow-up visit in the fall -He will continue taking atorvastatin 20 mg daily Relevant Medications atorvastatin (Lipitor) 20 mg tablet Other Relevant Orders Lipid Panel Hypertension - Primary I10 -Currently well-controlled and he will continue taking lisinopril 5 mg daily -Metoprolol succinate XL 25 mg daily Relevant Medications metoprolol succinate XL (Toprol-XL) 25 mg 24 hr tablet lisinopril 5 mg tablet ticagrelor (Brilinta) 90 mg tablet Type 2 diabetes mellitus (Multi) E11.9 -He will be going for hemoglobin A1c soon and I have agreed to contact him with results -He will continue with metformin 1000 mg twice daily -He is also on Semglee as directed and also taking Trulicity 3 mg weekly -Also taking glipizide 5 mg twice daily -Remind him to get in for yearly eye examinations and to check his feet daily and never go barefoot Relevant Medications glipiZIDE (Glucotrol) 5 mg tablet dulaglutide (Trulicity) 1.5 mg/0.5 mL pen injector injection (Start on 07/15/2023) metFORMIN (Glucophage) 1,000 mg tablet insulin glargine-yfgn (Semglee,insulin glarg-yfgn,Pen) 100 unit/mL (3 mL) Pen Other Relevant Orders Basic Metabolic Panel Hemoglobin A1C Screening for prostate cancer Z12.5 Relevant Orders Prostate Spec.Ag,Screen Afshan Bennett DO documented in this encounter [facility] Work Phone: 07-10-2023 Instructions Afshan Bennett DO - 07/10/2023 9:40 AM EDT As we discussed we will have you get lab work done at your earliest convenience and please remember to go fasting. Once results are known I will contact you. I am also ordering lab work to be done just prior to your next follow-up visit in 6 months so please remember that you will need to go for fasting lab work a couple of days before your next appointment We sent refills for all your medications and please let us know if there are any issues. documented in this encounter [facility] Work Phone: 07-10-2023 Note Addended by: AFSHAN BENNETT on: 07/10/2023 10:08 AM Modules accepted: Orders [facility] Work Phone: 03-07-2023 Procedure note [facility] 03-07-2023 Procedure note [facility] 01-11-2023 Evaluation + Plan note Associated Problem(s): Type 2 diabetes mellitus (CMS/HCC) -His hemoglobin A1c is excellent at 6.9 -He will continue taking his metformin 1000 mg twice daily -He is on Trulicity milligrams weekly -He is on Levemir 32 units daily -Glipizide 5 mg twice daily [facility] Work Phone: 01-11-2023 Miscellaneous Notes Associated Problem(s): Type 2 diabetes mellitus (CMS/[facility]) -His hemoglobin A1c is excellent at 6.9 -He will continue taking his metformin 1000 mg twice daily -He is on Trulicity milligrams weekly -He is on Levemir 32 units daily -Glipizide 5 mg twice daily Associated Problem(s): Hyperlipidemia -Cholesterol is a mixture today with high triglycerides -He will try the fish oil supplements -He will continue taking atorvastatin 20 mg daily Associated Problem(s): Hypertension -Currently well controlled -He will remain on metoprolol succinate XL 25 mg daily -Lisinopril 5 mg daily documented in this encounter [facility] Work Phone: 01-11-2023 Evaluation + Plan note Associated Problem(s): Hyperlipidemia -Cholesterol is a mixture today with high triglycerides -He will try the fish oil supplements -He will continue taking atorvastatin 20 mg daily [facility] Work Phone: 01-11-2023 Evaluation + Plan note Associated Problem(s): Hypertension -Currently well controlled -He will remain on metoprolol succinate XL 25 mg daily -Lisinopril 5 mg daily [facility] Work Phone: 01-11-2023 History of Present illness Narrative Subjective Patient ID: Clay Owens is a 67 y.o. male who presents for 6 month follow up. HPI He is here today for his 6-month checkup. He is looking well and also reports feeling well. He continues to work because he enjoys working and being around people. We did conduct a review of systems. His blood pressure is excellent today. We also reviewed his most recent laboratory test results and I am extremely pleased with his hemoglobin A1c of 6.9. We discussed his cholesterol and his struggles with high triglycerides. He states he does have fish oil supplements at home but does not always take them. I have suggested he try taking them more consistently and a course we remind him to eat a healthy diet along with exercise and to try to get his close to ideal body weight as possible. We also discussed cancer screening and we estimate that his last colonoscopy was approximately 5 years ago. It was performed by Dr. Ponce in [place] and we will try to track that down [facility] to see if he is due for another colonoscopy. He understands that with colon polyps he needs to have a colonoscopy every 5 years. We also discussed preventative vaccines and determined he is due for the pneumonia vaccine i.e. Prevnar 20 which we will give him today. If everything goes according to plan we will see him back in 6 months for reevaluation and sooner if any problem. Review of Systems Constitutional: Negative for fatigue. Respiratory: Negative for cough, shortness of breath and wheezing. Cardiovascular: Negative for chest pain, palpitations and leg swelling. Gastrointestinal: Negative for abdominal pain, blood in stool, diarrhea, nausea and vomiting. Musculoskeletal: Negative for arthralgias and back pain. Objective Physical Exam Vitals and nursing note reviewed. Constitutional: General: He is not in acute distress. Appearance: Normal appearance. HENT: Head: Normocephalic and atraumatic. Eyes: Conjunctiva/sclera: Conjunctivae normal. Cardiovascular: Rate and Rhythm: Normal rate and regular rhythm. Heart sounds: Normal heart sounds. Pulmonary: Effort: No respiratory distress. Breath sounds: No wheezing. Abdominal: Palpations: Abdomen is soft. Tenderness: There is no abdominal tenderness. There is no guarding. Musculoskeletal: General: No swelling. Normal range of motion. Skin: General: Skin is warm and dry. Neurological: General: No focal deficit present. Mental Status: He is alert and oriented to person, place, and time. Psychiatric: Behavior: Behavior normal. Recent Results (from the past 672 hour(s)) Basic Metabolic Panel Collection Time: 12/26/22 9:08 AM Result Value Ref Range Glucose 124 (H) 74 - 99 mg/dL Sodium 138 136 - 145 mmol/L Potassium 4.7 3.5 - 5.3 mmol/L Chloride 102 98 - 107 mmol/L Bicarbonate 26 21 - 32 mmol/L Anion Gap 15 10 - 20 mmol/L Urea Nitrogen 19 6 - 23 mg/dL Creatinine 1.14 0.50 - 1.30 mg/dL eGFR 70 >60 mL/min/1.73m*2 Calcium 10.1 8.6 - 10.3 mg/dL Lipid panel Collection Time: 12/26/22 9:08 AM Result Value Ref Range Cholesterol 115 0 - 199 mg/dL HDL-Cholesterol 30.0 mg/dL Cholesterol/HDL Ratio 3.8 LDL Calculated 36 (L) 140 - 190 mg/dL VLDL 49 (H) 0 - 40 mg/dL Triglycerides 246 (H) 0 - 149 mg/dL Non HDL Cholesterol 85 0 - 149 mg/dL Hemoglobin A1C Collection Time: 12/26/22 9:08 AM Result Value Ref Range Hemoglobin A1C 6.9 (H) see below % Estimated Average Glucose 151 Not Established mg/dL Assessment/Plan Problem List Items Addressed This Visit ICD-10-CM Class 2 severe obesity with body mass index (BMI) of 35 to 39.9 with serious comorbidity ([facility]) E66.01 Hyperlipidemia E78.5 -Cholesterol is a mixture today with high triglycerides -He will try the fish oil supplements -He will continue taking atorvastatin 20 mg daily Hypertension - Primary I10 -Currently well controlled -He will remain on metoprolol succinate XL 25 mg daily -Lisinopril 5 mg daily Relevant Orders Basic Metabolic Panel Type 2 diabetes mellitus ([facility]) E11.9 -His hemoglobin A1c is excellent at 6.9 -He will continue taking his metformin 1000 mg twice daily -He is on Trulicity milligrams weekly -He is on Levemir 32 units daily -Glipizide 5 mg twice daily Relevant Medications insulin detemir (Levemir FlexTouch U100 Insulin) 100 unit/mL (3 mL) pen Other Relevant Orders Hemoglobin A1C Afshan S Agency, DO documented in this encounter [facility] [facility] Work Phone: 01-11-2023 Instructions Afshan Bennett DO - 01/11/2023 8:40 AM EDT We are giving you the pneumonia vaccine called Prevnar 20 today We are going to try to track down your last colonoscopy so we can see exactly when you will be due for your follow-up exam I will have you sign a release today to get this from your surgeon in [place] and please do me a favor and call if you do not hear from me in 2 weeks Overall I am very pleased with your report card today and if everything goes according to plan we will see you back in 6 months for reevaluation with repeat laboratory test documented in this encounter [facility] Work Phone: 07-13-2022 Evaluation + Plan note Associated Problem(s): Hypertension -Blood pressure is currently very well controlled -He will continue with metoprolol succinate XL 25 mg daily -He will continue with lisinopril 5 mg daily [facility] Work Phone: 07-13-2022 Evaluation + Plan note Associated Problem(s): Hyperlipidemia -I am giving him a handout on how to lower triglycerides -He will continue with atorvastatin 20 mg daily -We will check his lipid profile again just prior to his next visit in 6 months [facility] Work Phone: 07-13-2022 Miscellaneous Notes Associated Problem(s): Hypertension -Blood pressure is currently very well controlled -He will continue with metoprolol succinate XL 25 mg daily -He will continue with lisinopril 5 mg daily Associated Problem(s): Hyperlipidemia -I am giving him a handout on how to lower triglycerides -He will continue with atorvastatin 20 mg daily -We will check his lipid profile again just prior to his next visit in 6 months Associated Problem(s): Type 2 diabetes mellitus (CMS/HCC) -His most recent hemoglobin A1c was quite satisfactory at 7.5 -He will continue with glipizide 5 mg twice daily -He will continue with Levemir 30 units subcu daily -He will continue with metformin 1000 mg twice daily -He will continue with Trulicity 8 mg subcu weekly -I remind him to have an eye examination once a year and to do daily foot checks and never go barefoot. We will reassess his numbers in 6 months documented in this encounter [facility] Work Phone: 07-13-2022 Evaluation + Plan note Associated Problem(s): Type 2 diabetes mellitus (CMS/HCC) -His most recent hemoglobin A1c was quite satisfactory at 7.5 -He will continue with glipizide 5 mg twice daily -He will continue with Levemir 30 units subcu daily -He will continue with metformin 1000 mg twice daily -He will continue with Trulicity 8 mg subcu weekly -I remind him to have an eye examination once a year and to do daily foot checks and never go barefoot. We will reassess his numbers in 6 months [facility] Work Phone: 07-13-2022 History of Present illness Narrative Pt is here today for a 6 month check up, review labs. Refill medications. Subjective Patient ID: Clay Owens is a 67 y.o. male who presents for No chief complaint on file.. HPI He is here today for his routine checkup. He states he has been feeling great and life is good. We did conduct a review of systems and we also went over the results of recent lab work. His hemoglobin A1c came back quite satisfactory at 7.5. He continues to work on his diet and weight loss. We also reviewed his cholesterol and unfortunately his triglycerides are up a little bit from last time. I will give him a handout that goes over ways to lower cholesterol and we talked about looking at things to see if he can make some small changes. He also understands that exercise can help overall with his numbers and his overall health. I will summarize my assessment and plan in a problem based format Review of Systems Constitutional: Negative for fatigue. Respiratory: Negative for cough, chest tightness, shortness of breath and wheezing. Cardiovascular: Negative for chest pain, palpitations and leg swelling. Gastrointestinal: Negative for abdominal pain, blood in stool, diarrhea, nausea and vomiting. Musculoskeletal: Negative for arthralgias and back pain. Objective Physical Exam Vitals and nursing note reviewed. Constitutional: General: He is not in acute distress. Appearance: Normal appearance. HENT: Head: Normocephalic and atraumatic. Eyes: Conjunctiva/sclera: Conjunctivae normal. Cardiovascular: Rate and Rhythm: Normal rate and regular rhythm. Heart sounds: Normal heart sounds. Pulmonary: Effort: No respiratory distress. Breath sounds: No wheezing. Abdominal: Palpations: Abdomen is soft. Tenderness: There is no abdominal tenderness. There is no guarding. Musculoskeletal: General: No swelling. Normal range of motion. Skin: General: Skin is warm and dry. Neurological: General: No focal deficit present. Mental Status: He is alert and oriented to person, place, and time. Psychiatric: Behavior: Behavior normal. Recent Results (from the past 672 hour(s)) Lipid Panel Collection Time: 07/10/22 7:10 AM Result Value Ref Range Cholesterol 92 0 - 199 mg/dL HDL 27.0 (A) mg/dL Cholesterol/HDL Ratio 3.4 LDL 24 0 - 99 mg/dL VLDL 41 (H) 0 - 40 mg/dL Triglycerides 205 (H) 0 - 149 mg/dL Non HDL Cholesterol 65 mg/dL Basic Metabolic Panel Collection Time: 07/10/22 7:10 AM Result Value Ref Range Glucose 124 (H) 74 - 99 mg/dL Sodium 137 136 - 145 mmol/L Potassium 4.4 3.5 - 5.3 mmol/L Chloride 103 98 - 107 mmol/L Bicarbonate 25 21 - 32 mmol/L Anion Gap 13 10 - 20 mmol/L Urea Nitrogen 24 (H) 6 - 23 mg/dL Creatinine 1.28 0.50 - 1.30 mg/dL GFR MALE 61 >90 mL/min/1.73m2 Calcium 9.7 8.6 - 10.3 mg/dL Hemoglobin A1C Collection Time: 07/10/22 7:10 AM Result Value Ref Range Hemoglobin A1C 7.5 (A) % Estimated Average Glucose 169 MG/DL Assessment/Plan Problem List Items Addressed This Visit Circulatory Hypertension - Primary -Blood pressure is currently very well controlled -He will continue with metoprolol succinate XL 25 mg daily -He will continue with lisinopril 5 mg daily Endocrine/Metabolic Class 2 severe obesity with body mass index (BMI) of 35 to 39.9 with serious comorbidity ([facility]) Relevant Orders Follow Up In Primary Care Type 2 diabetes mellitus ([facility]) -His most recent hemoglobin A1c was quite satisfactory at 7.5 -He will continue with glipizide 5 mg twice daily -He will continue with Levemir 30 units subcu daily -He will continue with metformin 1000 mg twice daily -He will continue with Trulicity 8 mg subcu weekly -I remind him to have an eye examination once a year and to do daily foot checks and never go barefoot. We will reassess his numbers in 6 months Relevant Orders Follow Up In Primary Care Basic Metabolic Panel Hemoglobin A1C Other Hyperlipidemia -I am giving him a handout on how to lower triglycerides -He will continue with atorvastatin 20 mg daily -We will check his lipid profile again just prior to his next visit in 6 months Relevant Orders Follow Up In Primary Care Lipid panel Afshan Bennett DO documented in this encounter [facility] Work Phone: 07-13-2022 Instructions Afshan Bennett DO - 07/13/2022 9:20 AM EDT Please read the handout we gave you today going over ways to lower your triglycerides Please do not hesitate to call if you are having problems with high sugars or other issues We will see you back in approximately 6 months and please remember to get fasting lab work just prior to that visit documented in this encounter [facility] Work Phone: 09-30-2021 Note HNO ID: [id number] Author: Katherine Bustos OD Service: ? Author Type: FRUIT PICKER Type: Progress Notes Filed: 09/30/2021 9:12 AM Note Text: ASSESSMENT/PLAN: 1. Type 2 diabetes mellitus without retinopathy (HCC) - ICD9: 250.00, ICD10: E11.9 (primary diagnosis) Examination shows no ocular diabetic complications today. Discussed need for optimal diabetes control to minimize chance of ocular complications. Advise patient to immediately report worsening in status or additional symptoms. Continue yearly dilated eye examinations. 2. Combined forms of age-related cataract of both eyes - ICD9: 366.19, ICD10: H25.813 Mild cataract in both eyes. Well tolerated at this time. Discussed possible future affect on daily activities to watch for. Monitor as instructed. 3. Floaters, bilateral - ICD9: 379.24, ICD10: H43.393 4. Posterior vitreous detachment of left eye - ICD9: 379.21, ICD10: H43.812 Signs and symptoms of a retinal tear/detachment (flashes, floaters or change in peripheral vision) were reviewed with the patients. Patient understands they should return or call our office immediately if any of theses symptoms present. Recommended yearly dilated exams. Katherine Bustos OD I have confirmed and edited as necessary the relevant ophthalmic history, ROS, and the neuro exam findings as obtained by others. I have seen and examined this patient. [facility] 09-30-2021 Instructions Katherine Bustos OD - 09/30/2021 9:09 AM EDT ASSESSMENT/PLAN: 1. Type 2 diabetes mellitus without retinopathy (HCC) - ICD9: 250.00, ICD10: E11.9 (primary diagnosis) Examination shows no ocular diabetic complications today. Discussed need for optimal diabetes control to minimize chance of ocular complications. Advise patient to immediately report worsening in status or additional symptoms. Continue yearly dilated eye examinations. 2. Combined forms of age-related cataract of both eyes - ICD9: 366.19, ICD10: H25.813 Mild cataract in both eyes. Well tolerated at this time. Discussed possible future affect on daily activities to watch for. Monitor as instructed. 3. Floaters, bilateral - ICD9: 379.24, ICD10: H43.393 4. Posterior vitreous detachment of left eye - ICD9: 379.21, ICD10: H43.812 Signs and symptoms of a retinal tear/detachment (flashes, floaters or change in peripheral vision) were reviewed with the patients. Patient understands they should return or call our office immediately if any of theses symptoms present. Recommended yearly dilated exams. documented in this encounter [facility] 09-30-2021 History of Present illness Narrative ASSESSMENT/PLAN: 1. Type 2 diabetes mellitus without retinopathy (HCC) - ICD9: 250.00, ICD10: E11.9 (primary diagnosis) Examination shows no ocular diabetic complications today. Discussed need for optimal diabetes control to minimize chance of ocular complications. Advise patient to immediately report worsening in status or additional symptoms. Continue yearly dilated eye examinations. 2. Combined forms of age-related cataract of both eyes - ICD9: 366.19, ICD10: H25.813 Mild cataract in both eyes. Well tolerated at this time. Discussed possible future affect on daily activities to watch for. Monitor as instructed. 3. Floaters, bilateral - ICD9: 379.24, ICD10: H43.393 4. Posterior vitreous detachment of left eye - ICD9: 379.21, ICD10: H43.812 Signs and symptoms of a retinal tear/detachment (flashes, floaters or change in peripheral vision) were reviewed with the patients. Patient understands they should return or call our office immediately if any of theses symptoms present. Recommended yearly dilated exams. Katherine Bustos, OD I have confirmed and edited as necessary the relevant ophthalmic history, ROS, and the neuro exam findings as obtained by others. I have seen and examined this patient. documented in this encounter [facility] 06-09-2021 History of Present illness Narrative Patient presents to the office today for a 4 MO F/U w/PSA.Most recent PSA was drawn but we have not gotten those results... Patient has a Hx of Gross Hematuria. Most recent Renal US (06/09/2021) was unremarkable. CYSTO (07/04/2021) was unremarkable. LUTs are chronic and mild. Denies frequency and urgency. Denies dysuria and hematuria.. Nocturia x1-2.. Caffeine does worsen LUTs.. No medications for LUTs..Hx of Kidney Stones..Stone Analysis was 05/19/2021 and was found to be Calcium Stones. No Hx of UTI' [facility] Work Phone: 2021 History of Present illness Narrative Patient presented initially to the office today to Establish with Gross Hematuria two weeks ago. Positive Urine Culture on 05/10. Just finished ABX. LUTs are chronic and mild. Denies frequency and urgency. Denies dysuria and hematuria.. Nocturia x2-3..Most recent PSA was 4 years ago. No Bone Pain. No Recent Weight Gain/Loss. Caffeine does worsen LUTs.. No medications for LUTs..Hx of Kidney Stones. Last Sx were 20 Years ago.Hip replacement 04/09. Patient reported that with his gross hematuria he had nonspecific pain on the left side, intermittent, moderate intensity 4/10, pressure-like in nature, he thinks it is muscular his left hip replacement, lasted for couple of days, was associated with hematuria, no fever no chills, no nausea no vomiting, no constipation. Patient on May 19, 2021 provided a stone that he passed spontaneouslyPatient was found to have microhematuria has a a history of gross hematuria. We had a very long and extensive discussion regarding microscopic hematuria. I explained to the patient the pathophysiology, differential diagnosis, risk factor, associated conditions, and management. We discussed the need to do a microhematuria work-up to rule out any underlying malignancies in the form of masses, tumor, polyps that might be causing the microscopic hematuria. We discussed at length the risk, benefit, potential complication, adverse events of cystoscopy, renal ultrasound ,and urine cytology. Patient verbalized understanding would like to proceed. Patient had a possible stone gravel in his urine sample today. Today he declined cystoscopy and urine cytology. His ultrasound done on June 09, 2021 was normal. [facility] Work Phone: 05-30-2021 History of Present illness Narrative Patient presented initially to the office today to Establish with Gross Hematuria two weeks ago. Positive Urine Culture on 05/10. Just finished ABX. LUTs are chronic and mild. Denies frequency and urgency. Denies dysuria and hematuria.. Nocturia x2-3..Most recent PSA was 4 years ago. No Bone Pain. No Recent Weight Gain/Loss. Caffeine does worsen LUTs.. No medications for LUTs..Hx of Kidney Stones. Last Sx were 20 Years ago.Hip replacement 04/09. Patient reported that with his gross hematuria he had nonspecific pain on the left side, intermittent, moderate intensity 4/10, pressure-like in nature, he thinks it is muscular his left hip replacement, lasted for couple of days, was associated with hematuria, no fever no chills, no nausea no vomiting, no constipation. Patient on May 19, 2021 provided a stone that he passed spontaneouslyPatient was found to have microhematuria has a a history of gross hematuria. We had a very long and extensive discussion regarding microscopic hematuria. I explained to the patient the pathophysiology, differential diagnosis, risk factor, associated conditions, and management. We discussed the need to do a microhematuria work-up to rule out any underlying malignancies in the form of masses, tumor, polyps that might be causing the microscopic hematuria. We discussed at length the risk, benefit, potential complication, adverse events of cystoscopy, renal ultrasound ,and urine cytology. Patient verbalized understanding would like to proceed. Patient had a possible stone gravel in his urine sample today. Today he declined cystoscopy and urine cytology. His ultrasound done on June 09, 2021 was normal. [facility] Work Phone: 05-26-2021 History of Present illness Narrative Patient presents to the office today to Establish with Gross Hematuria two weeks ago. Positive Urine Culture on 05/10. Just finished ABX. LUTs are chronic and mild. Denies frequency and urgency. Denies dysuria and hematuria.. Nocturia x2-3..Most recent PSA was 4 years ago. No Bone Pain. No Recent Weight Gain/Loss. Caffeine does worsen LUTs.. No medications for LUTs..Hx of Kidney Stones. Last Sx were 20 Years ago.Hip replacement 04/09. Patient reported that with his gross hematuria he had nonspecific pain on the left side, intermittent, moderate intensity 4/10, pressure-like in nature, he thinks it is muscular his left hip replacement, lasted for couple of days, was associated with hematuria, no fever no chills, no nausea no vomiting, no constipation.Patient was found to have microhematuria today and a history of gross hematuria. We had a very long and extensive discussion regarding microscopic hematuria. I explained to the patient the pathophysiology, differential diagnosis, risk factor, associated conditions, and management. We discussed the need to do a microhematuria work-up to rule out any underlying malignancies in the form of masses, tumor, polyps that might be causing the microscopic hematuria. We discussed at length the risk, benefit, potential complication, adverse events of cystoscopy, renal ultrasound ,and urine cytology. Patient verbalized understanding would like to proceed. Patient had a possible stone gravel in his urine sample today. [facility] Work Phone: 05-05-2021 History of Present illness Narrative Patient presents to the office today to Establish with Gross Hematuria two weeks ago. Positive Urine Culture on 05/10. Just finished ABX. LUTs are chronic and mild. Denies frequency and urgency. Denies dysuria and hematuria.. Nocturia x2-3..Most recent PSA was 4 years ago. No Bone Pain. No Recent Weight Gain/Loss. Caffeine does worsen LUTs.. No medications for LUTs..Hx of Kidney Stones. Last Sx were 20 Years ago.Hip replacement 04/09. Patient reported that with his gross hematuria he had nonspecific pain on the left side, intermittent, moderate intensity 4/10, pressure-like in nature, he thinks it is muscular his left hip replacement, lasted for couple of days, was associated with hematuria, no fever no chills, no nausea no vomiting, no constipation.Patient was found to have microhematuria today and a history of gross hematuria. We had a very long and extensive discussion regarding microscopic hematuria. I explained to the patient the pathophysiology, differential diagnosis, risk factor, associated conditions, and management. We discussed the need to do a microhematuria work-up to rule out any underlying malignancies in the form of masses, tumor, polyps that might be causing the microscopic hematuria. We discussed at length the risk, benefit, potential complication, adverse events of cystoscopy, renal ultrasound ,and urine cytology. Patient verbalized understanding would like to proceed. Patient had a possible stone gravel in his urine sample today. [facility] Work Phone: 04-13-2021 Hospital Discharge instructions Patient Education 04/13/2021 07:19:43 5 - [facility] Post-op Instruction 10/2016 ([id number]) [facility] Post-operative Instructions PLEASE FOLLOW [facility] POST-OP INSTRUCTIONS GIVEN WATCH FOR SIGNS OF INFECTION: call the office ([phone]) if experencing any of the following: (Usually appears 36-48 hours after surgery) Increased temperature (101 degrees Fahrenheit or higher) Redness or swelling Increased uncontrolled pain Foul odor or drainage Calf discomfort Significant swelling Or if having any chest pain, shortness of breath, or difficulty breathing or swallowing call the office or go the nearest Emergency Room. If you have any questions, please call your doctor at the number listed on your follow up instructions. Form: 338A ([id number]) R: 07/23 Follow Up Care 03/17/2021 07:35:07 With:[facility] Address: [address] [place] [phone] When:04/14/2021 10:00:00 Comments:This is your first physical therapy appointment. Follow-up as scheduled. With:DA HSU PA-C, Orthopedic, Orthopedic Address: [facility] [address] [place] [phone] When:04/25/2021 09:30:00 Comments:This is your post-op appointment. Follow-up as scheduled. 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 This note was generated by using [employer] software. It may contain errors in wording, punctuate, or spelling. * He is here today for his general checkup. He explains that his register of wills has switched bryant and now is doing wound care. He is needing refills on his medications and he states that recently his blood sugars have been running higher than usual. His last hemoglobin A1c in October was also elevated. We talked about making a referral but we also talked about making an adjustment in his medication now. He is on the Trulicity 1.5 and I decided to have him go to the 3.0 dose. We talked about howTrulicity can oftentimes help with weight loss and certainly could also help with lowering the sugar. He will check his sugars before breakfast and supper and give me an update in 1 to 2 weeks. We did conduct a review of systems and for the most part he reports feeling well. He states however he experiences some itching involving his right forearm and he states there is never really a rash present. We talked about how dry skin is the #1 because of itching in the winter and I recommended he do some heavy moisturizing. We also discussed his multiple moles and freckles and he reminded me that his brother has actually had malignant melanoma. I told him it is imperative we get him in for a full body skin inspection and he has been to [facility] several years ago. Today his blood pressure is well controlled. We will plan on seeing him back in approximately 3 months for follow-up. [facility] Work Phone: Evaluation + Plan note No data available for this section [facility] Evaluation note* Diagnosis Type 2 diabetes mellitus without retinopathy (HCC)- Primary Type II or unspecified type diabetes mellitus without mention of complication, not stated as uncontrolled Combined forms of age-related cataract of both eyes Other and combined forms of senile cataract Floaters, bilateral Posterior vitreous detachment of left eye Vitreous degeneration [facility] Secondary hypertension- Primary Other secondary hypertension, unspecified Type 2 diabetes mellitus without complication, without long-term current use of insulin (CMS/HCC) Mixed hyperlipidemia Class 2 severe obesity with body mass index (BMI) of 35 to 39.9 with serious comorbidity (CMS/HCC) documented in this encounter [facility] Work Phone: Evaluation note* Diagnosis Secondary hypertension- Primary Other secondary hypertension, unspecified Type 2 diabetes mellitus without complication, without long-term current use of insulin (CMS/HCC) Mixed hyperlipidemia Class 2 severe obesity with body mass index (BMI) of 35 to 39.9 with serious comorbidity (CMS/HCC) Type 2 diabetes mellitus without complication, with long-term current use of insulin (CMS/HCC) documented in this encounter [facility] Work Phone: Evaluation note* Diagnosis Secondary hypertension- Primary Other secondary hypertension, unspecified Type 2 diabetes mellitus without complication, without long-term current use of insulin (Multi) Mixed hyperlipidemia Screening for prostate cancer Special screening for malignant neoplasm of prostate documented in this encounter [facility] Work Phone: Evaluation note* Diagnosis Secondary hypertension- Primary Other secondary hypertension, unspecified Type 2 diabetes mellitus without complication, without long-term current use of insulin (Multi) Mixed hyperlipidemia Class 2 severe obesity with body mass index (BMI) of 35 to 39.9 with serious comorbidity Secondary hypertension- Primary Other secondary hypertension, unspecified Type 2 diabetes mellitus without complication, without long-term current use of insulin (Multi) Mixed hyperlipidemia Class 2 severe obesity with body mass index (BMI) of 35 to 39.9 with serious comorbidity Type 2 diabetes mellitus without complication, with long-term current use of insulin (Multi) Secondary hypertension- Primary Other secondary hypertension, unspecified Type 2 diabetes mellitus without complication, without long-term current use of insulin (Multi) Mixed hyperlipidemia Screening for prostate cancer Special screening for malignant neoplasm of prostate Pain and swelling of left lower leg- Primary Mixed hyperlipidemia Type 2 diabetes mellitus without complication, without long-term current use of insulin (Multi) Secondary hypertension Other secondary hypertension, unspecified documented in this encounter [facility] Work Phone: Evaluation note* Diagnosis Secondary hypertension- Primary Other secondary hypertension, unspecified Type 2 diabetes mellitus without complication, without long-term current use of insulin (Multi) Mixed hyperlipidemia Class 2 severe obesity with body mass index (BMI) of 35 to 39.9 with serious comorbidity Secondary hypertension- Primary Other secondary hypertension, unspecified Type 2 diabetes mellitus without complication, without long-term current use of insulin (Multi) Mixed hyperlipidemia Class 2 severe obesity with body mass index (BMI) of 35 to 39.9 with serious comorbidity Type 2 diabetes mellitus without complication, with long-term current use of insulin (Multi) Secondary hypertension- Primary Other secondary hypertension, unspecified Type 2 diabetes mellitus without complication, without long-term current use of insulin (Multi) Mixed hyperlipidemia Screening for prostate cancer Special screening for malignant neoplasm of prostate Pain and swelling of left lower leg- Primary Mixed hyperlipidemia Type 2 diabetes mellitus without complication, without long-term current use of insulin (Multi) Secondary hypertension Other secondary hypertension, unspecified Pain and swelling of left lower leg Pain in left leg documented in this encounter [facility] Work Phone: Evaluation note* Diagnosis Secondary hypertension- Primary Other secondary hypertension, unspecified Type 2 diabetes mellitus without complication, without long-term current use of insulin Mixed hyperlipidemia Class 2 severe obesity with body mass index (BMI) of 35 to 39.9 with serious comorbidity Secondary hypertension- Primary Other secondary hypertension, unspecified Type 2 diabetes mellitus without complication, without long-term current use of insulin Mixed hyperlipidemia Class 2 severe obesity with body mass index (BMI) of 35 to 39.9 with serious comorbidity Type 2 diabetes mellitus without complication, with long-term current use of insulin Secondary hypertension- Primary Other secondary hypertension, unspecified Type 2 diabetes mellitus without complication, without long-term current use of insulin Mixed hyperlipidemia Screening for prostate cancer Special screening for malignant neoplasm of prostate Pain and swelling of left lower leg- Primary Mixed hyperlipidemia Type 2 diabetes mellitus without complication, without long-term current use of insulin Secondary hypertension Other secondary hypertension, unspecified Screening for prostate cancer- Primary Special screening for malignant neoplasm of prostate Mixed hyperlipidemia Type 2 diabetes mellitus with other specified complication, without long-term current use of insulin Secondary hypertension Other secondary hypertension, unspecified Pain and swelling of left lower leg documented in this encounter [facility] Work Phone: Evaluation note* Diagnosis Onset Date Resolution Status Admit Date Hyperlipidemia associated type 2 diabetes mellitus acute October 142024 8:49am Atherosclerotic heart diseas e of [place] coronary artery without angina pectoris chronic October 14, 2024 8:49am Essential hypertension chronic Ju ly 2024 8:49am Ischemic cardiomyopathy chronic J steven 2024 8:49am [facility] Work Phone: History and physical note Author Raj Chapin [facility] March 07, 2023 8:30am Note Date/Time March 07, 2023 8:31am [facility] Medical Records Department [address] [place] [id number] History & Physical Exam 03/07/2329 MR#: [id number] Acct: [id number] Name: CLAY OWENS Rep #:[id number] : 1955 67 From: Raj Chapin DO PCP: Dr. Afshan Bennett MD Status:[facility] Location: [place] [address] HPI - General General Date of Admission: 03/07/23 Date of Service: 03/07/23 Chief Complaint: History of colonic polyp HPI Narrative CLAY OWENS, is a 67 M who presents today for surveillance colonoscopy. He had a colonoscopy approximately 5 years ago and he had 6 adenomatous polyps removed at that time. He has history of CAD status post PTCA with stents in 2013, LV EH, previous IA, hypertension, diabetes, hypercholesterolemia. At thistime 70 shortness of breath. He does not gas, grams daily basis. He stopped that approximately 5 days ago. He also takes Plavix and last they took that was10 days ago. All other 16 review systems negative except as per past mentioned HPI. [facility] Medical History (Updated 03/06/23 @ 13:55 by Elba Yousif) Alcohol use Arthritis Atherosclerotic heart disease of [place] coronary artery without angina pectoris Cardiology follow-up encounter CPAP (continuous positive airway pressure) dependence Dietary restriction Essential hypertension Former smoker Heartburn High cholesterol History of stress test Hx of adenomatous colonic polyps Hypertension Insulin dependent diabetes mellitus Ischemic cardiomyopathy Left atrial enlargement Left ventricular hypertrophy Leg cramps Old anterior wall myocardial infarction Presence of stent in coronary artery (~07/14/13) Pure hypercholesterolemia Type 2 diabetes mellitus Wears glasses Home Medications aspirin 81 mg chewable tablet 81 mg PO DAILY@0800 10/11/15 [History Last Taken 03/07/23] atorvastatin 20 mg tablet 20 mg PO QHS 10/11/15 [History Last Taken 03/06/23] metoprolol succinate 25 mg tablet,extended release 24 hr 25 mg PO DAILY #30 tabs08/17/17 [Rx Last Taken 03/06/23] lisinopril 5 mg tablet 5 mg PO DAILY #30 tabs 09/10/17 [Rx Last Taken 03/07/23] glipizide 5 mg tablet 5 mg PO BID 06/25/18 [History Last Taken Unknown] insulin detemir U-100 100 unit/mL (3 mL) subcutaneous pen 30 unit subcut QHS 02/27/20 [History Last Taken 03/06/23] cholecalciferol (vitamin D3) 25 mcg (1,000 unit) tablet (Vitamin D3) 25 mcg PO DAILY 09/08/20 [History Last Taken 03/01/23] turmeric 400 mg capsule 400 mg PO DAILY 09/08/20 [History Last Taken 03/01/23] dulaglutide 1.5 mg/0.5 mL subcutaneous pen injector 1.5 mg subcut FLEMING 02/15/21 [History Last Taken Unknown] metformin 500 mg tablet,extended release 24 hr 1,000 mg PO BID 02/15/21 [History Last Taken Unknown] ticagrelor 90 mg tablet (Brilinta) 90 mg PO BID #180 tabs 08/01/21 [Rx Last Taken 03/02/23] nitroglycerin 0.4 mg sublingual tablet (Nitrostat) 0.4 mg sublingual Q5-15M PRN chest pain #25 tabs 10/23/22 [Rx Last Taken Unknown] Allergy/AdvReac Type Severity Reaction Status Date / Time No Known Allergies Allergy Verified 03/07/23 07:54 Family History (Reviewed 01/16/23 @ 09:19 by Chandni Ragland [employer] ROOM WORKING SUPERVISOR, CISTERN [employer]OM WORKING SUPERVISOR-C) Mother CAD (coronary artery disease) Father Cancer Brother Afib Surgical History (Updated 03/06/23 @ 13:55 by Elba Yousif) H/O: vasectomy History of cardiac catheterization History of coronary artery stent placement History of left hip replacement Hx of colonoscopy (~06/2013) Presence of coronary angioplasty implant and graft (~07/14/13) Social History (Reviewed 01/16/23 @ 09:19 by Chandni Ragland [employer]OM WORKING SUPERVISOR, CISTERN ROOM WORKING SUPERVISOR-C) Smoking Status: Former smoker how long ago did patient quit smokin years ago alcohol intake: current alcohol intake frequency: a few times a month Alcohol type: beer substance use type: does not use caffeine: Yes Type: coffee Number of servings: 5 ROS Review of Systems ROS Unobtainable: other Constitutional Constitutional: Denies fatigue, fever(s), poor appetite, weight gain or weight loss ENT HEENT: Denies mouth lesions Cardiovascular Cardiovascular: Denies abdominal bloating, abdominal edema or abdominal pain Respiratory/Chest Respiratory/Chest: Denies change in mental status, change in phlegm color, chestcongestion or chest tightness Gastrointestinal Gastrointestinal: Denies belching, bloating, change in bowel habits, change in stool character, chewing difficulty, coffee ground emesis, constipation, cramping, diarrhea, dyspepsia, dysphagia, early satiety, excessive flatus, fecalincontinence, heartburn, hematemesis, hematochezia, hemorrhoids, loose stools, melena, nausea, odynophagia, rectal bleeding, tenesmus, vomiting or weight changes Genitourinary Genitourinary: Denies abdominal discomfort, burning urination or itching Musculoskeletal Musculoskeletal: Reports as per HPI; Denies muscle weakness or myalgias Integumentary Integumentary: Denies jaundice Neurologic Neurologic: Denies lack of coordination or weakness Psychiatric Psychiatric: Denies confusion, depression, memory loss, mood swings, paranoia orsuicidal ideation Endocrine Endocrinology: Denies systems reviewed and no addt'l complaints, except as documented Hematologic/Lymphatic Hematologic/Lymphatic: Denies anemia, easy bleeding, easy bruising or lymphadenopathy Allergic/Immunologic Allergic/Immunologic: Denies systems reviewed and no addt'l complaints, except as documented Vital Signs Vital Signs Vital Signs: 03/07/23 07:56 Temperature 97.6 F L Temperature Source Temporal Pulse Rate 91 Respiratory Rate 17 Blood Pressure 144/84 H Blood Pressure Mean 104 Blood Pressure Source Monitor Blood Pressure Position Semi-Fowlers Blood Pressure Location Left Arm Pulse Ox 96 Oxygen Delivery Method Room Air Weight Weight: 257 lb 15.053 oz Body Mass Index (BMI) 34.9 Physical Exam Const alert General Appearance: cooperative Orientation / Consciousness: oriented to person HEENT hearing grossly normal bilaterally Head and Scalp: normal to inspection Face and Sinus: face symmetric Nose: external nose normal Mouth: oral and palatal mucosa normal Eyes conjunctivae normal General Eye: normal appearance of both eyes Neck full ROM General: normal visual inspection Lymph Lymphatic: no lymphadenopathy noted Chest inspection of chest normal and palpation of chest normal Chest: symmetrical chest wall rise Resp normal respiratory effort Effort and Inspection: able to speak in complete sentences Cardio regular rate GI non-distended Percussion: normal to percussion Rectal Exam: deferred Neuro Speech: speech normal Gait (Neuro): normal gait Results Lab / Micro Data Labs: Laboratory Results - last 24 hr 03/07/23 08:05: POC Glucose 156 H Assessment & Plan Assessment/Plan (1) Encounter for screening for malignant neoplasm of colon: PLAN: 67-year-old comes in for surveillance colonoscopy. He was explained alternatives, risk, benefits including outstanding bleeding, infection, sepsis, perforation, need for emergent surgery . He will have an ASA of 3. 03/07/23 0830 <Electronically signed by Raj Chapin DO> Cosigner Signature (if applicable): CC: Dr. Afshan Bennett MD; Raj Chapin DO~ Signed [facility] Work Phone: Reason for referral (narrative)* Consultation (Routine) - Authorized Specialty Diagnoses / Procedures Referred By Leslie t Referred To Contact Primary Care Diagnoses Type 2 diabetes mellitus without complication, without long-term current use of insulin (CMS/HCC) Mixed hyperlipidemia Class 2 severe obesity with body mass index (BMI) of 35 to 39.9 with serious comorbidity (CMS/HCC) Procedures Follow Up In Primary Care Afshan Bennett DO [address] [facility] [place] [address] Referral ID Status Reason Start Date Expiration Date V isits Requested Visits Authorized [id number] Authorized 07/13/2022 01/09/2023 1 1 [facility] Work Phone: Revenn for referral (narrative)* Consultation (Routine) - Authorized Specialty Diagnoses / Procedures Referred By Contac t Referred To Contact Primary Care Procedures Follow Up In Primary Care Afshan Bennett DO [address] [place] [address] Referral ID Status Reason Start Date Expiration Date V isits Requested Visits Authorized [id number] Authorized 01/11/2023 01/11/2024 1 1 [facility] Work Phone: reason for referral (narrative)* Consultation (Routine) - Authorized Specialty Diagnoses / Procedures Referred By Contac t Referred To Contact Primary Care Procedures Follow Up In Primary Care Afshan Bennett DO [address] [place] [address] Referral ID Status Reason Start Date Expiration Date V isits Requested Visits Authorized [id number] Authorized 07/10/2023 07/09/2024 1 1 [facility] Work Phone: reason for referral (narrative)* Consultation (Routine) - Authorized Specialty Diagnoses / Procedures Referred By Contac t Referred To Contact Primary Care Procedures Follow Up In Primary Care Afshan Bennett DO [address] [place] [address] Phone: tel: fax: Referral ID Status Reason Start Date Expiration Date V isits Requested Visits Authorized [id number] Authorized 07/08/2024 07/08/2025 1 1 [facility] Work Phone: reason for referral (narrative)No reason for referral [facility]: Rekedt for visit Narrative* Consultation (Routine) - Authorized Specialty Diagnoses / Procedures Referred By Leslie lassiter Referred To Contact Primary Care Procedures Follow Up In Primary Care Afshan Bennett DO Phone: tel: fax: Referral ID Status Reason Start Date Expiration Date V isits Requested Visits Authorized [id number] Authorized 07/10/2023 07/09/2024 1 1 [facility] Work Phone: reason for visit Narrative* Imaging (Routine) - Pending Review Specialty Diagnoses / Procedures Referred By Leslie lassiter Referred To Contact Cardiology Diagnoses Pain and swelling of left lower leg Procedures Lower extremity venous duplex left Afshan Bennett DO [address] [place] [address] Phone: tel: fax: Referral ID Status Reason Start Date Expiration Date Visits Requested Visits Authorized [id number] Pending Review Perform Procedure 4 01/07/2025 1 1 [facility] Work Phone: Summary Purpose Family History No Family History Records Found Father Name Dates Details FHx: lung cancer(V16.1, Z80. 1) Status:Active Brother Name Dates Details FHx: lung cancer(V16.1, Z80. 1) Status:Active Unknown Family Member Name Dates Details FHx: lung cancer: Father, Br other(V16.1, Z80.1) Status:Active Unknown Family Member Name Dates Details FHx: lung cancer: Father, Br other(V16.1, Z80.1) Status:Active Unknown Family Member Name Dates Details FHx: lung cancer: Father, Br other(V16.1, Z80.1) Status:Active Unknown Family Member Name Dates Details FHx: lung cancer: Father, Br other(V16.1, Z80.1) Status:Active Unknown Family Member Name Dates Details FHx: lung cancer: Father, Br other(V16.1, Z80.1) Status:Active Unknown Family Member Name Dates Details FHx: lung cancer: Father, Br other(V16.1, Z80.1) Status:Active Unknown Family Member Name Dates Details FHx: lung cancer: Father, Br other(V16.1, Z80.1) Status:Active Unknown Family Member Name Dates Details FHx: lung cancer: Father, Br other(V16.1, Z80.1) Status:Active Unknown Family Member Name Dates Details FHx: lung cancer: Father, Br other(V16.1, Z80.1) Status:Active Unknown Family Member Name Dates Details FHx: lung cancer: Father, Br other(V16.1, Z80.1) Status:Active Unknown Family Member Name Dates Details FHx: lung cancer: Father, Br other(V16.1, Z80.1) Status:Active Unknown Family Member Name Dates Details FHx: lung cancer: Father, Br other(V16.1, Z80.1) Status:Active Unknown Family Member Name Dates Details FHx: lung cancer: Father, Br other(V16.1, Z80.1) Status:Active Unknown Family Member Name Dates Details FHx: lung cancer: Father, Br other(V16.1, Z80.1) Status:Active Unknown Family Member Name Dates Details FHx: lung cancer: Father, Br other(V16.1, Z80.1) Status:Active Relationship Condition Age at Onset Recorded Date/T mian mother Coronary artery disease Unknown father Malignant neoplasm Unknown brother Atrial fibrillation Unknown Unknown Family Member Name Dates Details FHx: lung cancer: Father, Br other(V16.1, Z80.1) Status:Active Unknown Family Member Name Dates Details FHx: lung cancer: Father, Br other(V16.1, Z80.1) Status:Active Unknown Family Member Name Dates Details FHx: lung cancer: Father, Br other(V16.1, Z80.1) Status:Active Unknown Family Member Name Dates Details FHx: lung cancer: Father, Br other(V16.1, Z80.1) Status:Active Unknown Family Member Name Dates Details FHx: lung cancer: Father, Br other(V16.1, Z80.1) Status:Active Advance Directives No Advanced Directives Records Found Advance Directive Response Recorded Date/ Time Advance Directives Yes October 10 6:08pm Living Will Yes February 24 4:52am Power of Shoe Stitcher Yes February 24, 2021 4:52am Advance Directive Response Recorded Date/ Time Name of Medical Power of Shoe Stitcher SPOUSE March 06, 2023 1:46pm Advance Directives Yes October 10 5:08pm Living Will Yes March 06, 2 023 1:46pm Power of Shoe Stitcher Yes March 06, 2023 1:46pm Advance Directive Response Recorded Date/ Time Advance Directives Yes October 10 6:08pm Chief Complaint * here for pre-op but can not have surgery d/t A1C too high, core fitter did ekg, labs from [facility]. This note was generated by using [employer] software. It may contain errors in wording, punctuate, or spelling. * He is here today for what originally was a preoperative clearance. He has issues with his left hip and was scheduled to have surgery on September 29 for an anterior left total hip arthroplasty. Unfortunately he recently discovered that his hemoglobin A1c was too high at 8.9. He states since then he has d ecided to go back to weight watchers and already is having great success with his weight loss journey. He is also watching his diet very closely and measuring his sugars on a frequent basis. He does follow closely with an register of wills, Dr. Alexandru Holman and he did have a cardiac clearance evaluation on September 06 with his core fitter. At the time it was felt that he was stable from a cardiovascularstandpoint. Today his blood pressure is excellent and he did bring a copy of outside lab work from September 22. I told him that I was very glad that he is taking these measures to get back on track and I told him I had be happy to see him at any point when or if he is needing clearance from me. Otherwise we will keep his medical regimen the same and he will be on standby. * Pt presents for pre-op clearance for left hip replacement on 04/12/[address] Banks, in [place]. This note was generated by using [employer] software. It may contain errors in wording, punctuate, or spelling. * He is here today for preoperative assessment. We are reminded that he was seen back in September for preoperative assessment but unfortunately his hemoglobin A1c was higher than desirable at 8.9 so his surgeon wanted to reschedule when his diabetes was under better control. He states he went and saw his register of wills and actually got on Trulicity. He states this is helped a lot in improving his blood sugars and improving his sense of wellbeing. His hemoglobin A1c as of recent was excellent at 7.0.His surgery is scheduled for the end of the month and it does not look like he has had preoperativetesting. He explains however that recently he developed some rather atypical chest pain and ended up going to [facility] where he had several lab test performed. He will have them forwarded to us. He then yesterday had a cardiac stress test and he was informed that everything looked just fine. Obviously this is good news and would help us feel more comfortable with him proceeding with surgery as planned. We will try to get a copy of that result as well. He also states that he had recent travel to [place] and around the time of he developed some upper respiratory symptoms. Hestates he has been having some nasal congestion and producing mucus that is yellow in color. He states this is "my usual thing I get every year ". His features do appear to be of a bacterial nature and I am giving him Amoxil as treatment. As far as surgery is concerned I believe that at this point it would be acceptable to proceed with surgery as planned since he has had a negative stress test. Jamil remind him that the morning of his surgery he should take his blood pressure medications with sips of water. He has also been advised by his surgeon to hold his Brilinta and aspirin 1 week prior to surgery. I will dictate instructions regarding his diabetic medications. * Pt is here today with the C/O Dysuria, and hematuria for about the last 2 days. This note was generated by using [employer] software. It may contain errors in wording, punctuate, or spelling. * He is here today with a 2-day history of some hematuria and dysuria. We are reminded that he had left-sided hip surgery approximately 3 weeks ago and he has done well postoperatively. He comes in today with his walker. He denies having any fevers but he has seen blood and has had some burning. He has not had a history of recurrent urinary tract infections in the past but he has had kidney stones.His urinalysis is showing moderate blood with a positive moderate leukocytes. We discussed treatinghim for what I feel represents a urinary tract infection today. I am giving him Bactrim to be takentwice daily for the next 10 days and he knows to force fluids. We talked about going to the emergency department if he should run into problems with passing urine or if he felt like his condition wasgetting a lot worse. We also discussed seeing a urologist for checkup at some point in the near future. We talked about making sure that all the bases are covered in regards to the urine blood and his history of kidney stones as well as making sure his prostate and bladder is okay. He is agreeable and we can schedule him a few weeks down the road. He will call if he is not doing well.. * We did screen for depression today and he has no signs or symptoms and he does have advanced directives. Establish with HematuriaEstablish with HematuriaHematuriaHematuria4 MO F/U w/PSA Chief Complaint and Reason for Visit Chief Complaint 10 MO F/U EORDER Reason for Visit Essential hypertensi on Ischemic cardiomyopathy Presence of stent in coronary artery Pure hypercholesterolemia Chief Complaint 1 Y FU Amb Documentation Reason for Visit Essential hypertensi on Ischemic cardiomyopathy Presence of stent in coronary artery Pure hypercholesterolemia Encounter for screening for malignant neoplasm of colon Chief Complaint Admit Date 6 M FU October 14, 2024 8:49 am Reason for Visit Admit Date Hyperlipidemia associated with type 2 di abetes mellitus October 14, 2024 8:49am Atherosclerotic heart diseas e of [place] coronary artery without angina pectoris October 14, 2024 8:49am Essential hypertension October 14, 2024 8 :49am Ischemic cardiomyopathy October 14, 2024 8:49am Medications Administered Section Active Administered Medications - up to 3 most recent administrations Medication Order MAR Action Action Date Dose Rate Site PHENYLephrine 2.5 % 1 Drop (AK-DILATE, KIMBERLY-SYNEPHRINE) 1 Drop, BOTH EYES, DIRECTED, Starting on Sun09/30/21 at 0900, Until Sun09/30/21 at 2028, Administer for dilation PROTECT FROM LIGHT Given 09/30/2021 9:00 AM EDT 1 Drop tropicamide 1 % 1 Drop (MYDRIACYL) 1 Drop, BOTH EYES, DIRECTED, Starting on Sun09/30/21 at 0900, Until Sun09/30/21 at 2028, Administer for dilation Given 09/30/2021 9:00 AM EDT 1 Drop Additional Source Comments (unrecognized sect ion and content) No Status Records FoundNo Status Records FoundNo Status Records FoundNo Status Records FoundNo Status Records FoundNo Status Records FoundNo Status Records FoundNo Status Records FoundNo Status Records FoundNo Status Records FoundNo Status Records Found INFORMATION SOURCE (unrecogn ized section and content) DATE CREATED AUTHOR 10/12/2018 [facility] DATE CREATED AUTHOR AUTHOR'S ORGANIZ ATION 03/06/2020 [facility] DATE CREATED AUTHOR AUTHOR'S ORGANIZ ATION 04/18/2021 [facility] DATE CREATED AUTHOR AUTHOR'S ORGANIZ ATION 10/06/2021 [facility] DATE CREATED AUTHOR AUTHOR'S ORGANIZ ATION 04/13/2022 [facility] DATE CREATED AUTHOR AUTHOR'S ORGANIZ ATION 07/10/2022 [facility] DATE CREATED AUTHOR AUTHOR'S ORGANIZ ATION 01/07/2024 [facility] DATE CREATED AUTHOR AUTHOR'S ORGANIZ ATION 01/12/2024 [facility] DATE CREATED AUTHOR AUTHOR'S ORGANIZ ATION 07/12/2024 [facility] DATE CREATED AUTHOR AUTHOR'S ORGANIZ ATION 11/06/2024 [facility] DATE CREATED AUTHOR AUTHOR'S ORGANIZ ATION 12/05/2024 [facility] Source Comments (unrecognize d section and content) In the event this informatio n is protected by the Federal Confidentiality of Alcohol and Drug Abuse Patient Records regulations: The Federal rules restrict any use of the information to criminally investigate or prosecute any alcohol or drug abuse patient.[facility] the event this information is protected by the Federal Confidentiality of Alcohol and Drug Abuse Patient Records regulations: The Federal rules restrict any use of the information to criminally investigate or prosecute any alcohol or drug abuse patient.[facility] Goals (unrecognized section and content) Goals may be documented in a n alternate section Reason for Visit (unrecogniz ed section and content) Reason Comments Insulin Dependent Diabetes Mellitus Clau ent states blood sugar was 132 this morning. HbA1c: 7.4 Reason Comments 6 month follow up Specialty Diagnoses / Procedures Referred By Leslie lassiter Referred To Contact Primary Care Diagnoses Type 2 diabetes mellitus without complication, without long-term current use of insulin (CMS/HCC) Mixed hyperlipidemia Class 2 severe obesity with body mass index (BMI) of 35 to 39.9 with serious comorbidity (CMS/HCC) Procedures Follow Up In Primary Care Afshan Bennett DO [address] [facility] [place] [address] Referral ID Status Reason Start Date Expiration Date Visits Re quested Visits Authorized [id number] Closed 07/13/2022 01/09/2023 1 1 Reason Comments Follow-up 6 MO FUV Specialty Diagnoses / Procedures Referred By Leslie lassiter Referred To Contact Primary Care Procedures Follow Up In Primary Care Afshan Bennett DO [address] [facility] [place] [address] Referral ID Status Reason Start Date Expiration Date V isits Requested Visits Authorized [id number] Authorized 01/11/2023 01/11/2024 1 1 Reason Comments Follow-up 6 MO CK Specialty Diagnoses / Procedures Referred By Leslie lassiter Referred To Contact Primary Care Procedures Follow Up In Primary Care Afshan Bennett DO [address] [place] [address] Phone: tel: fax: Referral ID Status Reason Start Date Expiration Date V isits Requested Visits Authorized [id number] Pending Review 01/08/2024 01/07/2025 1 1 Care Teams (unrecognized sec tion and content) Clinical Nurse Occupational Medicine Relationship Specialty Start Date End Date Afshan Bennett DO [address] [place] [address] PCP - General Internal Medicine 02/20/20 Clinical Nurse Occupational Medicine Relationship Specialty Start Date End Date Afshan Bennett DO [address] [place] [address] PCP - General 11/19/18 Clinical Nurse Occupational Medicine Relationship Specialty Start Date End Date Afshan Bennett DO [address] [place] [address] PCP - General 11/19/18 Team Status: Active Member Role Status Dates Dr. Afshan Bennett MD Family Provider Active Dr. Afshan Bennett MD Primary Care Provider Active Team Status: Inactive Member Role Status Dates Dr. Afshan Bennett MD Primary Care Provider, Referri ng Provider Active Chandni Ragland CISTERN ROOM WORKING SUPERVISOR, CISTERN ROOM WORKING SUPERVISOR-C Attending Provider Active Team Status: Active Member Role Status Dates Dr. Afshan Bennett MD Primary Care Provider Active Shweta Limon Attending Provider Active Team Status: Active Member Role Status Dates Dr. Afshan Bennett MD Primary Care Provider, Referri ng Provider Active Dr. Raj Chapin DO Attending Provider, Other Prov ider Active Team Status: Inactive Member Role Status Dates Dr. Afshan Bennett MD Primary Care Provider, Referri ng Provider Active Dr. Raj Chapin DO Attending Provider Active Clinical Nurse Occupational Medicine Relationship Specialty Start Date End Date Afshan Bennett DO [address] [place] [address] PCP - General 11/19/18 Clinical Nurse Occupational Medicine Relationship Specialty Start Date End Date Afshna Bennett DO [address] [address] PCP - General 11/19/18 Clinical Nurse Occupational Medicine Relationship Specialty Start Date End Date Amalia Bennettberly DO [place] [address] [address] PCP - General 11/19/18 Clinical Nurse Occupational Medicine Relationship Specialty Start Date End Date Royal Afshan DO [place] [address] [address] PCP - General 11/19/18 Team Status: Active Member Role/Relationship Status Dates Dr. Afshan Bennett MD Family Provider Active Dr. Afshan Bennett MD Primary Care Provider Active Team Status: Inactive Member Role/Relationship Status Dates Dr. Afshan Bennett MD Primary Care Provider Active Start: October 14, 2024 End: October 14, 2024 Dr. Afshan Bennett MD Referring Provider Active Start: October 14, 2024 End: October 14, 2024 Sharmila STEWART, PA Attending Provider Active Start: October 14, 2024 End: October 14, 2024 FOR RECORDS PERTAINING TO PATIENTS WHO ARE OR HAVE BEEN ENROLLED IN A CHEMICAL DEPENDENCY/SUBSTANCEABUSE PROGRAM, SOME INFORMATION MAY BE OMITTED. This clinical summary was aggregated from multiple sources. Caution should be exercised in using it in the provision of clinical care. This summary normalizes information from multiple sources, and as a consequence, information in this document may materially change the coding, format and clinical context of patient data. In addition, data may be omitted in some cases. CLINICAL DECISIONS SHOULD BE BASED ON THE PRIMARY CLINICAL RECORDS. [facility]. provides no warranty or guarantee of the accuracy or completeness of information in this document.
== END | disposition home or self-care (01) ==
LOC: CVS 07:36
PROVIDERS: PCP Internal Medicine; Referring Provider Podiatrist; Visit Provider Podiatrist
DX: M79.89 Other specified soft tissue disorders (principal); I87.2 Venous insufficiency (chronic) (peripheral); I73.89 Other specified peripheral vascular diseases
CPT/HCPCS: 93923; 93970